=== PATIENT | female | born 1960 | race Caucasian/White ===

== ENCOUNTER 2025-04-02 13:18 | Inpatient (IN) | payer BC, SELFPAY ==
[2025-04-02] VITALS (8 sets, daily range): BP systolic 160–181; BP diastolic 85–111; PULSE 64–117; RESP 16–23; TEMP 36.5–36.9; O2SAT 94–97; BMI 25.8
--- NOTE | 2025-04-02 13:56 | XR_ITS ---
WS: [id number] XR chest 1V portable [id number] REASON FOR EXAM: dizziness FINDINGS: The heart and mediastinum are within normal limits. Calcified granulomatous disease bilaterally. No acute pulmonary parenchymal or pleural abnormality. Mild degenerative spondylosis in the thoracic spine. XR/XR chest 1V portable [id number] IMPRESSION: No acute chest abnormality.
--- NOTE | 2025-04-02 13:56 | CT_ITS ---
WS: [id number] CT HEAD TECHNIQUE: Noncontrast CT of the head obtained from the skullbase to the vertex. CLINICAL INFORMATION: dizziness COMPARISON: None. DLP: 1094.[address] scans at [facility] use at least one of these dose optimization techniques: automated exposure control; mA and/or kV adjustment per patient size (includes targeted exams where dose is matched to clinical indication); or iterative reconstruction. FINDINGS: No evidence of intracranial hemorrhage or mass effect. Ventricular system and basal cisterns are patent. Moderate small vessel changes with moderate parenchymal volume loss. No extra-axial fluid collections. No evidence of mass or mass effect. Chronic appearing small infarct RIGHT cerebellum. Vascular calcification. Paranasal sinuses and mastoid air cells are well aerated. .Normal visualized soft tissues. CT/CT head wo con* [id number] IMPRESSION: 1. No evidence of intracranial hemorrhage or mass effect. 2. Small infarct RIGHT cerebellum appears chronic. 3. Moderate small vessel changes with moderate parenchymal volume loss. 4. Vascular calcification
--- NOTE | 2025-04-02 13:57 | ECG_ITS ---
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
[2025-04-02] MEDS: sodium chloride 0.9% 1,000 ML 999 ML IV (14:16)
[2025-04-02] MEDS: ondansetron 2 mg/ML SDV 2 mL 4 MG IVP (14:16)
[2025-04-02 14:23] LABS: Basophils % 0.5 %; Eosinophils # 0.1 10^3/uL (0.0-0.8); Eosinophils % 1.8 %; Hematocrit 45.3 % (36-47); Lymphocytes # 1.9 10^3/uL (0.8-4.8); Lymphocytes % 24.9 %; Mean Corpuscular HGB Conc 34.4 g/dL (30-55); Mean Corpuscular Hemoglobin 34.7 pg (27-33); Mean Corpuscular Volume 100.7 fl (85-98); Mean Platelet Volume 9.8 fL (7.4-10.4); Monocytes # 0.7 10^3/uL (0.2-0.9); Monocytes % 9.3 %; Neutrophils # 4.88 10^3/uL (1.8-7.7); Neutrophils % 63.1 %; Nucleated Red Blood Cells % 0 %; Platelet Count 159 10^3/cmm (157-399); Red Cell Distribution Width 12.7 % (12.1-15.1); White Blood Count 7.74 10^3/uL (3.29-11.43)
[2025-04-02 14:36] LABS: Lactic Sepsis W/Reflex 1.7 mmol/L (0.5-2.2)
[2025-04-02 14:40] LABS: Bilirubin Urine Negative (Negative); Blood Urine Negative (Negative); Glucose Urine UA Negative (Normal); Ketones Urine Negative (Negative); Leukocyte Esterase Urine Negative (Negative); Nitrate Urine Negative (Negative); Protein Urine Negative (Negative); Specific Gravity, Urine 1.007 (1.005-1.030); Urine Appearance Clear (CLEAR); Urine Color Yellow (Yellow); Urobilinogen Urine 0.2 mg/dL (Negative); pH Urine 6.5 (5-7)
[2025-04-02 14:41] LABS: Troponin(5th) Baseline 7 ng/L (0-10)
[2025-04-02 14:43] LABS: Add Urine Microscopic? YES; Bacteria Urine None Seen /hpf; Hyaline Casts Urine 1.21 /lpf; RBC Urine 0-2 /hpf (0-2); Squamous Epithelial Cell Urine 0-5 /hpf (0-5); WBC Urine 0-5 /hpf (0-5)
[2025-04-02] MEDS: dilTIAZem 5 mg/mL SDV 5 mL 10 MG IVP (14:47)
--- NOTE | 2025-04-02 14:49 | ED_ITS ---
HPI - Nausea/Vomiting/Diarrhea 2 General: Chief complaint: Nausea/Vomiting/Diarrhea Stated complaint: d/n/v Time Seen by Provider: 04/02/25 13:41 History of Present Illness: 54-year-old female presents ER chief com plaint of a 4-day history of progressive dizziness with vertigo patient reports she was out in the sun and when she may contribute to her symptoms she reports reduced water consumption she does endorse prior history of heatstroke heat exhaustion patient reports that the last 3 days she has been so weak it is hard for her to get up with the vertigo and generalized weakness and fatigue patient denies any history of underlying heart issues. Patient denies any recent infections nor illnesses reports no recent fever. Patient does have a known history of high blood pressure reports has been able to keep her meds in down for the last 2 days due to profound nauseous nests. Patient presents to the emergency department for further assessment and management. Associated nausea: No Associated symtoms: Reports dizziness, fatigue and malaise; Denies anxiety, change in vision, chest pain, headache(s), nausea or palpitations Related Data Allergies Allergy/AdvReac Type Severity Reaction Status Date / Time lisinopril Allergy ALGY-Difficulty Verified 04/02/25 13:36 Breathing Review of Systems 2 General: Reports: 10 or more systems reviewed and unremarkable except in HPI and below Const: Reports: fatigue and malaise; Denies: fever(s) or chills Eyes: Denies: change in vision or blurry vision Card: Denies: chest pain or palpitations Resp: Denies: dyspnea or productive cough GI: Denies: abdominal pain, nausea or vomiting : Denies: flank pain Musc: Denies: extremity pain or extremity swelling Skin/Breast: Denies: rash or pruritus Neuro: Reports: difficulty walking, dizziness and vertigo; Denies: headache(s) Psych: Denies: anxiety or depression Pablo/Lymph: Denies: easy bleeding All/Imm: Denies: urticaria, throat swelling or facial swelling Physical Exam 2 Narrative: EXAM NARRATIVE: Heart rate in the monitor in the room is between 120-140. Patient does have some horizontal nystagmus appreciated Const: COMMON NORMALS: no acute distress, patient oriented x3 and healthy appearing HENMT: COMMON NORMALS: normocephalic and atraumatic HEAD & SCALP: n ormocephalic and atraumatic OTHER: Horizontal nystagmus looking to the left Eye: COMMON NORMALS: Equal, round and reactive pupils present and EOMs intact bilaterally PUPIL: Yes Equal, round and reactive pupils present Neck/C-Spine: COMMON NORMALS: full ROM, supple and no JVD Lymph: LYMPHATIC: no lymphadenopathy noted Chest: COMMONS NORMALS: normal inspection of the chest and normal palpation of entire chest wall Resp: COMMON NORMALS: normal respiratory effort, No retractions and clear to auscultation bilaterally EFFORT & INSPECTION: Yes able to speak in complete sentences and Yes symmetric chest movement AUSCULTATION: clear to auscultation bilaterally Cardio: COMMON NORMALS: no JVD and regular rhythm; negative for regular rate RATE: abnormal rate RHYTHM: regular rhythm O THER: Irregular irregular rate running between 120 and 140 GI: COMMON NORMALS: Normal to inspection, nondistended, normoactive bowel sounds present, Soft to palpation and non-tender INSPECTION: Yes normal to inspection PALPATION: Yes Soft to palpation : COMMON NORMALS: Yes no CVA tenderness BLADDER/KIDNEY EXAM: Yes no CVA tenderness Back/Pelvis: COMMON NORMALS: no CVA tenderness Extremity: COMMON NORMALS: normal to inspection and full ROM Neuro: COMMON NORMALS: patient oriented x3, CN's II-XII intact bilaterally, moves all extremities and no focal motor deficits Psych: COMMON NORMALS: mental status grossly normal, Normal thought process present, cooperative and normal affect THOUGHT PROCESS: Normal thought process present Skin: COMMON NORMALS: no rashes or lesions noted GENERAL SKIN EXAM: no rashes or lesions noted Course 2 Vital Signs: Vital signs: Vital Signs Temperature 98.4 F 04/02/25 13:23 Pulse Rate 117 H 04/02/25 14:17 Respiratory Rate 18 04/02/25 14:17 Blood Pressure 171/104 04/02/25 13:23 Pulse Oximetry 95 04/02/25 14:17 Oxygen Delivery Me thod Room Air 04/02/25 13:23 MDM - Nausea/Vomiting/Diarrhea Medical Decision Making Due to patient's symptoms and condition IV established patient has concerning findings suggestive of atrial fibrillation the monitor will get an EKG and additional cardiac workup. Patient on exam does have a horizontal nystagmus while looking to the left and light concerns of peripheral versus central vertigo is prominent. On exam currently patient has no other weakness or focal neurodeficits. Patient's CAT scan did reveal findings suggestive of a chronic stroke in the cerebellar region on the left this can corroborate with the patient's current symptoms. Patient found to be in new onset atrial fibrillation patient initially provided dose of Cardizem followed by Cardizem drip for rate control discussed patient's case with Dr. Bertrand hospitalist has granted acceptance for further evaluation and management CT angiogram of the head and neck will be obtained prior to subsequent admission. Lab Data 04/02/25 14:10 04/02/25 14:10 Radiology Impressions Chest X-Ray 04/02/25 13:56 IMPRESSION: No acute chest abnormality. Head CT 04/02/25 13:56 IMPRESSION: 1. No evidence of intracranial hemorrhage or mass effect. 2. Small infarct RIGHT cerebellum appears chronic. 3. Moderate small vessel changes with moderate parenchymal volume loss. 4. Vascular calcification Laboratory Results WBC 7.74 10^3/uL (3.29-11.43) 04/02/25 14:10 RBC 4.50 10^6/uL (3.85-5.65) 04/02/25 14:10 Hgb 15.60 g/dL (11.27-16.99) 04/02/25 14:10 Hct 45.3 % (36-47) 04/02/25 14:10 MCV 100.7 fl (85-98) H 04/02/25 14:10 MCH 34.7 pg (27-33) H 04/02/25 14:10 MCHC 34.4 g/dL (30-55) 04/02/25 14:10 RDW 12.7 % (12.1-15.1) 04/02/25 14:10 Plt Count 159 10^3/cmm (157-399) 04/02/25 14:10 MPV 9.8 fL (7.4-10.4) 04/02/25 14:10 Neut % (Auto) 63.1 % 04/02/25 14:10 Lymph % (Auto) 24.9 % 04/02/25 14:10 Gordon % (Auto) 9.3 % 04/02/25 14:10 Eos % (Auto) 1.8 % 04/02/25 14:10 Baso % (Auto) 0.5 % 04/02/25 14:10 Neut # (Auto) 4.88 10^3/uL (1.8-7.7) 04/02/25 14:10 Lymph # (Auto) 1.9 10^3/uL (0.8-4.8) 04/02/25 14:10 Gordon # (Auto) 0.7 10^3/uL (0.2-0.9) 04/02/25 14:10 Eos # (Auto) 0.1 10^3/uL (0.0-0.8) 04/02/25 14:10 Baso # (Auto) 0.0 10^3/uL (0.0-0.1) 04/02/25 14:10 Nucleated RBC % (auto) 0 % 04/02/25 14:10 Nucleated RBCs # 0.0 /100WBC 04/02/25 14:10 Sodium 138 mmol/L (136-145) 04/02/25 14:10 Potassium 3.7 mmol/L (3.5-5.1) 04/02/25 14:10 Chloride 100 mmol/L (98-107) 04/02/25 14:10 Carbon Dioxide 24 mmol/L (22-29) 04/02/25 14:10 Anion Gap 17.7 (5-19) 04/02/25 14:10 BUN 10 mg/dL (8-23) 04/02/25 14:10 Creatinine 0.8 mg/dL (0.5-0.9) 04/02/25 14:10 GFR Calculation 72.2 mL/min (90-130) L 04/02/25 14:10 Glucose 103 mg/dL (65-115) 04/02/25 14:10 Calculated Osmolality 285 mOsm/kg (285-295) 04/02/25 14:10 Lactic Acid 1.7 mmol/L (0.5-2.2) 04/02/25 14:10 Calcium 9.8 mg/dL (8.5-10.5) 04/02/25 14:10 Total Bilirubin 0.4 mg/dL (0.15-1.2) 04/02/25 14:10 AST 27 U/L (0-32) 04/02/25 14:10 ALT 25 U/L (0-33) 04/02/25 14:10 Alkaline Phosphatase 96 U/L (35-105) 04/02/25 14:10 Troponin T Baseline 7 ng/L (0-10) 04/02/25 14:10 C-Reactive Protein 3.6 mg/L (0.0-4.9) 04/02/25 14:10 NT-Pro-B Natriuret Pep 478 pg/mL (0-125) H 04/02/25 14:10 Total Protein 7.2 g/dL (6.6-8.7) 04/02/25 14:10 Albumin 4.0 g/dL (3.5-5.2) 04/02/25 14:10 Globulin 3.2 g/dL (1.3-4.6) 04/02/25 14:10 Urine Color Yellow (Yellow) 04/02/25 14:31 Urine Appearance Clear (CLEAR) 04/02/25 14:31 Urine pH 6.5 (5-7) 04/02/25 14:31 Ur Specific Fertile 1.007 (1.005-1.030) 04/02/25 14:31 Urine Protein Negative (Negative) 04/02/25 14:31 Urine Glucose (UA) Negative (Normal) 04/02/25 14:31 Urine Ketones Negative (Negative) 04/02/25 14:31 Urine Blood Negative (Negative) 04/02/25 14:31 Urine Nitrate Negative (Negative) 04/02/25 14:31 Urine Bilirubin Negative (Negative) 04/02/25 14:31 Urine Urobilinogen 0.2 mg/dL (Negative) 04/02/25 14:31 Ur Leukocyte Esterase Negative (Negative) 04/02/25 14:31 Urine RBC 0-2 /hpf (0-2) 04/02/25 14:31 Urine WBC 0-5 /hpf (0-5) 04/02/25 14:31 Ur Squamous Epith Cells 0-5 /hpf (0-5) 04/02/25 14:31 Amorphous Sediment Not Reportable 04/02/25 14:31 Urine Bacteria None seen /hpf (NONE) 04/02/25 14:31 Hyaline Casts 1.21 /lpf 04/02/25 14:31 All radiology interpretation(s) finalized by discharge Discharge Plan Discharge Patient Disposition: Admitted As Inpatient Clinical Impression: CVA (cerebral vascular accident), Atrial fibrillation, new onset Condition: Stable Coding Level of Care Code ED Quality Nurse for Chg Fwd
[2025-04-02] MEDS: meclizine 25 mg tablet PO (15:13)
--- NOTE | 2025-04-02 15:19 | CTR_ITS ---
PROCEDURE INFORMATION: Exam: CTA Head With Contrast, Arteriography Exam date and time: 04/02/2025 4:50 PM Age: 64 years old Clinical indication: Dizziness and giddiness and weakness; Additional info: Subacute CVA TECHNIQUE: Imaging protocol: Computed tomographic angiography of the head with contrast. Exam focused on the arteries. 3D rendering (Not supervised by radiologist): MIP and/or 3D reconstructed images were created by the technologist. Radiation optimization: All CT scans at this facility use at least one of these dose optimization techniques: automated exposure control; mA and/or kV adjustment per patient size (includes targeted exams where dose is matched to clinical indication); or iterative reconstruction. Contrast material: OMNIPAQUE 350; Contrast volume: 100 ml; Contrast route: INTRAVENOUS (IV); COMPARISON: CT head wo con* [id number] 04/02/2025 2:17 PM RADIATION DOSE METRICS: Total DLP (mGy-cm): 414.83 FINDINGS: ANTERIOR CIRCULATION: Right internal carotid artery: There is atherosclerotic calcification in the right carotid siphon with mild stenosis. Right middle cerebral artery: No occlusion or significant stenosis. No aneurysm. Right anterior cerebral artery: No occlusion or significant stenosis. No aneurysm. Left internal carotid artery: There is atherosclerotic calcification in the left cavernous carotid artery with moderate stenosis in the proximal left cavernous carotid artery. Left middle cerebral artery: No occlusion or significant stenosis. No aneurysm. Left anterior cerebral artery: No occlusion or significant stenosis. No aneurysm. POSTERIOR CIRCULATION: Right vertebral artery: The right vertebral artery is small, probably on a congenital basis. Left vertebral artery: Left vertebral artery is dominant. Basilar artery: No occlusion or significant stenosis. No aneurysm. Right posterior cerebral artery: No occlusion or significant stenosis. No aneurysm. Left posterior cerebral artery: No occlusion or significant stenosis. No aneurysm. Brain: No definite mass, mass effect, or midline shift. Cerebral ventricles: No ventriculomegaly. Bones/joints: Unremarkable. No acute fracture. Soft tissues: Unremarkable. PROCEDURE INFORMATION: Exam: CTA Neck With Contrast Exam date and time: 04/02/2025 4:50 PM Age: 64 years old Clinical indication: Dizziness and giddiness and weakness; Additional info: Subacute CVA TECHNIQUE: Imaging protocol: Computed tomographic angiography of the neck with contrast. Exam focused on the cervical segments of the vasculature. 3D rendering (Not supervised by radiologist): MIP and/or 3D reconstructed images were created by the technologist. Radiation optimization: All CT scans at this facility use at least one of these dose optimization techniques: automated exposure control; mA and/or kV adjustment per patient size (includes targeted exams where dose is matched to clinical indication); or iterative reconstruction. Contrast material: OMNIPAQUE 350; Contrast volume: 100 ml; Contrast route: INTRAVENOUS (IV); COMPARISON: CT head wo con* [id number] 04/02/2025 2:17 PM RADIATION DOSE METRICS: Total DLP (mGy-cm): 414.83 FINDINGS: Right common carotid artery: No stenosis. No dissection or occlusion. Right internal carotid artery: There is some focal atherosclerotic calcification proximal right internal carotid artery without stenosis as measured according to the NASCET criteria. Right external carotid artery: No occlusion or stenosis of the origin. Left common carotid artery: No stenosis. No dissection or occlusion. Left internal carotid artery: There is some mild atherosclerotic calcification and plaque proximal left internal carotid artery without stenosis as measured according to the NASCET criteria. Left external carotid artery: No occlusion or stenosis of the origin. Right vertebral artery: No stenosis. No dissection or occlusion. Left vertebral artery: Left vertebral artery is dominant. No stenosis. No dissection or occlusion. Soft tissues: Normal. No significant soft tissue swelling. Bones/joints: No acute fracture. CT/CT angio headneck* [id number] IMPRESSION: There is no intracranial large vessel occlusion. IMPRESSION: There is no evidence of significant stenosis or occlusion in the carotid or vertebral arteries in the neck. REFERENCES: NASCET CRITERIA. The degree of stenosis in the cervical segment of the internal carotid artery is based on NASCET criteria. Normal is no stenosis. Mild is less than 50% stenosis. Moderate is 50-69% stenosis. Severe is 70% to 99% stenosis. Total occlusion is no detectable patent lumen.
[2025-04-02 15:21] LABS: Alanine Aminotransferase 25 U/L (0-33); Alkaline Phosphatase 96 U/L (35-105); Anion Gap 17.7 (5-19); Aspartate Amino Transferase 27 U/L (0-32); Blood Urea Nitrogen 10 mg/dL (8-23); C Reactive Protein 3.6 mg/L (0.0-4.9); Calcium 9.8 mg/dL (8.5-10.5); Carbon Dioxide 24 mmol/L (22-29); Chloride 100 mmol/L (98-107); Creatinine Clr Calc Pharmacy 77.5922; Globulin 3.2 g/dL (1.3-4.6); Glomerular Filtration Rate 72.2 mL/min (90-130); Glucose 103 mg/dL (65-115); NT Pro B Type Natriuretic Pept 478 pg/mL (0-125); Osmolality Calculated 285 mOsm/kg (285-295); Potassium 3.7 mmol/L (3.5-5.1); Sodium 138 mmol/L (136-145); Total Bilirubin 0.4 mg/dL (0.15-1.2); Total Protein 7.2 g/dL (6.6-8.7)
--- NOTE | 2025-04-02 15:57 | ECG_ITS ---
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
--- NOTE | 2025-04-02 16:02 | PM.HP ---
Providers/Chief Complaint Chief Complaint: d/n/v History of Present Illness Celsa Ruiz is a 64 year old female with past medical history of anemia requiring 2 units of blood transfusion no apparent cause found on EGD colonoscopy, hypertension, depression presented to the hospital today after feeling dizzy lightheaded. She has been having nausea vomiting and has felt off balance. She states everything was okay and she was on the boat Saturday/Saturday and it was hot outside. She did not drink enough water but drank a lot of alcohol. Saturday she was in the laundry room and bent over to slat pickler the clothes and immediately felt dizzy and the room was spinning. She crawled onto the couch and sat down. She felt very dehydrated. She has had a history of a stroke in the past. She realized she was dehydrated and therefore tried to drink 2 bottles of Pedialyte however would not tolerate any oral intake and immediately vomited. She felt something was not right and therefore came to the hospital. He states he thinks he may have had a history of A-fib in the past he says the visit at the hospital when she received blood transfusions she was told that her heart rate is not regular however no workup was done no referrals were made and she was given her blood transfusion. Thereafter she states that she did not seek any medical attention. May or may not have had an echo in the past. In ER she was found to be in A-fib with RVR. She was given Cardizem push and started on Cardizem drip. There was also concern for stroke however due to symptom onset being a few days prior stroke code was not called. CT head shows No evidence of intracranial hemorrhage or mass effect. Chronic small infarct in right cerebellar area noted appearing to be chronic. CTA head and neck is pending. Able to move all 4 extremities no facial droop noted. She states she was able to walk into the ER on her own. Medications/Allergies Home Medications ?Medication ?Instructions ?Recorded ?Confirmed ?Last Taken ?Type atenolol 100 mg tablet 100 mg PO DAILY 04/02/25 04/02/25 03/31/25 History folic acid 1 mg tablet 1 mg PO DAILY 04/02/25 04/02/25 03/31/25 History furosemide 20 mg tablet 20 mg PO DAILY 04/02/25 04/02/25 03/31/25 History hydroxyzine pamoate 25 mg capsule 25 mg PO BEDTIME PRN Anxiety 04/02/25 04/02/25 Unknown History mirtazapine 30 mg tablet 60 mg PO BEDTIME 04/02/25 04/02/25 04/01/25 20:00 History venlafaxine 150 mg tablet,extended 300 mg PO BEDTIME 04/02/25 04/02/25 04/01/25 20:00 History release 24 hr Allergies Allergy/AdvReac Type Severity Reaction Status Date / Time lisinopril Allergy ALGY-Difficulty Verified 04/02/25 13:36 Breathing Vitals/I&O/Wt Last Vital Signs Temp 98.4 F 04/02/25 13:23 Pulse 117 H 04/02/25 14:17 Resp 18 04/02/25 14:17 BP 171/104 04/02/25 13:23 Pulse Ox 95 04/02/25 14:17 O2 Del Method Room Air 04/02/25 13:23 04/02/25 04/02/25 04/02/25 06:59 14:59 22:59 Intake Total 0 / 0 Balance 0 / 0 Weight last 48 hrs Weight 77.111 kg Physical Exam Narrative: General: Alert oriented x3, patient seen sitting up in bed appearing comfortable currently on Cardizem drip. HEENT: Normocephalic, atraumatic, EOMI, breathing room air. Tachycardic hypertensive. Cardio: Irregularly irregular normal S1-S2, Respiratory: Clear to auscultation bilaterally GI: Abdomen soft, nontender, nondistended, bowel sounds + Extremities: No edema bilateral extremities Neuro: No gross focal deficits., Gait not tested. Data 04/02/25 14:10 04/02/25 14:10 A&P Assessment and plan (1) Atrial fibrillation, new onset: (2) CVA (cerebral vascular accident): (3) Depression: (4) Hypertension: (5) History of anemia: (6) Dehydration: (7) Nausea & vomiting: (8) History of heat stroke: Plan #New onset atrial fibrillation with RVR #Dehydration #Hypertensive urgency #Depression #Nausea vomiting #Vertigo, unsteadiness/possible stroke? Chronic right cerebellar infarct noted on CT head ? Await 2 over 3-hour troponin. Initial troponin 12. ? Check CTA head and neck ? Check MRI brain without contrast ? Patient is well out of window for any tPA at this point. ? Continue titrate Cardizem drip for heart rate control ? Cardiology consulted from the ER ? Check lipid panel, TSH, hemoglobin A1c ? Patient is on Lasix at home for which she states that she was given that for high blood pressure and not for heart failure. She does not carry a formal diagnosis of heart failure. ? Check echocardiogram. - Order normal saline 75 cc/h ? Patient takes atenolol 100 mg daily at home. Will hold for now ? Await cardiology recommendations ? Will place on heparin drip to cover for atrial fibrillation ? PT OT ? Patient would like to be a full code. ? Add aspirin, atorvastatin Full code DVT prophylaxis: Heparin drip PDMP PDMP Reviewed: Not Reviewed Attestations Medical Necessity Statement*: Atrial fibrillation with RVR which is new onset patient is on a Cardizem drip at this time. Also needs a stroke workup. Diagnoses Atrial fibrillation, new onset I48.91 CVA (cerebral vascular accident) I63.9 CVA mechanism: unspecified Depression F32.A Hypertension I10 History of anemia Z86.2 Dehydration E86.0 Nausea & vomiting R11.2 History of heat stroke Z87.828
--- NOTE | 2025-04-02 16:03 | PC.NURSE ---
Addendum entered by Aide Benítez RN 04/02/25 16:26: correction; normal saline* instead of LR Original Note: maintenance fluids delayed d/t LR currently infusing at this time
[2025-04-02 16:24] LABS: Troponin 5 2HR 7.55 ng/L (0-10); Troponin 5 2HR Delta 0.55 ABS# (0-10)
[2025-04-02] MEDS: sodium chloride 0.9% 1,000 ML 75 ML IV (16:34)
[2025-04-02 16:36] LABS: Estmated Average Glucose 117; Hemoglobin A1C 5.7 % (4.0-6.0)
[2025-04-02 16:52] LABS: Chol HDL Ratio 3.34 mg/dL (0.0-4.40); Cholesterol 187 mg/dL (0-200); HDL Cholesterol 56 mg/dL (60-100); LDL Cholesterol Calculated 95 mg/dL (50-129); Thyroid Stimulating Hormone 2.21 uIU/mL (0.27-4.20); Triglycerides 181 mg/dL (0-150)
[2025-04-02] MEDS: iohexol 350 mg/mL 500 mL Btl (per mL) IV (17:01)
--- NOTE | 2025-04-02 17:45 | USCV_ITS ---
Sara Celsa Age: 64 Gender: F : 1960 Exam Date: 04/02/2025 18:41 Ordering Phys: Valerie Bertrand MD Technologist: João Echols [place] [facility] [place]ication: stroke workup, afib BP: 172 / 85 HR: 81 Rhythm: Sinus Technical Quality: Adequate MEASUREMENTS (Male / Female) Normal Values 2D ECHO LV Diastolic Diameter PLAX 4.2 cm 4.2 - 5.9 / 3.9 - 5.3 cm IVS Diastolic Thickness 1.5 cm 0.6 - 1.0 / 0.6 - 0.9 cm IVS Systolic Thickness 1.7 cm LVPW Diastolic Thickness 1.0 cm 0.6 - 1.0 / 0.6 - 0.9 cm LVPW Systolic Thickness 1.5 cm LVOT Diameter 2.0 cm LV Ejection Fraction 2D Teich 60.8 % LV Ejection Fraction MOD 4C 63.4 % LV Ejection Fraction MOD 2C 51.7 % LV Ejection Fraction 2C AL 52.4 % LA Diameter 3.3 cm RA Systolic Volume 4C AL 21.5 ml RA Systolic Volume 4C MOD 21.3 ml LA Sys Volume AL 25.7 cm cubed LA Sys Volume Index AL 13.3 cm cubed/m squared Aorta at Sinotubular Diameter 2.3 cm IVC Diameter 1.5 cm M-MODE LA Ao Ratio MM 1.7 AV Cusp Separation MM 1.4 cm DOPPLER AV Peak Velocity 148.3 cm/s LVOT Peak Velocity 112.0 cm/s AV Area Cont Eq vti 2.1 cm squared AV Area Cont Eq pk 2.4 cm squared MV Peak Velocity 95.0 cm/s MV Area PHT 5.2 cm squared Mitral E to A Ratio 0.7 TR Peak Velocity 329.0 cm/s TR Peak Gradient 43.3 mmHg TR Mean Velocity 310.0 cm/s TR Mean Gradient 38.8 mmHg TR Velocity Time Integral 88.3 cm PV Peak Velocity 92.0 cm/s RV Ejection Time 0.3 s FINDINGS Left Ventricle Normal left ventricular size, systolic function and wall thickness, with no regional wall motion abnormalities. Left ventricular ejection fraction is estimated at 60%. Grade I/IV diastolic dysfunction (abnormal relaxation filling pattern), normal to mildly elevated filling pressures. Right Ventricle The right ventricle is normal in size and function. Right Atrium The right atrium is normal in size. Left Atrium The left atrium is normal in size. Mitral Valve Moderately thickened mitral valve. Mild mitral annular calcification. No mitral valve stenosis. Trace mitral valve regurgitation. Aortic Valve Moderate aortic valve calcification. No aortic valve stenosis. Trace aortic valve regurgitation. Tricuspid Valve Structurally normal tricuspid valve without significant stenosis or regurgitation. Pulmonary artery systolic pressure is normal. Pulmonic Valve Structurally normal pulmonic valve without significant stenosis. There is no pulmonic regurgitation. Pericardium Small pericardial effusion. Aorta Normal ascending aorta dimension. IVC The inferior vena cava appears normal. CONCLUSIONS Normal left ventricular size, systolic function and wall thickness, with no regional wall motion abnormalities. Left ventricular ejection fraction is estimated at 60%. Grade I/IV diastolic dysfunction (abnormal relaxation filling pattern), normal to mildly elevated filling pressures. No significant valve abnormalities. There is no pericardial effusion. Right atrial pressure is around 5 mm of mercury. Duyen Fuentes MD (Electronically Signed) Final Date: 02 April 2025 20:40 S
[2025-04-02] MEDS: heparin 5,000 unit/mL INJ 1 mL IVP (18:05)
[2025-04-02] MEDS: heparin drip 25,000 UNIT/500 ML PREMIX 22 UNIT IV (18:14)
[2025-04-02] MEDS: dilTIAZem 100 MG in sodium chloride 0.9% (add-van) 100 ML IV (19:30)
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
[2025-04-02] MEDS: acetaminophen 325 mg Tablet 650 MG PO (21:44)
[2025-04-02] MEDS: atorvastatin 40 mg Tablet 80 MG PO (21:44)
[2025-04-02] MEDS: venlafaxine ER (24HR) 150 mg Capsule 300 MG PO (21:44)
[2025-04-02] MEDS: metoprolol tartrate 25 mg Tablet PO (21:45)
[2025-04-02] MEDS: mirtazapine 30 mg Tablet 60 MG PO (21:45)
[2025-04-03] VITALS (34 sets, daily range): BP systolic 160–208; BP diastolic 66–98; PULSE 59–118; RESP 15–28; TEMP 36.3–36.9; O2SAT 94–98
[2025-04-03 00:53] LABS: Partial Thromboplastin Time 73.5 SECONDS (23.9-36.7)
[2025-04-03] MEDS: dilTIAZem 100 MG in sodium chloride 0.9% (add-van) 100 ML IV (04:40)
[2025-04-03] MEDS: sodium chloride 0.9% 1,000 ML 75 ML IV ×2 (04:41→18:04)
[2025-04-03] MEDS: acetaminophen 325 mg Tablet 650 MG PO (05:49)
[2025-04-03 06:31] LABS: Partial Thromboplastin Time 79.8 SECONDS (23.9-36.7)
[2025-04-03] MEDS: metoprolol tartrate 25 mg Tablet PO ×2 (06:38→20:59)
[2025-04-03] MEDS: heparin drip 25,000 UNIT/500 ML PREMIX 20 UNIT IV (06:40)
[2025-04-03] MEDS: aspirin 81 mg EC Tablet PO (07:23)
--- NOTE | 2025-04-03 09:00 | MRR_ITS ---
PROCEDURE INFORMATION: Exam: MR Head Without Contrast Exam date and time: 04/03/2025 9:15 AM Age: 64 years old Clinical indication: Dizziness and malaise or fatigue and walking, difficulty and weakness, extremity; Additional info: Stroke TECHNIQUE: Imaging protocol: Magnetic resonance imaging of the head without contrast. COMPARISON: CT angio headneck* [id number] 04/02/2025 4:50 PM FINDINGS: Brain: There is prominence of the subarachnoid spaces compatible with atrophy. No extra-axial fluid collections or masses are noted. There are small-vessel ischemic change within the periventricular and subcortical white matter. There appears to be an old infarct involving the field radiata on the right.There are small focal areas of diffusion restriction within the right cerebellar hemisphere and to a lesser degree the left cerebellar hemisphere and left cerebellar peduncle. No intracranial hemorrhage is appreciated. Cerebral ventricles: Normal. No ventriculomegaly. Bones: Unremarkable. Paranasal sinuses: Normal as visualized. No acute sinusitis. Mastoid air cells: Normal as visualized. No mastoid effusion. Orbital cavities: Unremarkable. Soft tissues: Unremarkable. MR/MR head wo con* [id number] IMPRESSION: 1. Acute appearing infarcts involving the right and left cerebellar hemispheres as well as the left cerebellar peduncle. 2. Atrophy with small-vessel ischemic change.
[2025-04-03] MEDS: LORazepam 2 mg/mL INJ 1 mL 1 MG IVP (09:01)
--- NOTE | 2025-04-03 09:11 | PC.NURSE ---
Patient taken to MRI. Screening completed. Medicated patient for claustrophobia as ordered and documented.
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
[2025-04-03] MEDS: thiamine 100 mg Tablet PO (11:35)
--- NOTE | 2025-04-03 13:16 | PC.PT ---
Therapist attempted eval at 11:36 and again at 13:10 and patient reported that she was too woozy to attempt due to taking Adivan prior to MRI this am.
[2025-04-03 13:47] LABS: Platelet Count 136 10^3/cmm (157-399)
[2025-04-03 14:00] LABS: Partial Thromboplastin Time 50.9 SECONDS (23.9-36.7)
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
[2025-04-03] MEDS: heparin drip 25,000 UNIT/500 ML PREMIX 22 UNIT IV (18:04)
--- NOTE | 2025-04-03 20:04 | P.PN_ITS ---
Subjective 2 Subjective: MRI was consistent with cerebellar stroke Converted back to sinus rhythm Blood pressure is elevated Vitals/I&O/Wt Last Vital Signs Temp 98.4 F 04/03/25 19:56 Pulse 75 04/03/25 19:56 Resp 19 H 04/03/25 19:56 BP 193/98 04/03/25 19:56 Pulse Ox 97 04/03/25 19:56 O2 Del Method Room Air 04/03/25 19:56 04/03/25 04/03/25 04/03/25 06:59 14:59 22:59 Intake Total 1602.083 / 2609.583 480 / 480 1653 / 2133 Output Total 300 / 300 Balance 1602.083 / 2609.583 480 / 480 1353 / 1833 Weight last 48 hrs Weight 176 lb 6.4 oz Weight 170 lb Weight 170 lb Physical Exam 2 Const: OTHER: GENERAL: Patient is alert, awake and oriented x3. HEART: Regular S1 and S2. No murmur, rub or gallop. LUNGS: Clear to auscultate bilaterally. CENTRAL NERVOUS SYSTEM: Grossly nonfocal. EXTREMITIES: Lower extremities with out edema bilaterally. Data 04/03/25 13:08 04/02/25 14:10 A&P Assessment and plan (1) Atrial fibrillation, new onset: (2) Hypertension: (3) CVA (cerebral vascular accident): Plan Remains in sinus rhythm Add losartan 50 mg twice daily for hypertension uncontrolled Hydralazine 10 mg Q4 as needed for systolic blood pressure more than 160 Once okay with neurology oral anticoagulation for A-fib. PDMP PDMP Reviewed: Not Reviewed Attestations 2 Medical Necessity Statement*: Require continuation hospitalization for above defined care Coding Level of Care Code Acute Code for [facility] Fwd Diagnoses Atrial fibrillation, new onset I48.91 Hypertension I10 CVA (cerebral vascular accident) I63.9 CVA mechanism: unspecified
[2025-04-03] MEDS: losartan 50 mg Tablet PO (20:59)
[2025-04-03] MEDS: atorvastatin 40 mg Tablet 80 MG PO (21:00)
[2025-04-03] MEDS: mirtazapine 30 mg Tablet 60 MG PO (21:01)
[2025-04-03] MEDS: venlafaxine ER (24HR) 150 mg Capsule 300 MG PO (21:01)
[2025-04-03 22:25] LABS: Partial Thromboplastin Time 64.7 SECONDS (23.9-36.7)
[2025-04-03 22:26] LABS: Basophils # 0.1 10^3/uL (0.0-0.1); Basophils % 0.8 %; Eosinophils # 0.1 10^3/uL (0.0-0.8); Hematocrit 37.6 % (36-47); Lymphocytes # 2.2 10^3/uL (0.8-4.8); Lymphocytes % 33.5 %; Mean Corpuscular HGB Conc 34.8 g/dL (30-55); Mean Corpuscular Hemoglobin 34.1 pg (27-33); Mean Corpuscular Volume 97.9 fl (85-98); Mean Platelet Volume 10.6 fL (7.4-10.4); Monocytes # 0.6 10^3/uL (0.2-0.9); Monocytes % 9.8 %; Neutrophils % 53.6 %; Nucleated Red Blood Cells % 0 %; Platelet Count 135 10^3/cmm (157-399); Red Blood Count 3.84 10^6/uL (3.85-5.65); Red Cell Distribution Width 12.7 % (12.1-15.1); White Blood Count 6.53 10^3/uL (3.29-11.43)
[2025-04-03 22:33] LABS: Anion Gap 13.7 (5-19); Blood Urea Nitrogen 9 mg/dL (8-23); Calcium 9.4 mg/dL (8.5-10.5); Carbon Dioxide 26 mmol/L (22-29); Chloride 100 mmol/L (98-107); Creatinine Clr Calc Pharmacy 90.1652; Glomerular Filtration Rate 84.2 mL/min (90-130); Glucose 99 mg/dL (65-115); Osmolality Calculated 281 mOsm/kg (285-295); Potassium 3.7 mmol/L (3.5-5.1); Sodium 136 mmol/L (136-145)
[2025-04-03] MEDS: hyDRALAzine 20 mg/mL INJ 1 mL 10 MG IVP (23:23)
[2025-04-04] VITALS (43 sets, daily range): BP systolic 127–208; BP diastolic 84–141; PULSE 70–162; RESP 15–28; TEMP 36.5–36.7; O2SAT 91–98
[2025-04-04] MEDS: nitroglycerin drip 50 MG/250 ML PREMIX IV (02:42)
[2025-04-04 04:36] LABS: Basophils # 0.1 10^3/uL (0.0-0.1); Basophils % 0.6 %; Eosinophils # 0.1 10^3/uL (0.0-0.8); Eosinophils % 1.8 %; Lymphocytes % 25.5 %; Mean Corpuscular HGB Conc 33.3 g/dL (30-55); Mean Corpuscular Hemoglobin 33.7 pg (27-33); Mean Corpuscular Volume 101.4 fl (85-98); Mean Platelet Volume 10.6 fL (7.4-10.4); Monocytes # 0.8 10^3/uL (0.2-0.9); Monocytes % 9.9 %; Neutrophils # 4.77 10^3/uL (1.8-7.7); Neutrophils % 61.7 %; Nucleated Red Blood Cells % 0 %; Platelet Count 150 10^3/cmm (157-399); Red Blood Count 4.24 10^6/uL (3.85-5.65); Red Cell Distribution Width 12.5 % (12.1-15.1); White Blood Count 7.74 10^3/uL (3.29-11.43)
[2025-04-04 04:50] LABS: Anion Gap 14.3 (5-19); Blood Urea Nitrogen 7 mg/dL (8-23); Calcium 9.7 mg/dL (8.5-10.5); Carbon Dioxide 26 mmol/L (22-29); Chloride 101 mmol/L (98-107); Creatinine Clr Calc Pharmacy 104.5958; Glomerular Filtration Rate 100.6 mL/min (90-130); Glucose 110 mg/dL (65-115); Magnesium 1.5 mg/dL (1.7-2.3); Osmolality Calculated 285 mOsm/kg (285-295); Partial Thromboplastin Time 72.1 SECONDS (23.9-36.7); Potassium 3.3 mmol/L (3.5-5.1); Sodium 138 mmol/L (136-145)
[2025-04-04] MEDS: sodium chloride 0.9% 1,000 ML 75 ML IV ×2 (06:18→20:55)
[2025-04-04] MEDS: hyDRALAzine 20 mg/mL INJ 1 mL 10 MG IVP (06:20)
[2025-04-04] MEDS: acetaminophen 325 mg Tablet 650 MG PO (07:07)
[2025-04-04] MEDS: thiamine 100 mg Tablet PO (07:07)
[2025-04-04] MEDS: metoprolol tartrate 25 mg Tablet PO (07:07)
[2025-04-04] MEDS: aspirin 81 mg EC Tablet PO (07:07)
[2025-04-04] MEDS: losartan 50 mg Tablet PO ×2 (07:08→17:13)
--- NOTE | 2025-04-04 07:27 | PC.NURSE ---
Patient's heart elevated this morning and back in afib and was started on nitro drip. She is c/o severe headache since drip started. Medicated for headache and gave am meds early for BP and HR. Patient is also very anxious and agitated this morning. Informed Dr Bertrand of patient condition.
--- NOTE | 2025-04-04 09:04 | P.PN_ITS ---
Subjective 2 Subjective: The patient had a difficult time overnight with feeling more agitated and not being able to sleep. She had a headache from the nitro drip. They were able to titrate it down some and give Tylenol that helped with her headache. The patient feels like her symptoms of weakness have improved overall. She is able to get herself to the bedside commode without difficulty. She has not been up with physical therapy yet. Occupational Therapy did not feel that she needed further intervention at this time. The patient admits to drinking 3-4 drinks per night on average. She has not had anything to drink since Saturday of last week. Nursing staff wonders if some of her elevated blood pressures may be related. Vitals/I&O/Wt Last Vital Signs Temp 98.0 F 04/04/25 07:55 Pulse 140 H 04/04/25 07:55 Resp 18 04/04/25 07:55 BP 164/103 04/04/25 07:55 Pulse Ox 96 04/04/25 07:55 O2 Del Method Room Air 04/04/25 07:55 04/03/25 04/04/25 04/04/25 22:59 06:59 14:59 Intake Total 1653 / 2133 931.325 / 3064.325 4.0 / 4.0 Output Total 300 / 300 1000 / 1000 Balance 1353 / 1833 931.325 / 2764.325 -996.0 / -996.0 Weight last 48 hrs Weight 174 lb 3.2 oz Weight 176 lb 6.4 oz Weight 170 lb Weight 170 lb Physical Exam 2 Narrative: General: Alert and oriented x 3. In no acute distress. Eyes: PERRLA, EOM intact, no discharge. Mouth: No erythema or tonsilar enlargement. No masses noted. Neck: No thyromegaly. No lymphadenopathy. Heart: Regular rate and rhythm. No murmurs. Lungs: Decreased air entry bilaterally. Clear to auscultation bilaterally. No wheezes, rales or ronchi. Abdomen: Soft, non-tender. No hepatosplenomegaly. Extremities: No pitting edema. Neuro: Cranial nerves II through XII intact without significant weakness in the bilateral upper or lower extremities. Alternating hand movements and [id number] testing is normal. Data 04/04/25 04:01 04/04/25 04:01 A&P Assessment and plan (1) CVA (cerebral vascular accident): The patient had a cerebellar stroke and her symptoms seem to be improving at this time. She has limited deficits noted at this point. Physical therapy will evaluate the patient. We will continue with a heparin drip and plan to transition to Eliquis as an outpatient. I appreciate neurology's consultation with this patient. (2) Hypertension: The patient's blood pressures have been significantly elevated and have been worsening over the last couple of days. She has been started on losartan by cardiology and she is on metoprolol. She was started on a nitro drip overnight and her blood pressures are down in the 160 systolic. It is certainly possible that this could be related to alcohol use as well. I have started this CIWA protocol and we will evaluate to see if Ativan can be helpful with her blood pressure as well. She was more agitated overnight. I will add back hydroxyzine to take at bedtime as well. (3) Hypokalemia: We will replace by mouth. Recheck tomorrow. (4) Hypomagnesemia: We will recheck tomorrow and replace by mouth today. (5) Alcohol use: The patient will need to work on cutting back on alcohol and potentially quitting altogether. She has been given thiamine. We will initiate the CIWA protocol as she is showing signs of possible complications related to this. (6) Atrial fibrillation, new onset: The patient has new onset atrial fibrillation and is currently on the heparin drip. Her echocardiogram did not show signs of a blood clot. She will likely switch to Eliquis upon discharge. I appreciate cardiology's consultation with this patient. PDMP PDMP Reviewed: Not Reviewed Attestations 2 Medical Necessity Statement*: The patient continues to need inpatient therapy as we work on managing her hypertension and atrial fibrillation. Her stay will cross 2 midnights. Coding Level of Care Code Acute Code for [facility] Diagnoses CVA (cerebral vascular accident) I63.9 CVA mechanism: unspecified Hypertension I10 Hypokalemia E87.6 Hypomagnesemia E83.42 Alcohol use F10.90 Atrial fibrillation, new onset I48.91
[2025-04-04] MEDS: folic acid 1 mg Tablet PO (09:14)
[2025-04-04] MEDS: LORazepam 2 mg Tablet 0.5 MG PO ×2 (09:14→20:36)
[2025-04-04] MEDS: potassium chloride ER 20 mEq Tablet 40 MEQ PO (09:14)
[2025-04-04] MEDS: magnesium oxide 400 mg tablet PO ×2 (09:14→17:13)
[2025-04-04] MEDS: multivitamin therapeutic Tablet 1 TAB PO (09:14)
[2025-04-04 10:36] LABS: Partial Thromboplastin Time 58.1 SECONDS (23.9-36.7)
[2025-04-04] MEDS: amiodarone 150 MG/100 ML PREMIX 400 MG IV (13:14)
[2025-04-04] MEDS: amiodarone 200 mg Tablet 400 MG PO ×2 (14:48→20:24)
--- NOTE | 2025-04-04 15:31 | P.PN_ITS ---
Subjective 2 Subjective: Patient went back into A-fib this morning Blood pressure got under control after nitro drip in the night Vitals/I&O/Wt Last Vital Signs Temp 97.9 F 04/04/25 11:37 Pulse 90 04/04/25 15:15 Resp 23 H 04/04/25 15:15 BP 138/93 04/04/25 15:15 Pulse Ox 94 04/04/25 15:15 O2 Del Method Room Air 04/04/25 11:37 04/04/25 04/04/25 04/04/25 06:59 14:59 22:59 Intake Total 931.325 / 3064.325 849.95 / 849.95 Output Total 1300 / 1300 Balance 931.325 / 2764.325 -450.05 / -450.05 Weight last 48 hrs Weight 174 lb 3.2 oz Weight 176 lb 6.4 oz Weight 170 lb Physical Exam 2 Const: OTHER: GENERAL: Patient is alert, awake and oriented x3. HEART: Regular S1 and S2. No murmur, rub or gallop. LUNGS: Clear to auscultate bilaterally. CENTRAL NERVOUS SYSTEM: Grossly nonfocal. EXTREMITIES: Lower extremities with out edema bilaterally. Data 04/04/25 04:01 04/04/25 04:01 A&P Assessment and plan (1) Atrial fibrillation, new onset: (2) Hypertension: (3) CVA (cerebral vascular accident): Plan Switch patient to amiodarone since patient is back in A-fib with RVR it appeared to me that patient has paroxysmal A-fib and not staying in the rhythm Switch from metoprolol to carvedilol for better blood pressure control Switch patient to p.o. apixaban and discontinue heparin Continue losartan 50 mg twice daily Hydralazine IV for systolic blood pressure more than 160 Continue to monitor for alcohol withdrawal with CIWA protocol PDMP PDMP Reviewed: Not Reviewed Attestations 2 Medical Necessity Statement*: Patient require continuation hospitalization for above defined care. Coding Level of Care Code Acute Code for [facility] Fwd Diagnoses Atrial fibrillation, new onset I48.91 Hypertension I10 CVA (cerebral vascular accident) I63.9 CVA mechanism: unspecified
[2025-04-04] MEDS: carvedilol 6.25 mg Tablet PO (15:59)
[2025-04-04] MEDS: heparin drip 25,000 UNIT/500 ML PREMIX 22 UNIT IV (15:59)
[2025-04-04 16:59] LABS: Partial Thromboplastin Time 69.5 SECONDS (23.9-36.7)
[2025-04-04] MEDS: mirtazapine 30 mg Tablet 60 MG PO (20:24)
[2025-04-04] MEDS: atorvastatin 40 mg Tablet 80 MG PO (20:24)
[2025-04-04] MEDS: venlafaxine ER (24HR) 150 mg Capsule 300 MG PO (20:25)
[2025-04-05] VITALS (12 sets, daily range): BP systolic 128–189; BP diastolic 76–110; PULSE 82–102; RESP 18–28; TEMP 36.8–38.5; O2SAT 94–98
[2025-04-05] MEDS: hyDROXYzine 25 mg Capsule PO ×2 (01:58→09:10)
[2025-04-05] MEDS: hyDRALAzine 20 mg/mL INJ 1 mL 10 MG IVP (03:48)
[2025-04-05] MEDS: acetaminophen 325 mg Tablet 650 MG PO ×2 (04:41→17:48)
[2025-04-05 04:44] LABS: Basophils % 0.4 %; Eosinophils # 0.1 10^3/uL (0.0-0.8); Eosinophils % 1.1 %; Hematocrit 41.6 % (36-47); Lymphocytes # 0.7 10^3/uL (0.8-4.8); Lymphocytes % 8.5 %; Mean Corpuscular HGB Conc 33.2 g/dL (30-55); Mean Corpuscular Hemoglobin 33.8 pg (27-33); Monocytes # 0.6 10^3/uL (0.2-0.9); Monocytes % 7.7 %; Neutrophils # 6.55 10^3/uL (1.8-7.7); Neutrophils % 81.8 %; Nucleated Red Blood Cells % 0 %; Platelet Count 116 10^3/cmm (157-399); Red Blood Count 4.08 10^6/uL (3.85-5.65); Red Cell Distribution Width 12.9 % (12.1-15.1); White Blood Count 8.01 10^3/uL (3.29-11.43)
[2025-04-05 05:01] LABS: Partial Thromboplastin Time 44.8 SECONDS (23.9-36.7)
[2025-04-05] MEDS: heparin 5,000 unit/mL INJ 1 mL IVP (05:41)
[2025-04-05 06:20] LABS: Alanine Aminotransferase 17 U/L (0-33); Albumin Level 3.6 g/dL (3.5-5.2); Alkaline Phosphatase 102 U/L (35-105); Aspartate Amino Transferase 16 U/L (0-32); Blood Urea Nitrogen 8 mg/dL (8-23); Calcium 8.6 mg/dL (8.5-10.5); Carbon Dioxide 20 mmol/L (22-29); Chloride 102 mmol/L (98-107); Creatinine Clr Calc Pharmacy 90.7466; Globulin 2.6 g/dL (1.3-4.6); Glomerular Filtration Rate 84.2 mL/min (90-130); Glucose 114 mg/dL (65-115); Magnesium 1.4 mg/dL (1.7-2.3); Osmolality Calculated 277 mOsm/kg (285-295); Sodium 134 mmol/L (136-145); Total Bilirubin 0.7 mg/dL (0.15-1.2); Total Protein 6.2 g/dL (6.6-8.7)
--- NOTE | 2025-04-05 06:24 | PC.NURSE ---
0546- Notified Dr. Lowery about hoigh BP after receiving IVP hydralazine and pain medication. Awaiting response. 619-Notified Dr. Lowery about BP still being elevated in the 170's despite IVP hydralazine and pain being treated. Per Dr. Lowery recheck BP at 0630. Clarified with MD that hydralazine was given around 0400 and it still is elevated, was advised to recheck at 0630.
[2025-04-05] MEDS: losartan 50 mg Tablet PO ×2 (09:06→17:49)
[2025-04-05] MEDS: carvedilol 6.25 mg Tablet PO ×2 (09:06→17:49)
[2025-04-05] MEDS: multivitamin therapeutic Tablet 1 TAB PO (09:06)
[2025-04-05] MEDS: amiodarone 200 mg Tablet 400 MG PO ×2 (09:06→21:50)
[2025-04-05] MEDS: thiamine 100 mg Tablet PO (09:06)
[2025-04-05] MEDS: magnesium oxide 400 mg tablet PO ×2 (09:06→17:49)
[2025-04-05] MEDS: folic acid 1 mg Tablet PO (09:06)
[2025-04-05] MEDS: aspirin 81 mg EC Tablet PO (09:07)
[2025-04-05] MEDS: amlodipine 10 mg Tablet PO (09:09)
[2025-04-05 09:36] LABS: Iron 120 ug/dL (37-145); Percent Saturation 50.6 % (20-50); Total Iron Binding Capacity 237 mcg/dl; Unsaturated Iron Binding 117 ug/dL (112-347)
[2025-04-05 09:50] LABS: Vitamin B12 281 pg/mL (232-1245)
--- NOTE | 2025-04-05 10:17 | P.PN_ITS ---
<Statement entered by Duyen Fuentes MD - 04/06/25 17:47> Patient was evaluated and cared for in conjunction with an advanced practice practitioner. I personally examined the patient and reviewed the chart and all pertinent data including imaging, telemetry, and laboratory results. I discussed the patient in detail with the advanced practice practitioner. Please see their note for complete H&P testing result and agreed upon plan of care for the patient. Subjective 2 Subjective: Patient doing well this morning with no complaints. No signs or symptoms of residual stroke per patient so far. She is currently getting Eliquis 5 twice daily. Amlodipine 10 mg daily has been added to help adjust her blood pressure. She is currently on amiodarone 400 twice daily. Vitals/I&O/Wt Last Vital Signs Temp 98.3 F 04/05/25 08:00 Pulse 95 04/05/25 08:00 Resp 18 04/05/25 08:00 BP 177/107 04/05/25 09:06 Pulse Ox 98 04/05/25 08:00 O2 Del Method Room Air 04/05/25 08:00 04/04/25 04/05/25 04/05/25 22:59 06:59 14:59 Intake Total 1494.199 / 2344.149 271.333 / 2615.482 120 / 120 Balance 1494.199 / 1044.149 271.333 / 1315.482 120 / 120 Weight last 48 hrs Weight 178 lb 14.4 oz Weight 174 lb 3.2 oz Physical Exam 2 Narrative: General: No apparent distress, healthy appearing, well nourished HENMT: normoceophalic Muskuloskeletal: Full ROM Respiratory: Normal respiratory effort, clear to auscultation bilaterally throughout all lung pickens, no use of accessory muscles Cardio: No JVD, regular rate, regular rhythm, S1 S2 normal, no murmurs, peripheral pulses 2+ radial palpated bilaterally Extremities: Full ROM, normal, normal capillary refill, no cyanosis or edema Neuro: Alert and oriented x4 Psych: Affect normal Skin: No rashes or lesions noted, no wounds Data 04/05/25 04:34 04/05/25 05:40 A&P Assessment and plan (1) Atrial fibrillation, new onset: (2) Hypertension: (3) CVA (cerebral vascular accident): Plan Patient's blood pressure still uncontrolled. Amlodipine 10 mg daily has been added to assist with this. Continue losartan 50 twice daily. Continue Eliquis 5 twice daily for stroke prevention. Continue aspirin and amiodarone 400 twice daily. Continue Coreg 6.25 twice daily. Patient also has hydralazine as needed. will continue to watch for blood pressure response from medication adjustments. PDMP PDMP Reviewed: Not Reviewed Attestations 2 Medical Necessity Statement*: Defer to primary Coding Level of Care Code Acute Code for [facility] Fwd Diagnoses Atrial fibrillation, new onset I48.91 Primary hypertension I10 Hypertension type: primary hypertension CVA (cerebral vascular accident) I63.9 CVA mechanism: unspecified
[2025-04-05 11:33] LABS: Partial Thromboplastin Time 34.7 SECONDS (23.9-36.7)
[2025-04-05] MEDS: apixaban 5 mg Tablet PO ×2 (11:38→21:50)
--- NOTE | 2025-04-05 14:07 | P.PN_ITS ---
Subjective 2 Subjective: Hospital course, labs appreciated. Seen with spouse at bedside. Patient lying comfortably in bed. Complains of feeling anxious. Blood pressure is elevated. Denies any nausea, vomiting, headache. States she consumes up to 3-4 shots of vodka every night. Denies any history of seizure or alcohol withdrawal in the past. Vitals/I&O/Wt Last Vital Signs Temp 100.7 F H 04/05/25 12:00 Pulse 102 H 04/05/25 12:00 Resp 18 04/05/25 12:00 BP 169/95 04/05/25 12:00 Pulse Ox 96 04/05/25 12:00 O2 Del Method Room Air 04/05/25 12:00 04/04/25 04/05/25 04/05/25 22:59 06:59 14:59 Intake Total 1494.199 / 2344.149 271.333 / 2615.482 480 / 480 Balance 1494.199 / 1044.149 271.333 / 1315.482 480 / 480 Weight last 48 hrs Weight 81.148 kg Weight 79.016 kg Physical Exam 2 Narrative: General: Alert oriented x3, patient seen sitting up in bed appearing comfortable currently on Cardizem drip. HEENT: Normocephalic, atraumatic, EOMI, breathing room air. Cardio: Sinus rhythm, normal S1-S2, Respiratory: Clear to auscultation bilaterally GI: Abdomen soft, nontender, nondistended, bowel sounds + Extremities: No edema bilateral extremities Neuro: No gross focal deficits., Gait not tested. Data 04/05/25 04:34 04/05/25 05:40 A&P Assessment and plan (1) Atrial fibrillation, new onset: Currently back to normal sinus rhythm. Rate controlled. Continue with amiodarone 4 mg twice daily. Plan for 40 mg twice daily for 1 week followed by 200 mg twice daily followed by 200 mg daily with a weekly taper. Switch from heparin drip to Eliquis 5 mg twice daily. Appreciate echocardiogram showing normal EF of 60% grade 1 diastolic dysfunction. (2) Hypertension: Currently uncontrolled. Goal blood pressure less than 140/90 mmHg. Blood pressure is elevated. Continue with current dose of Coreg, losartan. Add amlodipine 10 mg oral daily. Uptitrate as per goal blood pressure. If needed will increase the dose of losartan further. (3) CVA (cerebral vascular accident): Appreciate speech/OT evaluation. PT eval pending. Continue with aspirin, statin. Appreciate A1c, lipid panel. Goal blood pressure less than 140/90 mmHg. (4) Depression: (5) History of anemia: (6) Dehydration: (7) Nausea & vomiting: Plan Alcohol abuse: Takes up to 4 shots of hard alcohol daily. Mild concern for alcohol withdrawal for now. Continue with current dose of thiamine, folic acid. Ativan 0.5 mg p.o. every 4 hours as needed. Full code Cardiac diet Protonix for PUD prophylaxis Eliquis was sufficient for DVT prophylaxis Discharge plan: Tentative discharge home depending on physical therapy evaluation within next 24 hours blood pressure is better controlled. PDMP PDMP Reviewed: Not Reviewed Attestations 2 Medical Necessity Statement*: Requires further hospitalization for management of uncontrolled hypertension in a patient admitted for CVA, new onset A-fib while patient is awaiting physical therapy evaluation Diagnoses Atrial fibrillation, new onset I48.91 Primary hypertension I10 Hypertension type: primary hypertension CVA (cerebral vascular accident) I63.9 CVA mechanism: unspecified Depression F32.A History of anemia Z86.2 Dehydration E86.0 Nausea & vomiting R11.2
--- NOTE | 2025-04-05 16:46 | XRR_ITS ---
PROCEDURE INFORMATION: Exam: XR Chest Exam date and time: 04/05/2025 5:04 PM Age: 64 years old Clinical indication: Fever TECHNIQUE: Imaging protocol: Radiologic exam of the chest. Views: 1 view. COMPARISON: CR XR chest 1V portable [id number] 04/02/2025 2:34 PM FINDINGS: Lungs: Unremarkable. No consolidation. Pleural spaces: Unremarkable. No pleural effusion. No pneumothorax. Heart/Mediastinum: Unremarkable. No cardiomegaly. Bones/joints: Unremarkable. XR/XR chest 1V portable [id number] IMPRESSION: No acute findings.
--- NOTE | 2025-04-05 17:22 | PHA.VACGOAL ---
Vancomycin Goal - Goal Vancomycin Indication:: Other - Therapy Day of therpy:: Day []of [] . Actual body weight (kg): 178 lb 14.4 oz - Data Labs: WBC 8.01 10^3/uL (3.29-11.43) 04/05/25 04:34 RBC 4.08 10^6/uL (3.85-5.65) 04/05/25 04:34 Hgb 13.80 g/dL (11.27-16.99) 04/05/25 04:34 Hct 41.6 % (36-47) 04/05/25 04:34 MCV 102.0 fl (85-98) H 04/05/25 04:34 MCH 33.8 pg (27-33) H 04/05/25 04:34 MCHC 33.2 g/dL (30-55) 04/05/25 04:34 RDW 12.9 % (12.1-15.1) 04/05/25 04:34 Sodium 134 mmol/L (136-145) L 04/05/25 05:40 Potassium 4.0 mmol/L (3.5-5.1) 04/05/25 05:40 Chloride 102 mmol/L (98-107) 04/05/25 05:40 Carbon Dioxide 20 mmol/L (22-29) L 04/05/25 05:40 Anion Gap 16.0 (5-19) 04/05/25 05:40 BUN 8 mg/dL (8-23) 04/05/25 05:40 Creatinine 0.7 mg/dL (0.5-0.9) 04/05/25 05:40 GFR Calculation 84.2 mL/min (90-130) L 04/05/25 05:40 Treatment plan:: new consult Regimen:: START AT 1500 MG Q12H; INDICATION NOT SPECIFIED FOLLOW UP TOMORROW
[2025-04-05] MEDS: cefTRIAXone 1,000 mg SDV 1000 MG IVP (17:53)
[2025-04-05] MEDS: vancomycin 1,500 MG/300 ML PIGGYBACK 200 MG IV (17:54)
[2025-04-05 17:58] LABS: Bilirubin Urine Negative (Negative); Blood Urine Negative (Negative); Glucose Urine UA Negative (Normal); Ketones Urine Negative (Negative); Leukocyte Esterase Urine Negative (Negative); Nitrate Urine Negative (Negative); Protein Urine Trace (Negative); Specific Gravity, Urine 1.017 (1.005-1.030); Urine Appearance Clear (CLEAR); Urine Color Yellow (Yellow)
[2025-04-05 18:03] LABS: Add Urine Microscopic? YES; Bacteria Urine None Seen /hpf; Hyaline Casts Urine 0-4 /lpf; RBC Urine 0-2 /hpf (0-2); Squamous Epithelial Cell Urine 0-5 /hpf (0-5); WBC Urine 0-5 /hpf (0-5)
[2025-04-05 18:11] LABS: Add Urine Culture? No
--- NOTE | 2025-04-05 18:53 | CTR_ITS ---
PROCEDURE INFORMATION: Exam: CT Head Without Contrast Exam date and time: 04/05/2025 7:56 PM Age: 64 years old Clinical indication: Pain; Headache not specified; Additional info: Post stroke headache, fever TECHNIQUE: Imaging protocol: Computed tomography of the head without contrast. Radiation optimization: All CT scans at this facility use at least one of these dose optimization techniques: automated exposure control; mA and/or kV adjustment per patient size (includes targeted exams where dose is matched to clinical indication); or iterative reconstruction. COMPARISON: MR head wo con* [id number] 04/03/2025 9:15 AM RADIATION DOSE METRICS: Total DLP (mGy-cm): 1097.98 FINDINGS: Brain: Age-related brain parenchymal atrophy. Areas of hypoattenuation in the periventricular and subcortical deep white matter likely on the basis of chronic microvascular ischemic changes. No acute intra cranial hemorrhage. No mass effect or midline shift. No definitive CT evidence of acute territorial infarction. There are old infarcts in the left middle cerebellar peduncle and left cerebellar hemisphere. Cerebral ventricles: No ventriculomegaly. Paranasal sinuses: Visualized sinuses are unremarkable. No fluid levels. Mastoid air cells: Visualized mastoid air cells are well aerated. Bones: Intact calvarium. Soft tissues: Unremarkable. CT/CT head wo con* [id number] IMPRESSION: No acute intracranial abnormality. Senescent changes.
[2025-04-05 19:16] LABS: MRSA PCR OZH (swab) NOT DETECTED (Not Detecte)
--- NOTE | 2025-04-05 19:30 | PC.NURSE ---
dr carey aware of currrent vs,temp,headache and neck pain.he has ordered antibiotics,head ct,mrsa-nasal,resp panel,blood cxs,ua.pt moved from a shared room to [facility]-private room
[2025-04-05 19:54] LABS: Adenovirus Not Detected (NOT DETECT); Chlamydia Pneumoniae Not Detected (NOT DETECT); Coronavirus 229E,HKU1,NL63,OC4 Not Detected (NOT DETECT); Human Metapneumovirus Not Detected (NOT DETECT); Human Rhinovirus/Enterovirus Not Detected (NOT DETECT); Influenza A Not Detected (NOT DETECT); Influenza A H1 Not Detected (NOT DETECT); Influenza A H1-2009 Not Detected (NOT DETECT); Influenza A H3 Not Detected (NOT DETECT); Influenza B Not Detected (NOT DETECT); Mycoplasma Pneumoniae Not Detected (NOT DETECT); Parainfluenza Virus Type 1 Not Detected (NOT DETECT); Parainfluenza Virus Type 2 Not Detected (NOT DETECT); Parainfluenza Virus Type 3 Not Detected (NOT DETECT); Parainfluenza Virus Type 4 Not Detected (NOT DETECT); Respiratory Syncytial Virus A Not Detected (NOT DETECT); Respiratory Syncytial Virus B Not Detected (NOT DETECT); SARS-COV-2 Not Detected (NOT DETECT)
[2025-04-05] MEDS: atorvastatin 40 mg Tablet 80 MG PO (21:51)
[2025-04-05] MEDS: venlafaxine ER (24HR) 150 mg Capsule 300 MG PO (21:51)
[2025-04-05] MEDS: mirtazapine 30 mg Tablet 60 MG PO (21:51)
--- NOTE | 2025-04-05 23:50 | ECG_ITS ---
[facility] Test Date: 2025-04-05 Pat Name: Celsa Ruiz Department: Room: 104 Gender: Female [employer]: : 1960 Requested By: Duyen Fuentes Order Number: [id number] Colleen MD: Jose Guadalupe David M.D. Measurements Intervals [place] Rate: 129 P: 0 [place]: 0 QRS: 16 QRSD: 89 T: 87 QT: 256 QTc: 376 Interpretive Statements ATRIAL FLUTTER/TACHYCARDIA WITH RAPID VENTRICULAR RESPONSE NONSPECIFIC ST & T-WAVE ABNORMALITY ABNORMAL RHYTHM ECG Compared to ECG 04/02/2025 16:09:56 Atrial fibrillation no longer present T-wave abnormality still present Electronically Signed On 04-07-2025 22:05:41 CDT by Jose Guadalupe David M.D. [email or web address] [id number]
[2025-04-06] VITALS (10 sets, daily range): BP systolic 97–158; BP diastolic 70–107; PULSE 75–131; RESP 18–34; TEMP 36.1–37.6; O2SAT 95–98; BMI 27.5
[2025-04-06] MEDS: potassium chloride ER 20 mEq Tablet 40 MEQ PO (00:51)
[2025-04-06] MEDS: magnesium sulfate premix 2 GM/50 ML PIGGYBACK IV (00:51)
[2025-04-06] MEDS: dilTIAZem 5 mg/mL SDV 5 mL 10 MG IVP (00:52)
[2025-04-06] MEDS: amiodarone 200 mg Tablet 400 MG PO ×3 (03:10→21:40)
[2025-04-06] MEDS: acetaminophen 325 mg Tablet 650 MG PO (03:27)
[2025-04-06 03:42] LABS: Basophils % 0.2 %; Hematocrit 40.5 % (36-47); Lymphocytes # 0.4 10^3/uL (0.8-4.8); Lymphocytes % 6.8 %; Mean Corpuscular HGB Conc 34.8 g/dL (30-55); Mean Corpuscular Hemoglobin 34.2 pg (27-33); Mean Corpuscular Volume 98.3 fl (85-98); Mean Platelet Volume 10.1 fL (7.4-10.4); Monocytes # 0.6 10^3/uL (0.2-0.9); Monocytes % 9.4 %; Neutrophils # 5.04 10^3/uL (1.8-7.7); Neutrophils % 83.1 %; Nucleated Red Blood Cells % 0 %; Platelet Count 110 10^3/cmm (157-399); Red Blood Count 4.12 10^6/uL (3.85-5.65); Red Cell Distribution Width 12.7 % (12.1-15.1); White Blood Count 6.06 10^3/uL (3.29-11.43)
[2025-04-06 04:02] LABS: Alanine Aminotransferase 25 U/L (0-33); Albumin Level 3.3 g/dL (3.5-5.2); Alkaline Phosphatase 94 U/L (35-105); Anion Gap 17.1 (5-19); Aspartate Amino Transferase 31 U/L (0-32); Blood Urea Nitrogen 8 mg/dL (8-23); Calcium 9.4 mg/dL (8.5-10.5); Carbon Dioxide 20 mmol/L (22-29); Chloride 99 mmol/L (98-107); Creatinine Clr Calc Pharmacy 90.7466; Globulin 3.5 g/dL (1.3-4.6); Glomerular Filtration Rate 84.2 mL/min (90-130); Glucose 102 mg/dL (65-115); Osmolality Calculated 273 mOsm/kg (285-295); Potassium 4.1 mmol/L (3.5-5.1); Sodium 132 mmol/L (136-145); Total Bilirubin 0.6 mg/dL (0.15-1.2); Total Protein 6.8 g/dL (6.6-8.7)
[2025-04-06 04:03] LABS: Magnesium 2.2 mg/dL (1.7-2.3)
[2025-04-06 04:24] LABS: Folate Level > 20.0 ng/mL (4.8-37.3)
[2025-04-06] MEDS: vancomycin 1,500 MG/300 ML PIGGYBACK 200 MG IV (05:19)
--- NOTE | 2025-04-06 07:24 | PC.NURSE ---
admission nurse coordinator rounds 03/05 @ 9037- patient working with therapies, bedside, quickly introduced myself and gave them the stroke education book
--- NOTE | 2025-04-06 07:33 | PC.NURSE ---
Patient converted from sr to afib/flutter 2344. EKG performed and Dr Enriquez notified and new orders were placed.
[2025-04-06] MEDS: losartan 50 mg Tablet PO ×2 (07:45→16:35)
[2025-04-06] MEDS: aspirin 81 mg EC Tablet PO (07:46)
[2025-04-06] MEDS: thiamine 100 mg Tablet PO (07:46)
[2025-04-06] MEDS: apixaban 5 mg Tablet PO ×2 (07:46→21:37)
[2025-04-06] MEDS: magnesium oxide 400 mg tablet PO ×2 (07:46→16:35)
[2025-04-06] MEDS: multivitamin therapeutic Tablet 1 TAB PO (07:46)
[2025-04-06] MEDS: folic acid 1 mg Tablet PO (07:46)
[2025-04-06] MEDS: amlodipine 10 mg Tablet PO (07:46)
[2025-04-06] MEDS: carvedilol 6.25 mg Tablet PO ×2 (07:46→16:35)
[2025-04-06] MEDS: amiodarone 150 MG/100 ML PREMIX 400 MG IV (09:04)
--- NOTE | 2025-04-06 10:43 | P.PN_ITS ---
<Statement entered by Duyen Fuentes MD - 04/06/25 17:42> Patient was evaluated and cared for in conjunction with an advanced practice practitioner. I personally examined the patient and reviewed the chart and all pertinent data including imaging, telemetry, and laboratory results. I discussed the patient in detail with the advanced practice practitioner. Please see their note for complete H&P testing result and agreed upon plan of care for the patient. Patient had episode of atrial fibrillation with rapid ventricle response. GENERAL: Patient is alert, awake and oriented x3. HEART: Regular S1 and S2. No murmur, rub or gallop. LUNGS: Clear to auscultate bilaterally. CENTRAL NERVOUS SYSTEM: Grossly nonfocal. EXTREMITIES: Lower extremities with out edema bilaterally. Assessment and plan New onset of atrial fibrillation difficult to control Uncontrolled hypertension Alcohol abuse Patient blood pressure much under control now we will switch her back on IV amiodarone once converted to sinus rhythm will decrease amiodarone to 40 mg 3 times daily Continue rest of medications Switch patient to p.o. anticoagulation in the form of Eliquis or Xarelto Subjective 2 Subjective: Patient back in a flutter with RVR with current rates in the 120s. Overall she is doing well with no symptoms. Vitals/I&O/Wt Last Vital Signs Temp 97.9 F 04/06/25 08:00 Pulse 129 H 04/06/25 08:00 Resp 28 H 04/06/25 08:00 BP 141/95 04/06/25 08:00 Pulse Ox 96 04/06/25 08:00 O2 Del Method Room Air 04/06/25 08:00 04/05/25 04/06/25 04/06/25 22:59 06:59 14:59 Intake Total 420 / 900 50 / 950 520 / 520 Output Total 1900 / 2100 Balance 420 / 700 -1850 / -1150 520 / 520 Weight last 48 hrs Weight 181 lb Weight 178 lb 14.4 oz Physical Exam 2 Narrative: General: No apparent distress, healthy appearing, well nourished HENMT: normoceophalic Muskuloskeletal: Full ROM Respiratory: Normal respiratory effort, clear to auscultation bilaterally throughout all lung pickens, no use of accessory muscles Cardio: No JVD, regular rate, regular rhythm, S1 S2 normal, no murmurs, peripheral pulses 2+ radial palpated bilaterally Extremities: Full ROM, normal, normal capillary refill, no cyanosis or edema Neuro: Alert and oriented x4 Psych: Affect normal Skin: No rashes or lesions noted, no wounds Data 04/06/25 02:59 04/06/25 02:59 Micro: Microbiology 04/05/25 17:20 Bacterial Antigens - Final Urine Kidney 04/05/25 19:09 Blood Culture - Preliminary Blood SPECIMEN COLLECTED 04/05/25 19:14 Blood Culture - Preliminary Blood SPECIMEN COLLECTED A&P Assessment and plan (1) Atrial fibrillation, new onset: (2) Hypertension: (3) CVA (cerebral vascular accident): Plan Patient's blood pressure has improved after starting amlodipine. Continue losartan 50 twice daily. Continue Eliquis 5 twice daily for stroke prevention. Continue aspirin. Agree with amio bolus and drip to control rate. Once patient has concerted to sinus rhythm, would recommend amiod 400 mg PO TID. Continue Coreg 6.25 twice daily. Patient also has hydralazine as needed. will continue to watch for blood pressure response from medication adjustments. PDMP PDMP Reviewed: Not Reviewed Attestations 2 Medical Necessity Statement*: Deferred to primary Coding Level of Care Code Acute Code for [facility] Fwd Diagnoses Atrial fibrillation, new onset I48.91 Primary hypertension I10 Hypertension type: primary hypertension CVA (cerebral vascular accident) I63.9 CVA mechanism: unspecified
--- NOTE | 2025-04-06 11:08 | P.PN_ITS ---
Subjective 2 Subjective: Yesterday patient had of fever up to 101.3 Fahrenheit. Had 1 episode of fever. Today morning she is back in A-fib with RVR with heart rate running in the 120s. Patient is otherwise asymptomatic. Blood pressure slightly better controlled. She denies any nausea, vomiting, headache, diarrhea, dysuria, difficulty breathing. Vitals/I&O/Wt Last Vital Signs Temp 97.9 F 04/06/25 08:00 Pulse 129 H 04/06/25 08:00 Resp 28 H 04/06/25 08:00 BP 141/95 04/06/25 08:00 Pulse Ox 96 04/06/25 08:00 O2 Del Method Room Air 04/06/25 08:00 04/05/25 04/06/25 04/06/25 22:59 06:59 14:59 Intake Total 420 / 900 50 / 950 520 / 520 Output Total 1900 / 2100 Balance 420 / 700 -1850 / -1150 520 / 520 Weight last 48 hrs Weight 82.1 kg Weight 81.148 kg Physical Exam 2 Narrative: General: Alert oriented x3, patient seen sitting up in bed appearing comfortable currently on Cardizem drip. HEENT: Normocephalic, atraumatic, EOMI, breathing room air. Cardio: Sinus rhythm, normal S1-S2, Respiratory: Clear to auscultation bilaterally GI: Abdomen soft, nontender, nondistended, bowel sounds + Extremities: No edema bilateral extremities Neuro: No gross focal deficits., Gait not tested. Data 04/06/25 02:59 04/06/25 02:59 Micro: Microbiology 04/05/25 17:20 Bacterial Antigens - Final Urine Kidney 04/05/25 19:09 Blood Culture - Preliminary Blood SPECIMEN COLLECTED 04/05/25 19:14 Blood Culture - Preliminary Blood SPECIMEN COLLECTED A&P Assessment and plan (1) Atrial fibrillation, new onset: Back in A-fib with RVR today. Appreciate cardiology recommendations. Started amiodarone 0.5 mg drip. Change amiodarone to 400 mg 3 times a day. Switch from heparin drip to Eliquis 5 mg twice daily. Appreciate echocardiogram showing normal EF of 60% grade 1 diastolic dysfunction. (2) Hypertension: Better controlled. Goal blood pressure less than 140/90 mmHg. Blood pressure is elevated. Continue with current dose of Coreg, losartan, amlodipine 10 mg oral daily. Uptitrate as per goal blood pressure. If needed will increase the dose of losartan further. (3) CVA (cerebral vascular accident): Appreciate speech/OT evaluation, PT Continue with aspirin, statin. Appreciate A1c, lipid panel. Goal blood pressure less than 140/90 mmHg. (4) Depression: (5) History of anemia: (6) Dehydration: (7) Nausea & vomiting: Plan Febrile episode: Fever up to 101.3. No leukocytosis. UA still negative for UTI. Chest x-ray negative for pneumonia. Respiratory viral panel negative. MRSA swab negative. Continue with IV Zosyn. Discontinue vancomycin. Follow-up blood cultures. Alcohol abuse: Takes up to 4 shots of hard alcohol daily. Mild concern for alcohol withdrawal for now. Continue with current dose of thiamine, folic acid. Ativan 0.5 mg p.o. every 4 hours as needed. Full code Cardiac diet Protonix for PUD prophylaxis Eliquis was sufficient for DVT prophylaxis PDMP PDMP Reviewed: Not Reviewed Attestations 2 Medical Necessity Statement*: Requires further hospitalization for management of A-fib with RVR, fever under evaluation 90 blood culture is followed in a patient admitted for CVA Diagnoses Atrial fibrillation, new onset I48.91 Primary hypertension I10 Hypertension type: primary hypertension CVA (cerebral vascular accident) I63.9 CVA mechanism: unspecified Depression F32.A History of anemia Z86.2 Dehydration E86.0 Nausea & vomiting R11.2
[2025-04-06] MEDS: LORazepam 2 mg Tablet 0.5 MG PO (12:14)
[2025-04-06] MEDS: cefTRIAXone 1,000 mg SDV 1000 MG IVP (16:34)
[2025-04-06] MEDS: digoxin 250 mcg/ml INJ 2 mL 400 MCG IVP (21:36)
[2025-04-06] MEDS: atorvastatin 40 mg Tablet 80 MG PO (21:37)
[2025-04-06] MEDS: venlafaxine ER (24HR) 150 mg Capsule 300 MG PO (21:37)
[2025-04-06] MEDS: mirtazapine 30 mg Tablet 60 MG PO (21:37)
[2025-04-07 00:17] VITALS: BP 148/87; PULSE 123; RESP 28; TEMP 37.3; O2SAT 96
[2025-04-07 04:37] VITALS: BP 154/78; PULSE 81; RESP 25; TEMP 36.6; O2SAT 96
[2025-04-07 04:44] LABS: Basophils % 0.4 %; Eosinophils # 0.1 10^3/uL (0.0-0.8); Eosinophils % 0.7 %; Hematocrit 40.7 % (36-47); Lymphocytes # 1.1 10^3/uL (0.8-4.8); Lymphocytes % 15.8 %; Mean Corpuscular HGB Conc 34.2 g/dL (30-55); Mean Corpuscular Hemoglobin 33.7 pg (27-33); Mean Corpuscular Volume 98.8 fl (85-98); Mean Platelet Volume 10.2 fL (7.4-10.4); Monocytes # 1.2 10^3/uL (0.2-0.9); Monocytes % 17.2 %; Neutrophils % 65.5 %; Nucleated Red Blood Cells % 0 %; Platelet Count 102 10^3/cmm (157-399); Red Blood Count 4.12 10^6/uL (3.85-5.65); Red Cell Distribution Width 12.8 % (12.1-15.1); White Blood Count 6.88 10^3/uL (3.29-11.43)
[2025-04-07 05:12] LABS: Slide Review Slide Review Perform
[2025-04-07 05:22] LABS: Alanine Aminotransferase 26 U/L (0-33); Albumin Level 3.5 g/dL (3.5-5.2); Alkaline Phosphatase 98 U/L (35-105); Anion Gap 14.2 (5-19); Aspartate Amino Transferase 31 U/L (0-32); Blood Urea Nitrogen 10 mg/dL (8-23); Calcium 8.2 mg/dL (8.5-10.5); Carbon Dioxide 22 mmol/L (22-29); Chloride 100 mmol/L (98-107); Creatinine Clr Calc Pharmacy 79.8303; Globulin 2.6 g/dL (1.3-4.6); Glomerular Filtration Rate 72.2 mL/min (90-130); Glucose 103 mg/dL (65-115); Magnesium 1.9 mg/dL (1.7-2.3); Osmolality Calculated 273 mOsm/kg (285-295); Potassium 4.2 mmol/L (3.5-5.1); Sodium 132 mmol/L (136-145); Total Bilirubin 0.3 mg/dL (0.15-1.2); Total Protein 6.1 g/dL (6.6-8.7); Vancomycin Trough 10.3 ug/mL (10-15)
[2025-04-07 06:00] VITALS: BMI 26.9
--- NOTE | 2025-04-07 07:37 | PC.NURSE ---
Patient went in to afib 2129 converted back to nsr at 0054. Cardiac strip posted in patient chart.
[2025-04-07 08:00] VITALS: BP 162/82; PULSE 78; RESP 18; TEMP 36.6; O2SAT 98
[2025-04-07 08:15] VITALS: BP 162/82
[2025-04-07] MEDS: aspirin 81 mg EC Tablet PO (08:15)
[2025-04-07] MEDS: losartan 50 mg Tablet PO (08:15)
[2025-04-07] MEDS: magnesium oxide 400 mg tablet PO (08:16)
[2025-04-07] MEDS: carvedilol 6.25 mg Tablet PO (08:16)
[2025-04-07] MEDS: folic acid 1 mg Tablet PO (08:16)
[2025-04-07] MEDS: multivitamin therapeutic Tablet 1 TAB PO (08:16)
[2025-04-07] MEDS: amiodarone 200 mg Tablet 400 MG PO (08:16)
[2025-04-07] MEDS: apixaban 5 mg Tablet PO (08:16)
[2025-04-07] MEDS: thiamine 100 mg Tablet PO (08:17)
--- NOTE | 2025-04-07 08:55 | P.DS_ITS ---
Discharge Providers Date of Admission: 04/02/25 17:23 Date of Discharge: April 07, 2025 Attending Provider at Admission: Valerie Bertrand MD Attending Provider at Discharge: Manan Marrero MD Diagnoses at Discharge Discharge Diagnosis (1) Atrial fibrillation, new onset: Status: Acute (2) Hypertension: Status: Acute Qualifiers: Hypertension type: primary hypertension Qualified Code(s): I10 - Essential (primary) hypertension (3) CVA (cerebral vascular accident): Status: Acute Qualifiers: CVA mechanism: unspecified Qualified Code(s): I63.9 - Cerebral infarction, unspecified (4) Depression: Status: Acute (5) History of anemia: Status: Acute (6) Dehydration: Status: Acute (7) Nausea & vomiting: Status: Acute Reason for Visit Reason for Visit: d/n/v Brief History: As per HPI: Celsa Ruiz is a 64 year old female with past medical history of anemia requiring 2 units of blood transfusion no apparent cause found on EGD colonoscopy, hypertension, depression presented to the hospital today after feeling dizzy lightheaded. She has been having nausea vomiting and has felt off balance. She states everything was okay and she was on the boat Saturday/Saturday and it was hot outside. She did not drink enough water but drank a lot of alcohol. Saturday she was in the laundry room and bent over to order picker the clothes and immediately felt dizzy and the room was spinning. She crawled onto the couch and sat down. She felt very dehydrated. She has had a history of a stroke in the past. She realized she was dehydrated and therefore tried to drink 2 bottles of Pedialyte however would not tolerate any oral intake and immediately vomited. She felt something was not right and therefore came to the hospital. He states he thinks he may have had a history of A-fib in the past he says the visit at the hospital when she received blood transfusions she was told that her heart rate is not regular however no workup was done no referrals were made and she was given her blood transfusion. Thereafter she states that she did not see k any medical attention. May or may not have had an echo in the past. In ER she was found to be in A-fib with RVR. She was given Cardizem push and started on Cardizem drip. There was also concern for stroke however due to symptom onset being a few days prior stroke code was not called. CT head shows No evidence of intracranial hemorrhage or mass effect. Chronic small infarct in right cerebellar area noted appearing to be chronic. CTA head and neck is pending. Able to move all 4 extremities no facial droop noted. She states she was able to walk into the ER on her own. Hospital Course Hospital Course Patient was admitted to the hospital for evaluation and management of acute stroke. She was evaluated by neurology on admission and she was deemed not a candidate for thrombolytics. On admission she was found to have A-fib with RVR for which she was started on amiodarone drip after which she converted back to sinus rhythm. During hospitalization she had occasional episodes of burst of A- fib with RVR for which a dose of amiodarone has been adjusted. Hospitalization was further complicated by her developing one-time fever. For now all the infectious workup including UA, chest x-ray, blood culture, respiratory viral panel are negative. Patient has not spiked a fever for more than 48 hours. She was also found to have uncontrolled hypertension for which she started on Coreg 6.25 mg twice daily along with losartan 75 mg twice daily. She has been discharged in medically stable condition on oral amiodarone 400 mg 3 times a day for 1 week followed by 400 mg twice daily for 1 week followed by 200 mg daily, Eliquis 5 mg twice daily along with baby aspirin. She is to follow-up with neurology in 2 weeks, cardiology in 1 week and her PCP within 1 week as well. She is advised to abstain from alcohol use as much as possible. Physical Exam Narrative: General: Alert oriented x3, no acute distress HEENT: Normocephalic, atraumatic, EOMI, breathing room air. Cardio: Sinus rhythm, normal S1-S2, Respiratory: Clear to auscultation bilaterally GI: Abdomen soft, nontender, nondistended, bowel sounds + Extremities: No edema bilateral extremities Neuro: No gross focal deficits., Gait not tested. Discharge Data Studies Completed and Pending Completed Studies During Hospitalization Category Date Time Status CT head wo con* [id number] Routine Cat Scan 04/05/25 18:[address] head wo con* [id number] Stat Cat Scan 04/02/25 13:56 Completed CTA head neck [CT angio headneck* [id number]] Stat Cat Scan 04/02/25 15:19 Completed CXRP [XR chest 1V portable [id number]] Urgent Exams 04/05/25 16:46 Completed XR chest 1V portable [id number] Stat Exams 04/02/25 13:56 Completed MR head wo con* [id number] Routine MRI 04/03/25 09:00 Completed US echo complete [CV. echo complete* [id number]] Routine Ultrasound 04/02/25 17:45 Completed Pending at discharge Category Date Time Status Blood Culture Stat Lab 04/05/25 19:09 Results MAG [Magnesium] AM LABS Lab 04/08/25 04:00 Ordered Radiology Impressions Head/Neck CTA 04/02/25 15:19 IMPRESSION: There is no intracranial large vessel occlusion. IMPRESSION: There is no evidence of significant stenosis or occlusion in the carotid or vertebral arteries in the neck. REFERENCES: NASCET CRITERIA. The degree of stenosis in the cervical segment of the internal carotid artery is based on NASCET criteria. Normal is no stenosis. Mild is less than 50% stenosis. Moderate is 50-69% stenosis. Severe is 70% to 99% stenosis. Total occlusion is no detectable patent lumen. Head MRI 04/03/25 09:00 IMPRESSION: 1. Acute appearing infarcts involving the right and left cerebellar hemispheres as well as the left cerebellar peduncle. 2. Atrophy with small-vessel ischemic change. ADDENDUM: 04/03/25 1057 THIS REPORT CONTAINS FINDINGS THAT MAY BE CRITICAL TO PATIENT CARE. I requested a conference call with the covering provider on review of the case to discuss the findings. I was notified by [facility] staff that EMILY Reyes had received the report, was aware of the findings, and chose not to speak directly. Chest X-Ray 04/05/25 16:46 IMPRESSION: No acute findings. Head CT 04/05/25 18:53 IMPRESSION: No acute intracranial abnormality. Senescent changes. Echocardiogram: CONCLUSIONS Normal left ventricular size, systolic function and wall thickness, with no regional wall motion abnormalities. Left ventricular ejection fraction is estimated at 60%. Grade I/IV diastolic dysfunction (abnormal relaxation filling pattern), normal to mildly elevated filling pressures. No significant valve abnormalities. There is no pericardial effusion. Right atrial pressure is around 5 mm of mercury. Duyen Fuentes MD (Electronically Signed) Final Date: 02 April 2025 Microbiology 04/05/25 19:09 Blood Blood Culture - Preliminary NEGATIVE TO DATE 04/05/25 19:14 Blood Blood Culture - Preliminary SPECIMEN COLLECTED 04/05/25 17:20 Urine Kidney Bacterial Antigens - Final Laboratory Results WBC 6.88 10^3/uL (3.29-11.43) 04/07/25 04:27 RBC 4.12 10^6/uL (3.85-5.65) 04/07/25 04:27 Hgb 13.90 g/dL (11.27-16.99) 04/07/25 04:27 Hct 40.7 % (36-47) 04/07/25 04:27 MCV 98.8 fl (85-98) H 04/07/25 04:27 MCH 33.7 pg (27-33) H 04/07/25 04:27 MCHC 34.2 g/dL (30-55) 04/07/25 04:27 RDW 12.8 % (12.1-15.1) 04/07/25 04:27 Plt Count 102 10^3/cmm (157-399) L 04/07/25 04:27 MPV 10.2 fL (7.4-10.4) 04/07/25 04:27 Neut % (Auto) 65.5 % 04/07/25 04:27 Lymph % (Auto) 15.8 % 04/07/25 04:27 [place] % (Auto) 17.2 % 04/07/25 04:27 Eos % (Auto) 0.7 % 04/07/25 04:27 Baso % (Auto) 0.4 % 04/07/25 04:27 Neut # (Auto) 4.50 10^3/uL (1.8-7.7) 04/07/25 04:27 Lymph # (Auto) 1.1 10^3/uL (0.8-4.8) 04/07/25 04:27 [place] # (Auto) 1.2 10^3/uL (0.2-0.9) H 04/07/25 04:27 Eos # (Auto) 0.1 10^3/uL (0.0-0.8) 04/07/25 04:27 Baso # (Auto) 0.0 10^3/uL (0.0-0.1) 04/07/25 04:27 Nucleated RBC % (auto) 0 % 04/07/25 04:27 Nucleated RBCs # 0.0 /100WBC 04/07/25 04:27 APTT 34.7 SECONDS (23.9-36.7) 04/05/25 11:15 Sodium 132 mmol/L (136-145) L 04/07/25 04:27 Potassium 4.2 mmol/L (3.5-5.1) 04/07/25 04:27 Chloride 100 mmol/L (98-107) 04/07/25 04:27 Carbon Dioxide 22 mmol/L (22-29) 04/07/25 04:27 Anion Gap 14.2 (5-19) 04/07/25 04:27 BUN 10 mg/dL (8-23) 04/07/25 04:27 Creatinine 0.8 mg/dL (0.5-0.9) 04/07/25 04:27 GFR Calculation 72.2 mL/min (90-130) L 04/07/25 04:27 Glucose 103 mg/dL (65-115) 04/07/25 04:27 Estimat Average Glucose 117 04/02/25 14:10 Hemoglobin A1c 5.7 % (4.0-6.0) 04/02/25 14:10 Calculated Osmolality 273 mOsm/kg (285-295) L 04/07/25 04:27 Lactic Acid 1.7 mmol/L (0.5-2.2) 04/02/25 14:10 Calcium 8.2 mg/dL (8.5-10.5) L 04/07/25 04:27 Magnesium 1.9 mg/dL (1.7-2.3) 04/07/25 04:27 Iron 120 ug/dL (37-145) 04/05/25 05:40 TIBC 237 mcg/dl 04/05/25 05:40 % Saturation 50.6 % (20-50) H 04/05/25 05:40 Unsat Iron Binding 117 ug/dL (112-347) 04/05/25 05:40 Total Bilirubin 0.3 mg/dL (0.15-1.2) 04/07/25 04:27 AST 31 U/L (0-32) 04/07/25 04:27 ALT 26 U/L (0-33) 04/07/25 04:27 Alkaline Phosphatase 98 U/L (35-105) 04/07/25 04:27 Troponin T Baseline 7 ng/L (0-10) 04/02/25 14:10 Troponin T 120 Minute 7.55 ng/L (0-10) 04/02/25 15:59 Delta Troponin T 0.55 ABS# (0-10) 04/02/25 15:59 C-Reactive Protein 3.6 mg/L (0.0-4.9) 04/02/25 14:10 NT-Pro-B Natriuret Pep 478 pg/mL (0-125) H 04/02/25 14:10 NT-Pro-B Natriuret Pep Cancelled 04/02/25 14:10 Total Protein 6.1 g/dL (6.6-8.7) L 04/07/25 04:27 Albumin 3.5 g/dL (3.5-5.2) 04/07/25 04:27 Globulin 2.6 g/dL (1.3-4.6) 04/07/25 04:27 Triglycerides 181 mg/dL (0-150) H 04/02/25 14:10 Cholesterol 187 mg/dL (0-200) 04/02/25 14:10 LDL Cholesterol, Calc 95 mg/dL (50-129) 04/02/25 14:10 HDL Cholesterol 56 mg/dL (60-100) L 04/02/25 14:10 LDL/HDL Ratio 1.70 RATIO (0.00-3.22) 04/02/25 14:10 Cholesterol/HDL Ratio 3.34 mg/dL (0.0-4.40) 04/02/25 14:10 Vitamin B12 281 pg/mL (232-1245) 04/05/25 05:40 Folate > 20.0 ng/mL (4.8-37.3) 04/06/25 02:59 TSH 2.21 uIU/mL (0.27-4.20) 04/02/25 14:10 Urine Color Yellow (Yellow) 04/05/25 17:20 Urine Appearance Clear (CLEAR) 04/05/25 17:20 Urine pH 8.0 (5-7) A 04/05/25 17:20 Ur Specific [place] 1.017 (1.005-1.030) 04/05/25 17:20 Urine Protein Trace (Negative) A 04/05/25 17:20 Urine Glucose (UA) Negative (Normal) 04/05/25 17:20 Urine Ketones Negative (Negative) 04/05/25 17:20 Urine Blood Negative (Negative) 04/05/25 17:20 Urine Nitrate Negative (Negative) 04/05/25 17:20 Urine Bilirubin Negative (Negative) 04/05/25 17:20 Urine Urobilinogen 1.0 mg/dL (Negative) 04/05/25 17:20 Ur Leukocyte Esterase Negative (Negative) 04/05/25 17:20 Urine RBC 0-2 /hpf (0-2) 04/05/25 17:20 Urine WBC 0-5 /hpf (0-5) 04/05/25 17:20 Ur Squamous Epith Cells 0-5 /hpf (0-5) 04/05/25 17:20 Amorphous Sediment Not Reportable 04/05/25 17:20 Urine Bacteria None seen /hpf (NONE) 04/05/25 17:20 Hyaline Casts 0-4 /lpf H 04/05/25 17:20 Nasal MRSA (PCR) Not detected (Not Detecte) 04/05/25 17:35 Vancomycin Trough 10.3 ug/mL (10-15) 04/07/25 04:27 Adenovirus (PCR) Not detected (NOT DETECT) 04/05/25 17:35 C. pneumoniae DNA (PCR) Not detected (NOT DETECT) 04/05/25 17:35 Coronavirus 229E (PCR) Not detected (NOT DETECT) 04/05/25 17:35 Human Metapneumovir PCR Not detected (NOT DETECT) 04/05/25 17:35 Influenza A (H1) PCR Not detected (NOT DETECT) 04/05/25 17:35 Influ A (H1/09) PCR Not detected (NOT DETECT) 04/05/25 17:35 Influenza A (H3) PCR Not detected (NOT DETECT) 04/05/25 17:35 Influenza Type A (PCR) Not detected (NOT DETECT) 04/05/25 17:35 Influenza Type B (PCR) Not detected (NOT DETECT) 04/05/25 17:35 M. pneumoniae (PCR) Not detected (NOT DETECT) 04/05/25 17:35 Parainfluenza 1 (PCR) Not detected (NOT DETECT) 04/05/25 17:35 Parainfluenza 2 (PCR) Not detected (NOT DETECT) 04/05/25 17:35 Parainfluenza 3 (PCR) Not detected (NOT DETECT) 04/05/25 17:35 Parainfluenza 4 (PCR) Not detected (NOT DETECT) 04/05/25 17:35 RSV Type A (PCR) Not detected (NOT DETECT) 04/05/25 17:35 RSV Type B (PCR) Not detected (NOT DETECT) 04/05/25 17:35 Entero/Rhino (PCR) Not detected (NOT DETECT) 04/05/25 17:35 SARS-CoV-2 (PCR) Not detected (NOT DETECT) 04/05/25 17:35 Vitals Last Vital Signs Temp 97.9 F 04/07/25 04:37 Pulse 81 04/07/25 04:37 Resp 25 H 04/07/25 04:37 BP 162/82 04/07/25 08:15 Pulse Ox 96 04/07/25 04:37 O2 Del Method Room Air 04/07/25 00:17 Discharge Plan Discharge Patient Disposition: Home Condition: Stable Prescriptions: New amiodarone [Pacerone] 200 mg Tablet 400 mg PO Qty: 90 0RF Rx Instructions: 400 mg 3 times a day for 1 week followed by 400 mg twice daily for 1 week followed by 200 mg daily losartan 50 mg Tablet 75 mg PO BID 30 Days Qty: 90 0RF atorvastatin 40 mg Tablet 80 mg PO BEDTIME Qty: 60 0RF carvedilol 6.25 mg Tablet 6.25 mg PO BID Qty: 60 0RF aspirin 81 mg Tablet,Delayed Release (Dr/Ec) 81 mg PO DAILY Qty: 30 0RF Eliquis 5 mg Tablet 5 mg PO BID@0900,2100 Qty: 60 0RF Continued mirtazapine 30 mg Tablet 60 mg PO BEDTIME folic acid 1 mg Tablet 1 mg PO DAILY furosemide 20 mg Tablet 20 mg PO DAILY hydroxyzine pamoate 25 mg Capsule 25 mg PO BEDTIME PRN (Reason: Anxiety) venlafaxine 150 mg Tablet Extended Release 24hr 300 mg PO BEDTIME Discontinued atenolol 100 mg Tablet 100 mg PO DAILY Discharge Orders: Discharge Order (Routine); Ordered 04/07/25 Ordered By: Manan Marrero Referrals: Miky Oneill MD [Physician, Neurology] - 01/12/26 10:45 am Referral Note: Paula Brady FNP [Nurse Practitioner, Cardiology] - 04/19/25 2:30 pm Discharge Diet: Cardiac Discharge Activity: Resume usual activity and Increase activity as tolerated Patient Instructions: Aspirin (By mouth), Amiodarone (By mouth), Losartan (By mouth), Atorvastatin (By mouth), Carvedilol (By mouth), Apixaban (By mouth), Opioid Safety Activity Restrictions/Additional Instructions: Check your blood pressure daily at home maintain blood pressure diary. Goal blood pressure is less than 140/90 mmHg. Take amiodarone 400 mg 3 times a day for next 1 week followed by 400 mg twice daily for 2 weeks followed by 200 mg daily Discharge Attestations Time Spent in Discharge Care*: greater than 30 min Specific Discharge Activities: educating patient, educating and/or supporting family/caregiver, discussing with pcp/other providers, discussing with case picker/social workers/dc planners, documenting/other paperwork and evaluating patient/reviewing data Status at Discharge: Cognitive status at discharge: cognitively intact , Beh avioral status at discharge: cooperative , Functional status at discharge: uses cane/walker , Overall status at discharge: patient is progressing back to baseline Quality Metrics Clinical Quality Measures [ No reported AMI, CVA or VTE this stay] Coding Level of Care Code 54360 Total time (in minutes) for Discharge: 60 Diagnoses Atrial fibrillation, new onset I48.91 Primary hypertension I10 Hypertension type: primary hypertension CVA (cerebral vascular accident) I63.9 CVA mechanism: unspecified Depression F32.A History of anemia Z86.2 Dehydration E86.0 Nausea & vomiting R11.2
--- NOTE | 2025-04-07 09:45 | P.PN_ITS ---
<Statement entered by Scott Pa M.D - 04/09/25 12:28> Patient was cared for in conjunction with an advanced practice practitioner.? I reviewed the chart and all pertinent data including imaging, telemetry, and laboratory results.? I discussed the patient in detail with the advanced practice practitioner.? Please see?their note for progress note, testing results and agreed upon plan of care for the patient. Subjective 2 Subjective: Patient converted back to sinus rhythm. Overall appears euvolemic with no complaints. She is getting Eliquis 5 mg BID. No anemia noted. No signs of bleeding. Vitals/I&O/Wt Last Vital Signs Temp 97.9 F 04/07/25 04:37 Pulse 81 04/07/25 04:37 Resp 25 H 04/07/25 04:37 BP 162/82 04/07/25 08:15 Pulse Ox 96 04/07/25 04:37 O2 Del Method Room Air 04/07/25 00:17 04/06/25 04/07/25 04/07/25 22:59 06:59 14:59 Intake Total 240 / 1240 200 / 1440 Output Total 1300 / 1300 800 / 2100 Balance -1060 / -60 -600 / -660 Weight last 48 hrs Weight 177 lb 8 oz Weight 181 lb Physical Exam 2 Narrative: General: No apparent distress, healthy appearing, well nourished HENMT: normoceophalic Muskuloskeletal: Full ROM Respiratory: Normal respiratory effort, clear to auscultation bilaterally throughout all lung pickens, no use of accessory muscles Cardio: No JVD, regular rate, regular rhythm, S1 S2 normal, no murmurs, peripheral pulses 2+ radial palpated bilaterally Extremities: Full ROM, normal, normal capillary refill, no cyanosis or edema Neuro: Alert and oriented x4 Psych: Affect normal Skin: No rashes or lesions noted, no wounds Data 04/07/25 04:27 04/07/25 04:27 Micro: Microbiology 04/05/25 19:09 Blood Culture - Preliminary Blood NEGATIVE TO DATE 04/05/25 19:14 Blood Culture - Preliminary Blood SPECIMEN COLLECTED 04/05/25 17:20 Bacterial Antigens - Final Urine Kidney A&P Assessment and plan (1) Atrial fibrillation, new onset: (2) Hypertension: (3) CVA (cerebral vascular accident): Plan Continue amlodipine. Continue losartan 50 twice daily. Continue Eliquis 5 twice daily for stroke prevention. Continue aspirin. Agree with transitioning patient to amio 400 TIDx1 week, then 400 dailyx1 week, then 200 daily thereafter. She has converted to sinus rhythm. Continue Coreg 6.25 twice daily. Patient also has hydralazine as needed. PDMP PDMP Reviewed: Not Reviewed Attestations 2 Medical Necessity Statement*: Deferred to primary. Coding Level of Care Code Acute Code for [facility] Diagnoses Atrial fibrillation, new onset I48.91 Primary hypertension I10 Hypertension type: primary hypertension CVA (cerebral vascular accident) I63.9 CVA mechanism: unspecified
--- NOTE | 2025-04-07 09:58 | PC.NURSE ---
digital media coordinator rounds at 0910- patient was laying in bed, bedside, hopeful to go home today, their dual state living situation primary residence is [place]/vacation home in [place] complicates insurance and where pt is able to follow up. They have a plan to go back to [place] after PCP visit here and will follow up with specialties there (neuro and cardiology) until pt insurance coverage changes.
--- NOTE | 2025-04-07 10:33 | PC.NURSE ---
Confirmed with Dr. Marrero: Patient needs to be seen by Dr. Fuentes prior to discharge today.
[2025-04-07 12:39] VITALS: BP 116/80; PULSE 76; RESP 16; TEMP 36.2; O2SAT 98
--- NOTE | 2025-04-07 13:00 | PC.NURSE ---
Patient cleared for discharge by cardiology.
== END 2025-04-07 13:15 | disposition home or self-care (01) | DRG 65 ==
LOC: ER 16:19 → CSU 21:00
PROVIDERS: Family Medicine; Admitting Provider Internal Medicine; Emergency Provider Emergency Medicine; Visit Provider Student in an Organized Health Care Education/Training Program
DX: I63.9 Cerebral infarction, unspecified (principal); F10.139 Alcohol abuse with withdrawal, unspecified; H53.8 Other visual disturbances; R29.701 NIHSS score 1; I16.0 Hypertensive urgency; I10 Essential (primary) hypertension; R50.9 Fever, unspecified; F32.A Depression, unspecified; E86.0 Dehydration; R11.2 Nausea with vomiting, unspecified; F17.200 Nicotine dependence, unspecified, uncomplicated; E87.6 Hypokalemia; E83.42 Hypomagnesemia
CPT/HCPCS: 36415; 70450; 70496; 70498; 70551; 71045; 80048; 80053; 80061; 80202; 81001; 82607; 82746; 83036; 83540; 83550; 83605; 83735; 83880; 84443; 84484; 85025; 85049; 85730; 86140; 86403; 87040; 87077; 87150; 87186; 87205; 87486; 87581; 87633; 93005; 93306; 94664; 96374; 96375; 96376; 97161; 97165; 99285; A4222; J0283; J0360; J0696; J1160; J1644; J2060; J2405; J3370; J3475; J3490; J7030; J8597; J9999

== ENCOUNTER 2025-04-08 14:17 | Inpatient (IN) | payer BC, SELFPAY ==
--- OUTSIDE RECORDS SUMMARY | 2025-04-08 14:21 | XMS_ITS | Encounter Summary ---
Author Organization [facility] Address [address] [place] [address] Phone Care Team Providers Care Air Quality Engineer Name Role Phone Ayleen Lemus Primary Care Provider [phone]- [phone] Reason for Visit * Reason Comments Medication Refill Encounter Details Date Type Department Care Team ([facility] st Contact Info) Description 05/26/2019 Refill [facility] [address] [place] [address] Ayleen Lemus [address] [place] [address] Social History Tobacco Use Types Packs/Day Years Used Date Smoking Tobacco: Heavy Smoker Cigarettes Smokeless Tobacco: Never Alcohol Use Standard Drinks/Week Comments Yes 20 (1 standard drink = 0.6 oz pu re alcohol) 9 vodka/week Comments Unknown Sex and Gender Information Value Date Recorded Sex Assigned at Not on file Legal Sex Female 5:18 AM CDT Gender Identity Not on file Sexual Orientation Not on file documented as of this encounter Plan of Treatment Not on file documented as of this encounter Visit Diagnoses Diagnosis Acute bronchitis, unspecified organism documented in this encounter Care Teams Air Quality Engineer Relationship Specialty Start Date End Date Ayleen Lemus [address] [place], [place] [id number] PCP - General 05/05/09 documented as of this encounter
--- OUTSIDE RECORDS SUMMARY | 2025-04-08 14:21 | XMS_ITS | Encounter Summary ---
Author Organization [facility] Address [address] [place] [address] Phone Care Team Providers Care Mounter Name Role Phone Ayleen Lemus Primary Care Provider +- [phone] Encounter Details Date Type Department Care Team ([facility] st Contact Info) Description 06/17/2017 Telephone [facility] - Acute Care [address] [place], [place] [id number] Kassandra Aguilar RN Social History Tobacco Use Types Packs/Day Years Used Date Smoking Tobacco: Heavy Smoker Cigarettes Comments Unknown Sex and Gender Information Value Date Recorded Sex Assigned at Not on file Legal Sex Female 5:18 AM CDT Gender Identity Not on file Sexual Orientation Not on file documented as of this encounter Miscellaneous Notes * Telephone Encounter - Kassandra Aguilar RN - 06/17/2017 11:15 AM CDT Attempted follow up phone call at this time in regards to recent hospital stay. Left message with contact name and number for patient to return call. documented in this encounter Plan of Treatment Not on file documented as of this encounter Visit Diagnoses Not on filedocumented in this encounter Care Teams Mounter Relationship Specialty Start Date End Date Ayleen Lemus [address] [place] [address] PCP - General 05/05/09 documented as of this encounter
--- OUTSIDE RECORDS SUMMARY | 2025-04-08 14:21 | XMS_ITS | Encounter Summary ---
Author Organization [facility] Address [address] [place] [address] Phone Care Team Providers Care Ore Trimmer Name Role Phone Ayleen Lemus Primary Care Provider [phone]- [phone] Reason for Visit * Reason Comments Medication Refill Encounter Details Date Type Department Care Team ([facility] st Contact Info) Description 11/19/2016 Refill [facility] [address] [place] [address] Ayleen Lemus [address] [place], [place] [id number] Social History Tobacco Use Types Packs/Day Years Used Date Smoking Tobacco: Never Assessed Comments Unknown Sex and Gender Information Value Date Recorded Sex Assigned at Not on file Legal Sex Female 5:18 AM CDT Gender Identity Not on file Sexual Orientation Not on file documented as of this encounter Plan of Treatment Not on file documented as of this encounter Visit Diagnoses Diagnosis Postmenopausal- Primary Asymptomatic postmenopausal status (age-related) (natural) Gastroesophageal reflux disease, esophagitis presence not specified Essential hypertension Unspecified essential hypertension documented in this encounter Care Teams Ore Trimmer Relationship Specialty Start Date End Date Ayleen Lemus [address] [place], [place] [id number] PCP - General 05/05/09 documented as of this encounter
--- OUTSIDE RECORDS SUMMARY | 2025-04-08 14:21 | XMS_ITS | Clinical Summary ---
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 Hydrochlorothiazide Angioedema 06/19/2017 Lisinopril Angioedema 06/19/2017 Medications venlafaxine 150 mg XR capsule Take 300 mg by mouth at bedtime. And 150 mg in the morning Active mirtazapine 45 mg tablet Take 90 mg by mouth at bedtime. Active QUEtiapine 25 mg tablet Take 25 mg by mouth 4 times daily as needed. Active albuterol 2.5 mg/3 mL inhalation solutionIndicat ions:Cough Use 3 mL (2.5 mg total) by inhalation every 4 hours as needed for Wheezing. 180 mL 11 06/12/20 17 Active EPINEPHrine 0.3 mg/0.3 mL injection penIndications: Angioedema, initial encounter Inject 0.3 mL (0.3 mg total) intramuscularly once as needed. 1 Syringe 11 06/12/20 17 Active predniSONE 20 mg tabletIndicatio ns:Recurrent urticaria Prednisone 20 mg 3 q day x 3 days then 2 q days x 3 days then 1 q day x 3 days. 18 tablet 07/05/20 17 Active FLUTICASONE 50 mcg/Actuation nasal sprayIndication s:Allergic rhinitis USE 2 SPRAYS IN EACH NOSTRIL ONCE DAILY DIRECTED 16 g 07/10/20 18 Active albuterol 90 mcg/Actuation HFA inhalerIndicati ons:Acute bronchitis, unspecified organism Use 2 Puffs by inhalation every 6 hours as needed for Wheezing. 8.5 g 11 05/27/20 19 Active Active Problems Problem Noted Date Diagnosed Date Reactive airway disease 05/27/2019 Allergic rhinitis 05/27/2019 Hyponatremia 06/11/2017 Bronchitis 06/11/2017 Angioedema 06/11/2017 Irritable bowel syndrome wit h both constipation and diarrhea 01/01/2017 Gastroesophageal reflux disease with esophagitis 01/01/2017 Generalized anxiety disorder 01/01/2017 Moderate episode of recurrent major depressive d isorder 01/01/2017 Alcohol abuse 01/01/2017 Cigarette nicotine dependence without complicati on 01/01/2017 Postmenopausal 01/01/2017 Essential hypertension 01/01/2017 Low compliance bladder 01/01/2017 History of adenomatous polyp of colon 01/01/2017 Cerebrovascular small vessel disease 01/01/2017 Immunizations Immunization Administration Dates Next Due Td, adsorbed adult PF 03/23/1999 Tdap 05/27/2019 Family History Medical History Relation Comments Heart Disease Brother High Cholesterol Brother Hypertension Brother Diabetes Father Heart Disease Father High Cholesterol Father Hypertension Father Cancer Maternal Grandfather Diabetes Maternal Grandfather Emphysema Maternal Grandfather Heart Disease Maternal Grandfather High Cholesterol Maternal Grandfather Hypertension Maternal Grandfather Obesity Maternal Grandfather Cancer Maternal Grandmother Bleeding Prob Maternal Uncle Diabetes Mother Eczema Mother High Cholesterol Mother Hypertension Mother Obesity Mother Arthritis Paternal Grandfather Cancer Paternal Grandfather Diabetes Paternal Grandfather Emphysema Paternal Grandfather Heart Disease Paternal Grandfather High Cholesterol Paternal Grandfather Hypertension Paternal Grandfather Arthritis Paternal Grandmother Diabetes Paternal Grandmother Emphysema Paternal Grandmother Heart Disease Paternal Grandmother High Cholesterol Paternal Grandmother Hypertension Paternal Grandmother Obesity Paternal Grandmother Depression Sister Obesity Sister Relation Status Comments Brother Father Maternal Grandfather Maternal Grandmother Maternal Uncle Mother Paternal Grandfather Paternal Grandmother Sister Social History Tobacco Use Types Packs/Day Years [...] on file Sexual Orientation Not on file Last Filed Vital Signs Vital Sign Reading Time Taken Comments Blood Pressure 120/82 05/27/2019 11:51 AM CDT Pulse 88 05/27/2019 8:59 AM CDT Temperature 36.8 C (98.2 F) 05/27/2019 8:59 AM CDT Respiratory Rate 12 05/27/2019 8:59 AM CDT Oxygen Saturation 95% 06/12/2017 7:35 AM CDT Inhaled Oxygen Concentration - - Weight 77.1 kg (170 lb) 05/27/2019 8:59 AM CDT Height 170.2 cm (5' 7 ) 05/27/2019 8:59 AM CDT Body Mass Index 26.63 05/27/2019 8:59 AM CDT Plan of Treatment Health Maintenance Due Date Last Done Comments Annual Physical Visit 1963 HIV [place] Screening 1975 HCV Screening 1978 Pneumococcal Vaccine (1 of 2 - PCV) 1979 CT Colonography 2005 FIT-DNA 2005 FIT 2005 FOBT 2005 Flex Sigmoidoscopy 2005 Zoster Vaccine (1 of 2) 2010 Cervical Cancer Screening 07/29/20162014, 06/18/2014, 06/02/2013, Additional history exists Mammogram 08/19/2017 08/19/2015 Colonoscopy Tracking 02/06/2018 02/06/2013 Lipid Disorder Screening 01/01/2022 01/01/2017 Colonoscopy 02/06/2023 02/06/2013 Colorectal Screening 02/06/2023 [id number] Vaccine ( season) 2024 Influenza Vaccine: Seasonal (Season Ended) 2025 Tetanus Diphtheria Pertussis (2 - Td or Tdap) 05/27/2029 05/27/2019, 03/23/1999 Procedures Procedure Name Priority Date/Time Associated Diagnosis Comments [facility] LIPID PROFILE Routine 01/01/2017 2: 16 PM WORKFORCE SPECIALIST Hyperlipidemia, unspecified hyperlipidemia type from Last 3 Months or Most Recently Relevant to Health Maintenance Results * (ABNORMAL) [facility] LIPID PROFILE (01/01/2017 2:16 PM WORKFORCE SPECIALIST) [facility] Cholesterol - [facility] 224(H) 100 - 200 mg/dL 01/01/2017 5:53 PM [facility] [place] Triglycerides - [facility] 94 50 - 250 mg/dL 01/01/2017 5:53 PM [facility] [place] HDL Cholesterol - [facility] 104(H) 40 - 60 mg/dL 01/01/2017 5:53 PM [facility] [place] LDL Cholesterol - [facility] 101 0 - 130 mg/dL 01/01/2017 5:53 PM [facility] [place] Very Low Density Lipoprotein (VLDL) - [facility] 19 4 - 35 mg/dL 01/01/2017 5:53 PM [facility] [place] Cholesterol/HDL Ratio - [facility] 2.2 01/01/2017 5:53 PM [facility] [place] Comment: LIPID INTERPRETATION ATP III CLASSIFICATIONS(mg/dL) LDL Cholesterol Total Cholesterol HDL Cholesterol <100 Optimal <200 Desirable <40 Low 100-129 Near/above opt 200-239 Borderline high >/=60 High 130-159 Borderline high >/=240 High 160-189 High >/=190 Very high THREE CATEGORIES OF RISK THAT MODIFY LDL CHOLESTEROL GOALS Risk Category LDL Goal(mg/dL) CHD and CHD risk equivalents <100 Multiple (2+) risk factors <130 Zero to one risk factor <160 LDL CHOLESTEROL GOALS AND CUTPOINTS FOR THERAPEUTIC LIFESTYLE CHANGES (TLC) AND DRUG THERAPY IN DIFFERENT RISK CATEGORIES Risk Category LDL Goal LDL Level at LDL Level at Which to Initiate Which to Initiate Therapeutic Lifestyle Therapeutic Lifestyle Changes(TLC) Changes(TLC) CHD/CHD Risk (10 yr risk >20%) < 100mg/dL >/= 100mg/dL >/= 130mg/dL (100-129mg/dL:drug optional) 2+ Risk Factors < 130mg/dL >/=130mg/dL >/= 160mg/dL (130-159mg/dL:drug optional) 0-1 Risk Factors < 160 mg/dL >/=160mg/dL >/= 190mg/dL (160-189mg/dL:drug optional) Blood specimen (specimen) Venipuncture / Unknown 01/01/2017 2:16 PM WORKFORCE SPECIALIST 01/01/2017 4:43 PM WORKFORCE SPECIALIST us Ayleen Lemus [facility] Final Resu lt [facility] [place] [address] [place] [address], [place] [phone] from Last 3 Months or Most Recently Relevant to Health Maintenance Insurance [facility] Advance Directives For more information, please contact: [phone] * Full Code (Latest Code Status on File) Date Activated Date Inactivated Comments 06/11/2017 2:06 PM 06/12/2017 1:56 PM Care Teams Ending Machine Operator Relationship Specialty Start Date End Date Ayleen Lemus [address] [place] [id number] PCP - General 05/05/09
--- OUTSIDE RECORDS SUMMARY | 2025-04-08 14:21 | XMS_ITS | Clinical Summary ---
Author Organization [employer] Address [address] [place] [address] Care Team Providers Care Counter Clerk [employer] Name Role Phone Ayleen Lemus PA-C Primary Care Provide r Source Comments This disclosure is being made pursuant to the [employer] program and maynot contain all information available regarding this patient.[employer] Allergies Active Allergy Reactions Criticality Noted Date Comments Amlodipine Edema,Itching Low 07/02/2017 Itchy face, feet, and hands as well as ankle swelling. Hydrochlorothiazide Edema Low 06/19/2017 Lisinopril Edema Low 06/19/2017 Medications * This document contains information received from the source organization and may not represent a complete record from that organization. albuterol (PROVENTIL) (2.5 MG/3ML) 0.083% nebulizer solution Inhale 2.5 mg into the lungs every 4 (four) hours as needed. 7 Active hydrOXYzine pamoate (VISTARIL) 25 MG capsule Take 1 -2 capsules daily as needed 180 capsule 4 Active venlafaxine HCl (EFFEXOR-XR) 150 MG 24 hr capsule Take 2 (two) capsules (300 mg total) by mouth daily. 180 capsule 1 5 05/25/20 25 Active mirtazapine (REMERON) 30 MG tablet Take 2 (two) tablets (60 mg total) by mouth nightly. 180 tablet 1 5 05/25/20 25 Active fluticasone NASAL (FLONASE) 50 MCG/ACT nasal sprayIndications: Allergic rhinitis, unspecified seasonality, unspecified trigger USE 2 SPRAYS IN EACH NOSTRIL ONCE DAILY DIRECTED 16 g 1 5 Active albuterol 108 (90 Base) MCG/ACT inhalerIndication s:Mild intermittent reactive airway disease without complication USE 2 PUFFS BY INHALATION EVERY 6 HOURS NEEDED FOR WHEEZING. 18 g 3 5 Active furosemide (LASIX) 20 MG tabletIndications :Essential hypertension TAKE 1 (ONE) TABLET (20 MG TOTAL) BY MOUTH DAILY. 90 tablet 2 5 Active atenolol (TENORMIN) 100 MG tabletIndications :Essential hypertension TAKE 1 (ONE) TABLET (100 MG TOTAL) BY MOUTH DAILY. 90 tablet 2 5 Active folic acid (FOLVITE) 1 MG tabletIndications :Hypokalemia TAKE 1 (ONE) TABLET (1 MG TOTAL) BY MOUTH DAILY. 90 tablet 2 5 Active Active Problems Problem Noted Date Diagnosed Date History of partial hysterectomy 12/19/2022 Overview (12/19/2022): 2006, cervix is intact Hypokalemia 01/23/2021 Alcoholic cirrhosis of liver without ascites Edema of both legs 05/11/2020 Allergic rhinitis 05/27/2019 Reactive airway disease 05/27/2019 Hyponatremia 06/11/2017 Alcohol abuse 01/01/2017 Cerebrovascular small vessel disease 01/01/2017 Essential hypertension 01/01/2017 Gastroesophageal reflux disease with esophagitis 01/01/2017 Generalized anxiety disorder 01/01/2017 History of adenomatous polyp of colon 01/01/2017 Irritable bowel syndrome wit h both constipation and diarrhea 01/01/2017 Low compliance bladder 01/01/2017 Moderate episode of recurrent major depressive d isorder 01/01/2017 Postmenopausal 01/01/2017 Resolved Problems Problem Noted Date Diagnosed Date Resolved Date Tobacco abuse 05/11/2020 06/08/2020 Angioedema 06/11/2017 06/08/2020 Bronchitis 06/11/2017 06/08/2020 Cigarette nicotine dependenc e without complication 01/01/2017 12/19/2022 Encounters Date Type Department Care Team Description 03/08/2025 [facility] [address] [place] [address] Ayleen Lemus PA-C Essential hypertension; Hypokalemia 03/02/2025 [facility] [address] [place] [address] Keisha Balderrama RN Follow-up (testing) 01/07/2025 [facility] [address] [place] [id number] Ayleen Lemus PA-C Mild intermittent reactive airway disease without complication (Primary Dx) 01/07/2025 [facility] [address] [place] [address] Ayleen Lemus PA-C Allergic rhinitis, unspecified seasonality, unspecified trigger from Last 3 Months Immunizations Immunization Administration Dates Next Due COVID-19 (MODERNA) mRNA ages 12+ 09/30/2021,12/26,12/13/2020 COVID-19 (MODERNA-BIVALENT) mRNA ages 12+ (50 mCg/0.5 mL) 10/02/2022 Hepatitis A-Hepatitis B (Twinrix) HepA-HepB 01/26,09/09/2020,07/27/2020 Hepatitis B, unspecified formulation 05/09/2004, 12/07/2003,11/05/2003 Influenza H1N1 preservative free 09/18/2009 Influenza, unspecified formulation 07/29/2015, Pneumococcal Conjugate-20 (P revnar 20) PCV20 12/05/2023 Tdap 05/27/2019,05/23/2009,05/14/2008 Tetanus and Diphtheria (Tenivac) Td 03/23/1999 Family History Medical History Relation Name Comments Heart disease Brother Hypertension Brother Diabetes Father Heart disease Father High cholesterol Father Hypertension Father Cancer Maternal Grandfather Diabetes Maternal Grandfather Emphysema Maternal Grandfather Heart disease Maternal Grandfather Hypertension Maternal Grandfather Cancer Maternal Grandmother Diabetes Mother Eczema Mother High cholesterol Mother Hypertension Mother Obesity Mother Cancer Paternal Grandfather Diabetes Paternal Grandfather Emphysema Paternal Grandfather Heart disease Paternal Grandfather High cholesterol Paternal Grandfather Hypertension Paternal Grandfather Diabetes Paternal Grandmother Emphysema Paternal Grandmother Heart disease Paternal Grandmother Hypertension Paternal Grandmother Depression Sister Obesity Sister Relation Name Status Comments Brother Father Maternal Grandfather Maternal Grandmother Mother Paternal Grandfather Paternal Grandmother Sister Social History Tobacco Use Types Packs/Day Years Used Date Smoking Tobacco: Every Day Cigarettes Smokeless Tobacco: Never Tobacco Cessation:Ready to Q uit: Not Asked; Counseling Given: Not Answered Alcohol Use Standard Drinks/Week Comments Yes 20 (1 standard drink = 0.6 oz pu re alcohol) 9 Vodka/week PHQ-2 Answer Date Recorded PHQ-2 Score 5 11/24/2024 Comments No Sex and Gender Information Value Date Recorded Sex Assigned at Not on file Legal Sex Female 4:19 AM CDT Gender Identity Not on file Sexual Orientation Not on file Last Filed Vital Signs Vital Sign Reading Time Taken Comments Blood Pressure 136/82 12/22/2024 10:19 AM COIN COLLECTOR Pulse 76 12/22/2024 10:19 AM COIN COLLECTOR Temperature 36.2 C (97.2 F) 12/22/2024 10:19 AM COIN COLLECTOR Respiratory Rate 18 12/05/2023 9:10 AM COIN COLLECTOR Oxygen Saturation - - Inhaled Oxygen Concentration - - Weight 77.5 kg (170 lb 14.4 oz) 025 10:19 AM COIN COLLECTOR Height 170.8 cm (5' 7.25 ) 12/22/2024 1 0:19 AM COIN COLLECTOR Body Mass Index 26.57 12/22/2024 10:19 AM COIN COLLECTOR Plan of Treatment Upcoming Encounters Date Type Department Care Team (Late st Contact Info) Description 07/06/2025 9:15 AM CDT Appointment [facility] [address] [place] [address] Ayleen Lemus PA-C [address] [place] [address] Health Maintenance Due Date Last Done Comments CT Colonography 1960 Fecal DNA Test 1960 HPV 1960 Lab-Hepatitis C Screening 1960 Sigmoidoscopy 1960 Zoster (Shingles) Vaccine 50+ (1 of 2) 2010 RSV Adult (1 - Risk 60-74 years 1-dose series) 2020 FOBT/FIT 01/23/2022 01/23/2021 Cervical Cancer Screening 12/20/2022 Breast Cancer Screening-Mammogram 02/29/2024 02/28/2023, 02/28/2023, 02/27/2021, Additional history exists COVID-19 Vaccine ( season) 2024 10/02/2022, 09/30/2021, 01/10/2021, Additional history exists Influenza Vaccine (#1) 2024 07/29/2015, 2007 Colonoscopy 05/13/2025 05/13/2020, 01/26/2013 Colorectal Cancer Screening 05/13/2025 Pap Smear 12/19/2025 12/19/2022, 03/06/2021, 07/29/2015, Additional history exists Annual Wellness Visit 12/22/2025 12/22/2024 , 12/19/2022, 01/23/2021, Additional history exists Lab-Diabetes Screening 12/22/2025 , 07/10/2024, 07/10/2024, Additional history exists Tetanus/Pertussis Vaccine Teen/Adult (4 - Td or Tdap) 05/27/2029 05/27/2019, 05/23/2009, 05/14/2008, Additional history exists Lab-Cholesterol Screening 12/22/20292024, 07/10/2024, 12/05/2023, Additional history exists Lung Cancer Screening Discontinued 04/08/2013 Hepatitis A Vaccine Completed 02/10/2021, 09/09/2020, 07/27/2020 Hepatitis B Vaccine Completed 02/10/2021, 09/09/2020, 07/27/2020, Additional history exists Pneumococcal Vaccines 50+ Completed 12/05/2023 HIB Vaccine Aged Out No longer eligi ble based on patient's age to complete this topic HPV Vaccine (F:9-26YO,M: 9-22) Aged Out No longer eligible based on patient's age to complete this topic IPV Vaccine Aged Out No longer eligi ble based on patient's age to complete this topic Meningococcal Conjugate Vaccine Aged Out No longer eligible based on patient's age to complete this topic RSV < 20 Months Aged Out No longer el igible based on patient's age to complete this topic Goals Goal Patient Goal Type Associated Problems Recent Progress Patient-Stated? Author Blood Pressure < 140/90 Blood Pressure 136/82( 025 10:19 AM COIN COLLECTOR) No Vera thapa, Ayleen Augustin PA-C Procedures Procedure Name Priority Date/Time Associated Diagnosis Comments LIPID PANEL Routine 12/22/2024 10:50 AM COIN COLLECTOR Essential hypertension COMPREHENSIVE METABOLIC PANEL Routine 12/22/2024 10:50 AM COIN COLLECTOR Hyponatremia MM 3D MAMM BILAT SCREENING W CAD Routine 02/28/2023 Encounter for screening mammogram for breast cancer THIN PREP PAP SMEAR Routine 12/19/2022 1 1:46 AM COIN COLLECTOR Encounter for gynecological examination POCT OCCULT BLOOD STOOL - AMBULATORY Routine 01/23/2021 Screening for colorectal cancer HM COLONOSCOPY Routine 05/13/2020 CT ANGIOGRAPHY CHEST W WO CONTRAST Routine 04/08/2013 12:08 PM CDT Shortness of breath Positive D dimer from Last 3 Months or Most Recently Relevant to Health Maintenance Results * Lipid panel (12/22/2024 10:50 AM COIN COLLECTOR) Cholesterol 186 100 - 200 mg/dL 12/22/2024 6:16 PM COIN COLLECTOR [employer]ITRY [employer]ING Triglycerides 114 50 - 199 mg/dL 12/22/2024 6:16 PM COIN COLLECTOR [employer] HDL Cholesterol 50 40 - 60 mg/dL 12/22/2024 6:16 PM COIN COLLECTOR [employer] LDL, Calculated 113 0 - 130 mg/dL 12/22/2024 6:16 PM [facility] DIMITRY HARDING VLDL Cholesterol 23 4 - 35 mg/dL 12/22/2024 6:16 PM [facility] DIMITRY HARDING Cholesterol/HDL Ratio 3.7 12/22/2024 6:16 PM [facility] DIMITRY HARDING Serum 12/22/2024 10:5 0 AM COIN COLLECTOR 12/22/2024 4:35 PM COIN COLLECTOR us Ayleen Lemus PA-C LAB BLOOD ORDERABLES Final Result [facility] [place], [place] DIMITRY HARDING [address] [place] [address] * (ABNORMAL) Comprehensive metabolic panel (12/22/2024 10:50 AM COIN COLLECTOR) Sodium 139 134 - 146 mmol/L 12/22/2024 6:16 PM COIN COLLECTOR DIMITRY [employer]ARDING Potassium 4.2 3.5 - 5.3 mmol/L 12/22/2024 6:16 PM COIN COLLECTOR DIMITRY [employer]ARDING Chloride 100 98 - 113 mmol/L 12/22/2024 6:16 PM COIN COLLECTOR D[employer]ITRY [employer]ARDING CO2 28 17 - 36 mmol/L 12/22/2024 6:16 PM COIN COLLECTOR DIMITRY [employer]ARDING Glucose 113 70.0 - 120.0 mg/dL 12/22/2024 6:16 PM COIN COLLECTOR D[employer]ING BUN 11 7 - 19 mg/dL 12/22/2024 6:16 PM COIN COLLECTOR DIMITRY [employer]ARDING Creatinine 0.76 0.50 - 1.10 mg/dL 12/22/2024 6:16 PM COIN COLLECTOR DIIMTRY HARDING Calcium 9.7 8.5 - 10.6 mg/dL 12/22/2024 6:16 PM [facility] DIMITRY HARDING Total Protein 6.7 6.0 - 8.2 g/dL 12/22/2024 6:16 PM COIN COLLECTOR [employer] Albumin 4.0 3.5 - 5.2 g/dL 12/22/2024 6:16 PM COIN COLLECTOR D[employer]ARDING Bilirubin Total 0.5 0.00 - 1.00 mg/dL 12/22/2024 6:16 PM COIN COLLECTOR [employer]ING Alkaline Phosphatase 113(H) 29 - 93 U/L 12/22/2024 6:16 PM COIN COLLECTOR D[employer]IT[employer]ARDING AST 17 12 - 29 U/L 12/22/2024 6:16 PM COIN COLLECTOR DIMITRY [employer]ARDING ALT 15 9 - 41 U/L 12/22/2024 6:16 PM COIN COLLECTOR DIMITRY [employer]ARDING Anion Gap 11 3 - 11 mmol/L 12/22/2024 6:16 PM COIN COLLECTOR DIMITRY [employer]ARDING BUN/Creatinine Ratio 14.5(L) 15 - 25 12/22/2024 6:16 PM COIN COLLECTOR DIMITRY [employer]ARDING Osmolality Calculated 288 275 - 295 mosm/kg 12/22/2024 6:16 PM COIN COLLECTOR D[employer]ITRY [employer]ARDING Globulin 2.7 1.1 - 3.4 g/dL 12/22/2024 6:16 PM COIN COLLECTOR [employer]ING A/G Ratio 1.5 1.1 - 2.2 12/22/2024 6:16 PM COIN COLLECTOR [employer] Creatinine Based eGFR 87(L) >90 mL/min/[1. 73_m2] 12/22/2024 6:16 PM COIN COLLECTOR [employer] Comment:GFR 60-90 Mild decre ased GFR. Serum 12/22/2024 10:5 0 AM COIN COLLECTOR 12/22/2024 4:35 PM COIN COLLECTOR Ayleen Lemus PA-C LAB BLOOD ORDERABLES Final Result [facility] [place] [address] [place], [place] [id number] * MM 3D Mamm Bilat Screening w CAD (02/28/2023) Anatomical Region Laterality Modality Breast Bilateral Mammography 02/28/2023 Ayleen Lemus PA-C IMG MAMMOGRAPHY ORDER [place] Final Result * Thin Prep Pap Smear (12/19/2022 11:46 AM COIN COLLECTOR) Pathology Result AP results 12/22/19 11:40 AM COIN COLLECTOR [facility] Comment: (NOTE) Final BOX TRUCK DRIVER Cytology Report Result: Negative for intraepithelial lesion or malignancy. Specimen successfully processed on ThinPrep Maxillofacial Pathology. Specimen Adequacy: Satisfactory for evaluation. Endocervical component absent. HPV DNA Detection - High Risk PCR Source: Endocervical HPV High Risk Type 16: Negative HPV High Risk Type 18: Negative HPV Other High Risk Types: Negative The following other high risk HPV types were tested for: 31,33,35,39,45,51,52,56,58,59,66,68. Note: The Eduin HPV test uses real time PCR technology to assess the presence or absence of high risk HPV types for specimens collected in ThinPrep PreservCyt Pap Test solution. A negative result does not exclude the possibility of low levels of infection or sampling error. Examined by: JOYCE Borja(ASCP) Electronically Signed: Kishor Zhao, 12/22/2022 at 11:39 AM Pap specimen source: Endocervical Specimen type is ThinPrep Paptest. LMP: Partial hyst Note: The Pap test is a screening test for the early detection of cervical carcinoma and its precursors with inherent false negative and false positive results. Follow up of unexplained clinical symptoms is recommended. Cervical 12/19/2022 11:4 6 AM COIN COLLECTOR 12/19/2022 11:47 AM COIN COLLECTOR Ayleen Lemus PA-C PATHOLOGY/CYTOLOGY OR DERABLES Final Result [facility] CLINICAL Cardiovascular [employer] [address] [place] [address] * POCT Occult Blood Stool - Ambulatory (01/23/2021) Fecal Occult Blood Negative Negative, Indeterminate [facility] Occult Blood, Stool #2 [facility] Occult Blood, Stool #3 [facility] 01/23/2021 Ayleen Lemus PA-C POINT OF CARE TEST OR DERABLES Final Result [facility] [address] [place] [address] * Colonoscopy (05/13/2020) HM Colonoscopy Tubular Adenoma Comment:Tubular Adenoma Repe at 5 years [facility] GI Dr. Fairchild 05/13/2020 us Not In System Provider HEALTH MAINTENANCE Final Result * CT ANGIOGRAPHY CHEST W WO CONTRAST (04/08/2013 12:08 PM CDT) Anatomical Region Laterality Modality Chest, Vascular Computed Tomogra phy 04/08/2013 12:0 8 PM CDT Narrative 04/08/2013 1:37 PM CDT [place] [address] [place] [address] CELSA OLSEN [facility] REC #:[id number] PT. LOC: OP :1960 Age/Sex:52Y F ORDERING PROV:PRAFUL CUH M.D. ATTENDING PROV:PRAFUL CHU M.D. ADMITTING PROV: CC: EXAM DATE:04/08/2013 DOCUMENT STATUS:Final PROCEDURE(S):CT ANG CHEST W/WO CONTRAST ORDER #:[id number] RIGHT/LEFT: HISTORY: short of breathpostivie d dimer. 2 syncopal episodes. EXAM: CT ANG CHEST W/WO CONTRAST COMPARISON: None available CTA thorax with intravenous contrast enhancement using the PE protocol. Findings: 100 mL Isovue-370. The pulmonary arteries are opacified. No central clot or pulmonary was not is appreciated. The ascending thoracic aorta measures 34 mm in greatest dimension. No lung infiltrates, nodules, pleural effusions, or mediastinal or hilar lymphadenopathy is appreciated. There is mild thoracic spondylosis. There is a left lobe of liver hepatic cyst demonstrated on the 03/26/2013 biliary ultrasound. No abnormality of the visualized upper abdominal organs are appreciated. Impression: 1. No central clot or pulmonary embolism. 2. A left lobe of liver hepatic cysts. 3. No other abnormality of the CT examination of the thorax is appreciated. Electronically signed by: ELOISA WEI M.D. Dictated: 04/08/2013 1:34:27 PM Signed: 04/08/2013 1:37:39 PM [facility]. PAGE 1 of 1 Procedure Note Eloisa Wei MD - 04/08/2013 [facility] [address] [place] [address] CELSA OLSEN [facility] REC #:[id number] PT. LOC: OP :1960 Age/Sex:52Y F ORDERING PROV:PRAFUL CHU M.D. ATTENDING PROV:PRAFUL CHU M.D. ADMITTING PROV: CC: EXAM DATE:04/08/2013 DOCUMENT STATUS:Final PROCEDURE(S):CT ANG CHEST W/WO CONTRAST ORDER #:[id number] RIGHT/LEFT: HISTORY: short of breathpostivie d dimer. 2 syncopal episodes. EXAM: CT ANG CHEST W/WO CONTRAST COMPARISON: None available CTA thorax with intravenous contrast enhancement using the PE protocol. Findings: 100 mL Isovue-370. The pulmonary arteries are opacified. No central clot or pulmonary was not is appreciated. The ascending thoracic aorta measures 34 mm in greatest dimension. No lung infiltrates, nodules, pleural effusions, or mediastinal or hilar lymphadenopathy is appreciated. There is mild thoracic spondylosis. There is a left lobe of liver hepatic cyst demonstrated on the 03/26/2013 biliary ultrasound. No abnormality of the visualized upper abdominal organs are appreciated. Impression: 1. No central clot or pulmonary embolism. 2. A left lobe of liver hepatic cysts. 3. No other abnormality of the CT examination of the thorax is appreciated. Electronically signed by: ELOISA WEI M.D. Dictated: 04/08/2013 1:34:27 PM Signed: 04/08/2013 1:37:39 PM [facility]. PAGE 1 of 1 Praful Chu MD IMG CV CT ORDERABLES Final Res ult from Last 3 Months or Most Recently Relevant to Health Maintenance Insurance [employer] [facility] [employer] [facility] [address] [place] [phone] [place] [address] Care Teams Counter Clerk [employer] Relationship Specialty Start Date End Date Ayleen Lemus PA-C [address] [place] [id number] PCP - General 03/20/13
--- OUTSIDE RECORDS SUMMARY | 2025-04-08 14:21 | XMS_ITS | Referral Summary ---
Author Organization [facility] Address [address] [place] [address] Care Team Providers Care Bartender Manager Name Role Phone Ayleen Lemus Primary Care Provider [phone]- [phone] Source Comments This disclosure is being made pursuant to the Care Everywhere program,applicable federal and state laws, and may not contain all informationavailable regarding this patient.[facility] Practices Allergies Active Allergy Reactions Criticality Noted [...] Td, adsorbed adult PF 03/23/1999 Tdap 05/27/2019 Social History Tobacco Use Types Packs/Day Years [...] 05/27/2019 8:59 AM CDT Plan of Treatment Not on file Procedures Procedure Name Priority Date/Time Associated Diagnosis Comments [facility] LIPID PROFILE Routine 01/01/2017 2: 16 PM GENERAL UTILITY MACHINE OPERATOR Hyperlipidemia, unspecified hyperlipidemia type from Last 3 Months or Most Recently Relevant to Health Maintenance Results * (ABNORMAL) [facility] LIPID PROFILE (01/01/2017 2:16 PM GENERAL UTILITY MACHINE OPERATOR) [facility] Cholesterol - [facility] 224(H) 100 - 200 mg/dL 01/01/2017 5:53 PM GENERAL UTILITY MACHINE OPERATOR [facility] [place] Triglycerides - [facility] 94 50 - 250 mg/dL 01/01/2017 5:53 PM [facility] [place] HDL Cholesterol - [facility] 104(H) 40 - 60 mg/dL 01/01/2017 5:53 PM [facility] [place] LDL Cholesterol - [facility] 101 0 - 130 mg/dL 01/01/2017 5:53 PM GENERAL UTILITY MACHINE OPERATOR [facility] [place] Very Low Density Lipoprotein (VLDL) - [facility] 19 4 - 35 mg/dL 01/01/2017 5:53 PM [facility] [place] Cholesterol/HDL Ratio - [facility] 2.2 01/01/2017 5:53 PM [facility] [place] Comment: LIPID INTERPRETATION ATP III CLASSIFICATIONS(mg/dL) LDL [...] (specimen) Venipuncture / Unknown 01/01/2017 2:16 PM GENERAL UTILITY MACHINE OPERATOR 01/01/2017 4:43 PM GENERAL UTILITY MACHINE OPERATOR us Ayleen Lemus [facility] Final Resu lt [facility] [place] [address] [place] [address], from Last 3 Months or Most Recently Relevant to Health Maintenance [facility] Advance Directives For more information, please contact: [phone] * Full Code (Latest Code Status on File) Date Activated Date Inactivated Comments 06/11/2017 2:06 PM 06/12/2017 1:56 PM Care Teams Bartender Manager Relationship Specialty Start Date End Date Ayleen Lemus [address] [place] [id number] PCP - General 05/05/09
--- OUTSIDE RECORDS SUMMARY | 2025-04-08 14:21 | XMS_ITS | Encounter Summary ---
Author Organization [facility] Address [address] [place] [address] Phone Care Team Providers Care Billposter Name Role Phone Ayleen Lemus Primary Care Provider [phone]- [phone] Reason for Visit * Reason Comments Medication Refill Encounter Details Date Type Department Care Team ([facility] st Contact Info) Description 07/10/2018 Refill [facility] [address] [place] [address] Ayleen Lemus [address] [place] [address] Social History Tobacco Use Types Packs/Day Years [...] as of this encounter Visit Diagnoses Diagnosis Allergic rhinitis Allergic rhinitis, cause unspecified documented in this encounter Care Teams Billposter Relationship Specialty Start Date End Date Ayleen Lemus [address] [place], [place] [id number] PCP - General 05/05/09 documented as of this encounter
--- OUTSIDE RECORDS SUMMARY | 2025-04-08 14:21 | XMS_ITS | Clinical Summary ---
Author Organization [facility] ([facility]) Address [address] [place] [address] Phone Care Team Providers Care Vibration Technician Name Role Phone Ayleen Lemus Primary Care Provider + Allergies Active Allergy Reactions Criticality Noted Date Comments Amlodipine Angioedema,Swelling, Itching Low 07/02/2017 Itchy face, feet, and hands as well as ankle swelling. Itchy face, feet, and hands as well as ankle swelling. Hydrochlorothiazide Angioedema,Swelling Low 017 Lisinopril Angioedema 05/11/2020 Esomeprazole Magnesium Other (See Comments) Doesn't know what the reaction was Potassium Chloride Other (See Comments) 020 IV only causes severe burning sensation throughout body. Tolerates PO potassium. Medications epinephrine (EPIPEN) 0.3 mg/0.3 mL Auto-Injector Inject 0.3 mL (0.3 mg total) into the muscle. 06/12/2017 Active albuterol 90 mcg/actuation inhaler Inhale 2 puffs into the lungs. 05/27/2019 Active albuterol (PROVENTIL) 2.5 mg /3 mL (0.083 %) nebulizer solution Inhale 3 mL (2.5 mg total) into the lungs. 06/12/2017 Active fluticasone propionate (FLONASE) 50 mcg/actuation nasal spray USE 2 SPRAYS IN EACH NOSTRIL ONCE DAILY DIRECTED 07/10/2018 Active mirtazapine (REMERON) 45 MG tablet Take 60 mg by mouth. Active venlafaxine (EFFEXOR-XR) 150 MG 24 hr capsule 2 capsules (300 mg total) at bedtime. 04/28/2020 Active hydrOXYzine (ATARAX) 25 MG tablet Take 1 tablet (25 mg total) by mouth 3 (three) times daily as needed for Itching. Active folic acid (FOLVITE) 1 MG tabletIndicatio ns:Macrocytic anemia TAKE 1 TABLET (1 MG TOTAL) BY MOUTH DAILY. 90 tablet 2 07/17/2021 Active atenoloL (TENORMIN) 100 MG tablet Take 1 tablet (100 mg total) by mouth daily. Active furosemide (LASIX) 20 MG tablet Take 1 tablet (20 mg total) by mouth daily. Active potassium chloride (KLOR-CON) 10 MEQ CR tablet Take 1 tablet (10 mEq total) by mouth daily. Active Active Problems Problem Noted Date Diagnosed Date Edema of both legs 05/11/2020 Cirrhosis of liver 05/11/2020 Tobacco abuse 05/11/2020 Alcohol abuse 05/11/2020 Resolved Problems Problem Noted Date Diagnosed Date Resolved Date Headache 06/08/2020 06/10/2020 Hypokalemia 05/13/2020 05/14/2020 Anemia 05/11/2020 05/14/2020 Melena 05/11/2020 05/14/2020 Immunizations Immunization Administration Dates Next Due Hepatitis A and Hepatitis B 02/10/2021, 0,07/27/2020 08/26/2020 Family History Medical History Relation Name Comments Breast cancer Neg Hx Ovarian cancer Neg Hx Social History Tobacco Use Types Packs/Day Years Used Date Smoking Tobacco: Every Day Cigarettes Smokeless Tobacco: Never Tobacco Cessation:Ready to Q uit: Yes; Counseling Given: Yes Comments:Would like to quit. Cutting back and quitting slowly Alcohol Use Standard Drinks/Week Comments Yes 0 (1 standard drink = 0.6 oz pure alcohol) 05/27/20 3 drinks in the last week AUDIT-C Answer Date Recorded Q1: How often do you have a drink containing alc ohol? 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 Gender Identity Female 05/12/2020 12:28 AM CDT Sexual Orientation Straight 05/12/2020 12 :28 AM CDT Last Filed Vital Signs Vital Sign Reading Time Taken Comments Blood Pressure 132/80 03/12/2023 10:04 AM CDT Pulse 76 03/12/2023 10:04 AM CDT Temperature 36.4 C (97.5 F) 02/27/2021 11:11 AM CDT Respiratory Rate 12 02/27/2021 11:11 AM CDT Oxygen Saturation 97% 02/10/2021 1:05 PM CDT Inhaled Oxygen Concentration - - Weight 76.5 kg (168 lb 9.6 oz) 03/12/2023 10:04 AM CDT Height 170.2 cm (5' 7 ) 03/12/2023 10:04 AM CDT Body Mass Index 26.41 03/12/2023 10:04 AM CDT Plan of Treatment Health Maintenance Due Date Last Done Comments MMR VACCINES (1 of 1 - Standard series) 1961 ZOSTER VACCINES (1 of 2) 2010 DEXA SCAN 2020 RSV PATIENTS AGED 60+ OR (1 - Risk 60-74 years 1-dose series) 2020 MAMMOGRAM 02/29/2024 02/28/2023 COVID VACCINES ( season) 2024 10/02/2022, 09/30/2021, 01/10/2021, Additional history exists INFLUENZA VACCINE (Season Ended) 2025 07/29/2015, 10/12/2008 PAP SMEAR 12/19/2025 12/19/2022, 01/23/2021 DTAP/TDAP/TD VACCINES (4 - Td or Tdap) 05/27/2029 05/27/2019, 05/23/2009, 05/14/2008, Additional history exists COLONOSCOPY 05/13/2030 05/13/2020 HEPATITIS A VACCINES Completed 02/10/2021, 09/09/2020, 07/27/2020 HEPATITIS B VACCINES Completed 02/10/2021, 09/09/2020, 07/27/2020, Additional history exists PNEUMOCOCCAL (50+) VACCINE Completed 12/05/2023 HPV VACCINES Aged Out No longer eligi ble based on patient's age to complete this topic MENINGOCOCCAL B VACCINE Aged Out No l onger eligible based on patient's age to complete this topic MENINGOCOCCAL VACCINE Aged Out No bobbi jayson eligible based on patient's age to complete this topic POLIO VACCINES Aged Out No longer nikos gible based on patient's age to complete this topic Procedures Procedure Name Priority Date/Time Associated Diagnosis Comments MAMMO SCREENING BILATERAL W CAD ([id number]) Routine 02/28/2023 9:25 AM CDT Encounter for screening mammogram for malignant neoplasm of breast from Last 3 Months or Most Recently Relevant to Health Maintenance Results * MAMMO SCREENING BILATERAL W CAD ([id number]) (02/28/2023 9:25 AM CDT) Anatomical Region Laterality Modality Breast Bilateral Mammography 02/28/2023 9:25 AM CDT Impressions 02/28/2023 12:23 PM CDT 1. No mammographic evidence of malignancy. 2. Extensive vascular calcifications are noted, which can be associated with coronary artery disease. ASSESSMENT: BIRADS 2 - Benign findings. RECOMMENDATION: Routine annual mammographic follow-up. THE EXAM WAS SUPPLEMENTED BY 3D MAMMOGRAPHY: YES Electronically signed by: Elkin Valverde MD - 02/28/2023 12:23 PM Narrative 02/28/2023 12:23 PM CDT Craniocaudal and oblique mediolateral views were accomplished using low dose technique. Computer aided detection (CAD) was used in this case. EXAM: MG 3D SCREENING MAMM BILATERAL CAD HISTORY: mammogram screening COMPARISON: 02/27/2021,02/27/2021, 02/13/2021, 02/17/2021, 08/19/2015, 07/23/2014, 07/21/2013. TISSUE DENSITY: Maximum Breast Density B - Scattered Fibroglandular density FINDINGS: There is no demonstrated dominant mass, suspicious calcifications, or architectural distortion. No nipple or skin changes. Benign calcifications are noted. There is a breast tissue biopsy marker in the anterior upper outer paracentral right breast. No suspicious features or substantial interval change are seen. There are extensive vascular calcifications. us Ayleen RIOS IMG MAMMOGRAPHY ORDERABL ES Final Result from Last 3 Months or Most Recently Relevant to Health Maintenance Insurance [facility] Member Subscriber Plan / Payer (Ef fective 2021-Present) Name:Celsa Ruiz Relation to Subscriber:Spouse Name:RuizDavid hines Date of :1960 (Home) Address: [address] [place], [place] [id number] Payer ID:[id number] (NAIC) Type:Not on file Address: [place] [id number] Advance Directives For more information, please contact: [phone] * Full Code (Latest Code Status on File) Date Activated Date Inactivated Comments 06/08/2020 7:42 PM * Full Code Date Activated Date Inactivated Comments 05/11/2020 9:10 PM 06/08/2020 7:42 PM Care Teams Vibration Technician Relationship Specialty Start Date End Date Ayleen Lemus [place] [place] [address] PCP - General Family Medicine 05/14/13
--- NOTE | 2025-04-08 14:23 | P.HP_ITS ---
Providers/Chief Complaint 2 Admitting Physician: Manan Marrero MD Primary Care Provider: Deric Ramirez MD Chief Complaint: Staph History of Present Illness Celsa Ruiz is a 64 year old female with past medical history of anemia requiring blood transfusion, daily alcohol use with 4 shots of vodka, hypertension, depression, recent admission within last 1 week for acute stroke when she was found to have atrial fibrillation with rapid ventricular response. Patient during that admission had 1 febrile episode of 101.3 Fahrenheit. Subsequent studies including urinalysis, chest x-ray were negative for acute infection. Blood culture from that admission 1 out of 4 bottles came back positive for Staph aureus/MSSA. Given positive blood culture patient was requested to come back to the hospital for further evaluation. Today morning on examination she states she has been doing well at home. Did have episode of cold sweats last night which she states she has been having on and off since menopause. She also states she had a lot of pain in the right arm where she had IV line placed on previous admission along with murky white- colored foul-smelling fluid which was expressed today during bath. She still complains of pain at the site. Denies any nausea, vomiting, headache, dizziness, hardware in the body, difficulty breathing, chest pain. Review of Systems 2 General: Reports: 10 or more systems reviewed and unremarkable except in HPI and below Const: Denies: fever(s), chills, body aches, change in appetite, change in weight, malaise, night sweats, diaphoresis, change in sleep pattern, daytime sleepiness or snoring Eyes: Denies: change in vision, blurry vision, photophobia, eye discomfort or eye discharge ENMT: Denies: throat pain, enlarged tonsils, hoarseness, mouth pain, oral sores, dry mouth, tinnitus, nasal congestion or post nasal drip Card: Denies: chest pain, palpitations, irregular heart rhythm, edema, swelling of feet/ankles, lightheadedness, syncope, pre-syncope, dyspnea on exertion, orthopnea, leg pain with exertion or acrocyanosis Resp: Denies: dyspnea, productive cough, non-productive cough, wheezing, stridor, pain on inspiration, change in phlegm color, hemoptysis or chest congestion GI: Denies: abdominal pain, nausea, vomiting, hematemesis, coffee ground emesis, dysphagia, heartburn, diarrhea, constipation, bloating, GI cramping, change in bowel habits, pain on defecation, hematochezia or melena : Denies: flank pain, dysuria, urinary frequency, urinary urgency, urinary hesitancy, nocturia or hematuria Musc: Denies: neck pain, back pain, extremity pain, joint pain, joint swelling, joint redness, joint stiffness or limited range of motion Neuro: Denies: headache(s), numbness in extremities, weakness in extremities, sensory changes, lack of coordination, difficulty walking, frequent falls, dizziness, vertigo, confusion, Slurred speech present, difficulty communicating thoughts or seizure-like activity Psych: Denies: anxiety, depression, mood swings, panic attacks, hopelessness or irritability Endo: Denies: polyuria, polydipsia, tired all the time, cold intolerance, excessive sweating, flushing or heat intolerance Pablo/Lymph: Denies: easy bruising or easy bleeding All/Imm: Denies: tongue swelling, facial swelling or acute wheezing Medications/Allergies Home Medications ?Medication ?Instructions ?Recorded ?Confirmed ?Last Taken ?Type folic acid 1 mg tablet 1 mg PO DAILY 04/02/2504/0203/31/25 History furosemide 20 mg tablet 20 mg PO DAILY 04/02/2504/2103/31/25 History hydroxyzine pamoate 25 mg capsule 25 mg PO BEDTIME PRN Anxiety 04/02/25 04/02/25 Unknown History mirtazapine 30 mg tablet 60 mg PO BEDTIME 04/02/2504/01/25 20:00 History venlafaxine 150 mg tablet,extended 300 mg PO BEDTIME 0 04/02/25 04/02/25 04/01/25 20:00 History release 24 hr amiodarone 200 mg tablet (Pacerone) 400 mg (2 x 200 mg ) PO 09,21 #90 04/07/25 Unknown Rx tabs apixaban 5 mg tablet (Eliquis) 5 mg PO BID@0900,2100 # 60 tabs 04/07/25 Unknown Rx aspirin 81 mg tablet,delayed 81 mg PO DAILY #30 tabs 0 04/07/25 Unknown Rx release atorvastatin 40 mg tablet 80 mg (2 x 40 mg) PO BEDTIME #60 04/07/25 Unknown Rx tabs carvedilol 6.25 mg tablet 6.25 mg PO BID #60 tabs 03/28 11/21 Unknown Rx losartan 50 mg tablet 75 mg (1.5 x 50 mg) PO BID 3 0 days 04/07/25 Unknown Rx #90 tabs Allergies Allergy/AdvReac Type Severity Reaction Status Date / Time lisinopril Allergy ALGY-Difficulty Verified 04/02/25 13:36 Breathing PFSH Acute 2 PFSH: Medical History (Updated 04/08/25 @ 15:39 by Manan Marrero MD) Depression Alcohol use CVA (cerebral vascular accident) Atrial fibrillation, new onset Hypertension Surgical History (Updated 04/08/25 @ 16:41 by Manan Marrero MD) H/O total hysterectomy H/O lumpectomy Family History (Updated 04/08/25 @ 16:43 by Manan Marrero MD) Other Arrhythmia Atrial fibrillation Denies family history of Aneurysm Social History (Updated 04/08/25 @ 16:43 by Manan Marrero MD) Smoking and tobacco/nicotine status: former use of tobacco/nicotine Alcohol intake: current Alcohol intake frequency: 3 or more drinks per day Substance/Drug Use: never Adopted: No Caregiver/support person: Yes Lives independently: Yes Household members: spouse Housing: House Marital status: Physical Exam 2 Narrative: General: No acute distress, AO x3 HEENT: PERRLA, pupils bilaterally equal and reactive Chest: Normal vesicular breath sounds, no added sounds, equal good air entry bilaterally CVS: S1-S2 regular, no murmurs, no tachycardia, no gallops, no rubs Abdomen: Soft, nontender, no organomegaly, bowel sounds present Neuro: No focal deficits, no facial deformity, AO x3, power 5/5 in all limbs Skin: Tenderness, warmth, increased redness in right antecubital area where she had IV line before Data 04/08/25 14:47 04/08/25 14:47 A&P Assessment and plan (1) Staphylococcus aureus bacteremia: Blood culture from 04/05 1 out of 4 bottles positive for Staph aureus. MSSA. Repeat blood culture, CBC, procalcitonin. Recent echocardiogram negative for acute masses or concerns for vegetation. Check lactic acid, blood culture, procalcitonin. Could be in setting of superficial thrombophlebitis from recent IV line placement. Patient complains of erythema, expression of purulent discharge earlier in the day today. Will plan for right arm duplex with concerns for superficial thrombophlebitis. Start on IV cefazolin as per culture sensitivities. If repeat blood cultures positive will plan for JAIME to rule out endocarditis. If repeat blood cultures positive will consult infectious disease. Patient will most likely need up to 4 weeks of IV antibiotics after negative blood cultures. Hold off on PICC line for now until blood cultures negative. (2) Hypertension: Goal blood pressure less than 140/90 mmHg. Continue with home dose of Coreg, losartan. Uptitrate as for goal blood pressure. (3) Atrial fibrillation, new onset: Recent diagnosis. Continue with amiodarone 400 mg 3 times a day. Day 4/7. Will transition to 40 mg twice daily after day 7. Continue with Eliquis 5 mg twice daily. Telemetry (4) History of anemia: Plan History of recent CVA colon continue with aspirin, statin. Depression: Continue with home dose of mirtazapine, Effexor. Full code Cardiac diet Telemetry. Protonix for PUD prophylaxis Eliquis will be sufficient for DVT prophylaxis. PDMP PDMP Reviewed: Not Reviewed Attestations 2 Medical Necessity Statement*: Admission for more than 2 midnights for management of Staphylococcus bacteremia as patient requires further evaluation and management. Diagnoses Staphylococcus aureus bacteremia R78.81; B95.61 Primary hypertension I10 Hypertension type: primary hypertension Atrial fibrillation, new onset I48.91 History of anemia Z86.2
[2025-04-08 15:03] LABS: Basophils # 0.1 10^3/uL (0.0-0.1); Basophils % 0.8 %; Eosinophils # 0.1 10^3/uL (0.0-0.8); Hematocrit 41.7 % (36-47); Lymphocytes # 1.7 10^3/uL (0.8-4.8); Lymphocytes % 25.3 %; Mean Corpuscular HGB Conc 33.3 g/dL (30-55); Mean Corpuscular Hemoglobin 33.7 pg (27-33); Mean Corpuscular Volume 101.2 fl (85-98); Mean Platelet Volume 10.3 fL (7.4-10.4); Monocytes # 1.2 10^3/uL (0.2-0.9); Monocytes % 18.1 %; Neutrophils # 3.49 10^3/uL (1.8-7.7); Neutrophils % 53.3 %; Nucleated Red Blood Cells % 0 %; Platelet Count 155 10^3/cmm (157-399); Red Blood Count 4.12 10^6/uL (3.85-5.65); White Blood Count 6.53 10^3/uL (3.29-11.43)
[2025-04-08 15:23] LABS: Alanine Aminotransferase 24 U/L (0-33); Albumin Level 3.6 g/dL (3.5-5.2); Alkaline Phosphatase 99 U/L (35-105); Anion Gap 16.4 (5-19); Aspartate Amino Transferase 26 U/L (0-32); Blood Urea Nitrogen 13 mg/dL (8-23); Calcium 9.5 mg/dL (8.5-10.5); Carbon Dioxide 24 mmol/L (22-29); Chloride 101 mmol/L (98-107); Globulin 3.3 g/dL (1.3-4.6); Glucose 98 mg/dL (65-115); Osmolality Calculated 284 mOsm/kg (285-295); Potassium 4.4 mmol/L (3.5-5.1); Sodium 137 mmol/L (136-145); Total Bilirubin 0.3 mg/dL (0.15-1.2); Total Protein 6.9 g/dL (6.6-8.7)
[2025-04-08 15:29] LABS: Procalcitonin 0.24 ng/mL (0-0.5)
[2025-04-08 15:44] LABS: Slide Review Slide Review Perform
[2025-04-08 16:00] VITALS: BP 168/88; PULSE 71; RESP 15; TEMP 36.6; O2SAT 95
[2025-04-08 16:08] VITALS: O2SAT 97
--- NOTE | 2025-04-08 16:45 | USR_ITS ---
PROCEDURE INFORMATION: Exam: US Duplex Right Upper Extremity Veins, Limited Exam date and time: 04/08/2025 7:55 PM Age: 64 years old Clinical indication: Arm, upper; Recent hospitalization with bilateral antecubital iv sites. After discharge, patient became febrile with painful right antecubital lump, which exuded pus. Patient is now septic. ; Additional info: Concern for superficial septic thrombophlebitis TECHNIQUE: Imaging protocol: Real-time duplex ultrasound of the right Upper Extremity with 2-D jennings scale, color Doppler flow and spectral waveform analysis with image documentation. Limited exam focused on the right upper extremity veins. COMPARISON: No relevant prior studies available. FINDINGS: Right deep veins: Unremarkable. Axillary and brachial veins are patent throughout without thrombus. Normal Doppler waveforms. Normal compressibility and/or augmentation response. Visualized internal jugular and subclavian veins are patent. Superficial veins: Visualized cephalic and basilic veins are patent without thrombus. Soft tissues: Large heterogeneous collection adjacent to the right antecubital vein tracking into the skin surface. Other findings: Partially occlusive thrombosis within antecubital vein. US/[place] [id number] IMPRESSION: 1. No evidence of deep vein thrombosis. 2. Superficial thrombophlebitis within right antecubital vein. 3. Large heterogeneous soft tissue collection abutting right antecubital vein and tracking into the skin surface concerning for an abscess formation.
[2025-04-08 17:18] VITALS: BP 168/88
[2025-04-08] MEDS: losartan 50 mg Tablet 75 MG PO (17:18)
[2025-04-08] MEDS: famotidine 20 mg Tablet PO (17:19)
[2025-04-08] MEDS: carvedilol 6.25 mg Tablet PO (17:19)
[2025-04-08 17:38] LABS: Bilirubin Urine Negative (Negative); Blood Urine Negative (Negative); Glucose Urine UA Negative (Normal); Ketones Urine Trace (Negative); Leukocyte Esterase Urine Negative (Negative); Nitrate Urine Negative (Negative); Protein Urine Negative (Negative); Specific Gravity, Urine 1.021 (1.005-1.030); Urine Appearance Clear (CLEAR); Urine Color Yellow (Yellow); Urobilinogen Urine 0.2 mg/dL (Negative); pH Urine 5.5 (5-7)
[2025-04-08 17:43] LABS: Add Urine Microscopic? YES; Bacteria Urine None Seen /hpf; Hyaline Casts Urine 1.65 /lpf; RBC Urine 0-2 /hpf (0-2); Squamous Epithelial Cell Urine 0-5 /hpf (0-5); WBC Urine 0-5 /hpf (0-5)
[2025-04-08 20:00] VITALS: BP 151/81; PULSE 63; RESP 17; TEMP 36.7; O2SAT 97
[2025-04-08] MEDS: amiodarone 200 mg Tablet 400 MG PO (20:53)
[2025-04-08] MEDS: mirtazapine 30 mg Tablet 60 MG PO (20:53)
[2025-04-08] MEDS: apixaban 5 mg Tablet PO (20:54)
[2025-04-08] MEDS: atorvastatin 40 mg Tablet 80 MG PO (20:54)
[2025-04-08] MEDS: ceFAZolin 1,000 mg SDV 1000 MG IVP (20:54)
[2025-04-08] MEDS: venlafaxine ER (24HR) 150 mg Capsule 300 MG PO (20:54)
--- NOTE | 2025-04-08 23:18 | PC.NURSE ---
Nurse was advised by bakery sales clerk that patients blood pressure was elevated at 200/93 via automatic cuff. Nurse asked bakery sales clerk to get a manual bp and it was 200/80. This nurse contacted Dr. Velazquez to advise him of patients elevated bp. Nurse is awaiting response from and will continue to monitor patient
[2025-04-08] MEDS: hyDRALAzine 20 mg/mL INJ 1 mL 10 MG IVP (23:46)
[2025-04-09] VITALS (9 sets, daily range): BP systolic 145–200; BP diastolic 79–100; PULSE 59–95; RESP 16–18; TEMP 36.4–36.7; O2SAT 93–99
[2025-04-09] MEDS: hyDROXYzine 25 mg Capsule PO (01:23)
[2025-04-09] MEDS: cloNIDine 0.1 mg Tablet PO (01:23)
[2025-04-09] MEDS: ceFAZolin 1,000 mg SDV 1000 MG IVP (03:30)
[2025-04-09] MEDS: amiodarone 200 mg Tablet 400 MG PO ×3 (03:30→21:16)
[2025-04-09 05:00] LABS: Basophils % 0.5 %; Eosinophils # 0.2 10^3/uL (0.0-0.8); Hematocrit 37.6 % (36-47); Lymphocytes # 1.7 10^3/uL (0.8-4.8); Lymphocytes % 23.3 %; Mean Corpuscular HGB Conc 33.8 g/dL (30-55); Mean Corpuscular Hemoglobin 34.2 pg (27-33); Mean Corpuscular Volume 101.3 fl (85-98); Mean Platelet Volume 11.3 fL (7.4-10.4); Monocytes # 1.1 10^3/uL (0.2-0.9); Monocytes % 14.2 %; Neutrophils # 4.44 10^3/uL (1.8-7.7); Neutrophils % 59.6 %; Nucleated Red Blood Cells % 0 %; Platelet Count 129 10^3/cmm (157-399); Red Blood Count 3.71 10^6/uL (3.85-5.65); Red Cell Distribution Width 12.8 % (12.1-15.1); White Blood Count 7.46 10^3/uL (3.29-11.43)
[2025-04-09 05:30] LABS: Alanine Aminotransferase 20 U/L (0-33); Albumin Level 3.3 g/dL (3.5-5.2); Alkaline Phosphatase 94 U/L (35-105); Blood Urea Nitrogen 12 mg/dL (8-23); Calcium 9.1 mg/dL (8.5-10.5); Carbon Dioxide 22 mmol/L (22-29); Chloride 101 mmol/L (98-107); Globulin 2.6 g/dL (1.3-4.6); Glomerular Filtration Rate 72.2 mL/min (90-130); Glucose 113 mg/dL (65-115); Magnesium 1.6 mg/dL (1.7-2.3); Osmolality Calculated 283 mOsm/kg (285-295); Phosphorus 3.6 mg/dL (2.5-4.5); Procalcitonin 0.16 ng/mL (0-0.5); Sodium 136 mmol/L (136-145); Total Bilirubin 0.2 mg/dL (0.15-1.2); Total Protein 5.9 g/dL (6.6-8.7)
[2025-04-09 05:44] LABS: Anion Gap 17.2 (5-19); Aspartate Amino Transferase 26 U/L (0-32); Potassium 4.2 mmol/L (3.5-5.1)
[2025-04-09] MEDS: losartan 50 mg Tablet 75 MG PO ×2 (09:00→17:19)
[2025-04-09] MEDS: aspirin 81 mg EC Tablet PO (09:01)
[2025-04-09] MEDS: carvedilol 6.25 mg Tablet PO ×2 (09:01→17:18)
[2025-04-09] MEDS: famotidine 20 mg Tablet PO ×2 (09:02→17:18)
[2025-04-09] MEDS: apixaban 5 mg Tablet PO (09:02)
[2025-04-09] MEDS: acetaminophen 325 mg Tablet 650 MG PO (09:02)
--- NOTE | 2025-04-09 12:00 | PM.CONSULT ---
Providers/Reason For Consult Consulting Physician/Specialty*: Dr. Tam general surgery Reason for Consult*: Right upper extremity abscess Attending Physician: Manan Marrero MD Primary Care Provider: Deric Ramirez MD History of Present Illness History of Present Illness Celsa Ruiz is a 64 year old female whom surgery was consulted for a possible abscess in the right antecubital fossa. Ultrasound duplex report mentions the possibility of an abscess. On exam there is no fluctuance in the arm, antecubital fossa, forearm. There is a small area of induration with resolving cellulitis. Medications/Allergies Home Medications ?Medication ?Instructions ?Recorded ?Confirmed ?Last Taken ?Type folic acid 1 mg tablet 1 mg PO DAILY 04/02/25 04/09/25 04/08/25 History furosemide 20 mg tablet 20 mg PO DAILY 04/02/25 04/09/25 04/08/25 History hydroxyzine pamoate 25 mg capsule 25 mg PO BEDTIME PRN Anxiety 04/02/25 04/09/25 04/08/25 History mirtazapine 30 mg tablet 60 mg PO BEDTIME 04/02/25 04/09/25 04/08/25 History venlafaxine 150 mg tablet,extended 300 mg PO BEDTIME 04/02/25 04/09/25 04/08/25 History release 24 hr amiodarone 200 mg tablet (Pacerone) 400 mg (2 x 200 mg) PO , #90 04/07/25 04/09/25 Unknown Rx tabs apixaban 5 mg tablet (Eliquis) 5 mg PO BID@0900,2100 #60 tabs 04/07/25 04/09/25 04/08/25 Rx aspirin 81 mg tablet,delayed 81 mg PO DAILY #30 tabs 04/07/25 04/09/25 04/08/25 Rx release atorvastatin 40 mg tablet 80 mg (2 x 40 mg) PO BEDTIME #60 04/07/25 04/09/25 04/08/25 Rx tabs carvedilol 6.25 mg tablet 6.25 mg PO BID #60 tabs 04/07/25 04/09/25 04/08/25 Rx losartan 50 mg tablet 75 mg (1.5 x 50 mg) PO BID 30 days 04/07/25 04/09/25 04/08/25 Rx #90 tabs Allergies Allergy/AdvReac Type Severity Reaction Status Date / Time lisinopril Allergy ALGY-Difficulty Verified 04/02/25 13:36 Breathing Current Medications Generic Name Dose Route Start Last Admin Trade Name Matthew PRN Reason Stop Dose Admin Acetaminophen 650 mg 04/08/25 14:15 04/09/25 09:02 Acetaminophen 325 Mg Tablet PO 650 mg Q6H PRN Administration Mild/Mod Pain Or Temp >/= 101 Aspirin 81 mg 04/09/25 09:00 04/09/25 09:01 Aspirin 81 Mg Ec Tablet PO 81 mg DAILY EB Administration Atorvastatin Calcium 80 mg 04/08/25 21:00 04/08/25 20:54 Atorvastatin 40 Mg Tablet PO 80 mg BEDTIME EB Administration Carvedilol 6.25 mg 04/08/25 18:00 04/09/25 09:01 Carvedilol 6.25 Mg Tablet PO 6.25 mg BID EB Administration Cefazolin Sodium 1,000 mg 04/08/25 14:30 04/09/25 03:30 Cefazolin 1,000 Mg Sdv IVP 1,000 mg Q8H EB Administration Protocol Docusate Sodium 100 mg 04/08/25 18:00 04/09/25 09:02 Docusate Sodium 100 Mg Capsule PO Not Given BID EB Famotidine 20 mg 04/08/25 18:00 04/09/25 09:02 Famotidine 20 Mg Tablet PO 20 mg BID EB Administration Hydroxyzine Pamoate 25 mg 04/08/25 14:21 04/09/25 01:23 Hydroxyzine 25 Mg Capsule PO 25 mg BEDTIME PRN Administration ANXIETY Losartan Potassium 75 mg 04/08/25 18:00 04/09/25 09:00 Losartan 50 Mg Tablet PO 75 mg BID EB Administration Mirtazapine 60 mg 04/08/25 21:00 04/08/25 20:53 Mirtazapine 30 Mg Tablet PO 60 mg BEDTIME EB Administration Venlafaxine HCl 300 mg 04/08/25 21:00 04/08/25 20:54 Venlafaxine Er (24hr) 150 Mg Capsule PO 300 mg BEDTIME EB Administration PFSH Acute PFSH: Medical History (Updated 04/09/25 @ 12:02 by Richard Tam MD) Depression Alcohol use CVA (cerebral vascular accident) Atrial fibrillation, new onset Hypertension Surgical History (Updated 04/08/25 @ 16:41 by Manan Marrero MD) H/O total hysterectomy H/O lumpectomy Family History (Updated 04/08/25 @ 16:43 by Manan Marrero MD) Other Arrhythmia Atrial fibrillation Denies family history of Aneurysm Social History (Updated 04/08/25 @ 16:43 by Manan Marrero MD) Smoking and tobacco/nicotine status: former use of tobacco/nicotine Alcohol intake: current Alcohol intake frequency: 3 or more drinks per day Substance/Drug Use: never Adopted: No Caregiver/support person: Yes Lives independently: Yes Household members: spouse Housing: House Marital status: Vitals/I&O/Wt Last Vital Signs Temp 97.6 F 04/09/25 11:57 Pulse 61 04/09/25 11:57 Resp 17 04/09/25 11:57 BP 159/91 04/09/25 11:57 Pulse Ox 95 04/09/25 11:57 O2 Del Method Room Air 04/09/25 11:57 04/08/25 04/09/25 04/09/25 22:59 06:59 14:59 Intake Total 120 / 120 120 / 120 Output Total 2 / 2 Balance 118 / 118 120 / 120 Weight last 48 hrs Weight 180 lb Physical Exam Narrative: Chest: Unlabored breathing room air. No lymphadenopathy. Heart: Regular rate and rhythm. Abdomen: Soft, nontender, nondistended. No masses or lymphadenopathy. Right upper extremity: No fluctuance. Small area of induration with resolving cellulitis. Data 04/09/25 04:21 04/09/25 04:21 Micro: Microbiology 04/08/25 14:47 Blood Culture - Preliminary Blood SPECIMEN COLLECTED 04/08/25 14:35 Blood Culture - Preliminary Blood SPECIMEN COLLECTED A&P Assessment and plan (1) Abscess of upper arm and forearm: Plan 64-year-old female whom surgery was consulted to evaluate for a possible abscess right upper extremity. No fluctuance or evidence of an abscess on exam. Patient does have an area of resolving cellulitis. I will close follow-up closely to ensure she does not need incision and drainage should she develop an abscess cavity. In the meantime continue antibiotic treatment. Discussed with hospitalist. PDMP PDMP Reviewed: Not Reviewed Coding Level of Care Code 25388 Diagnoses Abscess of upper arm and forearm L02.419
--- NOTE | 2025-04-09 12:23 | P.PN_ITS ---
Vitals/I&O/Wt Last Vital Signs Temp 97.6 F 04/09/25 11:57 Pulse 61 04/09/25 11:57 Resp 17 04/09/25 11:57 BP 159/91 04/09/25 11:57 Pulse Ox 95 04/09/25 11:57 O2 Del Method Room Air 04/09/25 11:57 04/08/25 04/09/25 04/09/25 22:59 06:59 14:59 Intake Total 120 / 120 120 / 120 Output Total 2 / 2 Balance 118 / 118 120 / 120 Weight last 48 hrs Weight 81.647 kg Physical Exam 2 Narrative: General: No acute distress, AO x3 HEENT: PERRLA, pupils bilaterally equal and reactive Chest: Normal vesicular breath sounds, no added sounds, equal good air entry bilaterally CVS: S1-S2 regular, no murmurs, no tachycardia, no gallops, no rubs Abdomen: Soft, nontender, no organomegaly, bowel sounds present Neuro: No focal deficits, no facial deformity, AO x3, power 5/5 in all limbs Skin: Tenderness, warmth, increased redness in right antecubital area where she had IV line before Data 04/09/25 04:21 04/09/25 04:21 Micro: Microbiology 04/08/25 14:47 Blood Culture - Preliminary Blood SPECIMEN COLLECTED 04/08/25 14:35 Blood Culture - Preliminary Blood SPECIMEN COLLECTED A&P Assessment and plan (1) Staphylococcus aureus bacteremia: Blood culture from 04/05 1 out of 4 bottles positive for Staph aureus. MSSA. Follow-up repeat blood culture. Recent echocardiogram negative for acute masses or concerns for vegetation. In setting of superficial thrombophlebitis from recent IV line placement. Patient complains of erythema, expression of purulent discharge earlier in the day today. Appreciate ultrasound results. Possibility of possible abscess versus phlegmon. Will consult ID for further recommendations. Continue with 2 g every 8 hourly of IV cefazolin as per culture sensitivities. If repeat blood cultures positive will plan for JAIME to rule out endocarditis. Patient will most likely need up to 4 weeks of IV antibiotics after negative blood cultures. Hold off on PICC line for now until blood cultures negative. (2) Septic thrombophlebitis of upper extremities: Appreciate ultrasound of the arm showing concerns for septic thrombophlebitis. Possibility of an abscess though in report does not have quantification of size. On further review with radiology over the phone there seems to be phlegmon rather than collection of 2 x 1 cm. Requesting repeat ultrasound in few days to see if there is any abscess formation. Septic thrombophlebitis most likely cause for bacteremia. (3) Hypertension: Goal blood pressure less than 140/90 mmHg. Continue with home dose of Coreg, losartan. Uptitrate as for goal blood pressure. Blood pressure is elevated. Add IV hydralazine 10 mg every 4 hours as needed. Blood pressures remain elevated can add low-dose amlodipine. (4) Atrial fibrillation, new onset: Recent diagnosis. Continue with amiodarone 400 mg 3 times a day. Day 4/7. Will transition to 40 mg twice daily after day 7. Switch Eliquis to full dose Lovenox 1 mg/kg body weight every 12 hourly for now as patient might need I&D. Telemetry (5) History of anemia: (6) Abscess of upper arm and forearm: Possibility of an abscess though not sure. Possible phlegmon. Will consult surgery for further recommendations. Plan History of recent CVA colon continue with aspirin, statin. Depression: Continue with home dose of mirtazapine, Effexor. Full code Cardiac diet Telemetry. Protonix for PUD prophylaxis Eliquis will be sufficient for DVT prophylaxis. PDMP PDMP Reviewed: Not Reviewed Attestations 2 Medical Necessity Statement*: Requires further hospitalization for management of MSSA bacteremia in setting of septic thrombophlebitis while repeat blood cultures and outpatient IV antibiotics are set up, concern for abscess of forearm Diagnoses Staphylococcus aureus bacteremia R78.81; B95.61 Septic thrombophlebitis of upper extremities I80.8 Primary hypertension I10 Hypertension type: primary hypertension Atrial fibrillation, new onset I48.91 History of anemia Z86.2 Abscess of upper arm and forearm L02.419
[2025-04-09] MEDS: ceFAZolin 2,000 mg SDV 2000 MG IVP ×2 (14:11→23:22)
[2025-04-09] MEDS: amlodipine 5 mg Tablet PO (14:11)
--- NOTE | 2025-04-09 14:35 | P.CONIM_ITS ---
Providers/Reason For Consult 2 Consulting Physician/Specialty*: Tova Jalloh/ infectious disease Reason for Consult*: MSSA bacteremia Requesting Physician: Mnaan Marrero MD Attending Physician: Manan Marrero MD Primary Care Provider: Deric Ramirez MD History of Present Illness History of Present Illness Celsa Ruiz is a 64 year old female with past medical history depression, recent admission for acute stroke atrial fibrillation. During that admission had 1 febrile episode of 101.3 Fahrenheit. Subsequent studies including urinalysis, chest x-ray were negative for acute infection. Blood culture from that admission 1 out of 4 bottles came back positive for Staph aureus/MSSA. Given positive blood culture patient was requested to come back to the hospital for further evaluation. Since returning home she has had pain in the right antecubital fossa along with pus like discharge from the site of a prior iv lines. US has shown thrombophlebitis and an underlying abscess. Surgery was consulted today, no significant collection for I&D opined. Denies any nausea, vomiting, headache, dizziness, hardware in the body, difficulty breathing, chest pain. Review of Systems 2 General: Reports: 10 or more systems reviewed and unremarkable except in HPI and below Const: Denies: fever(s), chills or body aches Eyes: Denies: change in vision, blurry vision or photophobia ENMT: Reports: hoarseness; Denies: throat pain, enlarged tonsils, odynophagia or nasal congestion Card: Denies: chest pain, palpitations, irregular heart rhythm, edema, swelling of feet/ankles, lightheadedness, pre-syncope, dyspnea on exertion or orthopnea Resp: Denies: dyspnea, productive cough, non-productive cough, wheezing, stridor, pain on inspiration, change in phlegm color, hemoptysis or chest congestion GI: Denies: abdominal pain, nausea, vomiting, hematemesis, coffee ground emesis, dysphagia, heartburn, diarrhea, constipation, GI cramping, change in stool character, hematochezia or melena : Denies: flank pain, difficulty voiding, dysuria, urinary frequency, urinary urgency, urinary hesitancy or hematuria Musc: Denies: neck pain, back pain, extremity pain, joint swelling, joint warmth or deformity Neuro: Denies: headache(s), numbness in extremities, weakness in extremities, sensory changes, difficulty walking, frequent falls, dizziness, vertigo, behavioral changes, Slurred speech present or seizure-like activity Psych: Denies: anxiety, depression, suicidal ideation or homicidal ideation Endo: Denies: polyuria, polydipsia, tired all the time, cold intolerance or hot flashes Pablo/Lymph: Denies: easy bruising or easy bleeding Medications/Allergies Home Medications ?Medication ?Instructions ?Recorded ?Confirmed ?Last Taken ?Type folic acid 1 mg tablet 1 mg PO DAILY 04/02/2504/0904/08/25 History furosemide 20 mg tablet 20 mg PO DAILY 04/02/2503/2804/08/25 History hydroxyzine pamoate 25 mg capsule 25 mg PO BEDTIME PRN Anxiety 04/02/25 04/09/25 04/08/25 History mirtazapine 30 mg tablet 60 mg PO BEDTIME 04/02/2504/08/25 History venlafaxine 150 mg tablet,extended 300 mg PO BEDTIME 0 04/02/25 04/09/25 04/08/25 History release 24 hr amiodarone 200 mg tablet (Pacerone) 400 mg (2 x 200 mg ) PO 09,21 #90 04/07/25 04/09/25 Unknown Rx tabs apixaban 5 mg tablet (Eliquis) 5 mg PO BID@0900,2100 # 60 tabs 04/07/25 04/09/25 04/08/25 Rx aspirin 81 mg tablet,delayed 81 mg PO DAILY #30 tabs 0 04/07/25 04/09/25 04/08/25 Rx release atorvastatin 40 mg tablet 80 mg (2 x 40 mg) PO BEDTIME #60 04/07/25 04/09/25 04/08/25 Rx tabs carvedilol 6.25 mg tablet 6.25 mg PO BID #60 tabs 03/2804/09/25 04/08/25 Rx losartan 50 mg tablet 75 mg (1.5 x 50 mg) PO BID 3 0 days 04/07/25 04/09/25 04/08/25 Rx #90 tabs Allergies Allergy/AdvReac Type Severity Reaction Status Date / Time lisinopril Allergy ALGY-Difficulty Verified 04/02/25 13:36 Breathing Current Medications Generic Name Dose Route Start Last Admin Trade Name Matthew PRN Reason Stop Dose Admin Acetaminophen 650 mg 04/08/25 14:15 04/09/25 09:02 Acetaminophen 325 Mg Tablet PO 650 mg Q6H PRN Administration Mild/Mod Pain Or Temp >/= 101 Aspirin 81 mg 04/09/25 09:00 04/09/25 09:01 Aspirin 81 Mg Ec Tablet PO 81 mg DAILY EB Administration Atorvastatin Calcium 80 mg 04/08/25 21:00 04/08/25 20:54 Atorvastatin 40 Mg Tablet PO 80 mg BEDTIME EB Administration Carvedilol 6.25 mg 04/08/25 18:00 04/09/25 09:01 Carvedilol 6.25 Mg Tablet PO 6.25 mg BID EB Administration Docusate Sodium 100 mg 04/08/25 18:00 04/09/25 09:02 Docusate Sodium 100 Mg Capsule PO Not Given BID EB Famotidine 20 mg 04/08/25 18:00 04/09/25 09:02 Famotidine 20 Mg Tablet PO 20 mg BID EB Administration Hydroxyzine Pamoate 25 mg 04/08/25 14:21 04/09/25 01:23 Hydroxyzine 25 Mg Capsule PO 25 mg BEDTIME PRN Administration ANXIETY Losartan Potassium 75 mg 04/08/25 18:00 04/09/25 09:00 Losartan 50 Mg Tablet PO 75 mg BID EB Administration Mirtazapine 60 mg 04/08/25 21:00 04/08/25 20:53 Mirtazapine 30 Mg Tablet PO 60 mg BEDTIME EB Administration Venlafaxine HCl 300 mg 04/08/25 21:00 04/08/25 20:54 Venlafaxine Er (24hr) 150 Mg Capsule PO 300 mg BEDTIME EB Administration PFSH Acute 2 PFSH: Medical History Depression Alcohol use CVA (cerebral vascular accident) Atrial fibrillation, new onset Hypertension Surgical History H/O total hysterectomy H/O lumpectomy Family History Other Arrhythmia Atrial fibrillation Denies family history of Aneurysm Social History Smoking and tobacco/nicotine status: former use of tobacco/nicotine Alcohol intake: current Alcohol intake frequency: 3 or more drinks per day Substance/Drug Use: never Adopted: No Caregiver/support person: Yes Lives independently: Yes Household members: spouse Housing: House Marital status: Vitals/I&O/Wt Last Vital Signs Temp 97.6 F 04/09/25 11:57 Pulse 61 04/09/25 11:57 Resp 17 04/09/25 11:57 BP 159/91 04/09/25 11:57 Pulse Ox 95 04/09/25 11:57 O2 Del Method Room Air 04/09/25 11:57 04/08/25 04/09/25 04/09/25 22:59 06:59 14:59 Intake Total 120 / 120 360 / 360 Output Total 2 / 2 Balance 118 / 118 360 / 360 Weight last 48 hrs Weight 81.647 kg Physical Exam 2 Narrative: patient stated she would like to be examined later as is going to the bathroom now. will attempt to examine later during the day Data 04/10/25 02:47 04/10/25 02:47 Micro: Microbiology 04/08/25 14:47 Blood Culture - Preliminary Blood SPECIMEN COLLECTED 04/08/25 14:35 Blood Culture - Preliminary Blood SPECIMEN COLLECTED Other data: Radiology Impressions Venous Duplex 04/08/25 16:45 IMPRESSION: 1. No evidence of deep vein thrombosis. 2. Superficial thrombophlebitis within right antecubital vein. 3. Large heterogeneous soft tissue collection abutting right antecubital vein and tracking into the skin surface concerning for an abscess formation. Laboratory Results WBC 7.46 10^3/uL (3.29-11.43) 04/09/25 04:21 RBC 3.71 10^6/uL (3.85-5.65) L 04/09/25 04:21 Hgb 12.70 g/dL (11.27-16.99) 04/09/25 04:21 Hct 37.6 % (36-47) 04/09/25 04:21 MCV 101.3 fl (85-98) H 04/09/25 04:21 MCH 34.2 pg (27-33) H 04/09/25 04:21 MCHC 33.8 g/dL (30-55) 04/09/25 04:21 RDW 12.8 % (12.1-15.1) 04/09/25 04:21 Plt Count 129 10^3/cmm (157-399) L 04/09/25 04:21 MPV 11.3 fL (7.4-10.4) H 04/09/25 04:21 Neut % (Auto) 59.6 % 04/09/25 04:21 Lymph % (Auto) 23.3 % 04/09/25 04:21 Sevier % (Auto) 14.2 % 04/09/25 04:21 Eos % (Auto) 2.0 % 04/09/25 04:21 Baso % (Auto) 0.5 % 04/09/25 04:21 Neut # (Auto) 4.44 10^3/uL (1.8-7.7) 04/09/25 04:21 Lymph # (Auto) 1.7 10^3/uL (0.8-4.8) 04/09/25 04:21 Sevier # (Auto) 1.1 10^3/uL (0.2-0.9) H 04/09/25 04:21 Eos # (Auto) 0.2 10^3/uL (0.0-0.8) 04/09/25 04:21 Baso # (Auto) 0.0 10^3/uL (0.0-0.1) 04/09/25 04:21 Nucleated RBC % (auto) 0 % 04/09/25 04:21 Nucleated RBCs # 0.0 /100WBC 04/09/25 04:21 Sodium 136 mmol/L (136-145) 04/09/25 04:21 Potassium 4.2 mmol/L (3.5-5.1) 04/09/25 04:21 Chloride 101 mmol/L (98-107) 04/09/25 04:21 Carbon Dioxide 22 mmol/L (22-29) 04/09/25 04:21 Anion Gap 17.2 (5-19) 04/09/25 04:21 BUN 12 mg/dL (8-23) 04/09/25 04:21 Creatinine 0.8 mg/dL (0.5-0.9) 04/09/25 04:21 GFR Calculation 72.2 mL/min (90-130) L 04/09/25 04:21 Glucose 113 mg/dL (65-115) 04/09/25 04:21 Calculated Osmolality 283 mOsm/kg (285-295) L 04/09/25 04:21 Lactic Acid 1.0 mmol/L (0.5-2.2) 04/08/25 14:47 Calcium 9.1 mg/dL (8.5-10.5) 04/09/25 04:21 Phosphorus 3.6 mg/dL (2.5-4.5) 04/09/25 04:21 Magnesium 1.6 mg/dL (1.7-2.3) L 04/09/25 04:21 Total Bilirubin 0.2 mg/dL (0.15-1.2) 04/09/25 04:21 AST 26 U/L (0-32) 04/09/25 04:21 ALT 20 U/L (0-33) 04/09/25 04:21 Alkaline Phosphatase 94 U/L (35-105) 04/09/25 04:21 Total Protein 5.9 g/dL (6.6-8.7) L 04/09/25 04:21 Albumin 3.3 g/dL (3.5-5.2) L 04/09/25 04:21 Globulin 2.6 g/dL (1.3-4.6) 04/09/25 04:21 Procalcitonin 0.16 ng/mL (0-0.5) 04/09/25 04:21 Urine Color Yellow (Yellow) 04/08/25 16:44 Urine Appearance Clear (CLEAR) 04/08/25 16:44 Urine pH 5.5 (5-7) 04/08/25 16:44 Ur Specific Hilbert 1.021 (1.005-1.030) 04/08/25 16:44 Urine Protein Negative (Negative) 04/08/25 16:44 Urine Glucose (UA) Negative (Normal) 04/08/25 16:44 Urine Ketones Trace (Negative) 04/08/25 16:44 Urine Blood Negative (Negative) 04/08/25 16:44 Urine Nitrate Negative (Negative) 04/08/25 16:44 Urine Bilirubin Negative (Negative) 04/08/25 16:44 Urine Urobilinogen 0.2 mg/dL (Negative) 04/08/25 16:44 Ur Leukocyte Esterase Negative (Negative) 04/08/25 16:44 Urine RBC 0-2 /hpf (0-2) 04/08/25 16:44 Urine WBC 0-5 /hpf (0-5) 04/08/25 16:44 Ur Squamous Epith Cells 0-5 /hpf (0-5) 04/08/25 16:44 Amorphous Sediment Not Reportable 04/08/25 16:44 Urine Bacteria None seen /hpf (NONE) 04/08/25 16:44 Hyaline Casts 1.65 /lpf 04/08/25 16:44 Echocardiogram (Signed) AlfredoGeller - 04/02/25 Electrocardiogram (Signed) Duyen Fuentes - 04/02/25 Electrocardiogram (Signed) Duyen Fuentes - 04/02/25 [place] [address] Ultrasound Report Signed Patient: Celsa Ruiz Unit #: [id number] : 1960 Age/Sex: 64 / F ADM Date: 04/02/25 Loc: [facility] Room/Bed: [facility] Attending Dr: Valerie Bertrand MD Ordering Provider/Ordering MD: Valerie Bertrand MD Date of Service: 04/02/25 Procedure(s): CV. echo complete* 58075 Accession Number(s): [id number] Report Number: [id number] Celsa Ruiz Age: 64 Gender: F : 1960 Exam Date: 04/02/2025 18:41 Ordering Phys: Valerie Bertrand MD Technologist: João Echols [place] [facility] [place]: stroke workup, afib BP: 172 / 85 HR: 81 Rhythm: Sinus Technical Quality: Adequate MEASUREMENTS (Male / Female) Normal Values 2D ECHO LV Diastolic Diameter PLAX 4.2 cm 4.2 - 5.9 / 3.9 - 5.3 cm IVS Diastolic Thickness 1.5 cm 0.6 - 1.0 / 0.6 - 0.9 cm IVS Systolic Thickness 1.7 cm LVPW Diastolic Thickness 1.0 cm 0.6 - 1.0 / 0.6 - 0.9 cm LVPW Systolic Thickness 1.5 cm LVOT Diameter 2.0 cm LV Ejection Fraction 2D Teich 60.8 % LV Ejection Fraction MOD 4C 63.4 % LV Ejection Fraction MOD 2C 51.7 % LV Ejection Fraction 2C AL 52.4 % LA Diameter 3.3 cm RA Systolic Volume 4C AL 21.5 ml RA Systolic Volume 4C MOD 21.3 ml LA Sys Volume AL 25.7 cm cubed LA Sys Volume Index AL 13.3 cm cubed/m squared Aorta at Sinotubular Diameter 2.3 cm IVC Diameter 1.5 cm M-MODE LA Ao Ratio MM 1.7 AV Cusp Separation MM 1.4 cm DOPPLER AV Peak Velocity 148.3 cm/s LVOT Peak Velocity 112.0 cm/s AV Area Cont Eq vti 2.1 cm squared AV Area Cont Eq pk 2.4 cm squared MV Peak Velocity 95.0 cm/s MV Area PHT 5.2 cm squared Mitral E to A Ratio 0.7 TR Peak Velocity 329.0 cm/s TR Peak Gradient 43.3 mmHg TR Mean Velocity 310.0 cm/s TR Mean Gradient 38.8 mmHg TR Velocity Time Integral 88.3 cm PV Peak Velocity 92.0 cm/s RV Ejection Time 0.3 s FINDINGS Left Ventricle Normal left ventricular size, systolic function and wall thickness, with no regional wall motion abnormalities. Left ventricular ejection fraction is estimated at 60%. Grade I/IV diastolic dysfunction (abnormal relaxation filling pattern), normal to mildly elevated filling pressures. Right Ventricle The right ventricle is normal in size and function. Right Atrium The right atrium is normal in size. Left Atrium The left atrium is normal in size. Mitral Valve Moderately thickened mitral valve. Mild mitral annular calcification. No mitral valve stenosis. Trace mitral valve regurgitation. Aortic Valve Moderate aortic valve calcification. No aortic valve stenosis. Trace aortic valve regurgitation. Tricuspid Valve Structurally normal tricuspid valve without significant stenosis or regurgitation. Pulmonary artery systolic pressure is normal. Pulmonic Valve Structurally normal pulmonic valve without significant stenosis. There is no pulmonic regurgitation. Pericardium Small pericardial effusion. Aorta Normal ascending aorta dimension. IVC The inferior vena cava appears normal. CONCLUSIONS Normal left ventricular size, systolic function and wall thickness, with no regional wall motion abnormalities. Left ventricular ejection fraction is estimated at 60%. Grade I/IV diastolic dysfunction (abnormal relaxation filling pattern), normal to mildly elevated filling pressures. No significant valve abnormalities. There is no pericardial effusion. Right atrial pressure is around 5 mm of mercury. Duyen Fuentes MD (Electronically Signed) Final Date: 02 April 2025 20:40 S A&P Assessment and plan (1) Staphylococcus aureus bacteremia: (2) Abscess of upper arm and forearm: (3) Septic thrombophlebitis of upper extremities: Plan 64-year-old lady with past medical history as above who is presenting with MSSA bacteremia Recent history notable for stroke. Now noted to have septic thrombophlebitis and an abscess around the right antecubital fossa. Patient states this was the site of her prior IV which is the likely mechanism. Likely bacteremia is related to the septic thrombophlebitis. Repeat blood cultures were taken and pending. Thus far remaining negative. Recommend to increase cefazolin from 1 g IV 3 times daily to 2 g IV 3 times daily. Surgery has been consulted, noted recommendations, no current indication for I&D. Recent echocardiogram showed normal LVEF, grade 1 diastolic dysfunction, no valvular abnormalities. Source appears to be primarily the septic thrombophlebitis. Recommend 4 weeks of organism directed therapy with cefazolin 2 g IV 3 times a day[address] May place PICC line once blood cultures from 04/08/2025 are negative for at least 48 to 72 hours. While on the above antibiotics, obtain weekly labs including CBC LFT and creatinine and fax to the infectious disease clinic for review. Will follow PDMP PDMP Reviewed: Not Reviewed Consult Attestations 2 Medical Necessity Statement: Per admitting Coding Level of Care Code Acute Code for [facility] Fwd Diagnoses Staphylococcus aureus bacteremia R78.81; B95.61 Abscess of upper arm and forearm L02.419 Septic thrombophlebitis of upper extremities I80.8
[2025-04-09] MEDS: enoxaparin 80 mg/0.8 mL Syringe SUBCUT (17:20)
[2025-04-09] MEDS: atorvastatin 40 mg Tablet 80 MG PO (21:16)
[2025-04-09] MEDS: mirtazapine 30 mg Tablet 60 MG PO (21:16)
[2025-04-09] MEDS: venlafaxine ER (24HR) 150 mg Capsule 300 MG PO (21:16)
[2025-04-10] VITALS (15 sets, daily range): BP systolic 108–195; BP diastolic 72–110; PULSE 58–72; RESP 16–19; TEMP 36.4–36.8; O2SAT 94–96
[2025-04-10] MEDS: hyDRALAzine 20 mg/mL INJ 1 mL 10 MG IVP ×2 (01:10→03:05)
[2025-04-10] MEDS: acetaminophen 325 mg Tablet 650 MG PO (02:14)
[2025-04-10] MEDS: magnesium sulfate premix 2 GM/50 ML PIGGYBACK IV (03:05)
[2025-04-10] MEDS: spironolactone 25 mg Tablet PO (03:05)
[2025-04-10] MEDS: nitroglycerin 1 gm/inch oint Pkt 1 INCH TOPICAL (03:06)
[2025-04-10] MEDS: hyDROXYzine 25 mg Capsule PO ×2 (04:18→23:45)
[2025-04-10 04:47] LABS: Basophils # 0.1 10^3/uL (0.0-0.1); Basophils % 0.7 %; Eosinophils # 0.1 10^3/uL (0.0-0.8); Eosinophils % 1.9 %; Hematocrit 40.5 % (36-47); Lymphocytes # 2.2 10^3/uL (0.8-4.8); Lymphocytes % 29.9 %; Mean Corpuscular HGB Conc 34.6 g/dL (30-55); Mean Corpuscular Hemoglobin 33.7 pg (27-33); Mean Corpuscular Volume 97.4 fl (85-98); Mean Platelet Volume 11.2 fL (7.4-10.4); Monocytes # 0.9 10^3/uL (0.2-0.9); Monocytes % 11.8 %; Neutrophils # 3.96 10^3/uL (1.8-7.7); Neutrophils % 55.3 %; Nucleated Red Blood Cells % 0 %; Platelet Count 159 10^3/cmm (157-399); Red Blood Count 4.16 10^6/uL (3.85-5.65); Red Cell Distribution Width 12.4 % (12.1-15.1); White Blood Count 7.18 10^3/uL (3.29-11.43)
[2025-04-10 04:49] LABS: Alanine Aminotransferase 19 U/L (0-33); Albumin Level 3.7 g/dL (3.5-5.2); Alkaline Phosphatase 100 U/L (35-105); Aspartate Amino Transferase 25 U/L (0-32); Blood Urea Nitrogen 11 mg/dL (8-23); Calcium 9.5 mg/dL (8.5-10.5); Carbon Dioxide 21 mmol/L (22-29); Chloride 99 mmol/L (98-107); Creatinine Clr Calc Pharmacy 91.0024; Globulin 3.3 g/dL (1.3-4.6); Glomerular Filtration Rate 84.2 mL/min (90-130); Glucose 85 mg/dL (65-115); Magnesium 1.8 mg/dL (1.7-2.3); Osmolality Calculated 281 mOsm/kg (285-295); Phosphorus 3.4 mg/dL (2.5-4.5); Sodium 136 mmol/L (136-145); Total Bilirubin 0.3 mg/dL (0.15-1.2)
[2025-04-10] MEDS: enoxaparin 80 mg/0.8 mL Syringe SUBCUT ×2 (06:43→18:13)
[2025-04-10] MEDS: ceFAZolin 2,000 mg SDV 2000 MG IVP ×3 (06:43→22:57)
[2025-04-10] MEDS: morphine 4 mg/mL SDV 1 mL 2 MG IVP (07:44)
[2025-04-10] MEDS: carvedilol 6.25 mg Tablet 12.5 MG PO (07:45)
--- NOTE | 2025-04-10 07:58 | P.PN_ITS ---
Subjective 2 Subjective: Cellulitis improved RUE No fluctuance Vitals/I&O/Wt Last Vital Signs Temp 97.7 F 04/10/25 04:00 Pulse 71 04/10/25 06:00 Resp 17 04/10/25 07:44 BP 142/80 04/10/25 04:00 Pulse Ox 96 04/10/25 00:00 O2 Del Method Room Air 04/10/25 04:00 O2 Flow Rate 96 04/10/25 04:00 04/09/25 04/10/25 04/10/25 22:59 06:59 14:59 Intake Total 240 / 600 590 / 1190 Output Total 100 / 100 400 / 500 Balance 140 / 500 190 / 690 Weight last 48 hrs Weight 180 lb Weight 180 lb Physical Exam 2 Narrative: RRR Unlabored breathing RA RUE no abscess on exam. Cellulitis improving Data 04/10/25 02:47 04/10/25 02:47 Micro: Microbiology 04/08/25 14:47 Blood Culture - Preliminary Blood NEGATIVE TO DATE 04/08/25 14:35 Blood Culture - Preliminary Blood NEGATIVE TO DATE A&P Assessment and plan (1) Abscess of upper arm and forearm: Plan 64yo female with RUE cellulitis. On exam improved. No fluctuance. No procedure indicated. PDMP PDMP Reviewed: Not Reviewed Attestations 2 Medical Necessity Statement*: NA Coding Level of Care Code 79349 Diagnoses Abscess of upper arm and forearm L02.419
[2025-04-10] MEDS: aspirin 81 mg EC Tablet PO (09:30)
[2025-04-10] MEDS: losartan 50 mg Tablet 75 MG PO ×2 (09:31→17:02)
[2025-04-10] MEDS: famotidine 20 mg Tablet PO ×2 (09:31→17:02)
[2025-04-10] MEDS: docusate sodium 100 mg Capsule PO (09:31)
[2025-04-10] MEDS: amiodarone 200 mg Tablet 400 MG PO ×2 (09:31→17:01)
[2025-04-10] MEDS: amlodipine 5 mg Tablet PO (09:33)
--- NOTE | 2025-04-10 12:09 | P.PN_ITS ---
Subjective 2 Subjective: No acute events overnight. She did have elevated blood pressures which made her extremely nervous. Denies any nausea, vomiting, headache. Has remained afebrile. Currently on room air. Vitals/I&O/Wt Last Vital Signs Temp 97.6 F 04/10/25 11:25 Pulse 58 L 04/10/25 11:25 Resp 18 04/10/25 11:25 BP 137/78 04/10/25 11:36 Pulse Ox 94 04/10/25 11:25 O2 Del Method Room Air 04/10/25 11:25 O2 Flow Rate 96 04/10/25 04:00 04/09/25 04/10/25 04/10/25 22:59 06:59 14:59 Intake Total 240 / 600 590 / 1190 480 / 480 Output Total 100 / 100 400 / 500 Balance 140 / 500 190 / 690 480 / 480 Weight last 48 hrs Weight 81.647 kg Weight 81.647 kg Physical Exam 2 Narrative: General: No acute distress, AO x3 HEENT: PERRLA, pupils bilaterally equal and reactive Chest: Normal vesicular breath sounds, no added sounds, equal good air entry bilaterally CVS: S1-S2 regular, no murmurs, no tachycardia, no gallops, no rubs Abdomen: Soft, nontender, no organomegaly, bowel sounds present Neuro: No focal deficits, no facial deformity, AO x3, power 5/5 in all limbs Skin: Tenderness, warmth, increased redness in right antecubital area where she had IV line before Data 04/10/25 02:47 04/10/25 02:47 Micro: Microbiology 04/08/25 14:47 Blood Culture - Preliminary Blood NEGATIVE TO DATE 04/08/25 14:35 Blood Culture - Preliminary Blood NEGATIVE TO DATE A&P Assessment and plan (1) Staphylococcus aureus bacteremia: Blood culture from 04/05 1 out of 4 bottles positive for Staph aureus. MSSA. Follow-up repeat blood culture. Recent echocardiogram negative for acute masses or concerns for vegetation. In setting of superficial thrombophlebitis from recent IV line placement. Patient complains of erythema, expression of purulent discharge earlier in the day today. Appreciate ultrasound results. Possibility of possible abscess versus phlegmon. Will consult ID for further recommendations. Continue with 2 g every 8 hourly of IV cefazolin as per culture sensitivities. If repeat blood cultures positive will plan for JAIME to rule out endocarditis. Patient will most likely need up to 4 weeks of IV antibiotics after negative blood cultures. Hold off on PICC line for now until blood cultures negative. (2) Abscess of upper arm and forearm: Possibility of an abscess though not sure. Possible phlegmon. Will consult surgery for further recommendations. (3) Septic thrombophlebitis of upper extremities: Appreciate ultrasound of the arm showing concerns for septic thrombophlebitis. Possibility of an abscess though in report does not have quantification of size. On further review with radiology over the phone there seems to be phlegmon rather than collection of 2 x 1 cm. Requesting repeat ultrasound in few days to see if there is any abscess formation. Septic thrombophlebitis most likely cause for bacteremia. Plan History of recent CVA colon continue with aspirin, statin. Depression: Continue with home dose of mirtazapine, Effexor. Full code Cardiac diet Telemetry. Protonix for PUD prophylaxis Eliquis will be sufficient for DVT prophylaxis. Plan for the day: Appreciate surgical recommendations. No concern for abscess for now. Concern for phlegmon. Plan to repeat ultrasound of the arm on Saturday to make sure abscess is not formed. Follow-up blood cultures. Continue with IV cefazolin for now. Appreciate ID recommendations. Patient will need 4 weeks of IV antibiotics from first negative blood cultures for MSSA bacteremia. Goal blood pressure less than 140/90 mmHg. Blood pressures elevated overnight. Continue with Coreg only at 12.5 mg twice daily as patient developing bradycardia, continue with losartan 75 mg twice daily. Increase amlodipine to 10 mg daily. Add chlorthalidone 12.5 mg daily. Stop spironolactone. Increase blood pressure is a combination of uncontrolled hypertension and anxiety due to alcohol withdrawal. Patient consumes 4 shots of vodka every night. Change dose of amiodarone to 400 mg twice daily as patient has already received 7 days of 3 times daily dosing. PDMP PDMP Reviewed: Not Reviewed Attestations 2 Medical Necessity Statement*: Requires further hospitalization for management of MSSA bacteremia, uncontrolled hypertension in a patient with history of recent stroke, new A-fib Diagnoses Staphylococcus aureus bacteremia R78.81; B95.61 Abscess of upper arm and forearm L02.419 Septic thrombophlebitis of upper extremities I80.8
[2025-04-10] MEDS: carvedilol 6.25 mg Tablet PO (17:02)
[2025-04-10] MEDS: atorvastatin 40 mg Tablet 80 MG PO (21:15)
[2025-04-10] MEDS: mirtazapine 30 mg Tablet 60 MG PO (21:16)
[2025-04-10] MEDS: venlafaxine ER (24HR) 150 mg Capsule 300 MG PO (21:16)
[2025-04-11] VITALS (11 sets, daily range): BP systolic 130–207; BP diastolic 72–116; PULSE 67–75; RESP 16–21; TEMP 36.4–36.7; O2SAT 93–95
[2025-04-11] MEDS: hyDRALAzine 20 mg/mL INJ 1 mL 10 MG IVP ×2 (00:10→03:49)
[2025-04-11 03:30] LABS: Basophils # 0.1 10^3/uL (0.0-0.1); Basophils % 0.7 %; Eosinophils # 0.2 10^3/uL (0.0-0.8); Eosinophils % 2.1 %; Hematocrit 40.9 % (36-47); Lymphocytes # 2.6 10^3/uL (0.8-4.8); Lymphocytes % 29.7 %; Mean Corpuscular HGB Conc 33.5 g/dL (30-55); Mean Corpuscular Hemoglobin 33.7 pg (27-33); Mean Corpuscular Volume 100.7 fl (85-98); Mean Platelet Volume 10.4 fL (7.4-10.4); Monocytes # 0.9 10^3/uL (0.2-0.9); Monocytes % 10.3 %; Neutrophils % 56.7 %; Nucleated Red Blood Cells % 0 %; Platelet Count 201 10^3/cmm (157-399); Red Blood Count 4.06 10^6/uL (3.85-5.65); Red Cell Distribution Width 12.6 % (12.1-15.1); White Blood Count 8.64 10^3/uL (3.29-11.43)
[2025-04-11 04:08] LABS: Alanine Aminotransferase 14 U/L (0-33); Albumin Level 3.7 g/dL (3.5-5.2); Alkaline Phosphatase 106 U/L (35-105); Aspartate Amino Transferase 25 U/L (0-32); Blood Urea Nitrogen 10 mg/dL (8-23); Calcium 9.7 mg/dL (8.5-10.5); Carbon Dioxide 25 mmol/L (22-29); Chloride 100 mmol/L (98-107); Creatinine Clr Calc Pharmacy 70.7797; Globulin 3.6 g/dL (1.3-4.6); Glucose 90 mg/dL (65-115); Magnesium 2.2 mg/dL (1.7-2.3); Osmolality Calculated 281 mOsm/kg (285-295); Phosphorus 3.8 mg/dL (2.5-4.5); Sodium 136 mmol/L (136-145); Total Bilirubin 0.3 mg/dL (0.15-1.2); Total Protein 7.3 g/dL (6.6-8.7)
[2025-04-11 04:09] LABS: Anion Gap 16.1 (5-19); Potassium 5.1 mmol/L (3.5-5.1)
[2025-04-11] MEDS: enoxaparin 80 mg/0.8 mL Syringe SUBCUT ×2 (06:23→18:14)
[2025-04-11] MEDS: ceFAZolin 2,000 mg SDV 2000 MG IVP ×3 (06:23→23:11)
[2025-04-11] MEDS: amlodipine 5 mg Tablet 10 MG PO (08:09)
[2025-04-11] MEDS: carvedilol 6.25 mg Tablet PO ×2 (08:10→17:10)
[2025-04-11] MEDS: aspirin 81 mg EC Tablet PO (08:10)
[2025-04-11] MEDS: amiodarone 200 mg Tablet 400 MG PO ×2 (08:10→17:08)
[2025-04-11] MEDS: famotidine 20 mg Tablet PO ×2 (08:10→17:10)
[2025-04-11] MEDS: chlorthalidone 25 mg Tablet 12.5 MG PO (08:11)
[2025-04-11] MEDS: losartan 50 mg Tablet 75 MG PO ×2 (08:12→17:08)
--- NOTE | 2025-04-11 10:39 | P.PN_ITS ---
Subjective 2 Subjective: No signs of an abscess on physical exam over the right antecubital fossa Cellulitis significantly improved Vitals/I&O/Wt Last Vital Signs Temp 98.0 F 04/11/25 07:42 Pulse 72 04/11/25 07:42 Resp 21 H 04/11/25 07:42 BP 168/75 04/11/25 08:12 Pulse Ox 95 04/11/25 07:42 O2 Del Method Room Air 04/11/25 07:42 O2 Flow Rate 96 04/10/25 04:00 04/10/25 04/11/25 04/11/25 22:59 06:59 14:59 Intake Total 480 / 1320 480 / 480 Balance 480 / 1320 480 / 480 Weight last 48 hrs Weight 177 lb 9.6 oz Weight 180 lb Physical Exam 2 Narrative: Chest: Unlabored breathing room air. No lymphadenopathy. Heart: Regular rate and rhythm. Abdomen: Soft, nontender, nondistended. No masses or lymphadenopathy. Right upper extremity cellulitis significantly improved no fluctuance Data 04/11/25 02:39 04/11/25 02:39 A&P Assessment and plan (1) Abscess of upper arm and forearm: (2) Septic thrombophlebitis of upper extremities: Plan 64-year-old female whom surgery was consulted to evaluate for a possible right upper extremity abscess. Cellulitis improving. No fluctuance exam exam. From my perspective no surgical intervention indicated. PDMP PDMP Reviewed: Not Reviewed Attestations 2 Medical Necessity Statement*: N/A Coding Level of Care Code 21758 Diagnoses Abscess of upper arm and forearm L02.419 Septic thrombophlebitis of upper extremities I80.8
--- NOTE | 2025-04-11 14:21 | PM.PN ---
Subjective Subjective: Denies any new complaints today. She is afebrile and hemodynamically stable. Concerned about palpable cordlike structure over the right antecubital fossa, counseled her that this is consistent with the area of thrombophlebitis as seen on ultrasound. Did not notice any fluctuant swelling to raise concern for worsening abscess. Medications: Reviewed: Yes Vitals/I&O/Wt Last Vital Signs Temp 98.0 F 04/11/25 11:31 Pulse 67 04/11/25 11:31 Resp 18 04/11/25 11:31 BP 130/72 04/11/25 11:31 Pulse Ox 95 04/11/25 11:31 O2 Del Method Room Air 04/11/25 11:31 O2 Flow Rate 96 04/10/25 04:00 04/10/25 04/11/25 04/11/25 22:59 06:59 14:59 Intake Total 480 / 1320 960 / 960 Balance 480 / 1320 960 / 960 Weight last 48 hrs Weight 80.558 kg Weight 81.647 kg Physical Exam Narrative: General: No acute distress, AO x3 HEENT: PERRLA, pupils bilaterally equal and reactive, pallors not present Chest: Normal vesicular breath sounds, no added sounds, equal good air entry bilaterally CVS: S1-S2 regular, no murmurs, no tachycardia, no gallops, no rubs Abdomen: Soft, nontender, no organomegaly, bowel sounds present Neuro: No focal deficits, no facial deformity, AO x3, power 5/5 in all limbs Extremities: Thrombophlebitis and palpable cordlike vein over the right antecubital fossa. Scab over middle of the fossa consistent with the site of prior IV. No fluctuant swelling noted. Data 04/11/25 02:39 04/11/25 02:39 A&P Assessment and plan (1) Staphylococcus aureus bacteremia: (2) Abscess of upper arm and forearm: (3) Septic thrombophlebitis of upper extremities: Plan 64-year-old lady with past medical history as above who is presenting with MSSA bacteremia Recent history notable for stroke. Now noted to have septic thrombophlebitis and an abscess around the right antecubital fossa. Patient states this was the site of her prior IV which is the likely mechanism. Likely bacteremia is related to the septic thrombophlebitis. Repeat blood cultures were taken and pending. Thus far remaining negative. Recommend to increase cefazolin from 1 g IV 3 times daily to 2 g IV 3 times daily. Surgery has been consulted, noted recommendations, no current indication for I&D. Recent echocardiogram showed normal LVEF, grade 1 diastolic dysfunction, no valvular abnormalities. Source appears to be primarily the septic thrombophlebitis. Recommend 4 weeks of organism directed therapy with cefazolin 2 g IV 3 times a day[address] May place PICC line once blood cultures from 04/08/2025 are negative for at least 48 to 72 hours. While on the above antibiotics, obtain weekly labs including CBC LFT and creatinine and fax to the infectious disease clinic for review. April 11, 2025 Follow-up blood culture from April 08, 2025 remain negative to date. Denies any back pain. Source is likely to be septic thrombophlebitis. Okay to place PICC line at this point given negativity of blood culture from April 08. Discharge planned on 4 weeks of IV cefazolin until May 08, 2025 for vascular infection. Obtain weekly labs as noted above and faxed to the infectious disease clinic for review. Follow-up in infectious disease clinic in 2 weeks. Recent TTE without any noted vegetations. Less likely to be endocarditis given alternate source of obvious infection, quick clearance of bacteremia. Thank you for this consult. Please call with any further questions or concerns. PDMP PDMP Reviewed: Not Reviewed Attestations Medical Necessity Statement*: Per admitting Coding Level of Care Code Acute Code for [facility] Diagnoses Staphylococcus aureus bacteremia R78.81; B95.61 Abscess of upper arm and forearm L02.419 Septic thrombophlebitis of upper extremities I80.8
--- NOTE | 2025-04-11 14:23 | P.PN_ITS ---
Subjective 2 Subjective: No acute vents overnight.Blood pressure is better controlled currently in morning but was elevated overnight. Patient complaining of anxiety. Has remained afebrile. Heart rate controlled. Vitals/I&O/Wt Last Vital Signs Temp 98.0 F 04/11/25 11:31 Pulse 67 04/11/25 11:31 Resp 18 04/11/25 11:31 BP 130/72 04/11/25 11:31 Pulse Ox 95 04/11/25 11:31 O2 Del Method Room Air 04/11/25 11:31 O2 Flow Rate 96 04/10/25 04:00 04/10/25 04/11/25 04/11/25 22:59 06:59 14:59 Intake Total 480 / 1320 960 / 960 Balance 480 / 1320 960 / 960 Weight last 48 hrs Weight 80.558 kg Weight 81.647 kg Physical Exam 2 Narrative: General: No acute distress, AO x3 HEENT: PERRLA, pupils bilaterally equal and reactive Chest: Normal vesicular breath sounds, no added sounds, equal good air entry bilaterally CVS: S1-S2 regular, no murmurs, no tachycardia, no gallops, no rubs Abdomen: Soft, nontender, no organomegaly, bowel sounds present Neuro: No focal deficits, no facial deformity, AO x3, power 5/5 in all limbs Skin: Tenderness, warmth, increased redness in right antecubital area where she had IV line before Data 04/11/25 02:39 04/11/25 02:39 A&P Assessment and plan (1) Staphylococcus aureus bacteremia: Blood culture from 04/05 1 out of 4 bottles positive for Staph aureus. MSSA. Follow-up repeat blood culture. Recent echocardiogram negative for acute masses or concerns for vegetation. In setting of superficial thrombophlebitis from recent IV line placement. Patient complains of erythema, expression of purulent discharge earlier in the day today. Appreciate ultrasound results. Possibility of possible abscess versus phlegmon. Will consult ID for further recommendations. Continue with 2 g every 8 hourly of IV cefazolin as per culture sensitivities. If repeat blood cultures positive will plan for JAIME to rule out endocarditis. Patient will most likely need up to 4 weeks of IV antibiotics after negative blood cultures. Hold off on PICC line for now until blood cultures negative. (2) Abscess of upper arm and forearm: Possibility of an abscess though not sure. Possible phlegmon. Will consult surgery for further recommendations. (3) Septic thrombophlebitis of upper extremities: Appreciate ultrasound of the arm showing concerns for septic thrombophlebitis. Possibility of an abscess though in report does not have quantification of size. On further review with radiology over the phone there seems to be phlegmon rather than collection of 2 x 1 cm. Requesting repeat ultrasound in few days to see if there is any abscess formation. Septic thrombophlebitis most likely cause for bacteremia. Plan History of recent CVA colon continue with aspirin, statin. Depression: Continue with home dose of mirtazapine, Effexor. Full code Cardiac diet Telemetry. Protonix for PUD prophylaxis Eliquis will be sufficient for DVT prophylaxis. Plan for the day: Appreciate ID recommendations. Blood cultures so far negative. PICC line tomorrow. Goal blood pressure less than 140/90 mmHg. Blood pressure is better controlled but continues to remain mildly elevated. Though they are seems to be discrepancy with blood pressure cuffs overnight. Continue with current dose of losartan, Coreg, amlodipine, increase dose of chlorthalidone 25 mg daily. Heart rate stable. Continue with amiodarone 400 mg twice daily. PDMP PDMP Reviewed: Not Reviewed Attestations 2 Medical Necessity Statement*: Requested hospitalization for management of MSSA bacteremia in setting of septic thrombophlebitis, uncontrolled hypertension Diagnoses Staphylococcus aureus bacteremia R78.81; B95.61 Abscess of upper arm and forearm L02.419 Septic thrombophlebitis of upper extremities I80.8
[2025-04-11] MEDS: hyDROXYzine 25 mg Capsule PO (14:59)
--- NOTE | 2025-04-11 18:24 | PC.NURSE ---
confused about blood clot Patient stated one stated she had a blood clot in her right arm but another said she didn't. Patient is wanting doctors to run at test to verify that she does have a clot.
[2025-04-11] MEDS: atorvastatin 40 mg Tablet 80 MG PO (21:18)
[2025-04-11] MEDS: venlafaxine ER (24HR) 150 mg Capsule 300 MG PO (21:18)
[2025-04-11] MEDS: mirtazapine 30 mg Tablet 60 MG PO (21:18)
[2025-04-12] VITALS (7 sets, daily range): BP systolic 136–154; BP diastolic 70–92; PULSE 67–81; RESP 16–19; TEMP 36.5–36.8; O2SAT 93–97
[2025-04-12 03:18] LABS: Basophils # 0.1 10^3/uL (0.0-0.1); Basophils % 0.7 %; Eosinophils # 0.2 10^3/uL (0.0-0.8); Hematocrit 43.3 % (36-47); Lymphocytes # 2.6 10^3/uL (0.8-4.8); Lymphocytes % 26.6 %; Mean Corpuscular HGB Conc 34.6 g/dL (30-55); Mean Corpuscular Hemoglobin 33.9 pg (27-33); Mean Platelet Volume 10.6 fL (7.4-10.4); Monocytes # 0.9 10^3/uL (0.2-0.9); Monocytes % 9.5 %; Neutrophils # 6.02 10^3/uL (1.8-7.7); Neutrophils % 60.6 %; Nucleated Red Blood Cells % 0 %; Platelet Count 187 10^3/cmm (157-399); Red Blood Count 4.42 10^6/uL (3.85-5.65); Red Cell Distribution Width 12.4 % (12.1-15.1); White Blood Count 9.93 10^3/uL (3.29-11.43)
[2025-04-12 03:38] LABS: Alanine Aminotransferase 13 U/L (0-33); Albumin Level 3.9 g/dL (3.5-5.2); Alkaline Phosphatase 112 U/L (35-105); Blood Urea Nitrogen 12 mg/dL (8-23); Calcium 9.8 mg/dL (8.5-10.5); Carbon Dioxide 22 mmol/L (22-29); Chloride 99 mmol/L (98-107); Creatinine Clr Calc Pharmacy 105.5181; Globulin 3.3 g/dL (1.3-4.6); Glomerular Filtration Rate 100.6 mL/min (90-130); Glucose 100 mg/dL (65-115); Osmolality Calculated 282 mOsm/kg (285-295); Sodium 136 mmol/L (136-145); Total Bilirubin 0.3 mg/dL (0.15-1.2); Total Protein 7.2 g/dL (6.6-8.7)
[2025-04-12 03:39] LABS: Aspartate Amino Transferase 28 U/L (0-32)
[2025-04-12] MEDS: enoxaparin 80 mg/0.8 mL Syringe SUBCUT ×2 (06:08→18:06)
[2025-04-12] MEDS: ceFAZolin 2,000 mg SDV 2000 MG IVP ×3 (06:08→23:19)
--- NOTE | 2025-04-12 09:15 | XRR_ITS ---
PROCEDURE INFORMATION: Exam: XR Chest Exam date and time: 04/12/2025 10:13 AM Age: 64 years old Clinical indication: Device placement; Picc; Additional info: Post picc insertion, fidencio placing picc in 256-2. Will call when ready. Maybe by TECHNIQUE: Imaging protocol: Radiologic exam of the chest. Views: 1 view. COMPARISON: CR (CHEST, ) 04/05/2025 5:04 PM FINDINGS: Tubes, catheters and devices: New left arm PICC terminates near the superior cavoatrial junction. Lungs: Unremarkable. No consolidation. Pleural spaces: Unremarkable. No pleural effusion. No pneumothorax. Heart/Mediastinum: Unremarkable. No cardiomegaly. Bones/joints: Nothing acute. No change. XR/XR chest 1V portable 16039 IMPRESSION: 1. New left arm PICC terminates near the superior cavoatrial junction. 2. No acute disease.
[2025-04-12] MEDS: aspirin 81 mg EC Tablet PO (09:20)
[2025-04-12] MEDS: losartan 50 mg Tablet 75 MG PO ×2 (09:22→18:06)
[2025-04-12] MEDS: chlorthalidone 25 mg Tablet PO (09:22)
[2025-04-12] MEDS: amiodarone 200 mg Tablet 400 MG PO ×2 (09:22→18:06)
[2025-04-12] MEDS: famotidine 20 mg Tablet PO (09:23)
[2025-04-12] MEDS: carvedilol 6.25 mg Tablet PO ×2 (09:23→18:06)
[2025-04-12] MEDS: amlodipine 5 mg Tablet 10 MG PO (09:23)
--- NOTE | 2025-04-12 11:05 | PICC.NOTE ---
Single lumen PICC placed to Left basilic. R arm unable to be used due to current abscess. L basilic noted at 3.9mm, straight, and apparent best choice for placement. Using sterile technique and MST L basilic accessed x1 stick. Education and home teaching for PICC completed, education packet provided to patient. Gave report to CLIFTON Granado.
--- NOTE | 2025-04-12 13:55 | P.PN_ITS ---
Subjective 2 Subjective: No cellulitis right antecubital fossa. No evidence of an abscess on exam Vitals/I&O/Wt Last Vital Signs Temp 98.0 F 04/12/25 11:35 Pulse 71 04/12/25 11:35 Resp 19 H 04/12/25 11:35 BP 154/91 04/12/25 11:35 Pulse Ox 94 04/12/25 11:35 O2 Del Method Room Air 04/12/25 11:35 O2 Flow Rate 96 04/10/25 04:00 04/11/25 04/12/25 04/12/25 22:59 06:59 14:59 Intake Total 480 / 1440 200 / 1640 480 / 480 Balance 480 / 1440 200 / 1640 480 / 480 Weight last 48 hrs Weight 174 lb 4.8 oz Weight 177 lb 9.6 oz Physical Exam 2 Narrative: Chest: Unlabored breathing room air. No lymphadenopathy. Heart: Regular rate and rhythm. Abdomen: Soft, nontender, nondistended. No masses or lymphadenopathy. Right upper extremity no cellulitis or abscess Data 04/12/25 02:32 04/12/25 02:32 A&P Assessment and plan (1) Abscess of upper arm and forearm: Plan 64-year-old female whom surgery was consulted for a possible right upper extremity abscess. Unremarkable physical exam. Continue antibiotics. Will hold off on any procedures. Will sign off. PDMP PDMP Reviewed: Not Reviewed Attestations 2 Medical Necessity Statement*: N/A Coding Level of Care Code 46050 Diagnoses Abscess of upper arm and forearm L02.419
--- NOTE | 2025-04-12 13:57 | P.PN_ITS ---
Subjective 2 Subjective: Patient without complaints. Just received PICC line with no incident Vitals/I&O/Wt Last Vital Signs Temp 98.0 F 04/12/25 11:35 Pulse 71 04/12/25 11:35 Resp 19 H 04/12/25 11:35 BP 154/91 04/12/25 11:35 Pulse Ox 94 04/12/25 11:35 O2 Del Method Room Air 04/12/25 11:35 O2 Flow Rate 96 04/10/25 04:00 04/11/25 04/12/25 04/12/25 22:59 06:59 14:59 Intake Total 480 / 1440 200 / 1640 480 / 480 Balance 480 / 1440 200 / 1640 480 / 480 Weight last 48 hrs Weight 79.061 kg Weight 80.558 kg Physical Exam 2 Narrative: Alert and oriented in no acute distress Heart regular normal S1-S2 without murmurs clicks gallops or rub Lungs clear to auscultation without wheezes rales or rhonchi Abdomen soft nontender nondistended positive bowel sounds no hepatosplenomegaly Extremities no clubbing cyanosis or edema Data 04/12/25 02:32 04/12/25 02:32 A&P Assessment and plan (1) Staphylococcus aureus bacteremia: Blood culture from 04/05 1 out of 4 bottles positive for Staph aureus. MSSA. Secondary to superficial thrombophlebitis from recent IV placement Follow-up blood cultures negative Echocardiogram negative for endocarditis Continue with 2 g every 8 hourly of IV cefazolin for 2 weeks Issues with obtaining outpatient IV antibiotics. Patient has 2 homes 1 in [place] 1 in [place] it will depend on insurance. If necessary I discussed with Dr. Ayoub patient could have ceftriaxone 2 g x 1 that will last 24 hours and enable the patient to get home to [place]. (2) Septic thrombophlebitis of upper extremities: Septic thrombophlebitis most likely cause for bacteremia. Plan History of recent CVA; continue with aspirin, statin. Depression: Continue with home dose of mirtazapine, Effexor. Full code Cardiac diet Telemetry. PUD prophylaxis not indicated Eliquis will be sufficient for DVT prophylaxis. Plan for the day: Stable for discharge pending outpatient IV antibiotics per her insurance PDMP PDMP Reviewed: Not Reviewed Attestations 2 Medical Necessity Statement*: Patient has required hospitalization due to MSSA bacteremia and need for IV antibiotics. Case management arranging outpatient IV antibiotics Coding Level of Care Code Acute Code for [facility] Diagnoses Staphylococcus aureus bacteremia R78.81; B95.61 Septic thrombophlebitis of upper extremities I80.8
[2025-04-12] MEDS: mirtazapine 30 mg Tablet 60 MG PO (20:30)
[2025-04-12] MEDS: atorvastatin 40 mg Tablet 80 MG PO (20:30)
[2025-04-12] MEDS: venlafaxine ER (24HR) 150 mg Capsule 300 MG PO (20:31)
[2025-04-13] VITALS (7 sets, daily range): BP systolic 143–181; BP diastolic 77–92; PULSE 67–72; RESP 17; TEMP 36.2–37.1; O2SAT 91–96
[2025-04-13] MEDS: enoxaparin 80 mg/0.8 mL Syringe SUBCUT (06:23)
[2025-04-13] MEDS: ceFAZolin 2,000 mg SDV 2000 MG IVP ×2 (06:23→14:00)
[2025-04-13] MEDS: amlodipine 5 mg Tablet 10 MG PO (09:08)
[2025-04-13] MEDS: carvedilol 6.25 mg Tablet PO (09:08)
[2025-04-13] MEDS: aspirin 81 mg EC Tablet PO (09:08)
[2025-04-13] MEDS: chlorthalidone 25 mg Tablet PO (09:09)
[2025-04-13] MEDS: losartan 50 mg Tablet 75 MG PO (09:09)
[2025-04-13] MEDS: amiodarone 200 mg Tablet 400 MG PO (09:09)
--- NOTE | 2025-04-13 10:57 | PM.DCS ---
Discharge Providers Date of Admission: 04/08/25 14:17 Date of Discharge: April 13, 2025 Attending Provider at Admission: Manan Marrero MD Attending Provider at Discharge: Ermias Oates DO Consults: General Surgery, infectious disease Primary Care Provider: Deric Ramirez MD Diagnoses at Discharge Discharge Diagnosis (1) Abscess of upper arm and forearm: Status: Acute Reason for Visit Reason for Visit: Staph Brief History: keila Ruiz is a 64 year old female with past medical history of anemia requiring blood transfusion, daily alcohol use with 4 shots of vodka, hypertension, depression, recent admission within last 1 week for acute stroke when she was found to have atrial fibrillation with rapid ventricular response. Patient during that admission had 1 febrile episode of 101.3 Fahrenheit. Subsequent studies including urinalysis, chest x-ray were negative for acute infection. Blood culture from that admission 1 out of 4 bottles came back positive for Staph aureus/MSSA. Given positive blood culture patient was requested to come back to the hospital for further evaluation. Today morning on examination she states she has been doing well at home. Did have episode of cold sweats last night which she states she has been having on and off since menopause. She also states she had a lot of pain in the right arm where she had IV line placed on previous admission along with murky white-colored foul-smelling fluid which was expressed today during bath. She still complains of pain at the site. Hospital Course Hospital Course Patient was placed on IV cefazolin for culture sensitivities. The source most likely superficial thrombophlebitis from recent IV placement. Patient was found to have new onset atrial fibrillation with a new diagnosis she was placed on amiodarone taper. She was continued on Eliquis. Surgery was consulted for possible abscess however there was no evidence of fluctuance or abscess on exam and no procedure required. ID continue to follow and patient was continued on Cefazolin with good result. repeat blood cultures on 04/08/2025 as of the morning are still negative. Arrangements have been made to continue IV antibiotics as an outpatient with weekly dressing changes back at this hospital. Physical Exam Narrative: Alert and oriented in no acute distress Heart regular normal S1-S2 without murmurs clicks gallops or rub Lungs clear to auscultation without wheezes rales or rhonchi Abdomen soft nontender nondistended positive bowel sounds no hepatosplenomegaly Extremities no clubbing cyanosis or edema Discharge Data Studies Completed and Pending Completed Studies During Hospitalization Category Date Time Status CXRP [XR chest 1V portable 20362] Routine Exams 04/12/25 09:15 Completed US venous duplex upper extremity RT [CV venous duplex Ultrasound 04/08/25 16:[place] [address]] Routine Pending at discharge Category Date Time Status Blood Culture Stat Lab 04/08/25 14:47 Results Radiology Impressions Venous Duplex 04/08/25 16:45 IMPRESSION: 1. No evidence of deep vein thrombosis. 2. Superficial thrombophlebitis within right antecubital vein. 3. Large heterogeneous soft tissue collection abutting right antecubital vein and tracking into the skin surface concerning for an abscess formation. Chest X-Ray 04/12/25 09:15 IMPRESSION: 1. New left arm PICC terminates near the superior cavoatrial junction. 2. No acute disease. Laboratory Results WBC 9.93 10^3/uL (3.29-11.43) 04/12/25 02:32 RBC 4.42 10^6/uL (3.85-5.65) 04/12/25 02:32 Hgb 15.00 g/dL (11.27-16.99) 04/12/25 02:32 Hct 43.3 % (36-47) 04/12/25 02:32 MCV 98.0 fl (85-98) 04/12/25 02:32 MCH 33.9 pg (27-33) H 04/12/25 02:32 MCHC 34.6 g/dL (30-55) 04/12/25 02:32 RDW 12.4 % (12.1-15.1) 04/12/25 02:32 Plt Count 187 10^3/cmm (157-399) 04/12/25 02:32 MPV 10.6 fL (7.4-10.4) H 04/12/25 02:32 Neut % (Auto) 60.6 % 04/12/25 02:32 Lymph % (Auto) 26.6 % 04/12/25 02:32 [place] % (Auto) 9.5 % 04/12/25 02:32 Eos % (Auto) 2.0 % 04/12/25 02:32 Baso % (Auto) 0.7 % 04/12/25 02:32 Neut # (Auto) 6.02 10^3/uL (1.8-7.7) 04/12/25 02:32 Lymph # (Auto) 2.6 10^3/uL (0.8-4.8) 04/12/25 02:32 [place] # (Auto) 0.9 10^3/uL (0.2-0.9) 04/12/25 02:32 Eos # (Auto) 0.2 10^3/uL (0.0-0.8) 04/12/25 02:32 Baso # (Auto) 0.1 10^3/uL (0.0-0.1) 04/12/25 02:32 Nucleated RBC % (auto) 0 % 04/12/25 02:32 Nucleated RBCs # 0.0 /100WBC 04/12/25 02:32 Sodium 136 mmol/L (136-145) 04/12/25 02:32 Potassium 5.0 mmol/L (3.5-5.1) 04/12/25 02:32 Chloride 99 mmol/L (98-107) 04/12/25 02:32 Carbon Dioxide 22 mmol/L (22-29) 04/12/25 02:32 Anion Gap 20.0 (5-19) H 04/12/25 02:32 BUN 12 mg/dL (8-23) 04/12/25 02:32 Creatinine 0.6 mg/dL (0.5-0.9) 04/12/25 02:32 GFR Calculation 100.6 mL/min (90-130) 04/12/25 02:32 Glucose 100 mg/dL (65-115) 04/12/25 02:32 Calculated Osmolality 282 mOsm/kg (285-295) L 04/12/25 02:32 Lactic Acid 1.0 mmol/L (0.5-2.2) 04/08/25 14:47 Calcium 9.8 mg/dL (8.5-10.5) 04/12/25 02:32 Phosphorus 3.8 mg/dL (2.5-4.5) 04/11/25 02:39 Magnesium 2.2 mg/dL (1.7-2.3) 04/11/25 02:39 Total Bilirubin 0.3 mg/dL (0.15-1.2) 04/12/25 02:32 AST 28 U/L (0-32) 04/12/25 02:32 ALT 13 U/L (0-33) 04/12/25 02:32 Alkaline Phosphatase 112 U/L (35-105) H 04/12/25 02:32 Total Protein 7.2 g/dL (6.6-8.7) 04/12/25 02:32 Albumin 3.9 g/dL (3.5-5.2) 04/12/25 02:32 Globulin 3.3 g/dL (1.3-4.6) 04/12/25 02:32 Procalcitonin 0.16 ng/mL (0-0.5) 04/09/25 04:21 Urine Color Yellow (Yellow) 04/08/25 16:44 Urine Appearance Clear (CLEAR) 04/08/25 16:44 Urine pH 5.5 (5-7) 04/08/25 16:44 Ur Specific Gerald 1.021 (1.005-1.030) 04/08/25 16:44 Urine Protein Negative (Negative) 04/08/25 16:44 Urine Glucose (UA) Negative (Normal) 04/08/25 16:44 Urine Ketones Trace (Negative) 04/08/25 16:44 Urine Blood Negative (Negative) 04/08/25 16:44 Urine Nitrate Negative (Negative) 04/08/25 16:44 Urine Bilirubin Negative (Negative) 04/08/25 16:44 Urine Urobilinogen 0.2 mg/dL (Negative) 04/08/25 16:44 Ur Leukocyte Esterase Negative (Negative) 04/08/25 16:44 Urine RBC 0-2 /hpf (0-2) 04/08/25 16:44 Urine WBC 0-5 /hpf (0-5) 04/08/25 16:44 Ur Squamous Epith Cells 0-5 /hpf (0-5) 04/08/25 16:44 Amorphous Sediment Not Reportable 04/08/25 16:44 Urine Bacteria None seen /hpf (NONE) 04/08/25 16:44 Hyaline Casts 1.65 /lpf 04/08/25 16:44 Vitals Last Vital Signs Temp 97.9 F 04/13/25 07:40 Pulse 67 04/13/25 07:40 Resp 17 04/13/25 07:40 BP 143/91 04/13/25 09:09 Pulse Ox 95 04/13/25 07:40 O2 Del Method Room Air 04/13/25 07:40 O2 Flow Rate 96 04/10/25 04:00 Discharge Plan Discharge Patient Disposition: Home Condition: Stable Prescriptions: New chlorthalidone 25 mg Tablet 25 mg PO DAILY Qty: 30 0RF cefazolin 2 gram Recon Soln 2,000 mg IVP Q8H Qty: 25 0RF Continued mirtazapine 30 mg Tablet 60 mg PO BEDTIME folic acid 1 mg Tablet 1 mg PO DAILY furosemide 20 mg Tablet 20 mg PO DAILY hydroxyzine pamoate 25 mg Capsule 25 mg PO BEDTIME PRN (Reason: Anxiety) venlafaxine 150 mg Tablet Extended Release 24hr 300 mg PO BEDTIME amiodarone [Pacerone] 200 mg Tablet 400 mg PO Qty: 90 0RF Rx Instructions: 400 mg 3 times a day for 1 week followed by 400 mg twice daily for 1 week followed by 200 mg daily losartan 50 mg Tablet 75 mg PO BID 30 Days Qty: 90 0RF atorvastatin 40 mg Tablet 80 mg PO BEDTIME Qty: 60 0RF carvedilol 6.25 mg Tablet 6.25 mg PO BID Qty: 60 0RF aspirin 81 mg Tablet,Delayed Release (Dr/Ec) 81 mg PO DAILY Qty: 30 0RF Eliquis 5 mg Tablet 5 mg PO BID@0900,2100 Qty: 60 0RF Discharge Orders: Discharge Order (Routine); Ordered 04/13/25 Ordered By: Ermias Oates Other Ambulatory Orders: Miscellaneous Procedure (Order) Location: None Selected Ordered By: Manan Marrero Referrals: [facility] [Outside] Referral Note: The main location phone number is [phone] [facility] and then ask for location you have been assigned. This is the company providing your IV antibiotics. They should be shipped to your house and should arrive in time for your evening dose. [facility] [Outside] Referral Note: You sven need to follow up at outpt infusions for weekly dressing changes & labs. Discharge Diet: Cardiac Discharge Activity: Increase activity as tolerated Discharge Attestations Time Spent in Discharge Care*: less than 30 min Status at Discharge: Cognitive status at discharge: cognitively intact, Behavioral status at discharge: cooperative, Quality Metrics Clinical Quality Measures [ No reported AMI, CVA or VTE this stay] Coding Level of Care Code Acute Code for Chg Fwd Diagnoses Abscess of upper arm and forearm L02.419
--- NOTE | 2025-04-13 13:05 | PC.NURSE ---
Discharge: Pt has to have 1500 abx before discharge
== END 2025-04-13 14:15 | disposition home or self-care (01) | DRG 315 ==
PROVIDERS: Admitting Provider Student in an Organized Health Care Education/Training Program; PCP Family Medicine; Visit Provider Internal Medicine
DX: T80.1XXA Vascular complications following infusion, transfusion and therapeutic injection, initial encounter (principal); L02.413 Cutaneous abscess of right upper limb; L03.113 Cellulitis of right upper limb; I80.8 Phlebitis and thrombophlebitis of other sites; B95.61 Methicillin susceptible Staphylococcus aureus infection as the cause of diseases classified elsewhere; F10.10 Alcohol abuse, uncomplicated; I10 Essential (primary) hypertension; F32.A Depression, unspecified; I48.91 Unspecified atrial fibrillation; Z79.82 Long term (current) use of aspirin; Z79.01 Long term (current) use of anticoagulants; Z87.891 Personal history of nicotine dependence; Z86.73 Personal history of transient ischemic attack (TIA), and cerebral infarction without residual deficits
CPT/HCPCS: 36415; 36573; 71045; 80053; 81001; 83605; 83735; 84100; 84145; 85025; 87040; 93971; 94664; 96372; J0360; J0690; J1650; J2270; J3475; J9999

== ENCOUNTER 2025-04-21 11:30 | Oncology outpatient (recurring) (ONCR) | payer BC, SELFPAY ==
[2025-04-14 15:50] LABS: Basophils # 0.1 10^3/uL (0.0-0.1); Basophils % 0.7 %; Eosinophils # 0.2 10^3/uL (0.0-0.8); Eosinophils % 1.5 %; Hematocrit 41.4 % (36-47); Lymphocytes # 1.9 10^3/uL (0.8-4.8); Lymphocytes % 16.1 %; Mean Corpuscular HGB Conc 33.8 g/dL (30-55); Mean Corpuscular Hemoglobin 34.3 pg (27-33); Mean Corpuscular Volume 101.5 fl (85-98); Mean Platelet Volume 9.9 fL (7.4-10.4); Monocytes # 1.2 10^3/uL (0.2-0.9); Monocytes % 9.8 %; Neutrophils # 8.33 10^3/uL (1.8-7.7); Neutrophils % 70.8 %; Nucleated Red Blood Cells % 0 %; Platelet Count 240 10^3/cmm (157-399); Red Blood Count 4.08 10^6/uL (3.85-5.65); Red Cell Distribution Width 12.3 % (12.1-15.1); White Blood Count 11.77 10^3/uL (3.29-11.43)
[2025-04-15 14:18] LABS: Alanine Aminotransferase 8 U/L (0-33); Albumin Level 4.1 g/dL (3.5-5.2); Alkaline Phosphatase 110 U/L (35-105); Bilirubin Direct 0.08 mg/dL (0.00-0.30); Globulin 4.1 g/dL (1.3-4.6); Glomerular Filtration Rate 41.2 mL/min (90-130); Total Bilirubin 0.3 mg/dL (0.15-1.2); Total Protein 8.2 g/dL (6.6-8.7)
[2025-04-15 14:31] LABS: Aspartate Amino Transferase 30 U/L (0-32)
[2025-04-21 12:49] LABS: Basophils # 0.1 10^3/uL (0.0-0.1); Basophils % 0.9 %; Eosinophils # 0.2 10^3/uL (0.0-0.8); Eosinophils % 1.7 %; Hematocrit 37.6 % (36-47); Lymphocytes # 1.7 10^3/uL (0.8-4.8); Lymphocytes % 18.6 %; Mean Corpuscular HGB Conc 35.4 g/dL (30-55); Mean Corpuscular Hemoglobin 33.8 pg (27-33); Mean Corpuscular Volume 95.7 fl (85-98); Mean Platelet Volume 9.9 fL (7.4-10.4); Monocytes % 10.3 %; Neutrophils # 6.37 10^3/uL (1.8-7.7); Neutrophils % 67.9 %; Nucleated Red Blood Cells % 0 %; Platelet Count 263 10^3/cmm (157-399); Red Blood Count 3.93 10^6/uL (3.85-5.65); Red Cell Distribution Width 11.9 % (12.1-15.1); White Blood Count 9.38 10^3/uL (3.29-11.43)
[2025-04-21 13:21] LABS: Alanine Aminotransferase 6 U/L (0-33); Albumin Level 4.1 g/dL (3.5-5.2); Alkaline Phosphatase 110 U/L (35-105); Bilirubin Direct 0.08 mg/dL (0.00-0.30); Globulin 3.9 g/dL (1.3-4.6); Glomerular Filtration Rate 55.8 mL/min (90-130); Total Bilirubin 0.3 mg/dL (0.15-1.2)
[2025-04-21 13:22] LABS: Aspartate Amino Transferase 28 U/L (0-32)
== END 2025-04-26 23:59 | disposition home or self-care (01) ==
PROVIDERS: Student in an Organized Health Care Education/Training Program; PCP Family Medicine; Visit Provider Family Medicine
DX: I80.8 Phlebitis and thrombophlebitis of other sites; Z53.9 Procedure and treatment not carried out, unspecified reason
CPT/HCPCS: 36592; 80076; 82565; 85025

== ENCOUNTER 2025-05-05 11:00 | Oncology outpatient (recurring) (ONCR) | payer BC, SELFPAY ==
[2025-04-28 12:16] LABS: Hematocrit 35.3 % (36-47); Hemoglobin 12.30 g/dL (11.27-16.99); Mean Corpuscular HGB Conc 34.8 g/dL (30-55); Mean Corpuscular Hemoglobin 34.0 pg (27-33); Mean Corpuscular Volume 97.5 fl (85-98); Nucleated Red Blood Cells % 0 %; Platelet Count 196 10^3/cmm (157-399); Red Blood Count 3.62 10^6/uL (3.85-5.65); White Blood Count 6.94 10^3/uL (3.29-11.43)
[2025-04-28 12:39] LABS: Alanine Aminotransferase < 5 U/L (0-33); Albumin Level 4.1 g/dL (3.5-5.2); Alkaline Phosphatase 102 U/L (35-105); Aspartate Amino Transferase 22 U/L (0-32); Globulin 3.3 g/dL (1.3-4.6); Total Protein 7.4 g/dL (6.6-8.7)
[2025-05-05 12:16] LABS: Hematocrit 36.0 % (36-47); Hemoglobin 12.60 g/dL (11.27-16.99); Mean Corpuscular HGB Conc 35.0 g/dL (30-55); Mean Corpuscular Hemoglobin 33.4 pg (27-33); Mean Corpuscular Volume 95.5 fl (85-98); Nucleated Red Blood Cells % 0 %; Platelet Count 193 10^3/cmm (157-399); Red Blood Count 3.77 10^6/uL (3.85-5.65); White Blood Count 6.95 10^3/uL (3.29-11.43)
== END 2025-05-27 23:59 | disposition home or self-care (01) ==
PROVIDERS: Student in an Organized Health Care Education/Training Program; PCP Family Medicine; Visit Provider Family Medicine
DX: I80.8 Phlebitis and thrombophlebitis of other sites; Z53.9 Procedure and treatment not carried out, unspecified reason
CPT/HCPCS: 36592; 80076; 82565; 85025

== ENCOUNTER → 2025-05-06 11:01 | Outpatient (BNVA) | payer BC, SELFPAY | PROVIDERS: PCP Family Medicine; Referring Provider Family Medicine; Visit Provider Nurse Practitioner Family | DX: I48.91 Unspecified atrial fibrillation (principal) | CPT/HCPCS: 93005 ==

== ENCOUNTER 2025-06-14 10:52 | Inpatient (IN) | payer BC, SELFPAY ==
[2025-06-14] VITALS (23 sets, daily range): BP systolic 101–173; BP diastolic 65–80; PULSE 67–76; RESP 14–69; TEMP 36.4–36.9; O2SAT 93–100; BMI 26.4; BMI 25.6
--- NOTE | 2025-06-14 10:57 | ECG_ITS ---
[facility]25[facility]14 Pat Name: Celsa Ruiz Department: Room: Gender: Female Tentmaker: : 1960 Requested By: Bell Urias Order Number: [id number] Colleen MD: Jose Guadalupe David M.D. Measurements Intervals [place] Rate: 72 P: 26 W[place]: 156 QRS: 27 QRSD: 98 T: 45 QT: 408 QTc: 449 Interpretive Statements SINUS RHYTHM POSSIBLE RIGHT VENTRICULAR CONDUCTION DELAY [RSR (QR) IN V1/V2] ST DEVIATION AND MODERATE T-WAVE ABNORMALITY, CONSIDER ANTERIOR ISCHEMIA [-0.1+ mV T-WAVE IN V3/V4] Compared to ECG 05/06/2025 11:06:26 Possible ischemia now present T-wave abnormality still present Electronically Signed On 06-19-2025 09:17:33 CDT by Jose Guadalupe David M.D. [email or web address]
--- NOTE | 2025-06-14 10:58 | W.ED.ABDPA2 ---
HPI - Abdominal Pain General: Chief Complaint: Syncope Stated Complaint: syncope Time Seen by Provider: 06/14/25 10:53 Source: patient and EMS Mode of arrival: EMS Limitations: no limitations History of Present Illness: 64-year-old female states that over the last 4 days she has been having abdominal pain she states she has noticed dark stools believe that she has been having blood in her stools. States she has had a history of a GI bleed in the past. She went to the clinic today and went to the bathroom had a syncopal event while in the bathroom did not hit her head she denies any chest pain states abdominal pain is diffuse in nature rates it a 4 out of 10. Denies any fevers. Associated Symptoms: Reports melena and syncope; Denies chills, diarrhea, fever(s), nausea and vomiting Related Data Home Medications ?Medication ?Instructions ?Recorded ?Confirmed hydroxyzine pamoate 25 mg capsule 25 mg PO BEDTIME PRN Anxiety 04/02/25 06/14/25 mirtazapine 30 mg tablet 60 mg PO BEDTIME 04/02/25 06/14/25 venlafaxine 150 mg tablet,extended 300 mg PO BEDTIME 04/02/25 06/14/25 release 24 hr amiodarone 200 mg tablet (Pacerone) See Rx Instructions .Route .COMPLEX 06/14/25 06/14/25 atorvastatin 80 mg tablet 80 mg PO DAILY 06/14/25 06/14/25 losartan 50 mg tablet 75 mg PO DAILY 06/14/25 06/14/25 Previous Rx's ?Medication ?Instructions ?Recorded aspirin 81 mg tablet,delayed 81 mg PO DAILY #30 tabs 04/07/25 release apixaban 5 mg tablet (Eliquis) 5 mg PO BID@0900,2100 #60 tabs 04/14/25 carvedilol 6.25 mg tablet 6.25 mg PO BID #60 tabs 04/14/25 chlorthalidone 25 mg tablet 25 mg PO DAILY #30 tabs 04/14/25 folic acid 1 mg tablet 1 mg PO DAILY #30 tabs 04/14/25 furosemide 20 mg tablet 20 mg PO DAILY #30 tabs 04/14/25 Allergies Allergy/AdvReac Type Severity Reaction Status Date / Time lisinopril Allergy ALGY-Difficulty Verified 05/11/25 09:16 Breathing Review of Systems Const: Denies: fever(s), chills, body aches or change in appetite ENMT: Denies: throat pain or dental pain Card: Reports: syncope; Denies: chest pain Resp: Denies: dyspnea GI: Reports: abdominal pain and melena; Denies: nausea, vomiting or diarrhea Musc: Denies: neck pain or back pain Skin/Breast: Denies: rash Neuro: Denies: headache(s) PFSH ED PFSH: Medical History Hypertension History of anemia Depression Alcohol use CVA (cerebral vascular accident) Atrial fibrillation, new onset Surgical History Hx of tonsillectomy History of ankle surgery Left History of lumbar surgery Clean up ruptured disc H/O total hysterectomy H/O lumpectomy Family History Other Arrhythmia Atrial fibrillation Denies family history of Aneurysm Social History Smoking and tobacco/nicotine status: former use of tobacco/nicotine Quit status (tobacco/nicotine): has quit using Year quit tobacco: 2024 Former quit date comment: 2 pack per day - started at age 20 Alcohol intake: current Alcohol intake frequency: 0-2 Drinks per Day Substance/Drug Use: never Adopted: No Caregiver/support person: Yes Lives independently: Yes Household members: spouse Housing: House Marital status: Physical Exam Const: COMMON NORMALS: no acute distress, patient oriented x3 and healthy appearing HENMT: COMMON NORMALS: normocephalic and atraumatic HEAD & SCALP: normocephalic and atraumatic Eye: COMMON NORMALS: Equal, round and reactive pupils present and EOMs intact bilaterally PUPIL: Yes Equal, round and reactive pupils present Neck/C-Spine: COMMON NORMALS: full ROM and supple Chest: COMMONS NORMALS: normal inspection of the chest and normal palpation of entire chest wall Resp: COMMON NORMALS: normal respiratory effort, No retractions, No use of accessory muscles and clear to auscultation bilaterally AUSCULTATION: clear to auscultation bilaterally Cardio: COMMON NORMALS: regular rate, regular rhythm and No murmurs present (Cardio) RATE: regular rate RHYTHM: regular rhythm GI: COMMON NORMALS: Normal to inspection, nondistended, normoactive bowel sounds present, Soft to palpation, non-tender and no masses PALPATION: Yes Soft to palpation RECTAL EXAM: Abnormal stool present black stool OTHER: heme positive stool Extremity: COMMON NORMALS: normal to inspection and full ROM Neuro: COMMON NORMALS: patient oriented x3, moves all extremities and no focal motor deficits Psych: COMMON NORMALS: mental status grossly normal, Normal thought process present and cooperative THOUGHT PROCESS: Normal thought process present Skin: COMMON NORMALS: no rashes or lesions noted and no wounds GENERAL SKIN EXAM: no rashes or lesions noted Course Vital Signs: Vital signs: Vital Signs Temperature 98.3 F 06/14/25 10:54 Pulse Rate 73 06/14/25 12:30 Respiratory Rate 16 06/14/25 10:54 Blood Pressure 116/71 06/14/25 12:30 Pulse Oximetry 97 06/14/25 12:30 Oxygen Delivery Me thod Room Air 06/14/25 12:30 MDM - Abdominal Pain Medical Decision Making Patient presents here with an upper GI bleed her vital signs here been stable she did drop 4 points in a month and had a syncopal events we will give her 1 unit of blood she is given Protonix spoke to hospitalist along with surgeon will admit. Medical Records I reviewed the patient's medical records. Lab Data I reviewed the patient's lab results. 06/14/25 11:13 06/14/25 11:13 Labs/Radiology: Radiology Impressions Abdomen/Pelvis CT 06/14/25 11:54 Impression: Negative for acute intra-abdominal or pelvic abnormalities. Laboratory Results WBC 8.86 10^3/uL (3.29-11.43) 06/14/25 11:13 RBC 2.67 10^6/uL (3.85-5.65) L 06/14/25 11:13 Hgb 8.80 g/dL (11.27-16.99) L 06/14/25 11:13 Hct 25.4 % (36-47) L 06/14/25 11:13 MCV 95.1 fl (85-98) 06/14/25 11:13 MCH 33.0 pg (27-33) 06/14/25 11:13 MCHC 34.6 g/dL (30-55) 06/14/25 11:13 RDW 12.0 % (12.1-15.1) L 06/14/25 11:13 Plt Count 223 10^3/cmm (157-399) 06/14/25 11:13 MPV 9.7 fL (7.4-10.4) 06/14/25 11:13 Neut % (Auto) 74.2 % 06/14/25 11:13 Lymph % (Auto) 14.7 % 06/14/25 11:13 [place] % (Auto) 8.9 % 06/14/25 11:13 Eos % (Auto) 1.1 % 06/14/25 11:13 Baso % (Auto) 0.8 % 06/14/25 11:13 Neut # (Auto) 6.57 10^3/uL (1.8-7.7) 06/14/25 11:13 Lymph # (Auto) 1.3 10^3/uL (0.8-4.8) 06/14/25 11:13 [place] # (Auto) 0.8 10^3/uL (0.2-0.9) 06/14/25 11:13 Eos # (Auto) 0.1 10^3/uL (0.0-0.8) 06/14/25 11:13 Baso # (Auto) 0.1 10^3/uL (0.0-0.1) 06/14/25 11:13 Nucleated RBC % (auto) 0 % 06/14/25 11:13 Nucleated RBCs # 0.0 /100WBC 06/14/25 11:13 PT 20.40 SECONDS (12.1-14.9) H 06/14/25 11:13 INR 1.64 (0.8-1.2) H 06/14/25 11:13 Sodium 134 mmol/L (136-145) L 06/14/25 11:13 Potassium 3.4 mmol/L (3.5-5.1) L 06/14/25 11:13 Chloride 92 mmol/L (98-107) L 06/14/25 11:13 Carbon Dioxide 26 mmol/L (22-29) 06/14/25 11:13 Anion Gap 19.4 (5-19) H 06/14/25 11:13 BUN 63 mg/dL (8-23) H 06/14/25 11:13 Creatinine 2.5 mg/dL (0.5-0.9) H 06/14/25 11:13 GFR Calculation 19.4 mL/min (90-130) L 06/14/25 11:13 Glucose 137 mg/dL (65-115) H 06/14/25 11:13 Calculated Osmolality 298 mOsm/kg (285-295) H 06/14/25 11:13 Calcium 10.7 mg/dL (8.5-10.5) H 06/14/25 11:13 Total Bilirubin 0.6 mg/dL (0.15-1.2) 06/14/25 11:13 AST 23 U/L (0-32) 06/14/25 11:13 ALT 18 U/L (0-33) 06/14/25 11:13 Alkaline Phosphatase 115 U/L (35-105) H 06/14/25 11:13 Total Protein 7.9 g/dL (6.6-8.7) 06/14/25 11:13 Albumin 4.5 g/dL (3.5-5.2) 06/14/25 11:13 Globulin 3.4 g/dL (1.3-4.6) 06/14/25 11:13 Lipase 35 U/L (13-60) 06/14/25 11:13 Blood Type A Negative 06/14/25 11:13 Rho(D) Type Rh negative 06/14/25 11:13 Antibody Screen Negative 06/14/25 11:13 All radiology interpretation(s) finalized by discharge Discharge Plan Discharge Patient Disposition: Admitted As Inpatient Clinical Impression: Acute upper GI bleeding, Syncope Condition: Stable Coding Level of Care Code ED Pilates Coordinator for Valeria Dacosta
--- OUTSIDE RECORDS SUMMARY | 2025-06-14 11:02 | XMS_ITS | Encounter Summary ---
Author Organization [facility] Address [address] [place] [address] Phone Care Team Providers Care Nutrition Club Ambassador Name Role Phone Ayleen Lemus Primary Care Provider +1- [phone] Reason for Visit * Reason Comments Medication Refill Encounter Details Date Type Department Care Team ([facility] st Contact Info) Description 11/19/2016 Refill [facility] [address] [place] [address] Ayleen Lemus [address] [place], [place] [id number] Social History Tobacco Use Types Packs/Day Years [...] hypertension documented in this encounter Care Teams Nutrition Club Ambassador Relationship Specialty Start Date End Date Ayleen Lemus [address] [place], [place] [id number] PCP - General 05/05/09 documented as of this encounter
--- OUTSIDE RECORDS SUMMARY | 2025-06-14 11:02 | XMS_ITS | Encounter Summary ---
Author Organization [facility] Address [address] [place] [address] Phone Care Team Providers Care Back Hanger Name Role Phone Ayleen Lemus Primary Care Provider +1- [phone] Reason for Visit * Reason Comments Medication Refill Encounter Details Date Type Department Care Team ([facility] st Contact Info) Description 05/26/2019 Refill [facility] [address] [place] [address] Ayleen Lemus [address] [place] [address] Social History Tobacco Use Types Packs/Day Years [...] organism documented in this encounter Care Teams Back Hanger Relationship Specialty Start Date End Date Ayleen Lemus [address] [place], [place] [id number] PCP - General 05/05/09 documented as of this encounter
--- OUTSIDE RECORDS SUMMARY | 2025-06-14 11:02 | XMS_ITS | Encounter Summary ---
Author Organization [facility] Address [address] [place] [address] Phone Care Team Providers Care Gate Guard Name Role Phone Ayleen Lemus Primary Care Provider +1- [phone] Reason for Visit * Reason Comments Medication Refill Encounter Details Date Type Department Care Team ([facility] st Contact Info) Description 07/10/2018 Refill [facility] [address] [place] [address] Ayleen Lemus [address] [place] [address] Social History Tobacco Use Types Packs/Day Years [...] unspecified documented in this encounter Care Teams Gate Guard Relationship Specialty Start Date End Date Ayleen Lemus [address] [place], [place] [id number] PCP - General 05/05/09 documented as of this encounter
--- OUTSIDE RECORDS SUMMARY | 2025-06-14 11:02 | XMS_ITS | Encounter Summary ---
Author Organization [facility] Address [address] [facility] [place] [address] Phone Care Team Providers Care Seniour Insight Manager Name Role Phone Ayleen Lemus Primary Care Provider +- [phone] Encounter Details Date Type Department Care Team ([facility] st Contact Info) Description 06/17/2017 Telephone [facility] - Acute Care [address] [place], [place] [id number] Kassandra Aguilar RN Social History Tobacco Use [...] on filedocumented in this encounter Care Teams Seniour Insight Manager Relationship Specialty Start Date End Date Ayleen Lemus [address] [place] [address] PCP - General 05/05/09 documented as of this encounter
--- OUTSIDE RECORDS SUMMARY | 2025-06-14 11:02 | XMS_ITS | Referral Summary ---
Author Organization [facility] Address [address] [place] [address] Care Team Providers Care Industrial Electrical Technician Name Role Phone Ayleen Lemus Primary Care Provider +1- [phone] Source Comments This disclosure is being made pursuant to the Care Everywhere program,applicable federal and state laws, and may not contain all informationavailable regarding this patient.[facility] Practices Allergies Active Allergy Reactions Criticality [...] Procedure Name Priority Date/Time Associated Diagnosis Comments [facility] LIPID PROFILE Routine 01/01/2017 2: 16 PM PATHOLOGY LABORATORY DIRECTOR Hyperlipidemia, unspecified hyperlipidemia type from Last 3 Months or Most Recently Relevant to Health Maintenance Results * (ABNORMAL) [facility] LIPID PROFILE (01/01/2017 2:16 PM PATHOLOGY LABORATORY DIRECTOR) [facility] Cholesterol - [facility] 224(H) 100 - 200 mg/dL 01/01/2017 5:53 PM PATHOLOGY LABORATORY DIRECTOR [facility] [place] Triglycerides - [facility] 94 50 - 250 mg/dL 01/01/2017 5:53 PM [facility] [place] HDL Cholesterol - [facility] 104(H) 40 - 60 mg/dL 01/01/2017 5:53 PM [facility] [place] LDL Cholesterol - [facility] 101 0 - 130 mg/dL 01/01/2017 5:53 PM PATHOLOGY LABORATORY DIRECTOR [facility] [place] Very Low Density Lipoprotein (VLDL) - [facility] 19 4 - 35 mg/dL 01/01/2017 5:53 PM [facility] [place] Cholesterol/HDL Ratio - [facility] 2.2 01/01/2017 5:53 PM [facility] [place] Comment: LIPID INTERPRETATION ATP III CLASSIFICATIONS(mg/dL) LDL [...] (specimen) Venipuncture / Unknown 01/01/2017 2:16 PM PATHOLOGY LABORATORY DIRECTOR 01/01/2017 4:43 PM PATHOLOGY LABORATORY DIRECTOR us Ayleen Lemus [facility] Final Resu lt [facility] [place] [address] [place] [address], from Last 3 Months or Most Recently Relevant to Health Maintenance Insurance [facility] Advance Directives For more information, please contact: [phone] * Full Code (Latest Code Status on File) Date Activated Date Inactivated Comments 06/11/2017 2:06 PM 06/12/2017 1:56 PM Care Teams Industrial Electrical Technician Relationship Specialty Start Date End Date Ayleen Lemus [address] [place] [id number] PCP - General 05/05/09
--- OUTSIDE RECORDS SUMMARY | 2025-06-14 11:02 | XMS_ITS | Clinical Summary ---
Author Organization [facility] Address [address] [place] [address] Care Team Providers Care Media Job Titles Name Role Phone Ayleen Lemus Primary Care Provider [phone]- [phone] Source Comments This disclosure is being made pursuant to the Care Everywhere program,applicable federal and state laws, and may not contain all informationavailable regarding this patient.[facility] and [facility] Practices Allergies Active Allergy Reactions Criticality Noted [...] Done Comments Annual Physical Visit 1963 HIV Pound Screening 1975 HCV Screening 1978 Pneumococcal Vaccine (1 of 2 - PCV) 1979 CT Colonography 2005 FIT-DNA 2005 FIT 2005 FOBT 2005 Flex Sigmoidoscopy 2005 Zoster Vaccine (1 of 2) 2010 Cervical Cancer Screening 07/29/20162014, 06/18/2014, 06/02/2013, Additional history exists Mammogram 08/19/2017 08/19/2015 Colonoscopy Tracking 02/06/2018 02/06/2013 RSV Vaccine (1 - Risk 60-74 years 1-dose series) 2020 Lipid Disorder Screening 01/01/2022 01/01/2017 Colonoscopy 02/06/2023 02/06/2013 Colorectal Screening 02/06/2023 PYUGO-AOOD-OhT-2 Vaccine ( - season) 2024 Influenza Vaccine: Seasonal (#1) 06/28/2025 Tetanus Diphtheria Pertussis (2 - Td or Tdap) 05/27/2029 05/27/2019, 03/23/1999 Procedures Procedure Name Priority Date/Time Associated Diagnosis Comments [facility] LIPID PROFILE Routine 01/01/2017 2: 16 PM COLOR ROOM ATTENDANT Hyperlipidemia, unspecified hyperlipidemia type from Last 3 Months or Most Recently Relevant to Health Maintenance Results * (ABNORMAL) [facility] LIPID PROFILE (01/01/2017 2:16 PM COLOR ROOM ATTENDANT) [facility] Signature Cholesterol - [facility] 224(H) 100 - 200 mg/dL 01/01/2017 5:53 PM [facility] [place] Triglycerides - [facility] 94 50 - 250 mg/dL 01/01/2017 5:53 PM [facility] [place] HDL Cholesterol - [facility] 104(H) 40 - 60 mg/dL 01/01/2017 5:53 PM [facility] [place] LDL Cholesterol - [facility] 101 0 - 130 mg/dL 01/01/2017 5:53 PM [facility] [place] Very Low Density Lipoprotein (VLDL) - VG 19 4 - 35 mg/dL 01/01/2017 5:53 PM [facility] [place] Cholesterol/HDL Ratio - [facility] 2.2 01/01/2017 5:53 PM [facility] [place] Comment: LIPID INTERPRETATION ATP III CLASSIFICATIONS(mg/dL) LDL [...] (specimen) Venipuncture / Unknown 01/01/2017 2:16 PM COLOR ROOM ATTENDANT 01/01/2017 4:43 PM COLOR ROOM ATTENDANT Ayleen Lemus [facility] Final Resu lt [facility] [place] [address] [place] [address], from Last 3 Months or Most Recently Relevant to Health Maintenance Insurance [facility] Advance Directives For more information, please contact: [phone] * Full Code (Latest Code Status on File) Date Activated Date Inactivated Comments 06/11/2017 2:06 PM 06/12/2017 1:56 PM Care Teams Media Job Titles Relationship Specialty Start Date End Date Ayleen Lemus [address] [place] [address] PCP - General 05/05/09
--- OUTSIDE RECORDS SUMMARY | 2025-06-14 11:02 | XMS_ITS | Clinical Summary ---
Author Organization [employer] Address [address] [place] [address] Care Team Providers Care Lining Stitcher Name Role Phone Ayleen Lemus PA-C Primary Care Provide r Source Comments This disclosure is being made pursuant to the [employer] program and maynot contain all information available regarding this patient.[facility] Allergies Active Allergy Reactions Criticality Noted Date [...] daily as needed 180 capsule 4 Active fluticasone NASAL (FLONASE) 50 MCG/ACT nasal sprayIndications :Allergic rhinitis, unspecified seasonality, unspecified trigger USE 2 SPRAYS IN EACH NOSTRIL ONCE DAILY DIRECTED 16 g 1 5 Active albuterol 108 (90 Base) MCG/ACT inhalerIndicatio ns:Mild intermittent reactive airway disease without complication USE 2 PUFFS BY INHALATION EVERY 6 HOURS NEEDED FOR WHEEZING. 18 g 3 5 Active furosemide (LASIX) 20 MG tabletIndication s:Essential hypertension TAKE 1 (ONE) TABLET (20 MG TOTAL) BY MOUTH DAILY. 90 tablet 2 5 Active atenolol (TENORMIN) 100 MG tabletIndication s:Essential hypertension TAKE 1 (ONE) TABLET (100 MG TOTAL) BY MOUTH DAILY. 90 tablet 2 5 Active folic acid (FOLVITE) 1 MG tabletIndication s:Hypokalemia TAKE 1 (ONE) TABLET (1 MG TOTAL) BY MOUTH DAILY. 90 tablet 2 5 Active mirtazapine (REMERON) 30 MG tablet Take 2 (two) tablets (60 mg total) by mouth nightly. 180 tablet 1 5 Active venlafaxine HCl (EFFEXOR-XR) 150 MG 24 hr capsule Take 1 (one) capsule (150 mg total) by mouth daily. 90 capsule 1 5 Active venlafaxine HCl (EFFEXOR-XR) 150 MG 24 hr capsule Take 2 (two) capsules (300 mg total) by mouth daily. 180 capsule 1 5 05/25/20 25 mirtazapine (REMERON) 30 MG tablet Take 2 (two) tablets (60 mg total) by mouth nightly. 180 tablet 1 5 05/25/20 25 Active Problems Problem Noted Date Diagnosed Date [...] dependenc e without complication 01/01/2017 12/19/2022 Encounters * This document contains information received from the source organization and may not represent a complete record from that organization. Date Type Department Care Team Description 05/27/2025 Travel from Last 3 Months Immunizations Immunization Administration [...] Vodka/week PHQ-2 Answer Date Recorded PHQ-2 Score 1 05/20/2025 Comments No Sex and Gender Information Value Date Recorded Sex Assigned at Not on file Legal Sex Female 4:19 AM CDT Gender Identity Not on file Sexual Orientation Not on file Last Filed Vital Signs Vital Sign Reading Time Taken Comments Blood Pressure 136/82 12/22/2024 10:19 AM TELECOMMUNICATIONS FIELD TECHNICIAN Pulse 76 12/22/2024 10:19 AM TELECOMMUNICATIONS FIELD TECHNICIAN Temperature 36.2 C (97.2 F) 12/22/2024 10:19 AM TELECOMMUNICATIONS FIELD TECHNICIAN Respiratory Rate 18 12/05/2023 9:10 AM TELECOMMUNICATIONS FIELD TECHNICIAN Oxygen Saturation - - Inhaled Oxygen Concentration - - Weight 77.5 kg (170 lb 14.4 oz) 025 10:19 AM TELECOMMUNICATIONS FIELD TECHNICIAN Height 170.8 cm (5' 7.25 ) 12/22/2024 1 0:19 AM TELECOMMUNICATIONS FIELD TECHNICIAN Body Mass Index 26.57 12/22/2024 10:19 AM TELECOMMUNICATIONS FIELD TECHNICIAN Plan of Treatment Health Maintenance Due Date [...] 2024 10/02/2022, 09/30/2021, 01/10/2021, Additional history exists Colonoscopy 05/13/2025 05/13/2020, 01/26/2013 Colorectal Cancer Screening 05/13/2025 Influenza Vaccine (#1) 2025 07/29/2015, 2007 Pap Smear 12/19/2025 12/19/2022, 12/27, 07/29/2015, Additional history exists Annual Wellness Visit [...] age to complete this topic HPV Vaccine (9-26yo & Shared Decision 27-45yo) Aged Out No longer eligi ble based [...] 140/90 Blood Pressure 136/82( 025 10:19 AM TELECOMMUNICATIONS FIELD TECHNICIAN) Ayleen Zhang PA-C Procedures Procedure Name Priority Date/Time Associated Diagnosis Comments LIPID PANEL Routine 12/22/2024 10:50 AM TELECOMMUNICATIONS FIELD TECHNICIAN Essential hypertension COMPREHENSIVE METABOLIC PANEL Routine 12/22/2024 10:50 AM TELECOMMUNICATIONS FIELD TECHNICIAN Hyponatremia MM 3D MAMM BILAT SCREENING W CAD Routine 02/28/2023 Encounter for screening mammogram for breast cancer THIN PREP PAP SMEAR Routine 12/19/2022 1 1:46 AM TELECOMMUNICATIONS FIELD TECHNICIAN Encounter for gynecological examination POCT OCCULT BLOOD STOOL - AMBULATORY Routine 01/23/2021 Screening for colorectal cancer HM COLONOSCOPY Routine 05/13/2020 CT ANGIOGRAPHY CHEST W WO CONTRAST Routine 04/08/2013 12:08 PM CDT Shortness of breath Positive D dimer from Last 3 Months or Most Recently Relevant to Health Maintenance Results * Lipid panel (12/22/2024 10:50 AM TELECOMMUNICATIONS FIELD TECHNICIAN) Cholesterol 186 100 - 200 mg/dL 12/22/2024 6:16 PM TELECOMMUNICATIONS FIELD TECHNICIAN [facility] Triglycerides 114 50 - 199 mg/dL 12/22/2024 6:16 PM TELECOMMUNICATIONS FIELD TECHNICIAN [facility] HDL Cholesterol 50 40 - 60 mg/dL 12/22/2024 6:16 PM TELECOMMUNICATIONS FIELD TECHNICIAN DIMITRY HARDING LDL, Calculated 113 0 - 130 mg/dL 12/22/2024 6:16 PM TELECOMMUNICATIONS FIELD TECHNICIAN [facility] VLDL Cholesterol 23 4 - 35 mg/dL 12/22/2024 6:16 PM TELECOMMUNICATIONS FIELD TECHNICIAN DIMITRY HARDING Cholesterol/HDL Ratio 3.7 12/22/2024 6:16 PM TELECOMMUNICATIONS FIELD TECHNICIAN DIMITRY HARDING Serum 12/22/2024 10:5 0 AM TELECOMMUNICATIONS FIELD TECHNICIAN 12/22/2024 4:35 PM TELECOMMUNICATIONS FIELD TECHNICIAN us Ayleen Lemus PA-C LAB BLOOD ORDERABLES Final Result [facility] [address] [place] [id number] * (ABNORMAL) Comprehensive metabolic panel (12/22/2024 10:50 AM TELECOMMUNICATIONS FIELD TECHNICIAN) Sodium 139 134 - 146 mmol/L 12/22/2024 6:16 PM TELECOMMUNICATIONS FIELD TECHNICIAN [facility] Potassium 4.2 3.5 - 5.3 mmol/L 12/22/2024 6:16 PM TERRIE [facility]ING Chloride 100 98 - 113 mmol/L 12/22/2024 6:16 PM [facility] CO2 28 17 - 36 mmol/L 12/22/2024 6:16 PM TERRIE [facility]ARDING Glucose 113 70.0 - 120.0 mg/dL 12/22/2024 6:16 PM TERRIE [facility] BUN 11 7 - 19 mg/dL 12/22/2024 6:16 PM [facility]E [facility] Creatinine 0.76 0.50 - 1.10 mg/dL 12/22/2024 6:16 PM TERRIE [facility]ARDING Calcium 9.7 8.5 - 10.6 mg/dL 12/22/2024 6:16 PM TER[facility] Total Protein 6.7 6.0 - 8.2 g/dL 12/22/2024 6:16 PM [facility]E [facility] Albumin 4.0 3.5 - 5.2 g/dL 12/22/2024 6:16 PM TELECOMMUNICATIONS FIELD TECHNICIAN DIMITRY HARDING Bilirubin Total 0.5 0.00 - 1.00 mg/dL 12/22/2024 6:16 PM [facility]E [facility] Alkaline Phosphatase 113(H) 29 - 93 U/L 12/22/2024 6:16 PM TELECOMMUNICATIONS FIELD TECHNICIAN DIMITRY HARDING AST 17 12 - 29 U/L 12/22/2024 6:16 PM TERRIE [facility] ALT 15 9 - 41 U/L 12/22/2024 6:16 PM TERRIE [facility]ARDING Anion Gap 11 3 - 11 mmol/L 12/22/2024 6:16 PM [facility] BUN/Creatinine Ratio 14.5(L) 15 - 25 12/22/2024 6:16 PM TERRIE [facility] Osmolality Calculated 288 275 - 295 mosm/kg 12/22/2024 6:16 PM TER[facility]E [facility] Globulin 2.7 1.1 - 3.4 g/dL 12/22/2024 6:16 PM TERRIE [facility]ARDING A/G Ratio 1.5 1.1 - 2.2 12/22/2024 6:16 PM [facility] Creatinine Based eGFR 87(L) >90 mL/min/[1. 73_m2] 12/22/2024 6:16 PM [facility] Comment:GFR 60-90 Mild decre ased GFR. Serum 12/22/2024 10:5 0 AM TELECOMMUNICATIONS FIELD TECHNICIAN 12/22/2024 4:35 PM TELECOMMUNICATIONS FIELD TECHNICIAN Ayleen Lemus PA-C LAB BLOOD ORDERABLES Final Result [facility] [place] [address] [place] [address] * MM 3D Mamm Bilat Screening w CAD (02/28/2023) Anatomical Region Laterality Modality Breast Bilateral Mammography 02/28/2023 Ayleen Lemus PA-C IMG MAMMOGRAPHY ORDER [place] Final Result * Thin Prep Pap Smear (12/19/2022 11:46 AM TELECOMMUNICATIONS FIELD TECHNICIAN) Pathology Result AP results 12/22/19 11:40 AM TELECOMMUNICATIONS FIELD TECHNICIAN [facility] Comment: (NOTE) Final REGISTERED NURSE FETAL Cytology Report Result: Negative for intraepithelial lesion or malignancy. Specimen successfully processed on ThinPrep First Line Production Supervisor. Specimen Adequacy: Satisfactory for evaluation. Endocervical component [...] of infection or sampling error. Examined by: Kishor Zhao CT([facility]) Electronically Signed: Kishor Zhao, 12/22/2022 at 11:39 AM Pap specimen source: Endocervical Specimen type is ThinPrep Paptest. LMP: Partial hyst Note: The Pap test is a screening test for the early detection of cervical carcinoma and its precursors with inherent false negative and false positive results. Follow up of unexplained clinical symptoms is recommended. Cervical 12/19/2022 11:4 6 AM TELECOMMUNICATIONS FIELD TECHNICIAN 12/19/2022 11:47 AM TELECOMMUNICATIONS FIELD TECHNICIAN us Ayleen Lemus PA-C PATHOLOGY/CYTOLOGY OR DERABLES Final Result [facility] [address] [place] [address] * POCT Occult Blood Stool - Ambulatory (01/23/2021) Fecal Occult Blood Negative Negative, Indeterminate [facility] Occult Blood, Stool #2 [facility] Occult Blood, Stool #3 [facility] 01/23/2021 us Ayleen Lemus PA-C POINT OF CARE TEST OR DERABLES Final Result Performing Organization Address City/[facility] Co de Phone Number [facility] [address] [place] [address] * Colonoscopy (05/13/2020) Colonoscopy Tubular Adenoma Comment:Tubular Adenoma Repe at [address] Fairchild 05/13/2020 us Not In System Provider HEALTH MAINTENANCE Final Result * CT ANGIOGRAPHY CHEST W WO CONTRAST (04/08/2013 12:08 PM CDT) Anatomical Region Laterality Modality Chest, Vascular Computed Tomogra phy 04/08/2013 12:0 8 PM CDT Narrative 04/08/2013 1:37 PM CDT [facility] [address] [place] [address] CELSA OLSEN MED REC #:[id number] PT. LOC: OP :1960 Age/Sex:52Y F ORDERING PROV:PRAFUL GUNTER M.D. ATTENDING PROV:PRAFUL GUNTER M.D. ADMITTING PROV: CC: EXAM DATE:04/08/2013 DOCUMENT STATUS:Final PROCEDURE(S):CT ANG CHEST W/WO CONTRAST ORDER #:[id number] RIGHT/LEFT: HISTORY: short of breathpostivie d dimer. [...] 04/08/2013 1:34:27 PM Signed: 04/08/2013 1:37:39 PM [facility]1983. PAGE 1 of 1 Procedure Note Eloisa Wei MD - 04/08/2013 [facility] [address] [place] [address] CELSA OLSEN [facility] REC #:[id number] PT. LOC: OP :1960 Age/Sex:52Y F ORDERING PROV:PRAFUL GUNTER M.D. ATTENDING PROV:PRAFUL GUNTER M.D. ADMITTING PROV: CC: EXAM DATE:04/08/2013 DOCUMENT STATUS:Final PROCEDURE(S):CT ANG CHEST W/WO CONTRAST ORDER #:[id number] RIGHT/LEFT: HISTORY: short of breathpostivie d dimer. [...] 04/08/2013 1:34:27 PM Signed: 04/08/2013 1:37:39 PM [facility]1983. PAGE 1 of [address] ORDERABLES Final Res ult from Last 3 Months or Most Recently Relevant to Health Maintenance Insurance [facility] Care Teams Lining Stitcher Relationship Specialty Start Date End Date Ayleen Lemus PA-C [address] [place] [address] [phone] PCP - General 03/20/13
--- OUTSIDE RECORDS SUMMARY | 2025-06-14 11:02 | XMS_ITS | Clinical Summary ---
Author Organization [facility] ([facility]) Address [address] [place] [address] Phone Care Team Providers Care Executive Asst Name Role Phone Ayleen Lemus Primary Care [...] 05/14/2020 Anemia 05/11/2020 05/14/2020 Melena 05/11/2020 05/14/2020 Encounters Date Type Department Care Team Description 05/27/2025 Telephone [facility] [address] [place] [address] Ilene Page LPN schedule EGD/colonoscopy 04/09/2025 Telephone [facility] [address] [place] [address] Cassy Hines, REPORTING COORDINATOR Other (LM colon ) from Last 3 Months Immunizations Immunization Administration Dates Next Due Hepatitis [...] Average Number of Drinks Not on file Frequency of Binge Drinking Not on file 05/28 Comments No Sex and Gender Information Value Date Recorded Sex Assigned at Female 05/12/2020 12:28 AM CDT Legal Sex Female 1:17 PM SALES ROUTE DRIVER HELPER Gender Identity Female 05/12/2020 12:28 AM CDT [...] 60-74 years 1-dose series) 2020 MAMMOGRAM 02/29/2024 02/28/2023, 05/0 01/2023, 02/17/2021, Additional history exists COVID VACCINES ( - 2023- season) 2024 10/02/2022, 09/30/2021, 01/10/2021, Additional history exists INFLUENZA VACCINE (#1) 2025 07/29/2015, 2007 PAP SMEAR 12/19/2025 12/19/2022, 01/23/2021 DTAP/TDAP/TD VACCINES [...] Diagnosis Comments MAMMO SCREENING BILATERAL W CAD ([id number],[id number]) Routine 02/28/2023 9:25 AM CDT Encounter for screening mammogram for malignant neoplasm of breast from Last 3 Months or Most Recently Relevant to Health Maintenance Results * MAMMO SCREENING BILATERAL W CAD ([id number]) (02/28/2023 9:25 AM CDT) Anatomical Region Laterality [...] are seen. There are extensive vascular calcifications. Ayleen RIOS IMG MAMMOGRAPHY ORDERABL ES Final Result from Last 3 Months or Most Recently Relevant to Health Maintenance Insurance [employer] Advance Directives For more information, please contact: [phone] * Full Code (Latest Code Status on File) Date Activated Date Inactivated Comments 06/08/2020 7:42 PM * Full Code Date Activated Date Inactivated Comments 05/11/2020 9:10 PM 06/08/2020 7:42 PM Care Teams Executive Asst Relationship Specialty Start Date End Date Ayleen Lemus PAC [address] [place] [id number] PCP - General Family Medicine 05/14/13
[2025-06-14 11:27] LABS: Hematocrit 25.4 % (36-47); Hemoglobin 8.80 g/dL (11.27-16.99); Mean Corpuscular HGB Conc 34.6 g/dL (30-55); Mean Corpuscular Hemoglobin 33.0 pg (27-33); Mean Corpuscular Volume 95.1 fl (85-98); Nucleated Red Blood Cells % 0 %; Platelet Count 223 10^3/cmm (157-399); Red Blood Count 2.67 10^6/uL (3.85-5.65); White Blood Count 8.86 10^3/uL (3.29-11.43)
[2025-06-14 11:37] LABS: INR 1.64 (0.8-1.2); Prothrombin Time 20.40 SECONDS (12.1-14.9)
[2025-06-14 11:42] LABS: Alanine Aminotransferase 18 U/L (0-33); Albumin Level 4.5 g/dL (3.5-5.2); Alkaline Phosphatase 115 U/L (35-105); Anion Gap 19.4 (5-19); Aspartate Amino Transferase 23 U/L (0-32); Blood Urea Nitrogen 63 mg/dL (8-23); Calcium 10.7 mg/dL (8.5-10.5); Carbon Dioxide 26 mmol/L (22-29); Chloride 92 mmol/L (98-107); Creatinine Clr Calc Pharmacy 25.0899; Globulin 3.4 g/dL (1.3-4.6); Glucose 137 mg/dL (65-115); Lipase 35 U/L (13-60); Osmolality Calculated 298 mOsm/kg (285-295); Potassium 3.4 mmol/L (3.5-5.1); Sodium 134 mmol/L (136-145); Total Protein 7.9 g/dL (6.6-8.7)
--- NOTE | 2025-06-14 11:54 | CT_ITS ---
WS: [id number] CT scan of the abdomen and pelvis without Oral and IV contrast. Additional two- dimensional coronal and sagittal reconstruction was performed. 06/14/2025 Clinical Data: abd pain Comparison: None. DLP: 739.[address] scans at [facility] use at least one of these dose optimization techniques: automated exposure control; mA and/or kV adjustment per patient size (includes targeted exams where dose is matched to clinical indication); or iterative reconstruction. Findings: The lower lungs show no nodules, masses or effusions. The gallbladder, spleen, adrenal glands and pancreas are normal. There is a 3.0 cm cyst in the anterior left lobe of the liver The kidneys show no cysts or masses. No renal calculi or hydronephrosis is seen. The abdominal aorta is normal in size. No appendicitis or diverticulitis is seen. The stomach, small bowel and colon are not remarkable. No abscess, adenopathy, ascites, mass or obstruction is seen. The bladder is unremarkable. The uterus is absent no inguinal hernia is seen. The bones of the lower thorax, lumbar spine, pelvis, and hips show only minimal osteoarthritis of the lumbar spine.. CT/CT abdomen pelvis wo con [id number] Impression: Negative for acute intra-abdominal or pelvic abnormalities.
[2025-06-14] MEDS: pantoprazole 40 mg SDV 80 MG IVP (12:30)
--- NOTE | 2025-06-14 13:53 | PC.NURSE ---
Pt blood transfusion started by Misty DIAZ.
--- NOTE | 2025-06-14 14:37 | PM.CONSULT ---
Providers/Reason For Consult Consulting Physician/Specialty*: Dr. Tam general surgery Reason for Consult*: GI bleed Attending Physician: Matias Khan MD Primary Care Provider: Deric Ramirez MD History of Present Illness History of Present Illness Celsa Ruiz is a 64 year old female on Eliquis for A-fib whom surgery was consulted for GI bleed. Patient reports hematochezia. Also reports a syncopal episode. Medications/Allergies Home Medications ?Medication ?Instructions ?Recorded ?Confirmed ?Last Taken ?Type hydroxyzine pamoate 25 mg capsule 25 mg PO BEDTIME PRN Anxiety 04/02/25 06/14/25 04/08/25 History mirtazapine 30 mg tablet 60 mg PO BEDTIME 04/02/25 06/14/25 06/13/25 History venlafaxine 150 mg tablet,extended 300 mg PO BEDTIME 04/02/25 06/14/25 06/13/25 History release 24 hr aspirin 81 mg tablet,delayed 81 mg PO DAILY #30 tabs 04/07/25 06/14/25 06/14/25 Rx release apixaban 5 mg tablet (Eliquis) 5 mg PO BID@0900,2100 #60 tabs 04/14/25 06/14/25 06/14/25 Rx carvedilol 6.25 mg tablet 6.25 mg PO BID #60 tabs 04/14/25 06/14/25 06/14/25 Rx chlorthalidone 25 mg tablet 25 mg PO DAILY #30 tabs 04/14/25 06/14/25 06/14/25 Rx folic acid 1 mg tablet 1 mg PO DAILY #30 tabs 04/14/25 06/14/25 06/14/25 Rx furosemide 20 mg tablet 20 mg PO DAILY #30 tabs 04/14/25 06/14/25 06/14/25 Rx amiodarone 200 mg tablet (Pacerone) See Rx Instructions .Route .COMPLEX 06/14/25 06/14/25 06/14/25 History atorvastatin 80 mg tablet 80 mg PO DAILY 06/14/25 06/14/25 06/14/25 History losartan 50 mg tablet 75 mg PO DAILY 06/14/25 06/14/25 06/14/25 History Allergies Allergy/AdvReac Type Severity Reaction Status Date / Time lisinopril Allergy ALGY-Difficulty Verified 05/11/25 09:16 Breathing PFSH Acute PFSH: Medical History (Updated 06/14/25 @ 12:38 by Bell Urias MD) Hypertension History of anemia Depression Alcohol use CVA (cerebral vascular accident) Atrial fibrillation, new onset Surgical History Hx of tonsillectomy History of ankle surgery Left History of lumbar surgery Clean up ruptured disc H/O total hysterectomy H/O lumpectomy Family History Other Arrhythmia Atrial fibrillation Denies family history of Aneurysm Social History Smoking and tobacco/nicotine status: former use of tobacco/nicotine Quit status (tobacco/nicotine): has quit using Year quit tobacco: 2024 Former quit date comment: 2 pack per day - started at age 20 Alcohol intake: current Alcohol intake frequency: 0-2 Drinks per Day Substance/Drug Use: never Adopted: No Caregiver/support person: Yes Lives independently: Yes Household members: spouse Housing: House Marital status: Vitals/I&O/Wt Last Vital Signs Temp 98.0 F 06/14/25 14:17 Pulse 72 06/14/25 14:30 Resp 16 06/14/25 14:30 BP 120/68 06/14/25 14:30 Pulse Ox 99 06/14/25 14:30 O2 Del Method Room Air 06/14/25 14:30 06/13/25 06/14/25 06/14/25 22:59 06:59 14:59 Intake Total 1000 / 1000 Balance 1000 / 1000 Weight last 48 hrs Weight 174 lb Physical Exam Narrative: Chest: Unlabored breathing room air. No lymphadenopathy. Heart: Regular rate and rhythm. Abdomen: Soft, nontender, nondistended. No masses or lymphadenopathy. Data 06/15/25 08:17 06/15/25 02:07 A&P Assessment and plan 1. Acute upper GI bleeding: Plan: 64-year-old female who presented with hematochezia. Will wait 48 hours for Eliquis to wear off before scoping. Rest of care per hospitalist. PDMP PDMP Reviewed: Not Reviewed Coding Level of Care Code 84414 Diagnoses Acute upper GI bleeding K92.2
--- NOTE | 2025-06-14 14:38 | PM.MISC ---
Miscellaneous Note Note: Full consult note to follow On eliquis. Need to wait 48hrs off eliquis before proceeding with egd/colonoscopy.
--- OUTSIDE RECORDS SUMMARY | 2025-06-14 16:46 | XMS_ITS | Encounter Summary ---
Author Organization [facility] Address [address] [place] [address] Phone Care Team Providers Care Production Superintendent Hydro Name Role Phone Ayleen Lemus Primary Care Provider +- [phone] Encounter Details Date Type Department Care Team ([facility] st Contact Info) Description 06/17/2017 Telephone [facility] - Acute Care [address] [place], [place] [id number] Kassandra Aguilar RN Social History Tobacco Use [...] on filedocumented in this encounter Care Teams Production Superintendent Hydro Relationship Specialty Start Date End Date Ayleen Lemus [address] [place] [address] PCP - General 05/05/09 documented as of this encounter
--- OUTSIDE RECORDS SUMMARY | 2025-06-14 16:46 | XMS_ITS | Encounter Summary ---
Author Organization [facility] Address [address] [place] [address] Phone Care Team Providers Care Piercing Artist Name Role Phone Ayleen Lemus Primary Care Provider +1- [phone] Reason for Visit * Reason Comments Medication Refill Encounter Details Date Type Department Care Team ([facility] st Contact Info) Description 07/10/2018 Refill [facility] [address] [place] [address] Ayleen Lemus [address] [place] [address] Social History Tobacco Use Types Packs/Day Years [...] unspecified documented in this encounter Care Teams Piercing Artist Relationship Specialty Start Date End Date Ayleen Lemus [address] [place], [place] [id number] PCP - General 05/05/09 documented as of this encounter
--- OUTSIDE RECORDS SUMMARY | 2025-06-14 16:46 | XMS_ITS | Clinical Summary ---
Author Organization [facility] Address [address] [place] [address] Care Team Providers Care Cheese Cutter Name Role Phone Ayleen Lemus PA-C Primary Care Provide r Source Comments This disclosure is being made pursuant to the Wego program and maynot contain all information available regarding this patient.[facility] Allergies Active Allergy Reactions Criticality Noted Date [...] Comments Blood Pressure 136/82 12/22/2024 10:19 AM ON SITE NURSE Pulse 76 12/22/2024 10:19 AM ON SITE NURSE Temperature 36.2 C (97.2 F) 12/22/2024 10:19 AM ON SITE NURSE Respiratory Rate 18 12/05/2023 9:10 AM ON SITE NURSE Oxygen Saturation - - Inhaled Oxygen Concentration - - Weight 77.5 kg (170 lb 14.4 oz) 025 10:19 AM ON SITE NURSE Height 170.8 cm (5' 7.25 ) 12/22/2024 1 0:19 AM ON SITE NURSE Body Mass Index 26.57 12/22/2024 10:19 AM ON SITE NURSE Plan of Treatment Health Maintenance Due Date [...] 140/90 Blood Pressure 136/82( 025 10:19 AM ON SITE NURSE) Ayleen Zhang PA-C Procedures Procedure Name Priority Date/Time Associated Diagnosis Comments LIPID PANEL Routine 12/22/2024 10:50 AM ON SITE NURSE Essential hypertension COMPREHENSIVE METABOLIC PANEL Routine 12/22/2024 10:50 AM ON SITE NURSE Hyponatremia MM 3D MAMM BILAT SCREENING W CAD Routine 02/28/2023 Encounter for screening mammogram for breast cancer THIN PREP PAP SMEAR Routine 12/19/2022 1 1:46 AM ON SITE NURSE Encounter for gynecological examination POCT OCCULT BLOOD STOOL - AMBULATORY Routine 01/23/2021 Screening for colorectal cancer HM COLONOSCOPY Routine 05/13/2020 CT ANGIOGRAPHY CHEST W WO CONTRAST Routine 04/08/2013 12:08 PM CDT Shortness of breath Positive D dimer from Last 3 Months or Most Recently Relevant to Health Maintenance Results * Lipid panel (12/22/2024 10:50 AM ON SITE NURSE) Cholesterol 186 100 - 200 mg/dL 12/22/2024 6:16 PM ON SITE NURSE DIMITRY HARDING Triglycerides 114 50 - 199 mg/dL 12/22/2024 6:16 PM ON SITE NURSE [facility] HDL Cholesterol 50 40 - 60 mg/dL 12/22/2024 6:16 PM ON SITE NURSE DIMITRY HARDING LDL, Calculated 113 0 - 130 mg/dL 12/22/2024 6:16 PM ON SITE NURSE [facility] VLDL Cholesterol 23 4 - 35 mg/dL 12/22/2024 6:16 PM ON SITE NURSE DIMITRY HARDING Cholesterol/HDL Ratio 3.7 12/22/2024 6:16 PM ON SITE NURSE DIMITRY HARDING Serum 12/22/2024 10:5 0 AM ON SITE NURSE 12/22/2024 4:35 PM ON SITE NURSE us Ayleen Lemus PA-C LAB BLOOD ORDERABLES Final Result [facility] [address] [place] [id number] * (ABNORMAL) Comprehensive metabolic panel (12/22/2024 10:50 AM ON SITE NURSE) Sodium 139 134 - 146 mmol/L 12/22/2024 6:16 PM ON SITE NURSE [facility] Potassium 4.2 3.5 - 5.3 mmol/L 12/22/2024 [...] 3.5 - 5.2 g/dL 12/22/2024 6:16 PM ON SITE NURSE DIMITRY HARDING Bilirubin Total 0.5 0.00 - 1.00 mg/dL 12/22/2024 6:16 PM TERRIE HARDING Alkaline Phosphatase 113(H) 29 - 93 U/L 12/22/2024 6:16 PM ON SITE NURSE DIMITRY HARDING AST 17 12 - 29 [...] ased GFR. Serum 12/22/2024 10:5 0 AM ON SITE NURSE 12/22/2024 4:35 PM ON SITE NURSE Ayleen Lemus PA-C LAB BLOOD ORDERABLES Final Result [facility] [place] [address] [place] [address] * MM 3D Mamm Bilat Screening w CAD (02/28/2023) Anatomical Region Laterality Modality Breast Bilateral Mammography 02/28/2023 Ayleen Lemus PA-C IMG MAMMOGRAPHY ORDER [place] Final Result * Thin Prep Pap Smear (12/19/2022 11:46 AM ON SITE NURSE) Pathology Result AP results 12/22/19 11:40 AM ON SITE NURSE [facility] Comment: (NOTE) Final DIESEL INSTRUCTOR Cytology Report Result: Negative for intraepithelial lesion or malignancy. Specimen successfully processed on ThinPrep Vest Busheler. Specimen Adequacy: Satisfactory for evaluation. Endocervical component [...] or sampling error. Examined by: Kishor Zhao CT([facility]) Electronically Signed: Kishor Zhao, 12/22/2022 at 11:39 AM Pap specimen source: Endocervical Specimen type is ThinPrep Paptest. LMP: Partial hyst Note: The Pap test is a screening test for the early detection of cervical carcinoma and its precursors with inherent false negative and false positive results. Follow up of unexplained clinical symptoms is recommended. Cervical 12/19/2022 11:4 6 AM ON SITE NURSE 12/19/2022 11:47 AM ON SITE NURSE us Ayleen Lemus PA-C PATHOLOGY/CYTOLOGY OR DERABLES Final Result [facility] [address] [place] [address] * POCT Occult Blood Stool - Ambulatory (01/23/2021) Fecal Occult Blood Negative Negative, Indeterminate [facility] Occult Blood, Stool #2 [facility] Occult Blood, Stool #3 [facility] 01/23/2021 us Ayleen Lemus PA-C POINT OF CARE TEST OR DERABLES Final Result Performing Organization Address City/[facility] Co de Phone Number [facility] [address] [place] [address] * Colonoscopy (05/13/2020) Colonoscopy Tubular Adenoma Comment:Tubular Adenoma Repe at [address] Fairchild 05/13/2020 us Not In System Provider HEALTH MAINTENANCE Final Result * CT ANGIOGRAPHY CHEST W WO CONTRAST (04/08/2013 12:08 PM CDT) Anatomical Region Laterality Modality Chest, Vascular Computed Tomogra phy 04/08/2013 12:0 8 PM CDT Narrative 04/08/2013 1:37 PM CDT [facility] [address] [place] [address] CELSA OLSEN MED REC #:[id number] PT. LOC: OP :1960 Age/Sex:52Y F ORDERING PROV:PRAFUL GUNTER M.D. ATTENDING PROV:PRAFUL GUNTER M.D. ADMITTING PROV: CC: EXAM DATE:04/08/2013 DOCUMENT STATUS:Final PROCEDURE(S):CT ANG CHEST W/WO CONTRAST ORDER #:[id number] RIGHT/LEFT: HISTORY: short of breathpostivie d dimer. [...] 04/08/2013 1:34:27 PM Signed: 04/08/2013 1:37:39 PM PENDING SALE TO [facility]. PAGE 1 of 1 Procedure Note Eloisa Wei MD - 04/08/2013 [facility] [address] [place] [address] CELSA OLSEN [facility] REC #:[id number] PT. LOC: OP :1960 Age/Sex:52Y F ORDERING PROV:PRAFUL GUNTER M.D. ATTENDING PROV:PRAFUL GUNTER M.D. ADMITTING PROV: CC: EXAM DATE:04/08/2013 DOCUMENT STATUS:Final PROCEDURE(S):CT ANG CHEST W/WO CONTRAST ORDER #:[id number] RIGHT/LEFT: HISTORY: short of breathpostivie d dimer. [...] 04/08/2013 1:34:27 PM Signed: 04/08/2013 1:37:39 PM PENDING SALE TO [facility]. PAGE 1 of [address] ORDERABLES Final Res ult from Last 3 Months or Most Recently Relevant to Health Maintenance Insurance [facility] Care Teams Cheese Cutter Relationship Specialty Start Date End Date Ayleen Lemus PA-C [address] [place] [id number] PCP - General 03/20/13
--- OUTSIDE RECORDS SUMMARY | 2025-06-14 16:46 | XMS_ITS | Encounter Summary ---
Author Organization [facility] Address [address] [place] [address] Phone Care Team Providers Care Inspector Chief Name Role Phone Ayleen Lemus Primary Care Provider +1- [phone] Reason for Visit * Reason Comments Medication Refill Encounter Details Date Type Department Care Team ([facility] st Contact Info) Description 11/19/2016 Refill [facility] [address] [place] [address] Ayleen Lemus [address] [place], [place] [id number] Social History Tobacco Use Types Packs/Day Years [...] hypertension documented in this encounter Care Teams Inspector Chief Relationship Specialty Start Date End Date Ayleen Lemus [address] [place], [place] [id number] PCP - General 05/05/09 documented as of this encounter
--- OUTSIDE RECORDS SUMMARY | 2025-06-14 16:46 | XMS_ITS | Encounter Summary ---
Author Organization [facility] Address [address] [place] [address] Phone Care Team Providers Care Workforce Consultant Name Role Phone Ayleen Lemus Primary Care Provider +1- [phone] Reason for Visit * Reason Comments Medication Refill Encounter Details Date Type Department Care Team ([facility] st Contact Info) Description 05/26/2019 Refill [facility] [address] [place] [address] Ayleen Lemus [address] [place] [address] Social History Tobacco Use Types Packs/Day Years [...] organism documented in this encounter Care Teams Workforce Consultant Relationship Specialty Start Date End Date Ayleen Lemus [address] [place], [place] [phone] PCP - General 05/05/09 documented as of this encounter
--- OUTSIDE RECORDS SUMMARY | 2025-06-14 16:46 | XMS_ITS | Referral Summary ---
Author Organization [facility] Address [address] [place] [address] Care Team Providers Care Seam Finisher Name Role Phone Ayleen Lemus Primary Care Provider +1- [phone] Source Comments This disclosure is being made pursuant to the Care Everywhere program,applicable federal and state laws, and may not contain all informationavailable regarding this patient.[facility] Practices Allergies [...] Procedure Name Priority Date/Time Associated Diagnosis Comments [facility] LIPID PROFILE Routine 01/01/2017 2: 16 PM SECURITY VEHICLE PATROL OFFICER Hyperlipidemia, unspecified hyperlipidemia type from Last 3 Months or Most Recently Relevant to Health Maintenance Results * (ABNORMAL) [facility] LIPID PROFILE (01/01/2017 2:16 PM SECURITY VEHICLE PATROL OFFICER) [facility] Cholesterol - [facility] 224(H) 100 - 200 mg/dL 01/01/2017 5:53 PM SECURITY VEHICLE PATROL OFFICER [facility] [place] Triglycerides - VGH 94 50 - 250 mg/dL 01/01/2017 5:53 PM [facility] [place] HDL Cholesterol - [facility] 104(H) 40 - 60 mg/dL 01/01/2017 5:53 PM [facility] [place] LDL Cholesterol - [facility] 101 0 - 130 mg/dL 01/01/2017 5:53 PM SECURITY VEHICLE PATROL OFFICER [facility] [place] Very Low Density Lipoprotein (VLDL) - [facility] 19 4 - 35 mg/dL 01/01/2017 5:53 PM [facility] [place] Cholesterol/HDL Ratio - [facility] 2.2 01/01/2017 5:53 PM [facility] [place] Comment: LIPID INTERPRETATION ATP III CLASSIFICATIONS(mg/dL) LDL [...] (specimen) Venipuncture / Unknown 01/01/2017 2:16 PM SECURITY VEHICLE PATROL OFFICER 01/01/2017 4:43 PM SECURITY VEHICLE PATROL OFFICER us Ayleen Lemus [facility] Final Resu lt [facility] [place] [address] [place] [id number], from Last 3 Months or Most Recently Relevant to Health Maintenance Insurance [facility] Advance Directives For more information, please contact: [phone] * Full Code (Latest Code Status on File) Date Activated Date Inactivated Comments 06/11/2017 2:06 PM 06/12/2017 1:56 PM Care Teams Seam Finisher Relationship Specialty Start Date End Date Ayleen Lemus [address] [place] [id number] PCP - General 05/05/09
--- OUTSIDE RECORDS SUMMARY | 2025-06-14 16:46 | XMS_ITS | Clinical Summary ---
Author Organization [facility] Address [address] [place] [address] Phone Care Team Providers Care Controller Mechanic Name Role Phone Ayleen Lemus Primary Care [...] Type Department Care Team Description 05/27/2025 Telephone [facility] [address] [facility] [address] [place] [address] Ilene Page LPN schedule EGD/colonoscopy 04/09/2025 Telephone [facility] [address] [facility] [address] [place] [address] Cassy Hines, MANAGER OF CUSTOMER BILLING Other (LM colon ) from Last 3 [...] AM CDT Legal Sex Female 1:17 PM FOOD BAGGING MACHINE OPERATOR Gender Identity Female 05/12/2020 12:28 AM CDT [...] Diagnosis Comments MAMMO SCREENING BILATERAL W CAD ([id number]) Routine 02/28/2023 9:25 AM CDT Encounter for screening mammogram for malignant neoplasm of breast from Last 3 Months or Most Recently Relevant to Health Maintenance Results * MAMMO SCREENING BILATERAL W CAD ([id number]) (02/28/2023 9:25 AM CDT) Anatomical Region Laterality [...] Advance Directives For more information, please contact: [phone] * Full Code (Latest Code Status on File) Date Activated Date Inactivated Comments 06/08/2020 7:42 PM * Full Code Date Activated Date Inactivated Comments 05/11/2020 9:10 PM 06/08/2020 7:42 PM Care Teams Controller Mechanic Relationship Specialty Start Date End Date Ayleen Lemus PAC [address] [place] [id number] PCP - General Family Medicine 05/14/13
--- OUTSIDE RECORDS SUMMARY | 2025-06-14 16:46 | XMS_ITS | Clinical Summary ---
Author Organization [facility] Address [address] [place] [address] Care Team Providers Care Coffee Bar Attendant Name Role Phone Ayleen Lemus Primary Care Provider +1- [phone] Source Comments This disclosure is being made pursuant to the Care Everywhere program,applicable federal and state laws, and may not contain all informationavailable regarding this patient.[facility] Practices [...] Done Comments Annual Physical Visit 1963 HIV [place] Screening 1975 HCV Screening 1978 Pneumococcal Vaccine [...] 01/01/2017 Colonoscopy 02/06/2023 02/06/2013 Colorectal Screening 02/06/2023 [id number] Vaccine ( - season) 2024 Influenza Vaccine: Seasonal (#1) 06/28/2025 Tetanus Diphtheria Pertussis (2 - Td or Tdap) 05/27/2029 05/27/2019, 03/23/1999 Procedures Procedure Name Priority Date/Time Associated Diagnosis Comments [facility] LIPID PROFILE Routine 01/01/2017 2: 16 PM MACHINE WOODWORKING SANDER Hyperlipidemia, unspecified hyperlipidemia type from Last 3 Months or Most Recently Relevant to Health Maintenance Results * (ABNORMAL) [facility] LIPID PROFILE (01/01/2017 2:16 PM MACHINE WOODWORKING SANDER) [facility] Signature Cholesterol - [facility] 224(H) 100 - 200 mg/dL 01/01/2017 5:53 PM [facility] [place] Triglycerides - VGH 94 50 - 250 mg/dL 01/01/2017 5:53 PM [facility] [place] HDL Cholesterol - V[facility] 104(H) 40 - 60 mg/dL 01/01/2017 5:53 PM [facility] [place] LDL Cholesterol - V[facility] 101 0 - 130 mg/dL 01/01/2017 5:53 PM [facility] [place] Very Low Density Lipoprotein (VLDL) - VG 19 4 - 35 mg/dL 01/01/2017 5:53 PM [facility] [place] Cholesterol/HDL Ratio - [facility] 2.2 01/01/2017 5:53 PM [facility] [place] Comment: LIPID INTERPRETATION ATP III CLASSIFICATIONS(mg/dL) LDL [...] (specimen) Venipuncture / Unknown 01/01/2017 2:16 PM MACHINE WOODWORKING SANDER 01/01/2017 4:43 PM MACHINE WOODWORKING SANDER Ayleen Lemus [facility] Final Resu lt [facility] [place] [address] [place] [address], from Last 3 Months or Most Recently Relevant to Health Maintenance Insurance [facility] Advance Directives For more information, please contact: [phone] * Full Code (Latest Code Status on File) Date Activated Date Inactivated Comments 06/11/2017 2:06 PM 06/12/2017 1:56 PM Care Teams Coffee Bar Attendant Relationship Specialty Start Date End Date Ayleen Lemus [address] [place] [address] PCP - General 05/05/09
--- NOTE | 2025-06-14 20:24 | P.HP_ITS ---
Providers/Chief Complaint 2 Admitting Physician: Matias Khan MD Primary Care Provider: Deric Ramirez MD Chief Complaint: syncope History of Present Illness As per the. Previous notes and the patient Celsa Ruiz is a 64 year old female with past medical history of hypertension, depression, CVA and atrial fibrillation on anticoagulation with Eliquis came with black tarry stools since 2 to 3 days. Associated with dizziness and presyncope. Did not report any nausea vomiting abdominal distention or any blood in the vomitus. No easy bruising gum bleeding or any joint swellings. No history of fever shortness of breath chest pain. Of note the patient reported that she had this kind of bleeding episode 4 to 5 years ago and had endoscopy and colonoscopy but did not reveal anything. The patient used to smoke and drink alcohol until that time. When she had stroke around March to April and stopped. No history of any other drug abuse The patient also reported having history of duodenal ulcer however she is not taking any NSAIDs at the moment for any analgesics. Review of Systems 2 General: Reports: 10 or more systems reviewed and unremarkable except in HPI and below Medications/Allergies Home Medications ?Medication ?Instructions ?Recorded ?Confirmed ?Last Taken ?Type hydroxyzine pamoate 25 mg capsule 25 mg PO BEDTIME PRN Anxiety 04/02/25 06/14/25 04/08/25 History mirtazapine 30 mg tablet 60 mg PO BEDTIME 04/02/2506/13/25 History venlafaxine 150 mg tablet,extended 300 mg PO BEDTIME 0 04/02/25 06/14/25 06/13/25 History release 24 hr aspirin 81 mg tablet,delayed 81 mg PO DAILY #30 tabs 0 04/07/25 06/14/25 06/14/25 Rx release apixaban 5 mg tablet (Eliquis) 5 mg PO BID@0900,2100 # 60 tabs 04/14/25 06/14/25 06/14/25 Rx carvedilol 6.25 mg tablet 6.25 mg PO BID #60 tabs 03/2806/14/25 06/14/25 Rx chlorthalidone 25 mg tablet 25 mg PO DAILY #30 tabs 06/14/25 06/14/25 Rx folic acid 1 mg tablet 1 mg PO DAILY #30 tabs 04/1406/14/25 06/14/25 Rx furosemide 20 mg tablet 20 mg PO DAILY #30 tabs 03/2806/14/25 06/14/25 Rx amiodarone 200 mg tablet (Pacerone) See Rx Instruction s .Route .COMPLEX 06/14/25 06/14/25 06/14/25 History atorvastatin 80 mg tablet 80 mg PO DAILY 06/14/2505/2806/14/25 History losartan 50 mg tablet 75 mg PO DAILY 06/14/2505/2806/14/25 History Allergies Allergy/AdvReac Type Severity Reaction Status Date / Time lisinopril Allergy ALGY-Difficulty Verified 05/11/25 09:16 Breathing PFSH Acute 2 PFSH: Medical History (Updated 06/14/25 @ 12:38 by Bell Urias MD) Hypertension History of anemia Depression Alcohol use CVA (cerebral vascular accident) Atrial fibrillation, new onset Surgical History Hx of tonsillectomy History of ankle surgery Left History of lumbar surgery Clean up ruptured disc H/O total hysterectomy H/O lumpectomy Family History Other Arrhythmia Atrial fibrillation Denies family history of Aneurysm Social History Smoking and tobacco/nicotine status: former use of tobacco/nicotine Quit status (tobacco/nicotine): has quit using Year quit tobacco: 2024 Former quit date comment: 2 pack per day - started at age 20 Alcohol intake: current Alcohol intake frequency: 0-2 Drinks per Day Substance/Drug Use: never Adopted: No Caregiver/support person: Yes Lives independently: Yes Household members: spouse Housing: House Marital status: Vitals/I&O/Wt Last Vital Signs Temp 98.5 F 06/14/25 17:18 Pulse 73 06/14/25 17:18 Resp 16 06/14/25 17:18 BP 148/80 06/14/25 17:18 Pulse Ox 95 06/14/25 17:18 O2 Del Method Room Air 06/14/25 17:20 06/14/25 06/14/25 06/14/25 06:59 14:59 22:59 Intake Total 1000 / 1000 0 / 1000 Balance 1000 / 1000 0 / 1000 Weight last 48 hrs Weight 76.476 kg Weight 78.925 kg Physical Exam 2 Narrative: General: Alert oriented x3, patient seen lying comfortably and mild pallor positive HEENT: Normocephalic, atraumatic, EOMI, breathing at room air Cardio: Regular rate rhythm, normal S1-S2, no murmurs rubs gallops, JVD_normal Respiratory: Good bilateral air entry, no wheezes no rhonchi appreciated GI: Abdomen soft, mildly tender at epigastric region, normoactive bowel sounds present all 4 quadrants, Neuro: Cranial nerves II to XII intact, strength 5/5, sensation 5/5, no gross neurological deficit Behavior: Appropriate and cooperative Extremities: Pulses 2+, no edema, no cyanosis Skin: Visible skin intact, no rashes Data 06/14/25 11:13 06/14/25 11:13 A&P Assessment and plan 1. Acute upper GI bleedin. Alcohol use: 3. Hypertension: 4. Atrial fibrillation: 5. Hypokalemia: Plan: - Patient having acute upper GI bleed with black tarry stools, hold Eliquis/last dose was taken today morning. To hold Eliquis for 48 hours before endoscopy as per the surgery plan -Surgery on board and to follow the recommendations - CBC monitoring every 6 hourly for 1 day - Hold antihypertensives at the moment - Clear fluid diet - Continue amiodarone 200 mg daily - SCD for VTE prophylaxis - In case of leukocytosis any fever consider sending for blood works and empiric antibiotics PDMP PDMP Reviewed: Not Reviewed Attestations 2 Medical Necessity Statement*: Celsa Ruiz's hospital stay will require greater than 2 midnights for upper GI bleed and need for endoscopy and further management Time Spent in Patient Care: 16 - 35 minutes (>than 50% of time sp ent in counselling and/or direct pt care on unit) . Other Attestations: Patient condition has been discussed at length with the patient/family, I have independently reviewed the chart labs imaging and diagnostics and EKG. I have discussed the goals of care and code status with the patient/family/NOK/legal financial services representative, and documented accordingly. The patient/family has been informed about the current condition and further plan of care. Agreed with the plan of care and understood without any language barrier. This documentation was created by [employer] editorial project manager software. Every effort was made to ensure accuracy of editorial project manager. Any obvious errors or omissions should be clarified with the author of the document. Coding Level of Care Code 68301 Diagnoses Acute upper GI bleeding K92.2 Alcohol use F10.90 Hypertension I10 Atrial fibrillation I48.91 Hypokalemia E87.6
[2025-06-14] MEDS: pantoprazole 40 mg SDV IVP (20:27)
[2025-06-14 21:15] LABS: Hematocrit 26.5 % (36-47); Hemoglobin 9.20 g/dL (11.27-16.99)
[2025-06-15] VITALS (8 sets, daily range): BP systolic 118–174; BP diastolic 74–90; PULSE 62–88; RESP 16–18; TEMP 36.2–36.9; O2SAT 93–99
[2025-06-15 02:24] LABS: Hematocrit 25.5 % (36-47); Hemoglobin 8.90 g/dL (11.27-16.99); Mean Corpuscular HGB Conc 34.9 g/dL (30-55); Mean Corpuscular Hemoglobin 33.5 pg (27-33); Mean Corpuscular Volume 95.9 fl (85-98); Nucleated Red Blood Cells % 0 %; Platelet Count 180 10^3/cmm (157-399); Red Blood Count 2.66 10^6/uL (3.85-5.65); White Blood Count 7.14 10^3/uL (3.29-11.43)
[2025-06-15 02:51] LABS: INR 1.39 (0.8-1.2); Prothrombin Time 17.90 SECONDS (12.1-14.9)
[2025-06-15 02:57] LABS: Alanine Aminotransferase 17 U/L (0-33); Albumin Level 3.9 g/dL (3.5-5.2); Alkaline Phosphatase 95 U/L (35-105); Anion Gap 16.5 (5-19); Aspartate Amino Transferase 23 U/L (0-32); Blood Urea Nitrogen 58 mg/dL (8-23); Calcium 9.6 mg/dL (8.5-10.5); Carbon Dioxide 27 mmol/L (22-29); Chloride 101 mmol/L (98-107); Creatinine Clr Calc Pharmacy 29.4504; Globulin 3.1 g/dL (1.3-4.6); Glucose 97 mg/dL (65-115); Magnesium 1.8 mg/dL (1.7-2.3); Osmolality Calculated 308 mOsm/kg (285-295); Potassium 3.5 mmol/L (3.5-5.1); Sodium 141 mmol/L (136-145); Thyroid Stimulating Hormone 4.15 uIU/mL (0.27-4.20); Total Protein 7.0 g/dL (6.6-8.7)
[2025-06-15 08:24] LABS: Hematocrit 25.0 % (36-47); Hemoglobin 8.60 g/dL (11.27-16.99)
--- NOTE | 2025-06-15 08:42 | US_ITS ---
WS: [id number] Gallbladder and right upper quadrant ultrasound, 06/15/2025 Clinical Data: h/o hepatic steatosis vs cirrhosis? Comparison: None. Findings: The gallbladder shows no sludge or stone. The wall measures 0.2 cm with no pericholecystic fluid. The common bile duct is 0.3 cm and there are no intrahepatic ductal abnormalities. Liver shows no masses or dilated intrahepatic ducts. There is a 3.2 cm cyst in the right lobe of the liver. The liver echotexture is coarse and suggests fatty infiltration. The largest dimension of the liver is 17.4 cm. The portal vein shows hepatopetal flow. The pancreas is partly obscured by overlying bowel gas but no cyst, pseudocyst, or evidence of pancreatitis is noted. Right kidney measures 8.9 cm and no cyst, masses or hydronephrosis can be seen. The aorta and inferior vena cava show no vascular abnormalities. US/US liver [id number] Impression: 1. 3.2 cm cyst in right lobe of the liver. 2. Coarse echo texture of the liver which suggests fatty infiltration.
[2025-06-15] MEDS: pantoprazole 40 mg SDV IVP ×2 (09:11→18:21)
[2025-06-15] MEDS: cefTRIAXone 1,000 mg SDV 1000 MG IVP (09:11)
--- NOTE | 2025-06-15 09:59 | PC.CHAP ---
Pastoral Care Encounter/Spiritual Assessment Type of Contact [] Declined supervisor carbon paper coating visit [] Patient/Family/Request visit [] Outpatient visit [] Follow-up visit [] Physician referral [] Code/Alert [x] Routine visit [] Staff referral [] Actively dying [] Patient sleeping [] Family support [] [] Out of room [] Palliative care [] [] Receiving care in room [] Pre-surgical visit [] Trauma [] Long length of stay [] ICU visit [] Other: Relational/Emotional Strength [xx] Patient feels connected with others/family/visitors/staff [] Distress [] Loneliness/isolation [] Abandonment Spirituality of Patient [x] Person of Carol [] Attends Restorationism of their Carol [x] Believes in Prayer [] Reads Bible or Confucianist materials [] There are Spiritual issues to be addressed Title One Teacher Interventions [x] Prayer [x] Active listening [] Non-anxious presence [x] Spiritual/emotional support [] Crisis/trauma care [] Spiritual counseling [] Bereavement support [] Provided bereavement packet [] Provided Bible/devotional materials [] Provided toy/stuffed animal, coloring book to patient or family member [] Provided Communion [] Anointing/[place] [] Salvation [x] Completed spiritual assessment [] Other: Impact on Illness or Injury [] Angry [] Fearful [] Anxious [] Often cries [] Exhaustion [] Unable to work [] Unable to attend anabaptism [] Unable to walk/stand [] Unable to read [] Unable to drive [] Unable to eat/drink [] Unable to sleep [] Unable to be with family [] Patient intubated [] Other: Summary Time spent with patient 5 min
--- NOTE | 2025-06-15 12:06 | P.PN_ITS ---
Subjective 2 Subjective: Positive hematochezia Vitals/I&O/Wt Last Vital Signs Temp 97.5 F L 06/15/25 11:35 Pulse 67 06/15/25 11:35 Resp 16 06/15/25 11:35 BP 144/79 06/15/25 11:35 Pulse Ox 96 06/15/25 11:35 O2 Del Method Room Air 06/15/25 11:35 06/14/25 06/15/25 06/15/25 22:59 06:59 14:59 Intake Total 480 / 1480 240 / 1720 1944 Output Total 500 / 500 Balance 480 / 1480 -260 / 1220 1944 Weight last 48 hrs Weight 168 lb 6 oz Weight 168 lb 9.6 oz Weight 174 lb Physical Exam 2 Narrative: Chest: Unlabored breathing room air. No lymphadenopathy. Heart: Regular rate and rhythm. Abdomen: Soft, nontender, nondistended. No masses or lymphadenopathy. Data 06/15/25 08:17 06/15/25 02:07 Micro: Microbiology 06/15/25 10:03 Blood Culture - Preliminary Blood SPECIMEN COLLECTED 06/15/25 10:03 Blood Culture - Preliminary Blood SPECIMEN COLLECTED A&P Assessment and plan 1. Acute upper GI bleeding: Plan: 64-year-old female whom surgery was consulted for GI bleed. Reporting hematochezia. I have explained the risks and benefits of a diagnostic EGD with biopsy and the patient agrees to proceed. My diagnostic colonoscopy. Prep ordered. Scoping tomorrow. PDMP PDMP Reviewed: Not Reviewed Attestations 2 Medical Necessity Statement*: N/A Coding Level of Care Code 26150 Diagnoses Acute upper GI bleeding K92.2
[2025-06-15] MEDS: magnesium citrate Btl 296 mL PO ×2 (12:29→20:30)
--- NOTE | 2025-06-15 14:07 | PM.PN ---
Subjective Subjective: patient seen in the morning and still having bleeding per rectum, however no dizziness or any syncope no fresh clots seen Vitals/I&O/Wt Last Vital Signs Temp 97.5 F L 06/15/25 11:35 Pulse 67 06/15/25 11:35 Resp 16 06/15/25 11:35 BP 144/79 06/15/25 11:35 Pulse Ox 96 06/15/25 11:35 O2 Del Method Room Air 06/15/25 11:35 06/14/25 06/15/25 06/15/25 22:59 06:59 14:59 Intake Total 480 / 1480 240 / 1720 2925 / 2925 Output Total 500 / 500 Balance 480 / 1480 -260 / 1220 2925 / 2925 Weight last 48 hrs Weight 76.374 kg Weight 76.476 kg Weight 78.925 kg Physical Exam Narrative: General: Alert oriented x3, patient seen lying comfortably and mild pallor positive HEENT: Normocephalic, atraumatic, EOMI, breathing at room air Cardio: Regular rate rhythm, normal S1-S2, no murmurs rubs gallops, JVD_normal Respiratory: Good bilateral air entry, no wheezes no rhonchi appreciated GI: Abdomen soft, mildly tender at epigastric region, normoactive bowel sounds present all 4 quadrants, Neuro: Cranial nerves II to XII intact, strength 5/5, sensation 5/5, no gross neurological deficit Behavior: Appropriate and cooperative Extremities: Pulses 2+, no edema, no cyanosis Skin: Visible skin intact, no rashes Data 06/15/25 08:17 06/15/25 02:07 Micro: Microbiology 06/15/25 10:03 Blood Culture - Preliminary Blood SPECIMEN COLLECTED 06/15/25 10:03 Blood Culture - Preliminary Blood SPECIMEN COLLECTED A&P Assessment and plan 1. Acute upper GI bleedin. Alcohol use: 3. Primary hypertension: 4. Atrial fibrillation: 5. Hypokalemia: 6. CVA (cerebral vascular accident): Plan: - Patient having acute upper GI bleed with black tarry stools, hold Eliquis/last dose was taken at the time of admission in the morning, To hold Eliquis for 48 hours before endoscopy as per the surgery plan -Surgery on board and to follow the recommendations - CBC monitoring every 6 hourly for 1 day - hold aspirin as well, the patient had episode of CVA in march, no residual weakness however currently having active UGIB and drop in hb, continue to monitor - Hold antihypertensives at the moment - Clear fluid diet and NPO from midnight for endoscopy tomorrow - Continue amiodarone 200 mg daily - SCD for VTE prophylaxis - patient having coarse echo texture of the liver and to keep on ceftriaxone considering if there is variceal bleed, to re-assess abx need after the endoscopy - to restart anticogaulation if there is no hb drop and post endoscopy pt is stable PDMP PDMP Reviewed: Not Reviewed Attestations Medical Necessity Statement*: Celsa Ruiz's hospital stay will require greater than 2 midnights for UGIB and need of endoscopy Time Spent in Patient Care: 16 - 35 minutes (>than 50% of time spent in counselling and/or direct pt care on unit). Other Attestations: Patient condition has been discussed at length with the patient/family, I have independently reviewed the chart labs imaging and diagnostics and EKG. the goals of care and code status with the patient/family/NOK/legal printing supplies sales representative, and documented accordingly. The patient/family has been informed about the current condition and further plan of care. Agreed with the plan of care and understood without any language barrier. This documentation was created by [employer] level vial curvature gauger software. Every effort was made to ensure accuracy of level vial curvature gauger. Any obvious errors or omissions should be clarified with the author of the document. Coding Level of Care Code 38140 Diagnoses Acute upper GI bleeding K92.2 Alcohol use F10.90 Primary hypertension I10 Hypertension type: primary hypertension Atrial fibrillation I48.91 Hypokalemia E87.6 CVA (cerebral vascular accident) I63.9
[2025-06-15 14:28] LABS: Hematocrit 26.2 % (36-47); Hemoglobin 9.00 g/dL (11.27-16.99)
[2025-06-15] MEDS: ondansetron 2 mg/ML SDV 2 mL 4 MG IVP ×2 (15:42→19:42)
[2025-06-16] VITALS (12 sets, daily range): BP systolic 90–171; BP diastolic 52–97; PULSE 68–96; RESP 15–18; TEMP 36.2–36.9; O2SAT 92–100
[2025-06-16 05:13] LABS: Hematocrit 23.5 % (36-47); Hemoglobin 8.20 g/dL (11.27-16.99); Mean Corpuscular HGB Conc 34.9 g/dL (30-55); Mean Corpuscular Hemoglobin 33.1 pg (27-33); Mean Corpuscular Volume 94.8 fl (85-98); Nucleated Red Blood Cells % 0 %; Platelet Count 159 10^3/cmm (157-399); Red Blood Count 2.48 10^6/uL (3.85-5.65); White Blood Count 7.81 10^3/uL (3.29-11.43)
[2025-06-16 05:36] LABS: Alanine Aminotransferase 16 U/L (0-33); Albumin Level 3.8 g/dL (3.5-5.2); Alkaline Phosphatase 88 U/L (35-105); Anion Gap 17.0 (5-19); Aspartate Amino Transferase 21 U/L (0-32); Blood Urea Nitrogen 28 mg/dL (8-23); Calcium 9.5 mg/dL (8.5-10.5); Carbon Dioxide 26 mmol/L (22-29); Chloride 99 mmol/L (98-107); Creatinine Clr Calc Pharmacy 44.1495; Globulin 2.7 g/dL (1.3-4.6); Glucose 106 mg/dL (65-115); Osmolality Calculated 294 mOsm/kg (285-295); Potassium 3.0 mmol/L (3.5-5.1); Sodium 139 mmol/L (136-145); Total Protein 6.5 g/dL (6.6-8.7)
--- NOTE | 2025-06-16 07:54 | ANES.PREANE2 ---
Pre-Anesthetic Assessment Height/Weight: Height 1.73 m Weight 78.471 kg Temp Pulse Resp BP Pulse Ox O2 Del Method O2 Flow Rate 97.7 F 84 18 146/92 99 Room Air 1 06/16/25 07:45 06/16/25 07:45 06/16/25 07:45 06/16/25 07:45 06/16/25 07:45 06/16/25 07:45 06/15/25 19:33 Preop Diagnosis: Hematochezia, syncope, anemia Operation Date: 06/16/25 08:00 Proposed Procedures p EGD(Not Applicable) - Richard Tam MD s Colonoscopy(Not Applicable) - Richard Tam MD Familial anesthetic complications: none Was Beta Cate taken within 24 hours: Yes Was Clonidine taken within 24 hours: N/A Last intake: Intake Last Liquid Date 06/16/25 Last Liquid Time 00:00 Last Solid Date 06/12/25 Social No alcohol and No tobacco Quit smoking in march Exam alert, oriented x 3, clear to auscultation bilaterally and regular rate & rhythm Airway Cervical ROM: within normal limits Mallampati: Class II Dentition: full Pulmonary None reported CV/HEM Atrial Fibrillation, Anemia and Hypertension GREGORIO Hepatic None reported GI None reported Metabolic Hyperlipidemia [facility] None reported Neuropsych None reported Anesthetic Plan ASA status: 3 Anesthesia: MAC Other: PT. admitted through ED with hematochezia, syncope and anemia, recent CVA in march, no residual deficits, on eliquis for afib last dose taken Saturday. Risk of > 500 ml blood loss (7ml/kg in children): No Medications/Allergies Home Medications ?Medication ?Instructions ?Recorded ?Confirmed ?Last Taken ?Type hydroxyzine pamoate 25 mg capsule 25 mg PO BEDTIME PRN Anxiety 04/02/25 06/14/25 04/08/25 History mirtazapine 30 mg tablet 60 mg PO BEDTIME 04/02/25 06/14/25 06/13/25 History venlafaxine 150 mg tablet,extended 300 mg PO BEDTIME 04/02/25 06/14/25 06/13/25 History release 24 hr aspirin 81 mg tablet,delayed 81 mg PO DAILY #30 tabs 04/07/25 06/14/25 06/14/25 Rx release apixaban 5 mg tablet (Eliquis) 5 mg PO BID@0900,2100 #60 tabs 04/14/25 06/14/25 06/14/25 Rx carvedilol 6.25 mg tablet 6.25 mg PO BID #60 tabs 04/14/25 06/14/25 06/14/25 Rx chlorthalidone 25 mg tablet 25 mg PO DAILY #30 tabs 04/14/25 06/14/25 06/14/25 Rx folic acid 1 mg tablet 1 mg PO DAILY #30 tabs 04/14/25 06/14/25 06/14/25 Rx furosemide 20 mg tablet 20 mg PO DAILY #30 tabs 04/14/25 06/14/25 06/14/25 Rx amiodarone 200 mg tablet (Pacerone) See Rx Instructions .Route .COMPLEX 06/14/25 06/14/25 06/14/25 History atorvastatin 80 mg tablet 80 mg PO DAILY 06/14/25 06/14/25 06/14/25 History losartan 50 mg tablet 75 mg PO DAILY 06/14/25 06/14/25 06/14/25 History Allergies Allergy/AdvReac Type Severity Reaction Status Date / Time lisinopril Allergy ALGY-Difficulty Verified 05/11/25 09:16 Breathing Current Medications Generic Name Dose Route Start Last Admin Trade Name Freq PRN Reason Stop Dose Admin Ceftriaxone Sodium 1,000 mg 06/15/25 08:45 06/15/25 09:11 Ceftriaxone 1,000 Mg Sdv IVP 1,000 mg On Hold: 06/16/25 07:25 Q24H EB Administration Comment: Order held by Process Protocol Transfer Hydroxyzine Pamoate 25 mg 06/15/25 19:38 06/15/25 22:05 Hydroxyzine 25 Mg Capsule PO 25 mg On Hold: 06/16/25 07:25 BEDTIME PRN Administration Comment: Order held by Process ANXIETY Transfer Lactated Ringer's 1,000 mls @ 100 mls/hr 06/15/25 08:45 06/16/25 01:28 Lactated Ringers IV 06/16/25 08:44 100 mls/hr On Hold: 06/16/25 07:25 .Q10H EB Administration Comment: Order held by Process Transfer Sodium Chloride 1,000 mls @ 15 mls/hr 06/16/25 07:24 06/16/25 07:41 Sodium Chloride 0.9% IV 06/17/25 07:23 15 mls/hr .Q24H PRN Administration COLONOSCOPY FLUIDS Ondansetron HCl 4 mg 06/14/25 19:43 06/15/25 19:42 Ondansetron 2 Mg/Ml Sdv 2 Ml IVP 4 mg On Hold: 06/16/25 07:25 Q8H PRN Administration Comment: Order held by Process vomiting, or N/V if npo Transfer Pantoprazole Sodium 40 mg 06/14/25 19:45 06/15/25 18:21 Pantoprazole 40 Mg Sdv IVP 40 mg On Hold: 06/16/25 07:25 Q12H EB Administration Comment: Order held by Process Transfer [facility] Anesthesia Medical History (Updated 06/15/25 @ 14:30 by Matias Khan MD) CVA (cerebral vascular accident) Hypertension History of anemia Depression Alcohol use Atrial fibrillation, new onset Surgical History Hx of tonsillectomy History of ankle surgery Left History of lumbar surgery Clean up ruptured disc H/O total hysterectomy H/O lumpectomy Family History Other Arrhythmia Atrial fibrillation Denies family history of Aneurysm Social History Smoking and tobacco/nicotine status: former use of tobacco/nicotine Quit status (tobacco/nicotine): has quit using Year quit tobacco: 2024 Former quit date comment: 2 pack per day - started at age 20 Alcohol intake: current Alcohol intake frequency: 0-2 Drinks per Day Substance/Drug Use: never Adopted: No Caregiver/support person: Yes Lives independently: Yes Household members: spouse Housing: House Marital status: Data Anesthesia 06/16/25 04:48 06/16/25 04:48 Short CBC 06/14/25 06/14/25 06/15/25 Range/Units 11:13 20:40 02:07 WBC 8.86 7.14 (3.29-11.43) 10^3/uL Hgb 8.80 L 9.20 L 8.90 L (11.27-16.99) g/dL Hct 25.4 L 26.5 L 25.5 L (36-47) % MCV 95.1 95.9 (85-98) fl Plt Count 223 180 (157-399) 10^3/cmm Neut % (Auto) 74.2 66.5 % Neut # (Auto) 6.57 4.75 (1.8-7.7) 10^3/uL 06/15/25 06/15/25 06/16/25 Range/Units 08:17 14:14 04:48 WBC 7.81 (3.29-11.43) 10^3/uL Hgb 8.60 L 9.00 L 8.20 L (11.27-16.99) g/dL Hct 25.0 L 26.2 L 23.5 L (36-47) % MCV 94.8 (85-98) fl Plt Count 159 (157-399) 10^3/cmm Neut % (Auto) 77.9 % Neut # (Auto) 6.09 (1.8-7.7) 10^3/uL BMP 06/14/25 06/15/25 06/16/25 11:13 02:07 04:48 Sodium 134 L 141 139 Potassium 3.4 L 3.5 3.0 L Chloride 92 L 101 99 Carbon Dioxide 26 27 26 BUN 63 H 58 H 28 H Creatinine 2.5 H 2.1 H 1.4 H Glucose 137 H 97 106 Calcium 10.7 H 9.6 9.5 Liver Function 06/14/25 06/15/25 06/16/25 Range/Units 11:13 02:07 04:48 Total Bilirubin 0.6 0.5 0.3 (0.15-1.2) mg/dL AST 23 23 21 (0-32) U/L ALT 18 17 16 (0-33) U/L Alkaline Phosphatase 115 H 95 88 (35-105) U/L Albumin 4.5 3.9 3.8 (3.5-5.2) g/dL Blood Bank 06/14/25 11:13 Blood Type A Negative Rho(D) Type Rh negative Antibody Screen Negative Coags 06/14/25 06/15/25 11:13 02:07 PT 20.40 H 17.90 H INR 1.64 H 1.39 H Microbiology 06/15/25 10:03 Blood Culture - Preliminary Blood SPECIMEN COLLECTED 06/15/25 10:03 Blood Culture - Preliminary Blood SPECIMEN COLLECTED Cardiac Studies: Echocardiogram 04/02/25
--- NOTE | 2025-06-16 07:58 | P.PN_ITS ---
Subjective 2 Subjective: Intermittent hematochezia Vitals/I&O/Wt Last Vital Signs Temp 97.7 F 06/16/25 07:45 Pulse 84 06/16/25 07:45 Resp 18 06/16/25 07:45 BP 146/92 06/16/25 07:45 Pulse Ox 99 06/16/25 07:45 O2 Del Method Room Air 06/16/25 07:45 O2 Flow Rate 1 06/15/25 19:33 06/15/25 06/16/25 06/16/25 22:59 06:59 14:59 Intake Total 1000 / 3925 Output Total 1200 / 1200 1600 / 2800 Balance -200 / 2725 -1600 / 1125 Weight last 48 hrs Weight 173 lb Weight 168 lb 6 oz Weight 168 lb 9.6 oz Weight 174 lb Physical Exam 2 Narrative: Chest: Unlabored breathing room air. No lymphadenopathy. Heart: Regular rate and rhythm. Abdomen: Soft, nontender, nondistended. No masses or lymphadenopathy. Data 06/16/25 04:48 06/16/25 04:48 Micro: Microbiology 06/15/25 10:03 Blood Culture - Preliminary Blood SPECIMEN COLLECTED 06/15/25 10:03 Blood Culture - Preliminary Blood SPECIMEN COLLECTED A&P Assessment and plan 1. GI bleed: Plan: 64-year-old female who presented with anemia. Medicine concerned about GI bleeding. I have explained the risks and benefits of a diagnostic EGD with biopsy and the patient agrees to proceed. I have explained the risks and benefits of a diagnostic colonoscopy and the patient agrees to proceed. PDMP PDMP Reviewed: Not Reviewed Attestations 2 Medical Necessity Statement*: N/A Coding Level of Care Code 56053 Diagnoses GI bleed K92.2
--- NOTE | 2025-06-16 08:13 | PC.NURSE ---
cecum time 0813
--- NOTE | 2025-06-16 08:30 | ANE.PACU2 ---
Inpatient post-anesthesia follow up: Airway intact: Yes Vital signs: Temperature 97.8 F Pulse Rate 80 Respiratory Rate 17 Blood Pressure 162/97 Pulse Oximetry 97 Oxygen Delivery Me thod Room Air Oxygen Flow Rate 6 Fraction of Inspir ed Oxygen Hydration adequate: Yes Nausea and vomiting: No Pain level: 1 Mental status: Baseline
--- NOTE | 2025-06-16 08:35 | PM.MISC ---
Miscellaneous Note Note: Attempted to update on scope findings. No answer. David Ruiz ()
--- NOTE | 2025-06-16 08:36 | PC.NURSE ---
reports given at 0834 to CLIFTON lim
[2025-06-16] MEDS: potassium chloride premix 100 ML 50 MEQ IV (09:37)
--- NOTE | 2025-06-16 14:52 | PM.PN ---
Subjective Subjective: The patient is postprocedure done by the general surgery no significant source of bleeding found the patient was having mild chronic patchy gastritis and some erythema (for detailed report refer to EGD and colonoscopy) Currently patient is stable and voices no complaints Vitals/I&O/Wt Last Vital Signs Temp 98.0 F 06/16/25 11:15 Pulse 76 06/16/25 11:15 Resp 15 06/16/25 11:15 BP 158/52 06/16/25 11:15 Pulse Ox 100 06/16/25 11:15 O2 Del Method Room Air 06/16/25 11:15 O2 Flow Rate 6 06/16/25 08:20 06/15/25 06/16/25 06/16/25 22:59 06:59 14:59 Intake Total 1000 / 3925 1600 / 1600 Output Total 1200 / 1200 1600 / 2800 Balance -200 / 2725 -1600 / 1125 1600 / 1600 Weight last 48 hrs Weight 78.471 kg Weight 76.374 kg Weight 76.476 kg Physical Exam Narrative: General: Alert oriented x3, patient seen lying comfortably and mild pallor positive HEENT: Normocephalic, atraumatic, EOMI, breathing at room air Cardio: Regular rate rhythm, normal S1-S2, no murmurs rubs gallops, JVD_normal Respiratory: Good bilateral air entry, no wheezes no rhonchi appreciated GI: Abdomen soft, nontender, normoactive bowel sounds present all 4 quadrants, Neuro: Cranial nerves II to XII intact, strength 5/5, sensation 5/5, no gross neurological deficit Behavior: Appropriate and cooperative Extremities: Pulses 2+, no edema, no cyanosis Skin: Visible skin intact, no rashes Data 06/16/25 04:48 06/16/25 04:48 Micro: Microbiology 06/15/25 10:03 Blood Culture - Preliminary Blood NEGATIVE TO DATE 06/15/25 10:03 Blood Culture - Preliminary Blood NEGATIVE TO DATE A&P Assessment and plan 1. Acute upper GI bleedin. Alcohol use: 3. Primary hypertension: 4. Atrial fibrillation: 5. Hypokalemia: 6. CVA (cerebral vascular accident): 7. GREGORIO (acute kidney injury): 8. GI bleed: Plan: - Patient having acute upper GI bleed with black tarry stools, to start Eliquis 5mg bid and to hold aspirin after discussion with the neurologist Dr Riley, and hold aspirin at the moment, to be seen by the neurologist as outpatient with repeat cbc - cardio to follow up as outpatient and repeat CBC and BMP before the FU - PPI as outpatient to continue - kidney functions and renal parameters to monitor and correct accordingly - Hold antihypertensives at the moment - advance diet as tolerated - Continue amiodarone 200 mg daily - USG showed fatty liver and no signs of liver cirrhosis - tomorrow monitor CBC and to start anticoagulation before discharge based on CBC vte: SCD Disposition: Home tomorrow PDMP PDMP Reviewed: Not Reviewed Attestations Medical Necessity Statement*: Celsa Ruiz's hospital stay will be less than 2 midnights for monitoring of cbc considering stability of GI bleed Time Spent in Patient Care: 16 - 35 minutes (>than 50% of time spent in counselling and/or direct pt care on unit). Other Attestations: Patient condition has been discussed at length with the patient/family, I have independently reviewed the chart labs imaging and diagnostics and EKG. the goals of care and code status with the patient/family/NOK/legal surgical device sales representative, and documented accordingly. The patient/family has been informed about the current condition and further plan of care. Agreed with the plan of care and understood without any language barrier. This documentation was created by [employer] director advanced software. Every effort was made to ensure accuracy of director advanced. Any obvious errors or omissions should be clarified with the author of the document. Coding Level of Care Code 09123 Diagnoses Acute upper GI bleeding K92.2 Alcohol use F10.90 Primary hypertension I10 Hypertension type: primary hypertension Atrial fibrillation I48.91 Hypokalemia E87.6 CVA (cerebral vascular accident) I63.9 CVA mechanism: unspecified GREGORIO (acute kidney injury) N17.9 GI bleed K92.2
[2025-06-16] MEDS: pantoprazole 40 mg SDV IVP (17:22)
[2025-06-17] VITALS: BP 172/85; PULSE 80; RESP 16; TEMP 36.6; O2SAT 98
[2025-06-17 04:00] VITALS: BP 155/79; PULSE 80; RESP 16; TEMP 36.8; O2SAT 97
[2025-06-17 06:00] VITALS: PULSE 88
[2025-06-17] MEDS: pantoprazole 40 mg SDV IVP (06:18)
[2025-06-17 06:26] LABS: Hematocrit 26.4 % (36-47); Hemoglobin 9.00 g/dL (11.27-16.99); Mean Corpuscular HGB Conc 34.1 g/dL (30-55); Mean Corpuscular Hemoglobin 32.8 pg (27-33); Mean Corpuscular Volume 96.4 fl (85-98); Nucleated Red Blood Cells % 0 %; Platelet Count 174 10^3/cmm (157-399); Red Blood Count 2.74 10^6/uL (3.85-5.65); White Blood Count 6.43 10^3/uL (3.29-11.43)
[2025-06-17 06:48] LABS: Alanine Aminotransferase 20 U/L (0-33); Albumin Level 3.9 g/dL (3.5-5.2); Alkaline Phosphatase 93 U/L (35-105); Anion Gap 15.2 (5-19); Aspartate Amino Transferase 28 U/L (0-32); Blood Urea Nitrogen 16 mg/dL (8-23); Calcium 9.6 mg/dL (8.5-10.5); Carbon Dioxide 26 mmol/L (22-29); Chloride 101 mmol/L (98-107); Creatinine Clr Calc Pharmacy 47.8741; Globulin 2.9 g/dL (1.3-4.6); Glucose 100 mg/dL (65-115); Osmolality Calculated 289 mOsm/kg (285-295); Potassium 3.2 mmol/L (3.5-5.1); Sodium 139 mmol/L (136-145); Total Protein 6.8 g/dL (6.6-8.7)
[2025-06-17 07:27] VITALS: BP 147/83; PULSE 75; RESP 16; TEMP 36.6; O2SAT 98
[2025-06-17 11:08] VITALS: BP 157/84; PULSE 73; RESP 15; TEMP 36.6; O2SAT 99
--- NOTE | 2025-06-17 11:25 | P.PN_ITS ---
Subjective 2 Subjective: No hematochezia Vitals/I&O/Wt Last Vital Signs Temp 97.8 F 06/17/25 11:08 Pulse 73 06/17/25 11:08 Resp 15 06/17/25 11:08 BP 157/84 06/17/25 11:08 Pulse Ox 99 06/17/25 11:08 O2 Del Method Room Air 06/17/25 11:08 O2 Flow Rate 6 06/16/25 08:20 06/16/25 06/17/25 06/17/25 22:59 06:59 14:59 Intake Total 240 / 240 Output Total 200 / 200 Balance 40 / 40 Weight last 48 hrs Weight 171 lb Weight 173 lb Physical Exam 2 Narrative: Chest: Unlabored breathing room air. No lymphadenopathy. Heart: Regular rate and rhythm. Abdomen: Soft, nontender, nondistended. No masses or lymphadenopathy. Data 06/17/25 03:19 06/17/25 03:19 Micro: Microbiology 06/15/25 10:03 Blood Culture - Preliminary Blood NEGATIVE TO DATE 06/15/25 10:03 Blood Culture - Preliminary Blood NEGATIVE TO DATE A&P Assessment and plan 1. GI bleed: Plan: 64-year-old female admitted with anemia. No GI bleed on scopes. Can consider capsule endoscopy as outpatient if GI bleed concerns persist. PDMP PDMP Reviewed: Not Reviewed Attestations 2 Medical Necessity Statement*: N/A Coding Level of Care Code 54336 Diagnoses GI bleed K92.2
--- NOTE | 2025-06-17 12:05 | PM.DCS ---
Discharge Providers Date of Admission: 06/14/25 13:41 Date of Discharge: June 17, 2025 Attending Provider at Admission: Matias Khan MD Attending Provider at Discharge: Matias Khan MD Primary Care Provider: Deric Ramirez MD Diagnoses at Discharge Discharge Diagnosis 1. GI bleed: Reason for Visit Reason for Visit: syncope Brief History: Celsa Ruiz is a 64 year old female with past medical history of hypertension, depression, CVA and atrial fibrillation on anticoagulation with Eliquis came with black tarry stools since 2 to 3 days. Associated with dizziness and presyncope. Did not report any nausea vomiting abdominal distention or any blood in the vomitus. No easy bruising gum bleeding or any joint swellings. No history of fever shortness of breath chest pain. Of note the patient reported that she had this kind of bleeding episode 4 to 5 years ago and had endoscopy and colonoscopy but did not reveal anything. The patient used to smoke and drink alcohol until that time. When she had stroke around March to April and stopped. No history of any other drug abuse The patient also reported having history of duodenal ulcer however she is not taking any NSAIDs at the moment for any analgesics. Hospital Course Hospital Course The patient was admitted as a case of upper GI bleed likely secondary to aspirin and Eliquis use. Her CBC was trended and did not had any further significant drop in hemoglobin. The patient was transfused 1 unit of PRBC in the ER. She was started on IV PPI and underwent upper and lower endoscopy by the surgery. The endoscopic examination did not reveal any significant ulcer or mass or concerning feature to cause bleeding. The patient case was discussed with the neurology and cardiology since she was on anticoagulation with aspirin and Eliquis. Aspirin was held after the discussion with the neurology and with the follow-up in the coming few days with neurology for further management plan as outpatient. The patient was also given referral with the cardiology after discussion with the cardiology within a week with repeat CBC and BMP in 3 to 4 days after the discharge. The patient also had mild kidney injury that improved with adequate hydration and control of the bleeding. Patient to be discharged on PPI for at least 6 weeks and to follow-up with primary care as outpatient. The patient was also informed to keep her hydration adequately since her kidney functions are getting better and to have repeat BMP as outpatient. The patient has been informed about her plan of care during her stay and follow-up as well without any language barrier. All the risk and benefits were counseled and agreed with the plan of care Physical Exam Narrative: General: Alert oriented x3, patient seen lying comfortably and mild pallor positive HEENT: Normocephalic, atraumatic, EOMI, breathing at room air Cardio: Regular rate rhythm, normal S1-S2, no murmurs rubs gallops, JVD_normal Respiratory: Good bilateral air entry, no wheezes no rhonchi appreciated GI: Abdomen soft, nontender, normoactive bowel sounds present all 4 quadrants, Neuro: Cranial nerves II to XII intact, strength 5/5, sensation 5/5, no gross neurological deficit Behavior: Appropriate and cooperative Extremities: Pulses 2+, no edema, no cyanosis Skin: Visible skin intact, no rashes Discharge Data Studies Completed and Pending Completed Studies During Hospitalization Category Date Time Status CT abdomen pelvis wo con [id number] Stat Cat Scan 06/14/25 11:54 Completed US liver [id number] Routine Ultrasound 06/15/25 08:42 Completed Pending at discharge Category Date Time Status Blood Culture Stat Lab 06/15/25 10:03 Results Pathology: Surgical [PTH] Routine Pth 06/16/25 11:25 Received Radiology Impressions Abdomen/Pelvis CT 06/14/25 11:54 Impression: Negative for acute intra-abdominal or pelvic abnormalities. Liver Ultrasound 06/15/25 08:42 Impression: 1. 3.2 cm cyst in right lobe of the liver. 2. Coarse echo texture of the liver which suggests fatty infiltration. Laboratory Results WBC 6.43 10^3/uL (3.29-11.43) 06/17/25 03:19 RBC 2.74 10^6/uL (3.85-5.65) L 06/17/25 03:19 Hgb 9.00 g/dL (11.27-16.99) L 06/17/25 03:19 Hct 26.4 % (36-47) L 06/17/25 03:19 MCV 96.4 fl (85-98) 06/17/25 03:19 MCH 32.8 pg (27-33) 06/17/25 03:19 MCHC 34.1 g/dL (30-55) 06/17/25 03:19 RDW 13.4 % (12.1-15.1) 06/17/25 03:19 Plt Count 174 10^3/cmm (157-399) 06/17/25 03:19 MPV 9.8 fL (7.4-10.4) 06/17/25 03:19 Neut % (Auto) 67.7 % 06/17/25 03:19 Lymph % (Auto) 19.4 % 06/17/25 03:19 Whiteside % (Auto) 9.8 % 06/17/25 03:19 Eos % (Auto) 2.0 % 06/17/25 03:19 Baso % (Auto) 0.6 % 06/17/25 03:19 Neut # (Auto) 4.35 10^3/uL (1.8-7.7) 06/17/25 03:19 Lymph # (Auto) 1.3 10^3/uL (0.8-4.8) 06/17/25 03:19 Whiteside # (Auto) 0.6 10^3/uL (0.2-0.9) 06/17/25 03:19 Eos # (Auto) 0.1 10^3/uL (0.0-0.8) 06/17/25 03:19 Baso # (Auto) 0.0 10^3/uL (0.0-0.1) 06/17/25 03:19 Nucleated RBC % (auto) 0 % 06/17/25 03:19 Nucleated RBCs # 0.0 /100WBC 06/17/25 03:19 PT 17.90 SECONDS (12.1-14.9) H 06/15/25 02:07 INR 1.39 (0.8-1.2) H 06/15/25 02:07 Sodium 139 mmol/L (136-145) 06/17/25 03:19 Potassium 3.2 mmol/L (3.5-5.1) L 06/17/25 03:19 Chloride 101 mmol/L (98-107) 06/17/25 03:19 Carbon Dioxide 26 mmol/L (22-29) 06/17/25 03:19 Anion Gap 15.2 (5-19) 06/17/25 03:19 BUN 16 mg/dL (8-23) 06/17/25 03:19 Creatinine 1.3 mg/dL (0.5-0.9) H 06/17/25 03:19 GFR Calculation 41.2 mL/min (90-130) L 06/17/25 03:19 Glucose 100 mg/dL (65-115) 06/17/25 03:19 Calculated Osmolality 289 mOsm/kg (285-295) 06/17/25 03:19 Calcium 9.6 mg/dL (8.5-10.5) 06/17/25 03:19 Phosphorus 2.9 mg/dL (2.5-4.5) 06/15/25 02:07 Magnesium 1.8 mg/dL (1.7-2.3) 06/15/25 02:07 Total Bilirubin 0.3 mg/dL (0.15-1.2) 06/17/25 03:19 AST 28 U/L (0-32) 06/17/25 03:19 ALT 20 U/L (0-33) 06/17/25 03:19 Alkaline Phosphatase 93 U/L (35-105) 06/17/25 03:19 Total Protein 6.8 g/dL (6.6-8.7) 06/17/25 03:19 Albumin 3.9 g/dL (3.5-5.2) 06/17/25 03:19 Globulin 2.9 g/dL (1.3-4.6) 06/17/25 03:19 Lipase 35 U/L (13-60) 06/14/25 11:13 TSH 4.15 uIU/mL (0.27-4.20) 06/15/25 02:07 Blood Type A Negative 06/14/25 11:13 Rho(D) Type Rh negative 06/14/25 11:13 Antibody Screen Negative 06/14/25 11:13 Crossmatch See Detail 06/14/25 11:13 Vitals Last Vital Signs Temp 97.8 F 06/17/25 11:08 Pulse 73 06/17/25 11:08 Resp 15 06/17/25 11:08 BP 157/84 06/17/25 11:08 Pulse Ox 99 06/17/25 11:08 O2 Del Method Room Air 06/17/25 11:08 O2 Flow Rate 6 06/16/25 08:20 Discharge Plan Discharge Patient Disposition: Home Condition: Stable Prescriptions: New magnesium hydroxide [Milk of Magnesia] 400 mg/5 mL Suspension 30 ml PO DAILY PRN (Reason: Constipation (see protocol)) 60 Days Qty: 400 0RF lidocaine HCl 2 % Solution 1 ml topical PRN PRN (Reason: Anesthetic prior to IV start) 60 Days Qty: 400 0RF alum-mag hydroxide-simeth [Mag-Al Plus] 200-200-20 mg/5 mL Suspension 15 ml PO Q6H PRN (Reason: Indigestion) 60 Days Qty: 400 0RF pantoprazole 40 mg tablet,delayed release (DR/EC) 40 mg PO DAILY 42 Days Qty: 90 0RF Continued Eliquis 5 mg tablet 5 mg PO BID@0900,2100 Qty: 60 6RF carvedilol 6.25 mg tablet 6.25 mg PO BID Qty: 60 6RF chlorthalidone 25 mg tablet 25 mg PO DAILY Qty: 30 6RF furosemide 20 mg tablet 20 mg PO DAILY Qty: 30 6RF folic acid 1 mg tablet 1 mg PO DAILY Qty: 30 6RF mirtazapine 30 mg Tablet 60 mg PO BEDTIME hydroxyzine pamoate 25 mg Capsule 25 mg PO BEDTIME PRN (Reason: Anxiety) venlafaxine 150 mg Tablet Extended Release 24hr 300 mg PO BEDTIME atorvastatin 80 mg tablet 80 mg PO DAILY losartan 50 mg tablet 75 mg PO DAILY amiodarone [Pacerone] 200 mg tablet See Rx Instructions .ROUTE .COMPLEX Rx Instructions: Take 400 mg by mouth 3 times a day for 1 week followed by 400 mg twice daily for 1 week followed by 200 mg daily. Discontinued aspirin 81 mg Tablet,Delayed Release (Dr/Ec) 81 mg PO DAILY Qty: 30 0RF Supervisor Border Department OK for DC: Cardiology and Neurology Discharge Order = DC NOW: Discharge Order (Routine); Ordered 06/17/25 Ordered By: Matias Khan Other Ambulatory Orders: Basic Metabolic Panel (Routine) Timeframe: 3 Days Facility: [facility] - Location: Lab - Main Lab Ordered By: Matias Khan Complete Blood Count w/Auto (Routine) Timeframe: 3 Days Location: Determined by Patient Ordered By: Matias Khan Referrals: courtney Geller [Other, Cardiology] - 4-7 days Referral Note: We have notified your physician's clinic of the need for a follow-up appointment to be scheduled. If you have not heard from them within the next 2 business days, please call them directly. janes Mitchell [Other, Cardiology] - 07/12/25 1:30 pm lisandra Riley [Other, Neurology] - 06/18/25 2:00 pm Richard Tam MD [Physician, General Surgery] - 07/01/25 8:20 am Deric Ramirez MD [Primary Care Provider, [facility]] - 06/22/25 1:30 pm Discharge Diet: Advance as tolerated, Usual diet and As Directed Discharge Activity: Resume usual activity and Increase activity as tolerated Patient Instructions: Pantoprazole (By mouth) (Protonix), Magnesium Hydroxide (By mouth) (Dulcolax Milk of Magnesia, Milk Of..., Lidocaine (Into the mouth) (Xylocaine, First-BXN Mouthwash,..., Aluminum, Magnesium, and Simethicone Antacid (By mouth) (Almacone,..., Gastrointestinal Bleeding (DC), Acute Kidney Injury (DC), Stroke (DC), GI Post Discharge Instructions w/ Anesthesia, Opioid Safety, Pain Management, Stroke Stoplight, Patient Portal & Madelaine Instructions Discharge Attestations Time Spent in Discharge Care*: greater than 30 min Specific Discharge Activities: educating patient, educating and/or supporting family/caregiver, discussing with pcp/other providers, discussing with special education case manager/social workers/dc planners, documenting/other paperwork and evaluating patient/reviewing data Status at Discharge: Cognitive status at discharge: cognitively intact, Behavioral status at discharge: cooperative, Functional status at discharge: independent ambulation, Overall status at discharge: patient is back to baseline Quality Metrics Clinical Quality Measures [ No reported AMI, CVA or VTE this stay] Coding Level of Care Code 57246 Diagnoses GI bleed K92.2
[2025-06-17 12:55] VITALS: BP 157/84; PULSE 70; RESP 16; TEMP 36.9; O2SAT 99
== END 2025-06-17 12:57 | disposition home or self-care (01) | DRG 813 ==
LOC: ER 12:38 → ER IP 15:13 → MEDSURG 16:45
PROVIDERS: Student in an Organized Health Care Education/Training Program; Admitting Provider Student in an Organized Health Care Education/Training Program; Emergency Provider Emergency Medicine; PCP Family Medicine; Visit Provider Student in an Organized Health Care Education/Training Program
PROC: 0DJ08ZZ Inspection of Upper Intestinal Tract, Via Natural or Artificial Opening Endoscopic (ICD-10-PCS; principal; 2025-06-16 08:00)
PROC: 0DJD8ZZ Inspection of Lower Intestinal Tract, Via Natural or Artificial Opening Endoscopic (ICD-10-PCS; CPT 45378; 2025-06-16 08:00)
DX: D68.32 Hemorrhagic disorder due to extrinsic circulating anticoagulants (principal); N17.9 Acute kidney failure, unspecified; K92.1 Melena; I10 Essential (primary) hypertension; F32.A Depression, unspecified; I48.91 Unspecified atrial fibrillation; F10.90 Alcohol use, unspecified, uncomplicated; R55 Syncope and collapse; E87.6 Hypokalemia; E86.1 Hypovolemia; K29.80 Duodenitis without bleeding; D17.5 Benign lipomatous neoplasm of intra-abdominal organs; K29.50 Unspecified chronic gastritis without bleeding; T45.515A Adverse effect of anticoagulants, initial encounter; T39.015A Adverse effect of aspirin, initial encounter; Z79.01 Long term (current) use of anticoagulants; Z86.73 Personal history of transient ischemic attack (TIA), and cerebral infarction without residual deficits; Z87.891 Personal history of nicotine dependence; Z87.11 Personal history of peptic ulcer disease
CPT/HCPCS: 36415; 43235; 45380; 74176; 76705; 80053; 83690; 83735; 84100; 84443; 85014; 85018; 85025; 85610; 86850; 86900; 86920; 87040; 88305; 93005; 99285; J0696; J2405; J2470; J2704; J3480; J7030; J7120; J9999; P9016

== ENCOUNTER → 2025-06-22 13:56 | Outpatient (BNVA) | payer BC, SELFPAY | PROVIDERS: PCP Family Medicine; Visit Provider Family Medicine | DX: Z51.81 Encounter for therapeutic drug level monitoring (principal); K92.2 Gastrointestinal hemorrhage, unspecified; N17.9 Acute kidney failure, unspecified | CPT/HCPCS: 80048; 85025 ==

== ENCOUNTER → 2025-07-12 14:03 | Outpatient (BNVA) | payer BC, SELFPAY | PROVIDERS: PCP Family Medicine; Visit Provider Family Medicine | DX: Z51.81 Encounter for therapeutic drug level monitoring (principal); N17.9 Acute kidney failure, unspecified | CPT/HCPCS: 80048; 85025 ==

== ENCOUNTER → 2025-07-16 10:38 | Outpatient (BNVA) | payer BC, SELFPAY | PROVIDERS: PCP Family Medicine; Visit Provider Family Medicine | DX: K92.2 Gastrointestinal hemorrhage, unspecified (principal); E87.6 Hypokalemia | CPT/HCPCS: 80048; 83735; 85025 ==

== ENCOUNTER 2025-10-23 10:14 | Inpatient (IN) | payer BC, SELFPAY ==
[2025-10-23] VITALS (13 sets, daily range): BP systolic 131–161; BP diastolic 90–108; PULSE 79–88; RESP 15–24; TEMP 36.6; O2SAT 92–98; BMI 27.5
--- OUTSIDE RECORDS SUMMARY | 2025-10-23 10:17 | XMS_ITS | Clinical Summary ---
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 Gender Identity Female 05/12/2020 12:28 AM CDT [...] (1 of 1 - Standard series) 1961 RSV PATIENTS AGED 60+ OR (1 - Risk 50-74 years 1-dose series) 2010 ZOSTER VACCINES (1 of 2) 2010 DEXA SCAN 2020 MAMMOGRAM 02/29/2024 02/28/2023, 0501/2023, 02/17/2021, Additional history exists COVID VACCINES ( - 2024- season) 2025 10/02/2022, 09/30/2021, 01/10/2021, Additional history exists INFLUENZA VACCINE (#1) 2025 07/29/2015, 2007 PAP SMEAR 12/19/2025 12/19/2022, 01/23/2021 DTAP/TDAP/TD VACCINES (4 - Td or Tdap) 05/27/2029 05/27/2019, 05/23/2009, 05/14/2008, Additional history exists COLONOSCOPY 05/13/2030 05/13/2020 HEPATITIS A VACCINES Completed 02/10/2021, 09/09/2020, 07/27/2020 HEPATITIS B VACCINES Completed 02/10/2021, 09/09/2020, 07/27/2020, Additional history exists PNEUMOCOCCAL (50+) VACCINE Completed 12/05/2023 HPV VACCINES (No Doses Required) Completed MENINGOCOCCAL B VACCINE Aged Out No l onger eligible based on patient's age to complete this topic MENINGOCOCCAL VACCINE Aged Out No bobbi jayson eligible based on patient's age to complete this topic POLIO VACCINES Aged Out No longer nikos gible based on patient's age to complete this topic Procedures Procedure Name Priority Date/Time Associated Diagnosis Comments MAMMO SCREENING BILATERAL W CAD (28804,40367) Routine 02/28/2023 9:25 AM CDT Encounter for screening mammogram for malignant neoplasm of breast from Last 3 Months or Most Recently Relevant to Health Maintenance Results * MAMMO SCREENING BILATERAL W CAD (18245,59189) (02/28/2023 9:25 AM CDT) Anatomical Region Laterality [...] Most Recently Relevant to Health Maintenance Insurance [address] [place] [id number] [facility] Member Subscriber Plan / Payer (Ef fective 2021-Present) Name:Celsa Ruiz Relation to Subscriber:Spouse Name:David Ruiz Date of :1960 (Home) Address: [address] [place], [place] [address] Payer ID:[id number] (NAIC) Type:Not on file Address: [address] [address] Advance Directives For more information, please contact: [phone] * Full Code (Latest Code Status on File) Date Activated Date Inactivated Comments 06/08/2020 7:42 PM * Full Code Date Activated Date Inactivated Comments 05/11/2020 9:10 PM 06/08/2020 7:42 PM Care Teams Underground Foreman Relationship Specialty Start Date End Date Ayleen Lemus PAC [address] [place] [address] PCP - General Family Medicine 05/14/13
--- OUTSIDE RECORDS SUMMARY | 2025-10-23 10:17 | XMS_ITS | Clinical Summary ---
Author Organization [facility] Address [address] [place] [address] Care Team Providers Care Academic Tutor Name Role Phone Ayleen Lemus PA-C Primary Care Provide r Source Comments This disclosure is being made pursuant to the [place] Free Classifieds program and maynot contain all information available regarding this patient.[facility] Allergies Active Allergy Reactions Criticality Noted Date [...] lungs every 4 (four) hours as needed. 06/12/20 17 Active hydrOXYzine pamoate (VISTARIL) 25 MG capsule Take 1 -2 capsules daily as needed 180 capsule 05/14/20 24 Active fluticasone NASAL (FLONASE) 50 MCG/ACT nasal sprayIndications :Allergic rhinitis, unspecified seasonality, unspecified trigger USE 2 SPRAYS IN EACH NOSTRIL ONCE DAILY DIRECTED 16 g 1 01/08/20 25 Active albuterol 108 (90 Base) MCG/ACT inhalerIndicatio ns:Mild intermittent reactive airway disease without complication USE 2 PUFFS BY INHALATION EVERY 6 HOURS NEEDED FOR WHEEZING. 18 g 3 01/08/20 25 Active furosemide (LASIX) 20 MG tabletIndication s:Essential hypertension TAKE 1 (ONE) TABLET (20 MG TOTAL) BY MOUTH DAILY. 90 tablet 2 03/08/20 25 Active atenolol (TENORMIN) 100 MG tabletIndication s:Essential hypertension TAKE 1 (ONE) TABLET (100 MG TOTAL) BY MOUTH DAILY. 90 tablet 2 03/08/20 25 Active folic acid (FOLVITE) 1 MG tabletIndication s:Hypokalemia TAKE 1 (ONE) TABLET (1 MG TOTAL) BY MOUTH DAILY. 90 tablet 2 03/08/20 25 Active mirtazapine (REMERON) 30 MG tablet Take 2 (two) tablets (60 mg total) by mouth nightly. 180 tablet 1 10/07/20 25 Active venlafaxine HCl (EFFEXOR-XR) 150 MG 24 hr capsule Take 2 (two) capsules (300 mg total) by mouth daily. 180 capsule 1 10/07/20 25 Active mirtazapine (REMERON) 30 MG tablet Take 2 (two) tablets (60 mg total) by mouth nightly. 180 tablet 1 05/27/20 25 025 Discontinu ed(*Reorde r (sends cancel message to pharmacy)) venlafaxine HCl (EFFEXOR-XR) 150 MG 24 hr capsule Take 2 (two) capsules (300 mg total) by mouth daily. 180 capsule 1 08/03/20 25 025 Discontinu ed(*Reorde r (sends cancel message to pharmacy)) Active Problems Problem Noted Date Diagnosed Date [...] organization. Date Type Department Care Team Description 10/07/2025 Travel from Last 3 Months Immunizations Immunization [...] PHQ-2 Answer Date Recorded PHQ-2 Score 1 10/07/2025 Comments No Sex and Gender Information Value Date Recorded Sex Assigned at Not on file Legal Sex Female 4:19 AM CDT Gender Identity Not on file Sexual Orientation Not on file Last Filed Vital Signs Vital Sign Reading Time Taken Comments Blood Pressure 136/82 12/22/2024 10:19 AM YOUTH AGENT Pulse 76 12/22/2024 10:19 AM YOUTH AGENT Temperature 36.2 C (97.2 F) 12/22/2024 10:19 AM YOUTH AGENT Respiratory Rate 18 12/05/2023 9:10 AM YOUTH AGENT Oxygen Saturation - - Inhaled Oxygen Concentration - - Weight 77.5 kg (170 lb 14.4 oz) 025 10:19 AM YOUTH AGENT Height 170.8 cm (5' 7.25 ) 12/22/2024 1 0:19 AM YOUTH AGENT Body Mass Index 26.57 12/22/2024 10:19 AM YOUTH AGENT Plan of Treatment Health Maintenance Due Date Last Done Comments CT Colonography 1960 Fecal DNA Test 1960 HPV 1960 Lab-Hepatitis C Screening 1960 Sigmoidoscopy 1960 RSV Adult (1 - Risk 50-74 years 1-dose series) 2010 Zoster (Shingles) Vaccine 50+ (1 of 2) 2010 FOBT/FIT 01/23/2022 01/23/2021 Cervical Cancer Screening 12/20/2022 Breast Cancer Screening-Mammogram 02/29/2024 02/28/2023, 02/28/2023, 02/27/2021, Additional history exists Colonoscopy 05/13/2025 05/13/2020, 01/26/2013 Colorectal Cancer Screening 05/13/2025 COVID-19 Vaccine ( season) 2025 10/02/2022, 09/30/2021, 01/10/2021, Additional history exists Influenza Vaccine (#1) 2025 07/29/2015, 2007 Pap [...] HPV Vaccine (9-26yo & Shared Decision 27-45yo) (No Doses Required) Completed IPV Vaccine Aged Out No longer eligi [...] 140/90 Blood Pressure 136/82( 025 10:19 AM YOUTH AGENT) Ayleen Zhang PA-C Procedures Procedure Name Priority Date/Time Associated Diagnosis Comments LIPID PANEL Routine 12/22/2024 10:50 AM YOUTH AGENT Essential hypertension COMPREHENSIVE METABOLIC PANEL Routine 12/22/2024 10:50 AM YOUTH AGENT Hyponatremia MM 3D MAMM BILAT SCREENING W CAD Routine 02/28/2023 Encounter for screening mammogram for breast cancer THIN PREP PAP SMEAR Routine 12/19/2022 1 1:46 AM YOUTH AGENT Encounter for gynecological examination POCT OCCULT BLOOD STOOL - AMBULATORY Routine 01/23/2021 Screening for colorectal cancer HM COLONOSCOPY Routine 05/13/2020 CT ANGIOGRAPHY CHEST W WO CONTRAST Routine 04/08/2013 12:08 PM CDT Shortness of breath Positive D dimer from Last 3 Months or Most Recently Relevant to Health Maintenance Results * Lipid panel (12/22/2024 10:50 AM YOUTH AGENT) Cholesterol 186 100 - 200 mg/dL 12/22/2024 6:16 PM YOUTH AGENT [facility] Triglycerides 114 50 - 199 mg/dL 12/22/2024 6:16 PM YOUTH AGENT [facility] HDL Cholesterol 50 40 - 60 mg/dL 12/22/2024 6:16 PM YOUTH AGENT [employer] LDL, Calculated 113 0 - 130 mg/dL 12/22/2024 6:16 PM YOUTH AGENT [employer] [facility] VLDL Cholesterol 23 4 - 35 mg/dL 12/22/2024 6:16 PM YOUTH AGENT [facility] Cholesterol/HDL Ratio 3.7 12/22/2024 6:16 PM YOUTH AGENT [facility] Serum 12/22/2024 10:5 0 AM YOUTH AGENT 12/22/2024 4:35 PM YOUTH AGENT us Ayleen Lemus PA-C LAB BLOOD ORDERABLES Final Result [facility] [place] [address], [place] [address] * (ABNORMAL) Comprehensive metabolic panel (12/22/2024 10:50 AM YOUTH AGENT) Sodium 139 134 - 146 mmol/L 12/22/2024 6:16 PM YOUTH AGENT [facility] Potassium 4.2 3.5 - 5.3 mmol/L [...] 3.5 - 5.2 g/dL 12/22/2024 6:16 PM [facility] Bilirubin Total 0.5 0.00 - 1.00 mg/dL 12/22/2024 6:16 PM TERRIE [facility] Alkaline Phosphatase 113(H) 29 - 93 U/L 12/22/2024 6:16 PM TERRIE [facility]ARDING AST 17 12 - 29 U/L [...] ased GFR. Serum 12/22/2024 10:5 0 AM YOUTH AGENT 12/22/2024 4:35 PM YOUTH AGENT Ayleen Lemus PA-C LAB BLOOD ORDERABLES Final Result [facility] [place] [address] [place] [address] * MM 3D Mamm Bilat Screening w CAD (02/28/2023) Anatomical Region Laterality Modality Breast Bilateral Mammography 02/28/2023 Ayleen Lemus PA-C IMG MAMMOGRAPHY ORDER [place] Final Result * Thin Prep Pap Smear (12/19/2022 11:46 AM YOUTH AGENT) Pathology Result AP results 12/22/19 11:40 AM YOUTH AGENT [facility] Comment: (NOTE) Final ENTERPRISE ACCOUNT EXECUTIVE Cytology Report Result: Negative for intraepithelial lesion or malignancy. Specimen successfully processed on ThinPrep Personal Financial Advisor. Specimen Adequacy: Satisfactory for evaluation. Endocervical component [...] is recommended. Cervical 12/19/2022 11:4 6 AM YOUTH AGENT 12/19/2022 11:47 AM YOUTH AGENT Ayleen Lemus PA-C PATHOLOGY/CYTOLOGY OR DERABLES Final Result Performing Organization Address City/[facility]/ZIP Co de Phone Number [facility] [address] [place] [address] * POCT Occult Blood Stool - Ambulatory (01/23/2021) Fecal Occult Blood Negative Negative, Indeterminate [facility] Occult Blood, Stool #2 [facility] Occult Blood, Stool #3 [facility] 01/23/2021 Ayleen Lemus PA-C POINT OF CARE TEST OR DERABLES Final Result [facility] [address] [place] [address] * Colonoscopy (05/13/2020) Colonoscopy Tubular Adenoma Comment:Tubular Adenoma Repe at 5 years [facility] GI Dr. Fairchild 05/13/2020 us Not In System Provider HEALTH MAINTENANCE Final Result * CT ANGIOGRAPHY CHEST W WO CONTRAST (04/08/2013 12:08 PM CDT) Anatomical Region Laterality Modality Chest, Vascular Computed Tomogra phy 04/08/2013 12:0 8 PM CDT Narrative 04/08/2013 1:37 PM CDT [facility] [address] [place] [address] CELSA OLSEN Cierra [facility] REC #:[id number] PT. LOC: OP :1960 Age/Sex:52Y F ORDERING PROV:PRAFUL CHU M.D. ATTENDING PROV:PRAFUL CHU M.D. ADMITTING PROV: CC: EXAM DATE:04/08/2013 DOCUMENT STATUS:Final PROCEDURE(S):CT ANG CHEST W/WO CONTRAST ORDER #:[id number] RIGHT/LEFT: HISTORY: short of breathpostivie d dimer. [...] 04/08/2013 1:34:27 PM Signed: 04/08/2013 1:37:39 PM [facility]. PAGE 1 of 1 Procedure Note Eloisa Wei MD - 04/08/2013 [facility] [address] [place] [address] CELSA OLSEN [facility] REC #:[id number] PT. LOC: OP :1960 Age/Sex:52Y F ORDERING PROV:PRAFUL CHU M.D. ATTENDING PROV:PRAFUL CHU M.D. ADMITTING PROV: CC: EXAM DATE:04/08/2013 DOCUMENT STATUS:Final PROCEDURE(S):CT ANG CHEST W/WO CONTRAST ORDER #:[id number] RIGHT/LEFT: HISTORY: short of breathpostivie d dimer. [...] 04/08/2013 1:34:27 PM Signed: 04/08/2013 1:37:39 PM [facility]. PAGE 1 of 1 Praful Chu MD IMG CV CT ORDERABLES Final Res ult from Last 3 Months or Most Recently Relevant to Health Maintenance Insurance [facility] Care Teams Academic Tutor Relationship Specialty Start Date End Date Ayleen Lemus PA-C [address] [place] [id number] [facility] - General 03/20/13
--- OUTSIDE RECORDS SUMMARY | 2025-10-23 10:17 | XMS_ITS | Clinical Summary ---
Author Organization [facility] Address [address] [place] [address] Care Team Providers Care Workforce Advisor Name Role Phone Ayleen Lemus Primary Care Provider +1- [phone] Source Comments This disclosure is being made pursuant to the Care Everywhere program,applicable federal and state laws, and may not contain all informationavailable regarding this patient.[facility] Practices Allergies Active Allergy Reactions Criticality Noted [...] Done Comments Annual Physical Visit 1963 HIV [place] Screening 1975 HCV Screening 1978 Pneumococcal Vaccine (1 of 2 - PCV) 1979 CT Colonography 2005 FIT-DNA 2005 FIT 2005 FOBT 2005 Flex Sigmoidoscopy 2005 RSV Vaccine (1 - Risk 50-74 years 1-dose series) 2010 Zoster Vaccine (1 of 2) 2010 Cervical Cancer Screening 07/29/20162014, 06/18/2014, 06/02/2013, Additional history exists Mammogram 08/19/2017 08/19/2015 Colonoscopy Tracking 02/06/2018 02/06/2013 Lipid Disorder Screening 01/01/2022 01/01/2017 Colonoscopy 02/06/2023 02/06/2013 Colorectal Screening 02/06/2023 [id number]-2 Vaccine (2024- season) 2025 Influenza Vaccine: Seasonal (#1) 06/28/2025 Tetanus Diphtheria Pertussis (2 - Td or Tdap) 05/27/2029 05/27/2019, 03/23/1999 Procedures Procedure Name Priority Date/Time Associated Diagnosis Comments [facility] LIPID PROFILE Routine 01/01/2017 2: 16 PM PERSONNEL ADMINISTRATOR Hyperlipidemia, unspecified hyperlipidemia type from Last 3 Months or Most Recently Relevant to Health Maintenance Results * (ABNORMAL) [facility] LIPID PROFILE (01/01/2017 2:16 PM PERSONNEL ADMINISTRATOR) [facility] Signature Cholesterol - [facility] 224(H) 100 - 200 mg/dL 01/01/2017 5:53 PM [facility] [place] Triglycerides - VGH 94 50 - 250 mg/dL 01/01/2017 5:53 PM [facility] [place] HDL Cholesterol - [facility] 104(H) 40 - 60 mg/dL 01/01/2017 5:53 PM [facility] [place] LDL Cholesterol - [facility] 101 0 - 130 mg/dL 01/01/2017 5:53 PM [facility] [place] Very Low Density Lipoprotein (VLDL) - VG 19 4 - 35 mg/dL 01/01/2017 5:53 PM [facility] [place] Cholesterol/HDL Ratio - [facility] 2.2 01/01/2017 5:53 PM [facility] [place] Comment: LIPID INTERPRETATION ATP III CLASSIFICATIONS(mg/dL) LDL [...] (specimen) Venipuncture / Unknown 01/01/2017 2:16 PM PERSONNEL ADMINISTRATOR 01/01/2017 4:43 PM PERSONNEL ADMINISTRATOR Ayleen Lemus [facility] Final Resu lt [facility] [place] [address] [place] [address], from Last 3 Months or Most Recently Relevant to Health Maintenance Insurance [facility] Advance Directives For more information, please contact: [phone] * Full Code (Latest Code Status on File) Date Activated Date Inactivated Comments 06/11/2017 2:06 PM 06/12/2017 1:56 PM Care Teams Workforce Advisor Relationship Specialty Start Date End Date Ayleen Lemus [address] [place] [address] PCP - General 05/05/09
--- OUTSIDE RECORDS SUMMARY | 2025-10-23 10:17 | XMS_ITS | Encounter Summary ---
Author Organization [facility] Address [address] [place] [address] Phone Care Team Providers Care Hoof And Shoe Inspector Name Role Phone Ayleen Lemus Primary Care Provider +1- [phone] Reason for Visit * Reason Comments Medication Refill Encounter Details Date Type Department Care Team ([facility] st Contact Info) Description 07/10/2018 Refill [facility] [address] [place] [address] Ayleen Lemus [address] [place] [address] Social History Tobacco Use Types Packs/Day Years [...] unspecified documented in this encounter Care Teams Hoof And Shoe Inspector Relationship Specialty Start Date End Date Ayleen Lemus [address] [place], [place] [id number] PCP - General 05/05/09 documented as of this encounter
--- OUTSIDE RECORDS SUMMARY | 2025-10-23 10:17 | XMS_ITS | Encounter Summary ---
Author Organization [facility] Address [address] [place] [address] Phone Care Team Providers Care Corporate Consultant Name Role Phone Ayleen Lemus Primary Care Provider +1- [phone] Reason for Visit * Reason Comments Medication Refill Encounter Details Date Type Department Care Team ([facility] st Contact Info) Description 11/19/[address] [facility] [address] [place] [address] Ayleen Lemus [address] [place], [place] [id number] Social History Tobacco Use Types Packs/Day Years [...] hypertension documented in this encounter Care Teams Corporate Consultant Relationship Specialty Start Date End Date Ayleen Lemus [address] [place], [place] [id number] PCP - General 05/05/09 documented as of this encounter
--- OUTSIDE RECORDS SUMMARY | 2025-10-23 10:17 | XMS_ITS | Encounter Summary ---
Author Organization [facility] Address [address] [place] [address] Phone Care Team Providers Care Solution Maker Name Role Phone Ayleen Lemus Primary Care Provider +- [phone] Encounter Details Date Type Department Care Team ([facility] st Contact Info) Description 06/17/2017 Telephone [facility] - Acute Care [address] [place], [place] [id number] Kassandra Aguilar RN Social History Tobacco Use [...] on filedocumented in this encounter Care Teams Solution Maker Relationship Specialty Start Date End Date Ayleen Lemus [address] [place] [address] PCP - General 05/05/09 documented as of this encounter
--- OUTSIDE RECORDS SUMMARY | 2025-10-23 10:17 | XMS_ITS | Encounter Summary ---
Author Organization [facility] Address [address] [place] [address] Phone Care Team Providers Care Call Center Support Consultant Name Role Phone Ayleen Lemus Primary Care Provider +1- [phone] Reason for Visit * Reason Comments Medication Refill Encounter Details Date Type Department Care Team ([facility] st Contact Info) Description 05/26/2019 Refill [facility] [address] [place] [address] Ayleen Lemus [address] [place] [address] Social History Tobacco Use Types Packs/Day Years [...] organism documented in this encounter Care Teams Call Center Support Consultant Relationship Specialty Start Date End Date Ayleen Lemus [address] [place], [place] [phone] PCP - General 05/05/09 documented as of this encounter
--- NOTE | 2025-10-23 10:20 | ECG_ITS ---
[facility] Test Date: 2025-10-23 Pat Name: Celsa Ruiz Department: Room: ED Gender: Female Technology Sales Consultant: : 1960 Requested By: Bell Urias Order Number: [id number] Reading MD: FABIOLA ANDINO Measurements Intervals [place] Rate: 84 P: 59 [place]: 161 QRS: 39 QRSD: 90 T: 77 QT: 373 QTc: 442 Interpretive Statements SINUS RHYTHM NONSPECIFIC ST & T-WAVE ABNORMALITY Compared to ECG 06/14/2025 11:12:50 Possible ischemia no longer present T-wave abnormality still present Electronically Signed On 10-24-2025 22:58:36 COMPENSATION VICE PRESIDENT by FABIOLA ANDINO [id number]
--- NOTE | 2025-10-23 10:20 | XRR_ITS ---
PROCEDURE INFORMATION: Exam: XR Chest Exam date and time: 10/23/2025 10:20 AM Age: 64 years old Clinical indication: Shortness of breath; Additional info: SOB TECHNIQUE: Imaging protocol: Radiologic exam of the chest. Views: 1 view. COMPARISON: CR XR chest 1V portable [id number] 04/12/2025 10:13 AM FINDINGS: Tubes, catheters and devices: Interval removal of the patient's previously seen left-sided PICC line. Lungs: Unremarkable. No consolidation. Pleural spaces: Unremarkable. No pleural effusion. No pneumothorax. Heart/Mediastinum: Unremarkable. No cardiomegaly. Bones/joints: Unremarkable. Other findings: Fairly extensive artifact from the patient's clothing. XR/XR chest 1V portable [id number] IMPRESSION: 1. Interval removal of left-sided PICC line. 2. No acute cardiopulmonary pathology.
--- NOTE | 2025-10-23 10:26 | ED_ITS ---
HPI - SOB/Dyspnea 2 General: Chief Complaint: Shortness of Breath/Dyspnea Stated Complaint: sob Time Seen by Provider: 10/23/25 10:14 Source: patient and EMS Mode of arrival: EMS Limitations: no limitations History of Present Illness: HPI Narrative: 64-year-old female states that she had a n episode where she felt very short of breath this morning. She states that she started to panic and had a near syncopal event. Patient had a history of stroke in the past had a history of COVID was a former smoker recently stopped smoking in March. No known history of COPD patient did give herself a breathing treatment home and feels much improved. Pulse ox here is currently 97% on room air. Has had some mild chest pains but denies any currently. Related Data Home Medications ?Medication ?Instructions ?Recorded ?Confirmed hydroxyzine pamoate 25 mg capsule 25 mg PO BEDTIME PRN Anxiety 04/02/25 10/23/25 mirtazapine 30 mg tablet 60 mg PO BEDTIME 04/02/25 venlafaxine 150 mg tablet,extended 300 mg PO BEDTIME 0 04/02/25 10/23/25 release 24 hr amiodarone 200 mg tablet (Pacerone) 200 mg PO DAILY 10/23/25 atorvastatin 80 mg tablet 80 mg PO BEDTIME 06/14/25 losartan 50 mg tablet 25 mg PO DAILY 08/01/2509/28 potassium chloride 20 mEq 20 meq PO DAILY 08/01/25 tablet,extended release(part/cryst) (Klor-Con M) Previous Rx's ?Medication ?Instructions ?Recorded apixaban 5 mg tablet (Eliquis) 5 mg PO BID@0900,2100 # 60 tabs 04/14/25 carvedilol 6.25 mg tablet 6.25 mg PO BID #60 tabs 03/28 06/21 folic acid 1 mg tablet 1 mg PO DAILY #30 tabs 04/14 furosemide 20 mg tablet 20 mg PO DAILY #30 tabs 03/28 06/21 pantoprazole 40 mg tablet,delayed 40 mg PO DAILY #90 t abs 10/18/25 release Allergies Allergy/AdvReac Type Severity Reaction Status Date / Time lisinopril Allergy ALGY-Difficulty Verified 07/29/25 14:17 Breathing Review of Systems 2 Resp: Reports: dyspnea PFSH ED 2 PFSH: Medical History CVA (cerebral vascular accident) Hypertension History of anemia Depression Alcohol use Atrial fibrillation, new onset Surgical History Hx of tonsillectomy History of ankle surgery Left History of lumbar surgery Clean up ruptured disc H/O total hysterectomy H/O lumpectomy Family History Other Arrhythmia Atrial fibrillation Denies family history of Aneurysm Social History Smoking and tobacco/nicotine status: former use of tobacco/nicotine Quit status (tobacco/nicotine): has quit using Year quit tobacco: 2024 Former quit date comment: 2 pack per day - started at age 20 Alcohol intake: current Alcohol intake frequency: 0-2 Drinks per Day Substance/Drug Use: never Adopted: No Caregiver/support person: Yes Lives independently: Yes Household members: spouse Housing: House Marital status: Physical Exam 2 Const: COMMON NORMALS: no acute distress, patient oriented x3 and healthy appearing HENMT: COMMON NORMALS: normocephalic and atraumatic HEAD & SCALP: n ormocephalic and atraumatic Eye: COMMON NORMALS: Equal, round and reactive pupils present and EOMs intact bilaterally PUPIL: Yes Equal, round and reactive pupils present Neck/C-Spine: COMMON NORMALS: full ROM and supple Chest: COMMONS NORMALS: normal inspection of the chest and normal palpation of entire chest wall Resp: COMMON NORMALS: normal respiratory effort, No retractions, No use of accessory muscles and clear to auscultation bilaterally AUSCULTATION: clear to auscultation bilaterally Cardio: COMMON NORMALS: regular rate, regular rhythm and No murmurs present (Cardio) RATE: regular rate RHYTHM: regular rhythm GI: COMMON NORMALS: Normal to inspection, nondistended, normoactive bowel sounds present, Soft to palpation, non-tender and no masses PALPATION: Yes Soft to palpation Extremity: COMMON NORMALS: normal to inspection and full ROM Neuro: COMMON NORMALS: patient oriented x3, moves all extremities and no focal motor deficits Psych: COMMON NORMALS: mental status grossly normal, Normal thought process present and cooperative THOUGHT PROCESS: Normal thought process present Skin: COMMON NORMALS: no rashes or lesions noted and no wounds GENERAL SKIN EXAM: no rashes or lesions noted Course 2 Vital Signs: Vital signs: Vital Signs Temperature 97.8 F 10/23/25 10:15 Pulse Rate 79 10/23/25 11:01 Respiratory Rate 18 10/23/25 10:15 Blood Pressure 147/107 10/23/25 11:01 Pulse Oximetry 98 10/23/25 11:01 Oxygen Delivery Me thod Room Air 10/23/25 10:20 Clincial Decision Support The following clinical decision support tools were used to aid in care of the patient HEART Score -> History: Moderately Suspicious, EKG: Non-specific Changes, Age: 45-64 yrs, Risk Factors: 1 or 2 Risk Factors, Troponin: Baseline Trop >45 ng/L. Resulting HEART Score: 6. MDM - SOB/Dyspnea Medical Decision Making Patient presents here with dyspnea along with some chest pain differential includes pneumonia, pulmonary emboli, ACS. Patient's D-dimer here is negative her dyspnea is resolved no signs of PE x-ray was interpreted by me showed no signs of pneumonia. Her initial troponin was elevated and had a positive delta here. She had some mild chest pain here but is currently chest pain-free here EKG showed no signs of a STEMI. I spoke to the hospitalist along with chairman and chief executive officer will admit at this time. Did give patient aspirin nitro and Lovenox I did inform patient all this and she understands and agrees EKG interpreted by me at 1017 normal sinus rhythm heart rate [address] elevation QRS 98 QTc 414 Lab Data 10/23/25 10:23 10/23/25 10:23 Labs/Radiology: Radiology Impressions Chest X-Ray 10/23/25 10:20 IMPRESSION: 1. Interval removal of left-sided PICC line. 2. No acute cardiopulmonary pathology. Laboratory Results WBC 10.51 10^3/uL (3.29-11.43) 10/23/25 10:23 RBC 3.79 10^6/uL (3.85-5.65) L 10/23/25 10:23 Hgb 12.30 g/dL (11.27-16.99) 10/23/25 10:23 Hct 36.9 % (36-47) 10/23/25 10:23 MCV 97.4 fl (85-98) 10/23/25 10:23 MCH 32.5 pg (27-33) 10/23/25 10:23 MCHC 33.3 g/dL (30-55) 10/23/25 10:23 RDW 13.2 % (12.1-15.1) 10/23/25 10:23 Plt Count 189 10^3/cmm (157-399) 10/23/25 10:23 MPV 10.2 fL (7.4-10.4) 10/23/25 10:23 Neut % (Auto) 80.8 % 10/23/25 10:23 Lymph % (Auto) 10.9 % 10/23/25 10:23 Beauregard % (Auto) 6.3 % 10/23/25 10:23 Eos % (Auto) 0.9 % 10/23/25 10:23 Baso % (Auto) 0.6 % 10/23/25 10:23 Neut # (Auto) 8.50 10^3/uL (1.8-7.7) H 10/23/25 10:23 Lymph # (Auto) 1.2 10^3/uL (0.8-4.8) 10/23/25 10:23 Beauregard # (Auto) 0.7 10^3/uL (0.2-0.9) 10/23/25 10:23 Eos # (Auto) 0.1 10^3/uL (0.0-0.8) 10/23/25 10:23 Baso # (Auto) 0.1 10^3/uL (0.0-0.1) 10/23/25 10:23 Nucleated RBC % (auto) 0 % 10/23/25 10:23 Nucleated RBCs # 0.0 /100WBC 10/23/25 10:23 PT 15.20 SECONDS (12.1-14.9) H 10/23/25 10:23 INR 1.12 (0.8-1.2) 10/23/25 10:23 D-Dimer 0.35 ug/mLFEU (0-0.59) 10/23/25 10:23 Sodium 140 mmol/L (136-145) 10/23/25 10:23 Potassium 4.3 mmol/L (3.5-5.1) 10/23/25 10:23 Chloride 101 mmol/L (98-107) 10/23/25 10:23 Carbon Dioxide 27 mmol/L (22-29) 10/23/25 10:23 Anion Gap 16.3 (5-19) 10/23/25 10:23 BUN 17 mg/dL (8-23) 10/23/25 10:23 Creatinine 1.1 mg/dL (0.5-0.9) H 10/23/25 10:23 GFR Calculation 50.0 mL/min (90-130) L 10/23/25 10:23 Glucose 141 mg/dL (65-115) H 10/23/25 10:23 Calculated Osmolality 294 mOsm/kg (285-295) 10/23/25 10:23 Calcium 9.9 mg/dL (8.5-10.5) 10/23/25 10:23 Total Bilirubin 0.4 mg/dL (0.15-1.2) 10/23/25 10:23 AST 22 U/L (0-32) 10/23/25 10:23 ALT 20 U/L (0-33) 10/23/25 10:23 Alkaline Phosphatase 140 U/L (35-105) H 10/23/25 10:23 Creatine Kinase 51 U/L (26-192) 10/23/25 10:23 Troponin T Baseline 43 ng/L (0-10) H 10/23/25 10:23 Troponin T 60 Minute 69.93 ng/L (0-10) H 10/23/25 11:32 Delta Troponin T 26.93 ABS# (0-10) H* 10/23/25 11:32 Total Protein 6.9 g/dL (6.6-8.7) 10/23/25 10:23 Albumin 4.3 g/dL (3.5-5.2) 10/23/25 10:23 Globulin 2.6 g/dL (1.3-4.6) 10/23/25 10:23 All radiology interpretation(s) finalized by discharge Discharge Plan Discharge Patient Disposition: Admitted As Inpatient Clinical Impression: Non-ST elevation MO (NSTEMI) Condition: Stable Coding Level of Care Code ED High School Foreign Language Tutor for Valeria Dacosta
[2025-10-23 10:36] LABS: Hematocrit 36.9 % (36-47); Hemoglobin 12.30 g/dL (11.27-16.99); Mean Corpuscular HGB Conc 33.3 g/dL (30-55); Mean Corpuscular Hemoglobin 32.5 pg (27-33); Mean Corpuscular Volume 97.4 fl (85-98); Nucleated Red Blood Cells % 0 %; Platelet Count 189 10^3/cmm (157-399); Red Blood Count 3.79 10^6/uL (3.85-5.65); White Blood Count 10.51 10^3/uL (3.29-11.43)
[2025-10-23 10:49] LABS: INR 1.12 (0.8-1.2); Prothrombin Time 15.20 SECONDS (12.1-14.9)
[2025-10-23 10:54] LABS: Troponin(5th) Baseline 43 ng/L (0-10)
[2025-10-23 10:56] LABS: Alanine Aminotransferase 20 U/L (0-33); Albumin Level 4.3 g/dL (3.5-5.2); Alkaline Phosphatase 140 U/L (35-105); Anion Gap 16.3 (5-19); Aspartate Amino Transferase 22 U/L (0-32); Blood Urea Nitrogen 17 mg/dL (8-23); Calcium 9.9 mg/dL (8.5-10.5); Carbon Dioxide 27 mmol/L (22-29); Chloride 101 mmol/L (98-107); Globulin 2.6 g/dL (1.3-4.6); Glucose 141 mg/dL (65-115); Osmolality Calculated 294 mOsm/kg (285-295); Potassium 4.3 mmol/L (3.5-5.1); Sodium 140 mmol/L (136-145); Total Protein 6.9 g/dL (6.6-8.7)
--- NOTE | 2025-10-23 11:20 | ECG_ITS ---
[facility]: 2025-10-23 Pat Name: Celsa Ruiz Department: Room: ED Gender: Female Healthcare Manager: : 1960 Requested By: Bell Urias Order Number: [id number] Reading MD: FABIOLA ANDINO Measurements Intervals [place] Rate: 80 P: 52 [place]: 160 QRS: 38 QRSD: 89 T: 67 QT: 389 QTc: 450 Interpretive Statements SINUS RHYTHM NONSPECIFIC ST & T-WAVE ABNORMALITY Compared to ECG 10/23/2025 10:17:44 No significant changes Electronically Signed On 10-24-2025 23:20:35 VISCOSITY TESTER by FABIOLA ANDINO [email or web address]
--- OUTSIDE RECORDS SUMMARY | 2025-10-23 15:37 | XMS_ITS | Clinical Summary ---
Author Organization [facility] Address [address] [place] [address] Phone Care Team Providers Care Lokie Driver Name Role Phone Ayleen Lemus Primary Care [...] AM CDT Legal Sex Female 1:17 PM EDI ARCHITECT Gender Identity Female 05/12/2020 12:28 AM CDT [...] Diagnosis Comments MAMMO SCREENING BILATERAL W CAD ([id number]) Routine 02/28/2023 9:25 AM CDT Encounter for screening mammogram for malignant neoplasm of breast from Last 3 Months or Most Recently Relevant to Health Maintenance Results * MAMMO SCREENING BILATERAL W CAD ([id number]) (02/28/2023 9:25 AM CDT) Anatomical Region Laterality [...] Recently Relevant to Health Maintenance Insurance [address] [place] [address] [facility] Advance Directives For more information, please contact: [phone] * Full Code (Latest Code Status on File) Date Activated Date Inactivated Comments 06/08/2020 7:42 PM * Full Code Date Activated Date Inactivated Comments 05/11/2020 9:10 PM 06/08/2020 7:42 PM Care Teams Lokie Driver Relationship Specialty Start Date End Date Ayleen Lemus PAC [address] [place] [address] PCP - General Family Medicine 05/14/13
--- OUTSIDE RECORDS SUMMARY | 2025-10-23 15:37 | XMS_ITS | Clinical Summary ---
Author Organization [facility] Address [address] [place] [address] Care Team Providers Care Mails Supervisor Name Role Phone Ayleen Lemus Primary Care Provider +1- [phone] Source Comments This disclosure is being made pursuant to the Care Everywhere program,applicable federal and state laws, and may not contain all informationavailable regarding this patient.[facility] Practices Allergies Active Allergy Reactions Criticality [...] Done Comments Annual Physical Visit 1963 HIV [place] Screening 1975 HCV Screening 1978 Pneumococcal Vaccine [...] 01/01/2017 Colonoscopy 02/06/2023 02/06/2013 Colorectal Screening 02/06/2023 [id number] Vaccine (2024- season) 2025 Influenza Vaccine: Seasonal (#1) 06/28/2025 Tetanus Diphtheria Pertussis (2 - Td or Tdap) 05/27/2029 05/27/2019, 03/23/1999 Procedures Procedure Name Priority Date/Time Associated Diagnosis Comments [facility] LIPID PROFILE Routine 01/01/2017 2: 16 PM DIRECTOR INTERNAL CONTROL Hyperlipidemia, unspecified hyperlipidemia type from Last 3 Months or Most Recently Relevant to Health Maintenance Results * (ABNORMAL) [facility] LIPID PROFILE (01/01/2017 2:16 PM DIRECTOR INTERNAL CONTROL) [facility] Signature Cholesterol - [facility] 224(H) 100 - 200 mg/dL 01/01/2017 5:53 PM [facility] [place] Triglycerides - VGH 94 50 - 250 mg/dL 01/01/2017 5:53 PM [facility] [place] HDL Cholesterol - VGH 104(H) 40 - 60 mg/dL 01/01/2017 5:53 PM [facility] [place] LDL Cholesterol - VGH 101 0 - 130 mg/dL 01/01/2017 5:53 PM [facility] [place] Very Low Density Lipoprotein (VLDL) - VG 19 4 - 35 mg/dL 01/01/2017 5:53 PM [facility] [place] Cholesterol/HDL Ratio - [facility] 2.2 01/01/2017 5:53 PM [facility] [place] Comment: LIPID INTERPRETATION ATP III CLASSIFICATIONS(mg/dL) LDL [...] (specimen) Venipuncture / Unknown 01/01/2017 2:16 PM DIRECTOR INTERNAL CONTROL 01/01/2017 4:43 PM DIRECTOR INTERNAL CONTROL Ayleen Lemus [facility] Final Resu lt [facility] [place] [address] [place] [address], from Last 3 Months or Most Recently Relevant to Health Maintenance Insurance [facility] Advance Directives For more information, please contact: [phone] * Full Code (Latest Code Status on File) Date Activated Date Inactivated Comments 06/11/2017 2:06 PM 06/12/2017 1:56 PM Care Teams Mails Supervisor Relationship Specialty Start Date End Date Ayleen Lemus [address] [place] [address] PCP - General 05/05/09
--- OUTSIDE RECORDS SUMMARY | 2025-10-23 15:37 | XMS_ITS | Encounter Summary ---
Author Organization [facility] Address [address] [place] [address] Phone Care Team Providers Care Reinforcing Steel Placer Name Role Phone Ayleen Lemus Primary Care Provider +1- [phone] Reason for Visit * Reason Comments Medication Refill Encounter Details Date Type Department Care Team ([facility] st Contact Info) Description 05/26/2019 Refill [facility] [address] [place] [address] Ayleen Lemus [address] [place] [address] Social History Tobacco Use Types Packs/Day Years [...] organism documented in this encounter Care Teams Reinforcing Steel Placer Relationship Specialty Start Date End Date Ayleen Lemus [address] [place], [place] [phone] PCP - General 05/05/09 documented as of this encounter
--- OUTSIDE RECORDS SUMMARY | 2025-10-23 15:37 | XMS_ITS | Encounter Summary ---
Author Organization [facility] Address [address] [facility] [place] [address] Phone Care Team Providers Care Designer/Writer Name Role Phone Ayleen Lemus Primary Care Provider +- [phone] Encounter Details Date Type Department Care Team ([facility] st Contact Info) Description 06/17/2017 Telephone [facility] - Acute Care [address] [place], [place] [phone] Kassandra Aguilar RN Social History Tobacco Use [...] on filedocumented in this encounter Care Teams Designer/Writer Relationship Specialty Start Date End Date Ayleen Lemus [address] [place] [address] PCP - General 05/05/09 documented as of this encounter
--- OUTSIDE RECORDS SUMMARY | 2025-10-23 15:37 | XMS_ITS | Encounter Summary ---
Author Organization [facility] Address [address] [place] [address] Phone Care Team Providers Care Record Pressman Name Role Phone Ayleen Lemus Primary Care Provider +1- [phone] Reason for Visit * Reason Comments Medication Refill Encounter Details Date Type Department Care Team ([facility] st Contact Info) Description 07/10/[address] [facility] [address] [place] [address] Ayleen Lemus [address] [place] [address] Social History Tobacco Use Types Packs/Day Years [...] unspecified documented in this encounter Care Teams Record Pressman Relationship Specialty Start Date End Date Ayleen Lemus [address] [place], [place] [id number] PCP - General 05/05/09 documented as of this encounter
--- OUTSIDE RECORDS SUMMARY | 2025-10-23 15:37 | XMS_ITS | Clinical Summary ---
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 Name Role Phone Ayleen Lemus PA-C Primary Care Provide r Source Comments This disclosure is being made pursuant to the [employer] program and maynot contain all information available regarding this patient.[employer] Allergies Active Allergy Reactions Criticality Noted Date [...] Comments Blood Pressure 136/82 12/22/2024 10:19 AM PUBLIC SPEAKING COACH Pulse 76 12/22/2024 10:19 AM PUBLIC SPEAKING COACH Temperature 36.2 C (97.2 F) 12/22/2024 10:19 AM PUBLIC SPEAKING COACH Respiratory Rate 18 12/05/2023 9:10 AM PUBLIC SPEAKING COACH Oxygen Saturation - - Inhaled Oxygen Concentration - - Weight 77.5 kg (170 lb 14.4 oz) 025 10:19 AM PUBLIC SPEAKING COACH Height 170.8 cm (5' 7.25 ) 12/22/2024 1 0:19 AM PUBLIC SPEAKING COACH Body Mass Index 26.57 12/22/2024 10:19 AM PUBLIC SPEAKING COACH Plan of Treatment Health Maintenance Due Date [...] 140/90 Blood Pressure 136/82( 025 10:19 AM PUBLIC SPEAKING COACH) Ayleen Zhang PA-C Procedures Procedure Name Priority Date/Time Associated Diagnosis Comments LIPID PANEL Routine 12/22/2024 10:50 AM PUBLIC SPEAKING COACH Essential hypertension COMPREHENSIVE METABOLIC PANEL Routine 12/22/2024 10:50 AM PUBLIC SPEAKING COACH Hyponatremia MM 3D MAMM BILAT SCREENING W CAD Routine 02/28/2023 Encounter for screening mammogram for breast cancer THIN PREP PAP SMEAR Routine 12/19/2022 1 1:46 AM PUBLIC SPEAKING COACH Encounter for gynecological examination POCT OCCULT BLOOD STOOL - AMBULATORY Routine 01/23/2021 Screening for colorectal cancer HM COLONOSCOPY Routine 05/13/2020 CT ANGIOGRAPHY CHEST W WO CONTRAST Routine 04/08/2013 12:08 PM CDT Shortness of breath Positive D dimer from Last 3 Months or Most Recently Relevant to Health Maintenance Results * Lipid panel (12/22/2024 10:50 AM PUBLIC SPEAKING COACH) Cholesterol 186 100 - 200 mg/dL 12/22/2024 6:16 PM PUBLIC SPEAKING COACH DIMITRY HARDING Triglycerides 114 50 - 199 mg/dL 12/22/2024 6:16 PM PUBLIC SPEAKING COACH [facility] HDL Cholesterol 50 40 - 60 mg/dL 12/22/2024 6:16 PM PUBLIC SPEAKING COACH DIMITRY HARDING LDL, Calculated 113 0 - 130 mg/dL 12/22/2024 6:16 PM PUBLIC SPEAKING COACH DIMITRY HARDING VLDL Cholesterol 23 4 - 35 mg/dL 12/22/2024 6:16 PM PUBLIC SPEAKING COACH [facility] Cholesterol/HDL Ratio 3.7 12/22/2024 6:16 PM PUBLIC SPEAKING COACH DIMITRY HARDING Serum 12/22/2024 10:5 0 AM PUBLIC SPEAKING COACH 12/22/2024 4:35 PM PUBLIC SPEAKING COACH us Ayleen Lemus PA-C LAB BLOOD ORDERABLES Final Result [facility] [place] [address], [place] [address] * (ABNORMAL) Comprehensive metabolic panel (12/22/2024 10:50 AM PUBLIC SPEAKING COACH) Sodium 139 134 - 146 mmol/L 12/22/2024 6:16 PM PUBLIC SPEAKING COACH [facility] Potassium 4.2 3.5 - 5.3 mmol/L 12/22/2024 [...] - 93 U/L 12/22/2024 6:16 PM TERRIE AHRDING AST 17 12 - 29 U/L 12/22/2024 [...] ased GFR. Serum 12/22/2024 10:5 0 AM PUBLIC SPEAKING COACH 12/22/2024 4:35 PM PUBLIC SPEAKING COACH Ayleen Lemus PA-C LAB BLOOD ORDERABLES Final Result [facility] [place] [address] [place] [address] * MM 3D Mamm Bilat Screening w CAD (02/28/2023) Anatomical Region Laterality Modality Breast Bilateral Mammography 02/28/2023 Ayleen Lemus PA-C IMG MAMMOGRAPHY ORDER [place] Final Result * Thin Prep Pap Smear (12/19/2022 11:46 AM PUBLIC SPEAKING COACH) Pathology Result AP results 12/22/19 11:40 AM PUBLIC SPEAKING COACH [facility] Comment: (NOTE) Final AIR PRESS OPERATOR Cytology Report Result: Negative for intraepithelial lesion or malignancy. Specimen successfully processed on ThinPrep Cranberry Bog Supervisor. Specimen Adequacy: Satisfactory for evaluation. Endocervical [...] is recommended. Cervical 12/19/2022 11:4 6 AM PUBLIC SPEAKING COACH 12/19/2022 11:47 AM PUBLIC SPEAKING COACH Ayleen Lemus PA-C PATHOLOGY/CYTOLOGY OR DERABLES Final Result Performing Organization Address City/[facility]/ZIP Co de Phone Number [facility] [address] [place] [address] * POCT Occult Blood Stool - Ambulatory (01/23/2021) Fecal Occult Blood Negative Negative, Indeterminate [facility] Occult Blood, Stool #2 [facility] Occult Blood, Stool #3 [facility] 01/23/2021 Ayleen Lemus PA-C POINT OF CARE TEST OR DERABLES Final Result [facility] [address] [place] [address] * Colonoscopy (05/13/2020) Colonoscopy Tubular Adenoma Comment:Tubular Adenoma Repe at [address] [facility] [address] Fairchild 05/13/2020 us Not In System Provider HEALTH MAINTENANCE Final Result * CT ANGIOGRAPHY CHEST W WO CONTRAST (04/08/2013 12:08 PM CDT) Anatomical Region Laterality Modality Chest, Vascular Computed Tomogra phy 04/08/2013 12:0 8 PM CDT Narrative 04/08/2013 1:37 PM CDT [facility] [address] [place] [address] CELSA OLSEN Cierra [facility] REC #:[id number] PT. LOC: OP :1960 Age/Sex:52Y F ORDERING PROV:PRAFUL CHU M.D. ATTENDING PROV:PRAFUL CHU M.D. ADMITTING PROV: CC: EXAM DATE:04/08/2013 DOCUMENT STATUS:Final PROCEDURE(S):CT ANG CHEST W/WO CONTRAST ORDER #:[id number] RIGHT/LEFT: HISTORY: short of breathpostivie d dimer. [...] 04/08/2013 1:34:27 PM Signed: 04/08/2013 1:37:[address] [facility]. PAGE 1 of 1 Procedure Note Eloisa Wei MD - 04/08/2013 [facility] [address] [place] [address] CELSA OLSEN [facility] REC #:[id number] PT. LOC: OP :1960 Age/Sex:52Y F ORDERING PROV:PRAFUL CHU M.D. ATTENDING PROV:PRAFUL CHU M.D. ADMITTING PROV: CC: EXAM DATE:04/08/2013 DOCUMENT STATUS:Final PROCEDURE(S):CT ANG CHEST W/WO CONTRAST ORDER #:[id number] RIGHT/LEFT: HISTORY: short of breathpostivie d dimer. [...] 04/08/2013 1:34:27 PM Signed: 04/08/2013 1:37:[address] [facility]. PAGE 1 of 1 Praful Chu MD IMG CV CT ORDERABLES Final Res ult from Last 3 Months or Most Recently Relevant to Health Maintenance Insurance [facility] Care Teams Batch Plant Operator Relationship Specialty Start Date End Date Ayleen Lemus PA-C [address] [place] [id number] [facility] - General 03/20/13
--- OUTSIDE RECORDS SUMMARY | 2025-10-23 15:37 | XMS_ITS | Encounter Summary ---
Author Organization [facility] Address [address] [place] [address] Phone Care Team Providers Care Client Architect Name Role Phone Ayleen Lemus Primary Care Provider [phone] Reason for Visit * Reason Comments Medication Refill Encounter Details Date Type Department Care Team ([facility] st Contact Info) Description 11/19/2016 Refill [facility] [address] [place] [address] Ayleen Lemus [address] [place], [place] [id number] Social History Tobacco Use Types Packs/Day Years [...] hypertension documented in this encounter Care Teams Client Architect Relationship Specialty Start Date End Date Ayleen Lemus [address] [place], [place] [id number] PCP - General 05/05/09 documented as of this encounter
--- NOTE | 2025-10-23 16:20 | ECG_ITS ---
[facility]: 2025-10[facility]23 Pat Name: Celsa Ruiz Department: Room: 111 Gender: Female Quality Improvement Coordinator: : 1960 Requested By: Bell Urias Order Number: [id number] Reading MD: FABIOLA ANDINO Measurements Intervals Drums Rate: 82 P: 60 MO: 164 QRS: 15 QRSD: 90 T: 64 QT: 406 QTc: 474 Interpretive Statements SINUS RHYTHM NONSPECIFIC ST & T-WAVE ABNORMALITY Compared to ECG 10/23/2025 12:06:22 No significant changes Electronically Signed On 10-24-2025 23:20:27 CUTTER MACHINE by FABIOLA ANDINO [id number]
--- NOTE | 2025-10-23 16:51 | PM.HP ---
Providers/Chief Complaint Admitting Physician: Kwabena Woods MD Primary Care Provider: Deric Ramirez MD Chief Complaint: Shortness of breath History of Present Illness Celsa Ruiz is a 64 year old female with PMH of HTN, PAF, CVA, prior GIB, Who presented with acute onset of chest pain. Reports waking up around 7 AM not feeling entirely well. She got out of bed to use the restroom at which time she experienced an episode of pressure-like left-sided and epigastric chest discomfort with associated diaphoresis, nausea, multiple episodes of vomiting, and severe dyspnea. Pain did not radiate to the extremities, neck or jaw. At this time she notes to have experienced a syncopal event with brief loss of consciousness. The patient was able to contact her who summoned EMS. Chest pain persisted until patient received a dose of nitro in the ED. ED course and workup reviewed EKG #1: SR, non-ischemic EKG #2: SR, non-ischemic EKG #3: SR, non-ischemic Labs, 10/23/25 1023 Hemogram WBC 10.51 RBC 3.79 PLT 189 HGB 12.3 HCT 36.9 Coags PT 15.20 INR 1.12 D-Dimer 0.35 Chemistry Na 140 K 4.3 Cl 101 Ca 9.9 Glu 141 CO2 27 AG 16 BUN 17 Cr 1.1 eGFR 50 AST 22 ALT 20 ALP 140 T.Bili 0.4 Cardiac Trop 43 -> 69.93 (delta 26.93) CXR without acute cardiopulmonary pathology In ED received 1205 0.4 mg SL nitroglycerin 1205 Aspirin 324 mg 1205 Lovenox 80 mg Review of Systems General: Reports: 10 or more systems reviewed and unremarkable except in HPI and below Medications/Allergies Home Medications ?Medication ?Instructions ?Recorded ?Confirmed ?Last Taken ?Type hydroxyzine pamoate 25 mg capsule 25 mg PO BEDTIME PRN Anxiety 04/02/25 10/23/25 04/08/25 History mirtazapine 30 mg tablet 60 mg PO BEDTIME 04/02/25 10/23/25 10/22/25 History venlafaxine 150 mg tablet,extended 300 mg PO BEDTIME 04/02/25 10/23/25 10/22/25 History release 24 hr apixaban 5 mg tablet (Eliquis) 5 mg PO BID@0900,2100 #60 tabs 04/14/25 10/23/25 10/22/25 Rx carvedilol 6.25 mg tablet 6.25 mg PO BID #60 tabs 04/14/25 10/23/25 10/22/25 Rx folic acid 1 mg tablet 1 mg PO DAILY #30 tabs 04/14/25 10/23/25 10/22/25 Rx furosemide 20 mg tablet 20 mg PO DAILY #30 tabs 04/14/25 10/23/25 10/22/25 Rx amiodarone 200 mg tablet (Pacerone) 200 mg PO DAILY 06/14/25 10/23/25 10/22/25 History atorvastatin 80 mg tablet 80 mg PO BEDTIME 06/14/25 10/23/25 10/22/25 History losartan 50 mg tablet 25 mg PO DAILY 08/01/25 10/23/25 10/22/25 History potassium chloride 20 mEq 20 meq PO DAILY 08/01/25 10/23/25 10/22/25 History tablet,extended release(part/cryst) (Klor-Con M) pantoprazole 40 mg tablet,delayed 40 mg PO DAILY #90 tabs 10/18/25 10/23/25 10/23/25 Rx release Allergies Allergy/AdvReac Type Severity Reaction Status Date / Time lisinopril Allergy ALGY-Difficulty Verified 07/29/25 14:17 Breathing PFSH Acute PFSH: Medical History (Updated 10/23/25 @ 20:23 by Levy Mcdowell NP) CVA (cerebral vascular accident) Primary hypertension History of anemia Depression Alcohol use Atrial fibrillation, new onset Surgical History Hx of tonsillectomy History of ankle surgery Left History of lumbar surgery Clean up ruptured disc H/O total hysterectomy H/O lumpectomy Family History Other Arrhythmia Atrial fibrillation Denies family history of Aneurysm Social History Smoking and tobacco/nicotine status: former use of tobacco/nicotine Quit status (tobacco/nicotine): has quit using Year quit tobacco: 2024 Former quit date comment: 2 pack per day - started at age 20 Alcohol intake: current Alcohol intake frequency: 0-2 Drinks per Day Substance/Drug Use: never Adopted: No Caregiver/support person: Yes Lives independently: Yes Household members: spouse Housing: House Marital status: Vitals/I&O/Wt Last Vital Signs Temp 97.8 F 10/23/25 10:15 Pulse 87 10/23/25 15:39 Resp 15 10/23/25 15:30 BP 155/108 10/23/25 15:39 Pulse Ox 96 10/23/25 15:39 O2 Del Method Room Air 10/23/25 12:58 Weight last 48 hrs Weight 82.1 kg Physical Exam Narrative: Constitutional NAD. Neurologic Awake and alert. Oriented x3. No facial asymmetry, unilateral weakness or speech deficits. Head Normocephalic. Atraumatic. Eyes PERRLA. EOMI. Sclera anicteric. Ears, Nose, Throat Normal external ears. Hearing intact to normal voice. Normal external nose. No epistaxis. Dry MM Respiratory Diminished No dyspnea at rest or with conversation. No accessory muscle use. On room air. Heart / Cardiovascular Regular No murmur Denies chest pain at time of evaluation Chest pain not reproducible. Extremities No edema bilaterally Distal pulses 2+ and symmetric. No cyanosis. Left foot with diminished sensation (chronic) Abdomen / Gastrointestinal Soft. Non-tender. Non-distended. + BS. Genitourinary No suprapubic or CVA tenderness No blake catheter Musculoskeletal No gross deformities, asymmetry, swelling or muscle atrophy on observation Skin / Integumentary No rashes, lesions, petechiae / ecchymosis, ulcerations or open wounds. Data 10/23/25 10:23 10/23/25 10:23 Other Labs: I have personally reviewed below listed labs that were done in ED on presentation. Hemogram WBC 10.51 RBC 3.79 PLT 189 HGB 12.3 HCT 36.9 Coags PT 15.20 INR 1.12 D-Dimer 0.35 Chemistry Na 140 K 4.3 Cl 101 Ca 9.9 Glu 141 CO2 27 AG 16 BUN 17 Cr 1.1 eGFR 50 AST 22 ALT 20 ALP 140 T.Bili 0.4 Cardiac Trop 43 -> 69.93 (delta 26.93) CXR: Radiologist's impression: Exam: XR Chest Exam date and time: 10/23/2025 10:20 AM Age: 64 years old Clinical indication: Shortness of breath COMPARISON: XR chest 1V portable 04/12/2025 10:13 AM FINDINGS: Tubes, catheters and devices: Interval removal of the patient's previously seen left-sided PICC line. Lungs: Unremarkable. No consolidation. Pleural spaces: Unremarkable. No pleural effusion. No pneumothorax. Heart/Mediastinum: Unremarkable. No cardiomegaly. Bones/joints: Unremarkable. Other findings: Fairly extensive artifact from the patient's clothing. IMPRESSION: 1. Interval removal of left-sided PICC line. 2. No acute cardiopulmonary pathology. A&P Assessment and plan 1. Acute chest pain: 2. Non-ST elevation NM (NSTEMI): Plan: # Acute chest pain # NSTEMI 43 -> 69 (delta 26.9) -> pending EKG non-ischemic Pain responded to dose of nitro with full resolution In ED received ASA 324 mg and lovenox 80 mg SQ (x1 dose) - Continuous cardiac monitoring: - Trend troponin - Risk stratify: A1c, FLP, TSH - NPO at midnight - Cardiology was consulted in ED Plan for laboratory monitor in AM # PAF Currently in sinus rhythm - SHOWER ROOM ATTENDANT on amiodarone 200 mg dily, continue - SHOWER ROOM ATTENDANT on eliquis 5 mg BID. HOLD, resume tomorrow (10/24) after cardiac cath. # Primary HTN Did not take home BP meds today. BP elevated - Trend - Resume home antihypertensives Carvedilol 6.25 mg BID Losartan 25 mg QD # Dyslipidemia - FLP in am - SHOWER ROOM ATTENDANT on statin, resume VTE PPx: SCDs, received dose of lovenox PDMP PDMP Reviewed: Not Reviewed Attestations Medical Necessity Statement*: Admitted under inpatient status. Given complexity of patient's presentation, co-morbid conditions, and required intensity of treatment, a hospitalization exceeding two midnights is anticipated. Coding Level of Care Code 27410 Diagnoses Acute chest pain R07.9 Non-ST elevation NM (NSTEMI) I21.4
[2025-10-23 17:43] LABS: Troponin 5 6HR 94.93 ng/L (0-10)
[2025-10-23 17:46] LABS: Troponin 5 6HR Delta 51.93 ng/L (0-12)
[2025-10-23] MEDS: LOSARTAN 25 MG TABLET PO (18:00)
--- NOTE | 2025-10-23 19:02 | PM.CONSULT ---
Providers/Reason For Consult Consulting Physician/Specialty*: Scott Pa MD/ Cardiology Reason for Consult*: NSTEMI Requesting Physician: Dr Urias Attending Physician: Levy Mcdowell NP Primary Care Provider: Deric Ramirez MD History of Present Illness History of Present Illness Celsa Ruiz is a 64 year old female with past medical history of atrial fibrillation on Eliquis, was presented to the hospital with shortness of breath and chest pain. Has been having symptoms since morning. After having nitro, symptoms have improved. Currently no significant chest pain. EKG shows nonspecific ST-T wave changes. Initial troponin was 43 that has trended up to 69 at 1 hour check. Review of Systems Card: Reports: chest pain Medications/Allergies Home Medications ?Medication ?Instructions ?Recorded ?Confirmed ?Last Taken ?Type hydroxyzine pamoate 25 mg capsule 25 mg PO BEDTIME PRN Anxiety 04/02/25 10/23/25 04/08/25 History mirtazapine 30 mg tablet 60 mg PO BEDTIME 04/02/25 10/23/25 10/22/25 History venlafaxine 150 mg tablet,extended 300 mg PO BEDTIME 04/02/25 10/23/25 10/22/25 History release 24 hr apixaban 5 mg tablet (Eliquis) 5 mg PO BID@0900,2100 #60 tabs 04/14/25 10/23/25 10/22/25 Rx carvedilol 6.25 mg tablet 6.25 mg PO BID #60 tabs 04/14/25 10/23/25 10/22/25 Rx folic acid 1 mg tablet 1 mg PO DAILY #30 tabs 04/14/25 10/23/25 10/22/25 Rx furosemide 20 mg tablet 20 mg PO DAILY #30 tabs 04/14/25 10/23/25 10/22/25 Rx amiodarone 200 mg tablet (Pacerone) 200 mg PO DAILY 06/14/25 10/23/25 10/22/25 History atorvastatin 80 mg tablet 80 mg PO BEDTIME 06/14/25 10/23/25 10/22/25 History losartan 50 mg tablet 25 mg PO DAILY 08/01/25 10/23/25 10/22/25 History potassium chloride 20 mEq 20 meq PO DAILY 08/01/25 10/23/25 10/22/25 History tablet,extended release(part/cryst) (Klor-Con M) pantoprazole 40 mg tablet,delayed 40 mg PO DAILY #90 tabs 10/18/25 10/23/25 10/23/25 Rx release Allergies Allergy/AdvReac Type Severity Reaction Status Date / Time lisinopril Allergy ALGY-Difficulty Verified 07/29/25 14:17 Breathing Current Medications Generic Name Dose Route Start Last Admin Trade Name Freq PRN Reason Stop Dose Admin Carvedilol 6.25 mg 10/23/25 17:30 10/23/25 18:00 Carvedilol 6.25 Mg Tablet PO 6.25 mg BID EB Administration Losartan Potassium 25 mg 10/23/25 17:30 10/23/25 18:00 Losartan 25 Mg Tablet PO 25 mg DAILY EB Administration Nitroglycerin 0.4 mg 10/23/25 12:05 10/23/25 12:32 Nitroglycerin 0.4 Mg Sublingual Tablet SUBLINGUAL 0.4 mg Q5M PRN Administration CHEST PAIN Pantoprazole Sodium 40 mg 10/23/25 17:30 10/23/25 18:[address] 40 Mg Tablet PO 40 mg DAILY EB Administration PFSH Acute PFSH: Medical History CVA (cerebral vascular accident) Primary hypertension History of anemia Depression Alcohol use Atrial fibrillation, new onset Surgical History Hx of tonsillectomy History of ankle surgery Left History of lumbar surgery Clean up ruptured disc H/O total hysterectomy H/O lumpectomy Family History Other Arrhythmia Atrial fibrillation Denies family history of Aneurysm Social History Smoking and tobacco/nicotine status: former use of tobacco/nicotine Quit status (tobacco/nicotine): has quit using Year quit tobacco: 2024 Former quit date comment: 2 pack per day - started at age 20 Alcohol intake: current Alcohol intake frequency: 0-2 Drinks per Day Substance/Drug Use: never Adopted: No Caregiver/support person: Yes Lives independently: Yes Household members: spouse Housing: House Marital status: Vitals/I&O/Wt Last Vital Signs Temp 97.8 F 10/23/25 10:15 Pulse 87 10/23/25 15:39 Resp 15 10/23/25 15:30 BP 155/108 10/23/25 15:39 Pulse Ox 96 10/23/25 15:39 O2 Del Method Room Air 10/23/25 12:58 Weight last 48 hrs Weight 181 lb Weight 181 lb Physical Exam Narrative: GENERAL: Patient is alert, awake and oriented x3. [] NECK: No jugular vein distension. [] HEENT: No cyanosis. No icterus. No pallor. [] HEART: Regular S1 and S2. No murmur, rub or gallop. [] LUNGS: Clear to auscultate bilaterally. [] CENTRAL NERVOUS SYSTEM: Grossly nonfocal. [] EXTREMITIES: Lower extremities with 1+ edema bilaterally. Data 10/23/25 10:23 10/23/25 10:23 A&P Assessment and plan 1. Non-ST elevation CT (NSTEMI): 2. PAF (paroxysmal atrial fibrillation): 3. Primary hypertension: 4. CKD (chronic kidney disease): 5. History of CVA in adulthood: Plan: Patient has presented with non-ST elevation CT. We will proceed with coronary angiogram with possible PCI tomorrow. N.p.o. after midnight. Continue aspirin. Continue anticoagulation with Lovenox. Keep holding Eliquis. Will resume after the angiogram. Order echocardiogram Thank you for involving us with care of this patient. We will continue to follow. Please call with questions. PDMP PDMP Reviewed: Not Reviewed Consult Attestations Medical Necessity Statement: Care expected to cross 2 midnights. Coding Level of Care Code Acute Code for [facility] Fwd Diagnoses Non-ST elevation CT (NSTEMI) I21.4 PAF (paroxysmal atrial fibrillation) I48.0 Primary hypertension I10 CKD (chronic kidney disease) N18.9 History of CVA in adulthood Z86.73
[2025-10-23] MEDS: venlafaxine ER (24HR) 150 mg Capsule 300 MG PO (23:31)
[2025-10-24] VITALS (64 sets, daily range): BP systolic 126–193; BP diastolic 83–135; PULSE 70–137; RESP 15–30; TEMP 36.4–36.6; O2SAT 95–99
--- NOTE | 2025-10-24 03:35 | PC.NURSE ---
Given orders to restart home doses of Mirtazapine and Venlafaxine.
--- NOTE | 2025-10-24 07:31 | PC.NURSE ---
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 spouse is present.
--- NOTE | 2025-10-24 07:40 | W.PM.OPSUD ---
Surgery/Procedure H&P Update DATE OF PROCEDURE: October 24, 2025 DATE H&P PERFORMED: 10/23/25 H&P UPDATE INFORMATION: I have reviewed H&P completed within last 30 days, I have examined patient prior to procedure and No changes to prior documentation PREOP DIAGNOSIS: NSTEMI PRIMARY INDICATION FOR PROCEDURE: NSTEMI PLANNED PROCEDURE: Operation Date: 10/24/25 07:30 Proposed Procedures p Cardiac Catheterization(Left) - Scott Pa M.D Possible percutaneous coronary intervention PATIENT REASSESSED PRIOR TO SEDATION, WITH NO CHANGE NOTED: Yes PHYSICAL EXAM: alert, oriented x 3, clear to auscultation bilaterally and regular rate & rhythm AIRWAY EVAL/ANESTHESIA PLAN: normal airway, ASA III, Local Anesthesia, Risks, benefits & alternatives of sedation and/or procedure discussed and Patient agrees to continue as planned ADDITIONAL INFORMATION: Moderate sedation
--- NOTE | 2025-10-24 08:45 | PM.PROC ---
Procedure Note: Date of procedure: 10/24/25 Pre-procedure diagnosis: NSTEMI Post-procedure diagnosis: other (Severe proximal LAD and OM 1 stenosis. S/p PCI) Procedure: Severe proximal LAD stenosis s/p PCI with 1 stent. Severe proximal and distal large OM 1 stenosis s/p PCI with 2 stents. Dual antiplatelet therapy with aspirin and plavix. Tonight we will resume eliquis. High intensity statin therapy Performing Provider: Scott Pa Estimated blood loss (mL): 10 Complications: None Condition: stable Disposition: floor Coding Level of Care Code Acute Code for [facility]
--- NOTE | 2025-10-24 09:22 | PC.NURSE ---
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 Patient developed small hematoma proximal to TR band. EMILY Flores applied manual pressure resolving hematoma however 2nd TR band placed for reinforcement. Instructed patient on site care with restrictions. Patient and spouse both verbalized complete understanding. Patient denies pain or needs. No distress observed.
--- NOTE | 2025-10-24 09:40 | USCV_ITS ---
Celsa Ruiz Age: 64 Gender: F : 1960 Exam Date: 10/24/2025 12:32 Ordering Phys: Scott Pa M.D ([email or web address]) Technologist: João Echols Exam Location: [facility] Indication: nstemi BP: 164 / 104 HR: 85 Rhythm: Sinus Technical Quality: Adequate MEASUREMENTS (Male / Female) Normal Values 2D ECHO LV Diastolic Diameter PLAX 4.7 cm 4.2 - 5.9 / 3.9 - 5.3 cm IVS Diastolic Thickness 0.8 cm 0.6 - 1.0 / 0.6 - 0.9 cm IVS Systolic Thickness 1.1 cm LVPW Diastolic Thickness 0.9 cm 0.6 - 1.0 / 0.6 - 0.9 cm LVPW Systolic Thickness 1.6 cm LVOT Diameter 2.0 cm LV Ejection Fraction 2D Teich 73.6 % LV Ejection Fraction MOD 4C 65.1 % LV Ejection Fraction MOD 2C 64.6 % LV Ejection Fraction 2C AL 64.7 % LA Diameter 3.7 cm RA Systolic Volume 4C AL 34.9 ml RA Systolic Volume 4C MOD 36.0 ml LA Sys Volume AL 39.1 cm cubed LA Sys Volume Index AL 19.5 cm cubed/m squared Aorta at Sinotubular Diameter 2.0 cm IVC Diameter 1.7 cm M-MODE LA Ao Ratio MM 1.5 AV Cusp Separation MM 1.3 cm DOPPLER AV Peak Velocity 167.0 cm/s LVOT Peak Velocity 113.0 cm/s AV Area Cont Eq vti 1.6 cm squared AV Area Cont Eq pk 2.2 cm squared MV Peak Velocity 113.0 cm/s MV Area PHT 4.8 cm squared Mitral E to A Ratio 0.8 TR Peak Velocity 236.0 cm/s TR Peak Gradient 22.3 mmHg TR Mean Velocity 184.0 cm/s TR Mean Gradient 14.5 mmHg TR Velocity Time Integral 59.6 cm RV Ejection Time 0.2 s FINDINGS Left Ventricle Normal left ventricular size, systolic function and wall thickness, with no regional wall motion abnormalities. Left ventricular ejection fraction is estimated at 60 %. Grade I/IV diastolic dysfunction (abnormal relaxation filling pattern), normal to mildly elevated filling pressures. Right Ventricle Normal right ventricular size and systolic function. Right Atrium Normal right atrial size. Left Atrium Normal left atrial size. IA Septum Normal appearance of the interatrial septum. Mitral Valve Normal mitral valve structure. No mitral valve stenosis or regurgitation. Aortic Valve Moderate aortic valve calcification. No aortic valve stenosis. Trace aortic valve regurgitation. Tricuspid Valve Normal tricuspid valve structure. No tricuspid valve stenosis or regurgitation. Normal pulmonary pressure. Pulmonic Valve Normal pulmonic valve structure. No pulmonic valve stenosis or regurgitation. Pericardium No pericardial effusion. Aorta Normal diameter of the aortic root and ascending thoracic aorta. IVC Normal IVC diameter. CONCLUSIONS Normal left ventricular size, systolic function and wall thickness, with no regional wall motion abnormalities. Left ventricular ejection fraction is estimated at 60 %. Grade I/IV diastolic dysfunction (abnormal relaxation filling pattern), normal to mildly elevated filling pressures. No significant valvular abnormalities. There is no pericardial effusion. Right atrial pressure is around 5 mm of mercury. Duyen Fuentes MD (Electronically Signed) Final Date: 24 October 2025 23:49 S
--- NOTE | 2025-10-24 09:47 | PC.NURSE ---
Informed CARLIE Lockett of patient's elevated pressures post cath. Levy into see patient.
--- NOTE | 2025-10-24 09:49 | P.PN_ITS ---
Subjective 2 Subjective: Patient presented with acute onset of chest pain on 10/23/2025. She had uneventful course of events overnight. This morning she was taken to the Therapeutic [facility] where she was found to have severe proximal LAD and OM1 stenosis. Subsequently, underwent PCI and stenting x3 (LAD x1, OM x2). 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 Home anti-anxiety meds resumed. Vitals/I&O/Wt Last Vital Signs Temp 97.8 F 10/24/25 04:00 Pulse 80 10/24/25 09:45 Resp 25 H 10/24/25 09:45 BP 193/117 10/24/25 09:45 Pulse Ox 99 10/24/25 09:00 O2 Del Method Room Air 10/24/25 09:15 10/23/25 10/24/25 10/24/25 22:59 06:59 14:59 Intake Total 240 / 240 Balance 240 / 240 Weight last 48 hrs Weight 82.1 kg Weight 82.1 kg Data 10/23/25 10:23 10/23/25 10:23 A&P Assessment and plan 1. Non-ST elevation [place] (NSTEMI): 2. PAF (paroxysmal atrial fibrillation): 3. Primary hypertension: 4. CKD (chronic kidney disease): 5. History of CVA in adulthood: Plan: # NSTEMI # Acute chest pain 10/24 cardiac cath showed severe proximal LAD and OM 1 stenosis, s/p PCI - Cardiology following - Tele monitoring - ASA 81 / Plavix - Atorvastatin 80 mg daily - Echo ordered by cardiology # PAF Currently in sinus rhythm - NURSE PRACTITIONER PHYSICIANS ASSISTANT on amiodarone 200 mg dily, continue - NURSE PRACTITIONER PHYSICIANS ASSISTANT on eliquis 5 mg BID, resume on the evening of 10/24/25 # Primary HTN - BP elevated, continue to monitor - Cardiology adjusted BP meds (new doses) Carvedilol 12.5 mg BID Losartan 50 mg QD # Generalized anxiety / Depression - Continue current psychotropic meds Venlafaxine 300 mg at bedtime Mirtazapine 60 mg at bedtime Alprazolam 0.25 mg TID prn # Hx of CVA VTE PPx: SCDs, apixaban resumed PDMP PDMP Reviewed: Not Reviewed Attestations 2 Medical Necessity Statement*: Care expected to cross 2 midnights. Coding Level of Care Code 67787 Diagnoses Non-ST elevation [place] (NSTEMI) I21.4 PAF (paroxysmal atrial fibrillation) I48.0 Primary hypertension I10 CKD (chronic kidney disease) N18.9 History of CVA in adulthood Z86.73
--- NOTE | 2025-10-24 09:54 | P.PN_ITS ---
Subjective 2 Subjective: Patient denies chest pain. had PCI of proximal LAD with 1 stent and of OM 1 with 2 stents. Vitals/I&O/Wt Last Vital Signs Temp 97.8 F 10/24/25 04:00 Pulse 80 10/24/25 09:45 Resp 25 H 10/24/25 09:45 BP 193/117 10/24/25 09:45 Pulse Ox 99 10/24/25 09:00 O2 Del Method Room Air 10/24/25 09:15 10/23/25 10/24/25 10/24/25 22:59 06:59 14:59 Intake Total 240 / 240 Balance 240 / 240 Weight last 48 hrs Weight 181 lb Weight 181 lb Physical Exam 2 Narrative: GENERAL: Patient is alert, awake and oriented x3. [] NECK: No jugular vein distension. [] HEENT: No cyanosis. No icterus. No pallor. [] HEART: Regular S1 and S2. No murmur, rub or gallop. [] LUNGS: Clear to auscultate bilaterally. [] CENTRAL NERVOUS SYSTEM: Grossly nonfocal. [] EXTREMITIES: Lower extremities with 1+ edema bilaterally. Data 10/23/25 10:23 10/23/25 10:23 A&P Assessment and plan 1. Non-ST elevation [place] (NSTEMI): 2. PAF (paroxysmal atrial fibrillation): 3. Primary hypertension: 4. CKD (chronic kidney disease): 5. History of CVA in adulthood: Plan: Patient had severe proximal LAD stenosis status post PCI with 1 stent. Severe OM1 stenosis status post PCI with 2 stent. Patient loaded with plavix. Start eliquis 5 mg BID tonight Echocardiogram ordered. Thank you for involving us with care of this patient. We will continue to follow. Please call with questions. PDMP PDMP Reviewed: Not Reviewed Attestations 2 Medical Necessity Statement*: Care expected to cross 2 midnights. Coding Level of Care Code Acute Code for [facility] Diagnoses Non-ST elevation [place] (NSTEMI) I21.4 PAF (paroxysmal atrial fibrillation) I48.0 Primary hypertension I10 CKD (chronic kidney disease) N18.9 History of CVA in adulthood Z86.73
--- NOTE | 2025-10-24 10:50 | PC.NURSE ---
Informed Dr Pa of persistent elevated BP. Received telephone order for hydralazine 10mg IVP Q4H for SBP >180 and/or DBP >110. RBVO
[2025-10-24] MEDS: hyDRALAzine 20 mg/mL INJ 1 mL 10 MG IVP (11:14)
--- NOTE | 2025-10-24 13:03 | PC.NURSE ---
Patient is currently brushing her teeth. Inaccurate BP at this time.
--- NOTE | 2025-10-24 14:10 | ECG_ITS ---
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1960 Requested By: Scott Pa Order Number: [id number] Reading MD: FABIOLA ANDINO Measurements Intervals [place] Rate: 128 P: 0 OK: 0 QRS: 23 QRSD: 97 T: 0 QT: 380 QTc: 556 Interpretive Statements ATRIAL FIBRILLATION WITH RAPID VENTRICULAR RESPONSE LOW QRS VOLTAGE IN EXTREMITY LEADS [QRS DEFLECTION < 0.5 mV IN LIMB LEADS] ST DEPRESSION, CONSIDER SUBENDOCARDIAL INJURY [0.1+ mV ST DEPRESSION] Compared to ECG 10/23/2025 16:19:13 Low QRS voltage now present ST (T wave) deviation now present Sinus rhythm no longer present T-wave abnormality no longer present Electronically Signed On 10-24-2025 22:51:34 CHILD NUTRITION ASSISTANT by FABIOLA ANDINO [email or web address]
--- NOTE | 2025-10-24 14:15 | PC.NURSE ---
Delay in removing TR bands from patient due to increased bruising. Patient does take eliquis at home. Last dose taken was 10/24/25. Dr Pa is aware. Patient is currently in afib as well with heart rate 124. EKG confirms afib. Dr Pa aware. Received order to give additional Carvedilol 6.25mg and to start amiodarone per protocol to include a bolus.
[2025-10-24] MEDS: amiodarone 150 MG/100 ML PREMIX 400 MG IV (14:45)
[2025-10-24] MEDS: AMIODARONE HCL/D5W 900 MG/500 ML BAG 33.33 MG IV (14:51)
--- NOTE | 2025-10-24 15:22 | PC.NURSE ---
Patient is afib currently. Dr Pa is aware
--- NOTE | 2025-10-24 15:31 | PC.NURSE ---
Dr Pa into see patient at this time. Received verbal order to give losartan 50mg PO once now and will start losartan 50mg po daily in am.
--- NOTE | 2025-10-24 18:03 | PC.NURSE ---
Removed TR band at this time. Removal delayed due to hematoma formation on arrival from blood bank laboratory technologist (resolved), elevated BP and use of Eliquis as home medication. Patient has bruising to the site. Pulse palpable with warm extremity. Instructed patient on site care and potential complications. Patient verbalized complete understanding. Covered site with 2x2 and coban. Patient denies pain, tingling, numbness to site. BP and heart rate improving. Patient currently on Amiodarone drip as documented.
[2025-10-24] MEDS: venlafaxine ER (24HR) 150 mg Capsule 300 MG PO (20:52)
[2025-10-25] VITALS (28 sets, daily range): BP systolic 113–178; BP diastolic 58–122; PULSE 70–129; RESP 13–27; TEMP 36.4; O2SAT 95
[2025-10-25] MEDS: hyDRALAzine 20 mg/mL INJ 1 mL 10 MG IVP (00:17)
[2025-10-25] MEDS: metoprolol tartrate 1 mg/1 mL SDV 5 mL 5 MG IVP (01:07)
--- NOTE | 2025-10-25 07:10 | XR_ITS ---
WS: [id number] Portable AP upright chest, 10/25/2025 Clinical Data: eval for fluid overload Comparison: Portable chest, 10/23/2025 Findings: No nodules, masses or effusions are seen. The heart is normal. The pulmonary vascularity is not increased. No pneumonia or pneumothorax is seen. Monitor leads are on the chest wall. XR/XR chest 1V portable [id number] Impression: Negative chest.
--- NOTE | 2025-10-25 08:09 | PC.NURSE ---
0037- Patient went back into AF rvr 120-140 with elevated BP. Patient currently on amio gtt at 0.5. Dr. tolentino notified and received orders for metoprolol 5 mg IVP Q5min for 3 doses.
[2025-10-25 08:12] LABS: Anion Gap 15.3 (5-19); Blood Urea Nitrogen 6 mg/dL (8-23); Calcium 9.8 mg/dL (8.5-10.5); Carbon Dioxide 25 mmol/L (22-29); Chloride 101 mmol/L (98-107); Glucose 120 mg/dL (65-115); Magnesium 2.0 mg/dL (1.7-2.3); Osmolality Calculated 285 mOsm/kg (285-295); Potassium 3.3 mmol/L (3.5-5.1); Sodium 138 mmol/L (136-145); Thyroid Stimulating Hormone 3.65 uIU/mL (0.27-4.20)
--- NOTE | 2025-10-25 09:16 | PC.CHAP ---
Pastoral Care Encounter/Spiritual Assessment Type of Contact [] Declined sewer maintenance supervisor visit [] Patient/Family/Request visit [] Outpatient visit [] Follow-up visit [] Physician referral [] Code/Alert [x] Routine visit [] Staff referral [] Actively dying [] Patient sleeping [] Family support [] [] Out of room [] Palliative care [] [] Receiving care in room [] Pre-surgical visit [] Trauma [] Long length of stay [] ICU visit [] Other: Relational/Emotional Strength [] Patient feels connected with others/family/visitors/staff [] Distress [] Loneliness/isolation [] Abandonment Spirituality of Patient [x] Person of Carol [] Attends Religion of their Carol [x] Believes in Prayer [] Reads Bible or Faith materials [] There are Spiritual issues to be addressed Head Of Transport Logistics Interventions [x] Prayer [x] Active listening [] Non-anxious presence [] Spiritual/emotional support [] Crisis/trauma care [] Spiritual counseling [] Bereavement support [] Provided bereavement packet [x] Provided Bible/devotional materials [] Provided toy/stuffed animal, coloring book to patient or family member [] Provided Communion [] Anointing/[place] [] Salvation [x] Completed spiritual assessment [] Other: Impact on Illness or Injury [] Angry [] Fearful [] Anxious [] Often cries [] Exhaustion [] Unable to work [] Unable to attend taoism [] Unable to walk/stand [] Unable to read [] Unable to drive [] Unable to eat/drink [] Unable to sleep [] Unable to be with family [] Patient intubated [] Other: Summary Time spent with patient 5 min
[2025-10-25 09:37] LABS: Hematocrit 34.6 % (36-47); Hemoglobin 11.50 g/dL (11.27-16.99); Mean Corpuscular HGB Conc 33.2 g/dL (30-55); Mean Corpuscular Hemoglobin 32.1 pg (27-33); Mean Corpuscular Volume 96.6 fl (85-98); Nucleated Red Blood Cells % 0 %; Platelet Count 148 10^3/cmm (157-399); Red Blood Count 3.58 10^6/uL (3.85-5.65); White Blood Count 7.05 10^3/uL (3.29-11.43)
--- NOTE | 2025-10-25 11:47 | P.PN_ITS ---
Subjective 2 Subjective: Patient doing well status post stent to the proximal LAD and circumflex OM. Did go into A-fib RVR post angiogram and went into A-fib RVR around midnight last night. Currently rates are controlled. Vitals/I&O/Wt Last Vital Signs Temp 97.6 F 10/25/25 04:04 Pulse 82 10/25/25 06:15 Resp 19 H 10/25/25 06:15 BP 155/98 10/25/25 06:15 Pulse Ox 99 10/24/25 09:00 O2 Del Method Room Air 10/24/25 09:15 10/24/25 10/25/25 10/25/25 22:59 06:59 14:59 Intake Total 974.167 / 1694.167 740 / 740 Output Total 1200 / 1200 Balance 974.167 / 1694.167 -1200 / 494.167 740 / 740 Weight last 48 hrs Weight 182 lb 11.2 oz Weight 181 lb Physical Exam 2 Narrative: General: No apparent distress, healthy appearing, well nourished HENMT: normoceophalic Neck: No carotid bruit bilaterally Respiratory: Normal respiratory effort, clear to auscultation bilaterally throughout all lung pickens, no use of accessory muscles Cardio: No JVD, regular rate, regular rhythm, S1 S2 normal, no murmurs, peripheral pulses 2+ radial palpated bilaterally Extremities: Full ROM, normal, normal capillary refill, no cyanosis or edema Neuro: Alert and oriented x4 Psych: Affect normal Skin: right radial cath site clean, dry, intact w/o s/s of hematoma Data 10/25/25 07:34 10/25/25 07:34 A&P Assessment and plan 1. Primary hypertension: 2. PAF (paroxysmal atrial fibrillation): 3. Acute chest pain: 4. Non-ST elevation [place] (NSTEMI): 5. CAD (coronary artery disease): Plan: Patient's heart rates are currently well controlled. Switch amio drip to home oral dose at amio 200 mg daily. Potassium replaced. Coreg increased to 12.5 mg BID. Continue Eliquis and Plavix and PPI. Patient tolerating this well w/o s/s of bleeding. From cardiology standpoint, may be discharged on above medications with f/u appointment with us in 7-10 days. PDMP PDMP Reviewed: Not Reviewed Attestations 2 Medical Necessity Statement*: Deferred to primary. Coding Level of Care Code Acute Code for [facility] Diagnoses Primary hypertension I10 PAF (paroxysmal atrial fibrillation) I48.0 Acute chest pain R07.9 Non-ST elevation [place] (NSTEMI) I21.4 CAD (coronary artery disease) I25.10
--- NOTE | 2025-10-25 14:43 | PM.DCS ---
Discharge Providers Date of Admission: 10/23/25 12:16 Date of Discharge: October 25, 2025 Attending Provider at Admission: Kwabena Woods MD Attending Provider at Discharge: Matias Khan MD Primary Care Provider: Deric Ramirez MD Diagnoses at Discharge Discharge Diagnosis 1. Primary hypertension: 2. PAF (paroxysmal atrial fibrillation): 3. Acute chest pain: 4. Non-ST elevation DC (NSTEMI): 5. CAD (coronary artery disease): Reason for Visit Reason for Visit: Shortness of breath Brief History: As per the admitting physician and retrospective note review: Celsa Ruiz is a 64 year old female with PMH of HTN, PAF, CVA, prior GIB, Who presented with acute onset of chest pain. Reports waking up around 7 AM not feeling entirely well. She got out of bed to use the restroom at which time she experienced an episode of pressure-like left-sided and epigastric chest discomfort with associated diaphoresis, nausea, multiple episodes of vomiting, and severe dyspnea. Pain did not radiate to the extremities, neck or jaw. At this time she notes to have experienced a syncopal event with brief loss of consciousness. The patient was able to contact her who summoned EMS. Chest pain persisted until patient received a dose of nitro in the ED. ED course and workup reviewed EKG #1: SR, non-ischemic EKG #2: SR, non-ischemic EKG #3: SR, non-ischemic Labs, 10/23/25 1023 HemogramWBC 10.51 RBC 3.79 PLT 189 HGB 12.3 HCT 36.9 CoagsPT 15.20 INR 1.12 D-Dimer 0.35 ChemistryNa 140 K 4.3 Cl 101 Ca 9.9 Glu 141 CO2 27 AG 16 BUN 17 Cr 1.1 eGFR 50 AST 22 ALT 20 ALP 140 T.Bili 0.4 CardiacTrop 43 -> 69.93 (delta 26.93) CXR without acute cardiopulmonary pathology In ED received 1205 0.4 mg SL nitroglycerin 1205 Aspirin 324 mg 1205 Lovenox 80 mg Hospital Course Hospital Course Patient admitted as NSTEMI, underwent coronary angiogram and s/p stenting 3 stents. Overall he improved during her hospital stay. She was started on Plavix after loading dose and continue on Eliquis. Her medication was adjusted as per cardio recommendation and kept under observation as inpatient for further monitoring. He had mild hypokalemia and correction was given. She also had an episode of atrial fibrillation which was without any hemodynamic compromise and continued on amiodarone as per cardiac recommendations. Her hospital course was uncomplicated. Patient was provided with medications that were were reconciled after confirmation and according to patient comorbidities and appropriate follow-ups and referrals were provided at the time of discharge/transfer. patient understanding/establishing the stability of the current condition was considered during discharge/Transfer with all the risk and benefits thoroughly explained. Patient condition has been discussed at length with the patient/family, I have independently reviewed the chart labs imaging/diagnostics/EKG. the goals of care and code status with the patient/family/NOK/legal community service representative, and documented accordingly. The management has been done according to the current clinical condition with respect to patient goals of care and based on recommendations/guidelines. The patient/family has been informed about the current condition and further plan of care. Agreed with the plan of care and understood without any language barrier. Every effort was made to ensure accuracy of soaker helper. Any obvious errors or omissions should be clarified with the author of the document. Physical Exam Narrative: General: Alert and oriented, lying comfortably without any distress HEENT: Normocephalic, atraumatic, grossly unremarkable exam Cardio: normal rate rhythm, normal S1-S2 without any murmurs, rubs, or gallops and JVD normal Respiratory: normal vascular breathing on auscultation without any wheezes, stridor, rhonchi GI: Abdomen soft, nontender, nondistended, normoactive bowel sounds present all 4 quadrants, Neuro: intact cranial nerves motor and sensory and cerebellar/coordination function without any focal neurological deficit Behavior: Appropriate and cooperative Extremities: Adequate palpable pulses, no edema or cyanosis observed Skin: grossly unremarkable exam Discharge Data Studies Completed and Pending Completed Studies During Hospitalization Category Date Time Status CXRP [XR chest 1V portable [id number]] Urgent Exams 10/25/25 07:10 Completed XR chest 1V portable [id number] Stat Exams 10/23/25 10:20 Completed CV. 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 Laboratory Results WBC 7.05 10^3/uL (3.29-11.43) 10/25/25 07:34 RBC 3.58 10^6/uL (3.85-5.65) L 10/25/25 07:34 Hgb 11.50 g/dL (11.27-16.99) 10/25/25 07:34 Hct 34.6 % (36-47) L 10/25/25 07:34 MCV 96.6 fl (85-98) 10/25/25 07:34 MCH 32.1 pg (27-33) 10/25/25 07:34 MCHC 33.2 g/dL (30-55) 10/25/25 07:34 RDW 13.4 % (12.1-15.1) 10/25/25 07:34 Plt Count 148 10^3/cmm (157-399) L 10/25/25 07:34 MPV 11.0 fL (7.4-10.4) H 10/25/25 07:34 Neut % (Auto) 68.6 % 10/25/25 07:34 Lymph % (Auto) 17.3 % 10/25/25 07:34 [place] % (Auto) 12.1 % 10/25/25 07:34 Eos % (Auto) 1.0 % 10/25/25 07:34 Baso % (Auto) 0.6 % 10/25/25 07:34 Neut # (Auto) 4.84 10^3/uL (1.8-7.7) 10/25/25 07:34 Lymph # (Auto) 1.2 10^3/uL (0.8-4.8) 10/25/25 07:34 [place] # (Auto) 0.9 10^3/uL (0.2-0.9) 10/25/25 07:34 Eos # (Auto) 0.1 10^3/uL (0.0-0.8) 10/25/25 07:34 Baso # (Auto) 0.0 10^3/uL (0.0-0.1) 10/25/25 07:34 Nucleated RBC % (auto) 0 % 10/25/25 07:34 Nucleated RBCs # 0.0 /100WBC 10/25/25 07:34 PT 15.20 SECONDS (12.1-14.9) H 10/23/25 10:23 INR 1.12 (0.8-1.2) 10/23/25 10:23 D-Dimer 0.35 ug/mLFEU (0-0.59) 10/23/25 10:23 Sodium 138 mmol/L (136-145) 10/25/25 07:34 Potassium 3.3 mmol/L (3.5-5.1) L 10/25/25 07:34 Chloride 101 mmol/L (98-107) 10/25/25 07:34 Carbon Dioxide 25 mmol/L (22-29) 10/25/25 07:34 Anion Gap 15.3 (5-19) 10/25/25 07:34 BUN 6 mg/dL (8-23) L 10/25/25 07:34 Creatinine 0.8 mg/dL (0.5-0.9) 10/25/25 07:34 GFR Calculation 72.2 mL/min (90-130) L 10/25/25 07:34 Glucose 120 mg/dL (65-115) H 10/25/25 07:34 Calculated Osmolality 285 mOsm/kg (285-295) 10/25/25 07:34 Calcium 9.8 mg/dL (8.5-10.5) 10/25/25 07:34 Magnesium 2.0 mg/dL (1.7-2.3) 10/25/25 07:34 Total Bilirubin 0.4 mg/dL (0.15-1.2) 10/23/25 10:23 AST 22 U/L (0-32) 10/23/25 10:23 ALT 20 U/L (0-33) 10/23/25 10:23 Alkaline Phosphatase 140 U/L (35-105) H 10/23/25 10:23 Creatine Kinase 51 U/L (26-192) 10/23/25 10:23 Troponin T Baseline 43 ng/L (0-10) H 10/23/25 10:23 Troponin T 60 Minute 69.93 ng/L (0-10) H 10/23/25 11:32 Delta Troponin T 26.93 ABS# (0-10) H* 10/23/25 11:32 Troponin T Hi Sens 6Hr 94.93 ng/L (0-10) H 10/23/25 17:06 Troponin T Hi Sens 6Hr Delta 51.93 ng/L (0-12) H* 10/23/25 17:06 Total Protein 6.9 g/dL (6.6-8.7) 10/23/25 10:23 Albumin 4.3 g/dL (3.5-5.2) 10/23/25 10:23 Globulin 2.6 g/dL (1.3-4.6) 10/23/25 10:23 TSH 3.65 uIU/mL (0.27-4.20) 10/25/25 07:34 Vitals Last Vital Signs Temp 97.6 F 10/25/25 04:04 Pulse 70 10/25/25 14:14 Resp 13 10/25/25 14:14 BP 135/92 10/25/25 14:14 Pulse Ox 95 10/25/25 14:14 O2 Del Method Room Air 10/24/25 09:15 Discharge Plan Discharge Patient Disposition: Home Condition: Stable Prescriptions: New clopidogrel 75 mg Tablet 75 mg PO DAILY 60 Days Qty: 90 3RF losartan 50 mg Tablet 50 mg PO DAILY 90 Days Qty: 90 0RF nitroglycerin 0.4 mg Tablet, Sublingual 0.4 mg sublingual Q5M PRN (Reason: Chest Pain) 90 Days Qty: 90 0RF alum-mag hydroxide-simeth [Mag-Al Plus] 200-200-20 mg/5 mL Suspension 30 ml PO Q15M PRN (Reason: Indigestion) 60 Days Qty: 3000 0RF sucralfate [Carafate] 1 gram tablet 1 g PO TID 56 Days Qty: 224 0RF carvedilol [Coreg] 12.5 mg tablet 12.5 mg PO BID Qty: 60 2RF Rx Instructions: must administer with a meal/food Continued Eliquis 5 mg tablet 5 mg PO BID@0900,2100 Qty: 60 6RF furosemide 20 mg tablet 20 mg PO DAILY Qty: 30 6RF folic acid 1 mg tablet 1 mg PO DAILY Qty: 30 6RF potassium chloride [Klor-Con M20] 20 mEq tablet,ER particles/crystals 20 meq PO DAILY pantoprazole 40 mg tablet,delayed release (DR/EC) 40 mg PO DAILY Qty: 90 0RF mirtazapine 30 mg Tablet 60 mg PO BEDTIME hydroxyzine pamoate 25 mg Capsule 25 mg PO BEDTIME PRN (Reason: Anxiety) venlafaxine 150 mg Tablet Extended Release 24hr 300 mg PO BEDTIME atorvastatin 80 mg tablet 80 mg PO BEDTIME amiodarone [Pacerone] 200 mg tablet 200 mg PO DAILY Discontinued carvedilol 6.25 mg tablet 6.25 mg PO BID Qty: 60 6RF losartan 50 mg tablet 25 mg PO DAILY Quality Measurement Specialist OK for DC: Cardiology Discharge Order = DC NOW: Discharge Order (Routine); Ordered 10/25/25 Ordered By: Matias Khan Referrals: Doreen Zhao NP [Nurse Practitioner, Cardiology] - 11/08/25 2:30 pm Deric Ramirez MD [Primary Care Provider, Family Practice] - 11/01/25 11:10 am Discharge Diet: Advance as tolerated, Cardiac, Low Salt and Low Cholesterol Discharge Activity: Resume usual activity Patient Instructions: Nitroglycerin (By mouth), Sucralfate (By mouth) (Carafate), Antacid, Aluminum and Magnesium (By mouth), Losartan (By mouth) (Cozaar, Arbli), Clopidogrel (By mouth) (Plavix), How to Stop Smoking (DC), Cardiac Rehabilitation (DC), Coronary Intravascular Stent Placement (DC), Chest Pain Stoplight, Opioid Safety, Post Angiogram Home Care Instructions, Post Heart Attack Stoplight, Patient Portal & [place] Instructions Discharge Attestations Time Spent in Discharge Care*: greater than 30 min Specific Discharge Activities: educating patient, educating and/or supporting family/caregiver, discussing with pcp/other providers, discussing with lead case manager/social workers/dc planners, documenting/other paperwork and evaluating patient/reviewing data Time Spent in Smoking Cessation: 3 to 10 minutes Status at Discharge: Cognitive status at discharge: cognitively intact, Behavioral status at discharge: cooperative, Functional status at discharge: independent ambulation, Overall status at discharge: patient is progressing back to baseline Quality Metrics Clinical Quality Measures [ No reported AMI, CVA or VTE this stay] Coding Level of Care Code 57161 Diagnoses Primary hypertension I10 PAF (paroxysmal atrial fibrillation) I48.0 Acute chest pain R07.9 Non-ST elevation DC (NSTEMI) I21.4 CAD (coronary artery disease) I25.10
== END 2025-10-25 15:15 | disposition home or self-care (01) | DRG 322 ==
LOC: ER 12:18 → ER IP 14:38 → CSU 15:36
PROVIDERS: Internal Medicine; Nurse Practitioner Family; Nurse Practitioner Gerontology; Admitting Provider Internal Medicine; Emergency Provider Emergency Medicine; PCP Family Medicine; Visit Provider Student in an Organized Health Care Education/Training Program
PROC: 027136Z Dilation of Coronary Artery, Two Arteries with Three Drug-eluting Intraluminal Devices, Percutaneous Approach (ICD-10-PCS; principal; 2025-10-24 07:30)
PROC: 027136Z Dilation of Coronary Artery, Two Arteries with Three Drug-eluting Intraluminal Devices, Percutaneous Approach (ICD-10-PCS; 2025-10-24 07:30)
DX: I21.4 Non-ST elevation (NSTEMI) myocardial infarction (principal); I11.0 Hypertensive heart disease with heart failure; N18.9 Chronic kidney disease, unspecified; I48.0 Paroxysmal atrial fibrillation; I25.10 Atherosclerotic heart disease of native coronary artery without angina pectoris; F32.A Depression, unspecified; F41.1 Generalized anxiety disorder; E78.5 Hyperlipidemia, unspecified; F10.10 Alcohol abuse, uncomplicated; Z79.02 Long term (current) use of antithrombotics/antiplatelets; Z79.01 Long term (current) use of anticoagulants; Z86.73 Personal history of transient ischemic attack (TIA), and cerebral infarction without residual deficits; Z86.16 Personal history of COVID-19; Z87.891 Personal history of nicotine dependence
CPT/HCPCS: 36415; 71045; 80048; 80053; 82550; 83735; 84443; 84484; 85025; 85347; 85378; 85610; 92978; 93005; 93306; 93454; 96372; 96374; 99152; 99153; 99285; A4222; C1725; C1753; C1769; C1874; C1887; C1894; C9600; J0282; J0283; J0360; J1644; J1650; J2250; J3010; J3490; J7030; J9999; Q0163; Q9967